=== PATIENT | male | born 1965 | race Caucasian/White ===

== ENCOUNTER → 2019-01-24 16:45 | Outpatient (CLI) | payer OTHER, MEDICAID, SELFPAY ==
--- NOTE | 2019-01-24 16:49 | DI.US.S_ITS ---
PROCEDURE: US PERIPH VENOUS LOW EXTREM BI INDICATIONS: LOCALIZED SWELLING,MASS AND LUMP,LOWER LIMB LEAH TECHNIQUE: Real-time imaging, as well as color and pulse Doppler interrogation, were performed of the deep veins of both legs from the inguinal ligament to the popliteal fossa. COMPARISON: None. FINDINGS: Right: The common femoral, femoral and popliteal veins are normally compressible, and free of intraluminal thrombus. Color and pulse Doppler demonstrate normal phasic intravascular flow. There is normal augmentation response to distal compression maneuver. Left: The common femoral, femoral and popliteal veins are normally compressible, and free of intraluminal thrombus. Color and pulse Doppler demonstrate normal phasic intravascular flow. There is normal augmentation response to distal compression maneuver. Varicose veins can be seen. Superficial thrombosis can be seen within a superficial vein within the right SI. Additional thrombus can be seen within a superficial vein within the left medial calf. This study is limited by body habitus. IMPRESSION: Negative for deep venous thrombosis. Bilateral superficial venous thrombosis is seen, however. Dictated by: Jordan Perez M.D. on 01/24/2019 at 16:58 Approved by: Jordan Perez M.D. on 01/24/2019 at 16:59
== END ==
PROVIDERS: Visit Provider Family Medicine
DX: I82.813 Embolism and thrombosis of superficial veins of lower extremities, bilateral (principal); R22.43 Localized swelling, mass and lump, lower limb, bilateral; M79.89 Other specified soft tissue disorders
CPT/HCPCS: 36415; 80053; 85025; 85379; 85651; 93970

== ENCOUNTER → 2019-01-24 17:25 | Outpatient (CLI) | payer OTHER, MEDICAID, SELFPAY ==
[2019-01-24 18:28] LABS: D Dimer 551 ng/mL (<230)
[2019-01-24 18:31] LABS: Alanine Aminotransferase 20 IU/L (21-72); Albumin 3.9 g/dL (3.5-5.0); Albumin Globulin Ratio 1.2 (1.0-2.8); Alkaline Phosphatase 135 U/L (38-126); Aspartate Aminotransferase 24 IU/L (17-59); BUN Creatinine Ratio 23.8 (6-22); Bilirubin Total 0.6 mg/dL (0.2-1.3); Blood Urea Nitrogen 19 mg/dL (9-20); Calcium 9.1 mg/dL (8.4-10.2); Carbon Dioxide 28 mmol/L (22-32); Chloride 107 mmol/L (98-107); Estimated Glomerular Filt Rate > 60.0 mL/min (>60); Globulin 3.2 g/dL (1.7-4.1); Glucose 86 mg/dL (70-100); HEMOLYSIS < 15 (0-50); Potassium 4.3 mmol/L (3.4-5.1); Sodium 141 mmol/L (137-145); Total Protein 7.1 g/dL (6.3-8.2)
[2019-01-24 18:37] LABS: Add Manual Diff / Slide Review NO; Basophils Absolute Auto 100 /uL (0-100); Basophils Percent Auto 1.1 % (0-2); Eosinophils Absolute Auto 500 /uL (0-450); Hematocrit 43.2 % (41-53); Hemoglobin 14.8 g/dL (13.5-17.5); Lymphocytes Absolute Auto 2300 /uL (1100-4500); Lymphocytes Percent Auto 28.6 % (25-40); Mean Corpuscular HGB Conc 34.3 % (30-36); Mean Corpuscular Hemoglobin 32.4 PG (26-34); Mean Corpuscular Volume 94.5 fL (80-100); Monocytes Absolute Auto 700 /uL (0-900); Monocytes Percent Auto 8.6 % (3-14); Neutrophils Absolute Auto 4500 /uL (1500-7000); Neutrophils Percent Auto 55.7 % (50-75); Platelet Count 209 X10^3/uL (150-400); Red Blood Cell Count 4.57 X10^6/uL (4.5-5.9); Red Cell Distribution Width 12.5 % (11.6-14.8); White Blood Cell Count 8.2 X10^3/uL (4.5-11.0)
[2019-01-24 19:15] LABS: Erythrocyte Sedimentation Rate 12 MM/HR (0-15)
== END ==
PROVIDERS: Visit Provider Family Medicine
DX: M79.89 Other specified soft tissue disorders (principal)
CPT/HCPCS: 36415; 80053; 85025; 85379; 85651

== ENCOUNTER → 2019-03-16 07:38 | Outpatient (CLI) | payer OTHER, MEDICAID, SELFPAY ==
--- NOTE | 2019-03-16 | DI.US.S_ITS ---
PROCEDURE: US [facility] VENOUS LOW EXTREM BI INDICATIONS: RECHECKTHROMBOPHLEBITIS, SUPERFICIAL TECHNIQUE: Real-time imaging, as well as color and pulse Doppler interrogation, were performed of the deep veins of both legs from the inguinal ligament to the popliteal fossa. COMPARISON: [facility], , [facility] VENOUS LOW EXTREM , 01/24/2019, 16:59. FINDINGS: The bilateral common femoral, femoral and popliteal veins are normally compressible, and free of intraluminal thrombus. Color and pulse Doppler demonstrate normal phasic intravascular flow. There is normal augmentation response to distal compression maneuver. Varicose veins are evident bilaterally. There is nonocclusive thrombus evident within the medial aspect of the mid right thigh. This is less prominent on the current study. Nonocclusive thrombus is also present within them made in aspect of the medial left calf which is less prominent on the current study. IMPRESSION: 1. No evidence of deep vein thrombosis of the bilateral lower extremities. 2. Superficial thrombophlebitis involving subcutaneous circumstances within the right thigh and left calf are less prominent and nonocclusive on the current study. Dictated by: Lele Ward M.D. on 03/16/2019 at 9:08 Approved by: Lele Ward M.D. on 03/16/2019 at 9:15
== END ==
PROVIDERS: PCP Student in an Organized Health Care Education/Training Program; Visit Provider Student in an Organized Health Care Education/Training Program
DX: I80.03 Phlebitis and thrombophlebitis of superficial vessels of lower extremities, bilateral (principal)
CPT/HCPCS: 93970

== ENCOUNTER → 2019-05-11 07:53 | Outpatient (CLI) | payer OTHER, MEDICAID, SELFPAY ==
--- NOTE | 2019-05-11 | DI.US.S_ITS ---
PROCEDURE: US PERIP VENOUS LOW EXTREM BI INDICATIONS: SUPERFICIAL THROMBUS BILATERAL TECHNIQUE: Real-time imaging, as well as color and pulse Doppler interrogation, were performed of the deep veins of both legs from the inguinal ligament to the popliteal fossa. COMPARISON: [facility], , [facility] VENOUS LOW EXTREM BI, 03/16/2019, 8:08. FINDINGS: Right: The common femoral, femoral and popliteal veins are normally compressible, and free of intraluminal thrombus. Color and pulse Doppler demonstrate normal phasic intravascular flow. There is normal augmentation response to distal compression maneuver. Superficial thrombophlebitis again visualized within the right lower anterior thigh appearing similar to prior examination. Left: The common femoral, femoral and popliteal veins are normally compressible, and free of intraluminal thrombus. Color and pulse Doppler demonstrate normal phasic intravascular flow. There is normal augmentation response to distal compression maneuver. Superficial thrombophlebitis again visualized within the left medial calf similar to prior examination. IMPRESSION: 1. No deep venous thrombosis identified within either the left or right lower extremities. 2. Bilateral superficial thrombophlebitis similar to prior examination. Dictated by: Jairo Hector [facility] Interpreted: Eusebio La MD on 05/11/2019 at 13:17 Approved by: Eusebio La M.D. on 05/11/2019 at 17:07
== END ==
PROVIDERS: PCP Student in an Organized Health Care Education/Training Program; Visit Provider Student in an Organized Health Care Education/Training Program
DX: I82.813 Embolism and thrombosis of superficial veins of lower extremities, bilateral (principal)
CPT/HCPCS: 85610; 93970

== ENCOUNTER → 2019-08-01 11:38 | Outpatient (CLI) | payer OTHER, MEDICAID, SELFPAY ==
--- NOTE | 2019-08-01 | DI.US.S_ITS ---
PROCEDURE: US PERIP VENOUS LOW EXTREM BI INDICATIONS: RECHECK DVT TECHNIQUE: Real-time imaging, as well as color and pulse Doppler interrogation, were performed of the deep veins of both legs from the inguinal ligament to the popliteal fossa. COMPARISON: [facility], , [facility] VENOUS LOW EXTREM BI, 05/11/2019, 8:34. FINDINGS: Right: The common femoral, femoral and popliteal veins are normally compressible, and free of intraluminal thrombus. Color and pulse Doppler demonstrate normal phasic intravascular flow. There is normal augmentation response to distal compression maneuver. Superficial thrombophlebitis noted noted within the posterior right thigh soft tissues. Left: The common femoral, femoral and popliteal veins are normally compressible, and free of intraluminal thrombus. Color and pulse Doppler demonstrate normal phasic intravascular flow. There is normal augmentation response to distal compression maneuver. Minimal residual thrombus within the greater saphenous vein which is nonocclusive. IMPRESSION: 1. No deep venous thrombosis identified within either the left or right lower extremities. 2. Residual nonocclusive thrombus within the left greater saphenous vein. 3. Superficial thrombophlebitis involving the right posterior thigh. Dictated by: Jairo Hector [facility] Interpreted: Gris Jacques MD on 08/01/2019 at 14:20 Approved by: Gris Jacques MD, PhD on 08/01/2019 at 14:27
== END ==
PROVIDERS: PCP Student in an Organized Health Care Education/Training Program; Referring Provider Student in an Organized Health Care Education/Training Program; Visit Provider Student in an Organized Health Care Education/Training Program
DX: I82.812 Embolism and thrombosis of superficial veins of left lower extremity (principal)
CPT/HCPCS: 93970

== ENCOUNTER → 2019-08-02 13:29 | Outpatient (ROUT) | payer OTHER, MEDICAID, SELFPAY | PROVIDERS: PCP Student in an Organized Health Care Education/Training Program; Visit Provider Student in an Organized Health Care Education/Training Program | DX: I80.00 Phlebitis and thrombophlebitis of superficial vessels of unspecified lower extremity (principal) | CPT/HCPCS: 85610 ==

== ENCOUNTER → 2019-09-12 12:56 | Outpatient (ROUT) | payer OTHER, MEDICAID, SELFPAY ==
[2019-09-12 13:56] LABS: Prothrombin Time 12.1 SECONDS (10.1-12.7)
== END ==
PROVIDERS: PCP Student in an Organized Health Care Education/Training Program; Visit Provider Student in an Organized Health Care Education/Training Program
DX: D68.51 Activated protein C resistance (principal)
CPT/HCPCS: 85610

== ENCOUNTER → 2019-09-23 11:34 | Outpatient (ROUT) | payer OTHER, MEDICAID, SELFPAY ==
[2019-09-23 11:42] LABS: Prothrombin Time 11.5 SECONDS (10.1-12.7)
== END ==
PROVIDERS: PCP Student in an Organized Health Care Education/Training Program; Visit Provider Student in an Organized Health Care Education/Training Program
DX: D68.51 Activated protein C resistance (principal)
CPT/HCPCS: 85610

== ENCOUNTER → 2019-09-26 10:27 | Outpatient (ROUT) | payer OTHER, MEDICAID, SELFPAY ==
[2019-09-26 11:14] LABS: Prothrombin Time 11.8 SECONDS (10.1-12.7)
== END ==
PROVIDERS: PCP Student in an Organized Health Care Education/Training Program; Visit Provider Student in an Organized Health Care Education/Training Program
DX: D68.51 Activated protein C resistance (principal)
CPT/HCPCS: 85610

== ENCOUNTER → 2019-10-03 11:04 | Outpatient (ROUT) | payer OTHER, MEDICAID, SELFPAY | PROVIDERS: PCP Student in an Organized Health Care Education/Training Program; Visit Provider Student in an Organized Health Care Education/Training Program | DX: D68.51 Activated protein C resistance (principal) | CPT/HCPCS: 85610 ==

== ENCOUNTER → 2019-10-10 10:57 | Outpatient (ROUT) | payer OTHER, MEDICAID, SELFPAY ==
[2019-10-10 11:26] LABS: INR 1.2 (0.9-1.3); Prothrombin Time 13.9 SECONDS (10.1-12.7)
== END ==
PROVIDERS: PCP Student in an Organized Health Care Education/Training Program; Visit Provider Student in an Organized Health Care Education/Training Program
DX: D68.51 Activated protein C resistance (principal)
CPT/HCPCS: 85610

== ENCOUNTER 2019-10-10 18:37 | Emergency (ER) | payer OTHER, MEDICAID, SELFPAY ==
[2019-10-10 18:47] VITALS: BP 174/107; PULSE 66; RESP 22; TEMP 36.5; O2SAT 97
--- NOTE | 2019-10-10 19:22 | DI.US.S_ITS ---
PROCEDURE: US PERIP VENOUS LOW EXTREM LT INDICATIONS: PAIN; HX DVT TECHNIQUE: Real-time imaging, as well as color and pulse Doppler interrogation, were performed of the lower extremity deep veins from the inguinal ligament to the popliteal fossa. COMPARISON: [facility], [facility] VENOUS LOW EXTREM BI, 05/11/2019, 8:34. [facility], [facility] VENOUS LOW EXTREM BI, 08/01/2019, 12:36. FINDINGS: The common femoral, femoral and popliteal veins are normally compressible, and free of intraluminal thrombus. Color and pulse Doppler demonstrate normal phasic intraluminal flow. There is normal augmentation response to distal compression maneuver. Superficial thrombophlebitis involving the left medial calf vein. This is seen in the area of pain and grossly unchanged IMPRESSION: No evidence of deep venous thrombosis. Unchanged left calf superficial thrombophlebitis Dictated by: Eusebio La M.D. on 10/10/2019 at 20:34 Approved by: Eusebio La M.D. on 10/10/2019 at 20:35
--- NOTE | 2019-10-10 23:50 | ED_ITS ---
HPI - Extremity Problem General Chief complaint: Extremity Problem,Nontraumatic Stated complaint: Blood clot, pain Time Seen by Provider: 10/10/19 19:22 Source: patient Mode of arrival: Ambulatory Limitations: no limitations History of Present Illness HPI Narrative: 53M former smoker with history of DVT and superficial thrombophlebitis of Left calf (on coumadin) presents with recurrence of pain on left lower leg. He has a known superficial thrombophlebitis in this leg and is currently taking Coumadin and Lovenox. His most recent INR was a bit low at 1.2 and the dose has been altered. He was sent here for evaluation recurrence of pain. He denies any injury nor fever or chills. He denies dizziness, weakness or lightheadedness. He denies any chest pain or shortness of breath. He denies any numbness, tingling. He states he has had multiple occurrences of cellulitis in the past and very certainly states this is not what is causing his pain. He is here because his primary sent him for a repeat ultrasound for clot MD Complaint: extremity pain Onset (ago): day(s) Pain Consistency: constant Location: left Quality: burning and aching Radiation: none Relieving factors: nothing Exacerbating factors: nothing Associated symptoms: denies other symptoms Context: history of DVT Related Data Home Medications Medication Instructions Recorded Confirmed amlodipine [Norvasc] #0 01/28/16 Previous Rx's Medication Instructions Recorded ciprofloxacin HCl [Cipro] 500 mg PO BID #20 tab 01/29/16 Review of Systems Constitutional Constitutional: Denies chills, Denies fatigue, Denies fever(s), Denies frequent falls, Denies lethargy and Denies weakness Eyes Eyes: Denies change in vision, Denies eye discharge, Denies irritation and Denies loss of vision ENT Ears, Nose, Mouth, and Throat: Denies change in voice, Denies dizziness, Denies neck pain, Denies sore throat and Denies throat swelling Cardiovascular Cardiovascular: Denies chest pain, Denies irregular heart rhythm, Denies lightheadedness, Denies palpitations, Denies dyspnea, Denies dyspnea on exertion and Denies orthopnea Respiratory Respiratory: Denies cough, Denies dyspnea, Denies dyspnea on exertion and Denies wheezing Gastrointestinal Gastrointestinal: Denies abdominal pain, Denies change in bowel habits, Denies diarrhea, Denies nausea and Denies vomiting Genitourinary Genitourinary: Denies hematuria, Denies flank pain, Denies urinary incontinence and Denies urinary urgency Musculoskeletal Musculoskeletal: Denies back pain, Denies muscle weakness, Denies neck pain, Denies numbness and Denies tingling Integumentary/Breasts Skin/Breast: Denies pruritus, Reports erythema, Denies rash, Reports skin pain, Reports skin swelling and Denies wounds Neurologic Neurologic: Denies behavioral changes, Denies confusion, Denies dizziness, Denies frequent falls, Denies loss of vision, Denies numbness, Denies tingling and Denies weakness Psychiatric Psychiatric: Denies anxiety, Denies behavioral changes, Denies confusion, Denies depression, Denies homicidal ideation and Denies suicidal ideation Endocrine Endocrine: Denies fatigue, Denies flushing and Denies palpitations Hematologic/Lymphatic Hematologic/Lymphatic: Denies easy bruising Allergic/Immunologic Allergic/Immunologic: Denies urticaria, Denies throat swelling and Denies wheezing Patient History alcohol intake frequency: 0-2 drinks per day Exam Narrative Exam Narrative: GEN: AOx3 and in mild distress EYES: Pupils are equal, round, and reactive to light and accommodation. Extraoccular muscles are intact bilaterally. There is no subconjunctival hemorrhage or exudate. CHEST: Lungs are clear to auscultation bilaterally and free of wheezes, rales, or rhonchi. Heart rate is regular rhythm, there are no murmurs, clicks, rubs, or gallops. There is no chest wall tenderness. ABD: Abdomen is soft and nontender. There is no guarding or rebound. Bowel sounds are normal in all 4 quadrants. There is no mass or organomegaly. EXT: Full painless ROM of all extremities with no loss of sensation or strength. No calf pain or swelling, minimal warmth to a anterior lower left leg SKIN: Warm, pink, and dry. No erythema or rash Initial Vital Signs Initial Vital Signs: Vital Signs Temperature 97.7 F 10/10/19 18:47 Pulse Rate 66 10/10/19 18:47 Respiratory Rate 22 10/10/19 18:47 Blood Pressure 174/107 H 10/10/19 18:47 Pulse Oximetry 97 10/10/19 18:47 Course Orders Ordered: ED Orders 10/10/19 19:22 US periph venous low extrem lt Stat Vital Signs Vital signs: Vital Signs - 8 hr 10/10/19 18:47 Temperature 97.7 F Pulse Rate 66 Respiratory Rate 22 Blood Pressure 174/107 H Pulse Oximetry 97 MDM - Extremity (Nontraumatic) Imaging Data US - DVT: Radiologist's Impression: Sj Tran 53 M [address] [address] Ultrasound Report Signed Patient: Sj Tran GMR#: [id number] : 1965Acct:[id number] Age/Sex: 53 / MDate of Service: 10/10/19 Loc: ED Accession Number: [id number] Procedure: perip venous low extrem lt Ordering Provider: Al Spencer D.O. PROCEDURE: US PERIP VENOUS LOW EXTREM LT INDICATIONS: PAIN; HX DVT TECHNIQUE: Real-time imaging, as well as color and pulse Doppler interrogation, were performed of the lower extremity deep veins from the inguinal ligament to the popliteal fossa. COMPARISON: [facility] VENOUS LOW EXTREM BI, 05/11/2019, 8:34. [facility] PERIP VENOUS LOW EXTREM BI, 08/01/2019, 12:36. FINDINGS: The common femoral, femoral and popliteal veins are normally compressible, and free of intraluminal thrombus. Color and pulse Doppler demonstrate normal phasic intraluminal flow. There is normal augmentation response to distal compression maneuver. Superficial thrombophlebitis involving the left medial calf vein. This is seen in the area of pain and grossly unchanged IMPRESSION: No evidence of deep venous thrombosis. Unchanged left calf superficial thrombophlebitis Dictated by: Eusebio La M.D. on 10/10/2019 at 20:34 Approved by: Eusebio La M.D. 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 We also discussed the possibility of an early cellulitis but patient refused to consider taking antibiotics stating this is not cellulitis he has had it multiple times but if it worsens he states he would surely return. He has been given return precautions and has had questions answered to his apparent satisfaction Discharge Plan Departure Patient Disposition: Home Clinical Impression: Thrombophlebitis Discharge Date/Time: 10/10/19 21:04 Instructions: DI for Superficial Thrombophlebitis Activity Restrictions/Additional Instructions: *You have been diagnosed with [no change in left calf superficial thrombophlebitis] *What to do: * continue to take medications as directed *Follow up with your primary care provider in 2-3 days, call for an appointment. Let them know you were seen in the Emergency Department and that we ask that you be seen in follow up *Return to ER if you should have any new, worsening or concerning symptoms, such as [fever, chills, nausea, vomiting or other bothersome symptoms] Prescriptions: No Action amlodipine [Norvasc] 2.5 mg tablet Qty: 0 RF: 0 ciprofloxacin HCl [Cipro] 500 MG tablet 500 mg PO BID Qty: 20 RF: 0 Referrals: Maranda Alvarenga MD [Primary Care Provider] -
== END 2019-10-10 21:04 | disposition home or self-care (01) ==
PROVIDERS: Emergency Provider Emergency Medicine; PCP Student in an Organized Health Care Education/Training Program
DX: I80.3 Phlebitis and thrombophlebitis of lower extremities, unspecified (principal); Z79.01 Long term (current) use of anticoagulants; D68.51 Activated protein C resistance
CPT/HCPCS: 85610; 93971; 99281; 99283

== ENCOUNTER → 2019-10-17 16:16 | Outpatient (ROUT) | payer OTHER, MEDICAID, SELFPAY ==
[2019-10-17 17:00] LABS: INR 1.4 (0.9-1.3); Prothrombin Time 16.1 SECONDS (10.1-12.7)
== END ==
PROVIDERS: PCP Student in an Organized Health Care Education/Training Program; Visit Provider Student in an Organized Health Care Education/Training Program
DX: D68.51 Activated protein C resistance (principal)
CPT/HCPCS: 85610

== ENCOUNTER → 2019-10-24 12:26 | Outpatient (ROUT) | payer OTHER, MEDICAID, SELFPAY ==
[2019-10-24 12:37] LABS: INR 1.7 (0.9-1.3)
== END ==
PROVIDERS: PCP Student in an Organized Health Care Education/Training Program; Visit Provider Student in an Organized Health Care Education/Training Program
DX: D68.51 Activated protein C resistance (principal)
CPT/HCPCS: 85610

== ENCOUNTER → 2019-10-31 12:21 | Outpatient (ROUT) | payer OTHER, MEDICAID, SELFPAY ==
[2019-10-31 12:57] LABS: INR 2.8 (0.9-1.3); Prothrombin Time 31.8 SECONDS (10.1-12.7)
== END ==
PROVIDERS: PCP Student in an Organized Health Care Education/Training Program; Visit Provider Student in an Organized Health Care Education/Training Program
DX: D68.51 Activated protein C resistance (principal)
CPT/HCPCS: 85610

== ENCOUNTER → 2019-11-07 10:48 | Outpatient (ROUT) | payer OTHER, MEDICAID, SELFPAY ==
[2019-11-07 11:53] LABS: INR 3.4 (0.9-1.3); Prothrombin Time 39.3 SECONDS (10.1-12.7)
== END ==
PROVIDERS: PCP Student in an Organized Health Care Education/Training Program; Visit Provider Student in an Organized Health Care Education/Training Program
DX: D68.51 Activated protein C resistance (principal)
CPT/HCPCS: 85610

== ENCOUNTER → 2019-11-15 12:13 | Outpatient (ROUT) | payer OTHER, MEDICAID, SELFPAY ==
[2019-11-15 12:29] LABS: INR 1.9 (0.9-1.3); Prothrombin Time 22.2 SECONDS (10.1-12.7)
== END ==
PROVIDERS: PCP Student in an Organized Health Care Education/Training Program; Visit Provider Student in an Organized Health Care Education/Training Program
DX: D68.51 Activated protein C resistance (principal)
CPT/HCPCS: 85610

== ENCOUNTER → 2019-11-18 09:44 | Outpatient (ROUT) | payer OTHER, MEDICAID, SELFPAY ==
[2019-11-18 09:51] LABS: INR 2.6 (0.9-1.3); Prothrombin Time 29.7 SECONDS (10.1-12.7)
== END ==
PROVIDERS: PCP Student in an Organized Health Care Education/Training Program; Visit Provider Student in an Organized Health Care Education/Training Program
DX: D68.51 Activated protein C resistance (principal)
CPT/HCPCS: 85610

== ENCOUNTER → 2019-11-22 11:44 | Outpatient (ROUT) | payer OTHER, MEDICAID, SELFPAY ==
[2019-11-22 11:59] LABS: INR 2.9 (0.9-1.3); Prothrombin Time 32.7 SECONDS (10.1-12.7)
== END ==
PROVIDERS: PCP Student in an Organized Health Care Education/Training Program; Visit Provider Student in an Organized Health Care Education/Training Program
DX: D68.51 Activated protein C resistance (principal)
CPT/HCPCS: 85610

== ENCOUNTER → 2019-12-06 12:39 | Outpatient (ROUT) | payer OTHER, MEDICAID, SELFPAY ==
[2019-12-06 13:26] LABS: Prothrombin Time 55.6 SECONDS (10.1-12.7)
[2019-12-06 13:34] LABS: INR 4.9 (0.9-1.3)
== END ==
PROVIDERS: PCP Student in an Organized Health Care Education/Training Program; Visit Provider Student in an Organized Health Care Education/Training Program
DX: D68.51 Activated protein C resistance (principal)
CPT/HCPCS: 85610

== ENCOUNTER → 2019-12-09 10:37 | Outpatient (ROUT) | payer OTHER, MEDICAID, SELFPAY ==
[2019-12-09 10:46] LABS: INR 1.8 (0.9-1.3)
== END ==
PROVIDERS: PCP Student in an Organized Health Care Education/Training Program; Visit Provider Student in an Organized Health Care Education/Training Program
DX: D68.51 Activated protein C resistance (principal)
CPT/HCPCS: 85610

== ENCOUNTER → 2020-01-11 14:56 | Outpatient (ROUT) | payer OTHER, MEDICAID, SELFPAY ==
[2020-01-11 15:03] LABS: Prothrombin Time 34.2 SECONDS (10.1-12.7)
== END ==
PROVIDERS: PCP Student in an Organized Health Care Education/Training Program; Visit Provider Student in an Organized Health Care Education/Training Program
DX: D68.51 Activated protein C resistance (principal)
CPT/HCPCS: 85610

== ENCOUNTER → 2020-02-07 11:12 | Outpatient (ROUT) | payer OTHER, MEDICAID, SELFPAY ==
[2020-02-07 11:29] LABS: INR 2.1 (0.9-1.3); Prothrombin Time 23.8 SECONDS (10.1-12.7)
== END ==
PROVIDERS: PCP Student in an Organized Health Care Education/Training Program; Visit Provider Student in an Organized Health Care Education/Training Program
DX: D68.51 Activated protein C resistance (principal)
CPT/HCPCS: 85610

== ENCOUNTER → 2020-03-01 10:12 | Outpatient (ROUT) | payer OTHER, MEDICAID, SELFPAY ==
[2020-03-01 10:18] LABS: Prothrombin Time 22.5 SECONDS (10.1-12.7)
== END ==
PROVIDERS: PCP Student in an Organized Health Care Education/Training Program; Visit Provider Student in an Organized Health Care Education/Training Program
DX: D68.51 Activated protein C resistance (principal)
CPT/HCPCS: 85610

== ENCOUNTER → 2020-04-03 13:45 | Outpatient (ROUT) | payer OTHER, MEDICAID, SELFPAY ==
[2020-04-03 13:52] LABS: INR 2.5 (0.9-1.3); Prothrombin Time 28.8 SECONDS (10.1-12.7)
== END ==
PROVIDERS: PCP Student in an Organized Health Care Education/Training Program; Visit Provider Student in an Organized Health Care Education/Training Program
DX: D68.51 Activated protein C resistance (principal)
CPT/HCPCS: 85610

== ENCOUNTER 2020-04-09 12:14 | Emergency (ER) | payer OTHER, MEDICAID, SELFPAY ==
[2020-04-09] VITALS (23 sets, daily range): BP systolic 188–249; BP diastolic 88–128; PULSE 43–71; RESP 14–34; TEMP 36.4; O2SAT 84–100; BMI 53.6
--- NOTE | 2020-04-09 13:01 | ED_ITS ---
HPI - General Adult General Chief complaint: Hypertension Stated complaint: blood pressure too high Time Seen by Provider: 04/09/20 12:28 Source: patient Mode of arrival: Ambulatory Limitations: no limitations History of Present Illness HPI narrative: Patient is a 54-year-old male sent over by his primary doctor's o ffice for evaluation of hypertension and bradycardia. Patient went to his primary doctor's office today because he states for the past 7-10 days he has just felt ?disconnected ?in his head. He denies any other associated symptoms. He does have a history of hypertension. Has not taken his lisinopril 3 days ago because he ran out of the medicine. 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 He states that he has never had blood clots in his lungs have only been ?superficial ?in his legs. Has not tried anything for symptoms. He did take his Coumadin this morning. Related Data Home Medications Medication Instructions Recorded Confirmed Tylenol Extra Strength 1,000 mg PO QID PRN 04/09/20 04/09/20 lisinopril 20 mg PO QAM 04/09/20 04/09/20 warfarin 12 mg PO DAILY 04/09/20 04/09/20 warfarin 12 mg PO QAM 04/09/20 04/09/20 Allergies Allergy/AdvReac Type Severity Reaction Status Date / Time No Known Drug Allergies Allergy Verified 04/09/20 12:23 Review of Systems Constitutional Constitutional: Denies daytime sleepiness, Denies difficulty sleeping, Reports fatigue, Denies fever(s), Denies headache(s) and Reports malaise Eyes Eyes: Denies blurry vision and Denies diplopia ENT Ears, Nose, Mouth, and Throat: Denies vertigo, Denies dizziness, Denies headache(s), Denies neck pain and Denies disequilibrium Cardiovascular Cardiovascular: Denies chest pain, Denies syncope, Denies rapid heart rate and Denies dyspnea Respiratory Respiratory: Denies cough and Denies dyspnea Gastrointestinal Gastrointestinal: Denies abdominal pain, Denies change in bowel habits, Denies nausea and Denies vomiting Genitourinary Genitourinary: Denies dysuria Genitourinary: Denies dysuria Musculoskeletal Musculoskeletal: Denies arthralgias, Denies myalgias, Denies neck pain and Denies tingling Integumentary/Breasts Skin/Breast: Denies lesions and Denies rash Neurologic Neurologic: Denies abnormal movements, Denies abnormal speech, Denies confusion, Denies vertigo, Denies dizziness, Denies syncope, Denies headache(s), Denies tingling and Denies disequilibrium Psychiatric Psychiatric: Denies confusion Endocrine Endocrine: Reports fatigue Hematologic/Lymphatic Comments: On warfarin Allergic/Immunologic Allergic/Immunologic: Denies urticaria Patient History Medical History Febrile illness, acute (Inactive) TIA (transient ischemic attack) (Inactive) UTI (urinary tract infection) (Inactive) Social History Smoking Status: Never smoker Smoking Status: Never smoker alcohol intake frequency: 3 or more drinks per day Substance Use Type: marijuana Exam Initial Vital Signs Initial Vital Signs: Vital Signs Temperature 97.5 F L 04/09/20 12:16 Pulse Rate 62 04/09/20 12:16 Respiratory Rate 15 04/09/20 12:16 Blood Pressure 208/128 H 04/09/20 12:16 Pulse Oximetry 100 04/09/20 12:16 Const General: cooperative, comfortable, well developed, well groomed and No acute distress Limitations: mental status not altered HENRI Head: normal to inspection and normocephalic Eyes General: appearance normal, both eyes and all related structures Pupils: PERRL Chest Chest: No crepitus and No tenderness Resp Effort & Inspection: normal respiratory effort Auscultation: clear to auscultation bilaterally Cardio Rate: bradycardic Rhythm: regular rhythm Pulses: radial pulses present GI Inspection: non-distended Palpation: soft and No firm Back/Spine/Pelvis Cervical Spine: No cervical spinal tenderness Skin Lesions: no lesions Rashes: no rashes Neuro General: patient alert, patient awake and patient oriented x3 Cranial Nerves: CN's II-XI intact bilaterally Cognition: normal cognition Speech: speech normal Sensory Exam: no sensory deficits noted Extrem General: normal to inspection and capillary refill normal Psych Appearance: grossly normal and well kempt Scores GCS Isaiah coma scale eye opening: Spontaneous Mason coma scale verbal response: Orientated Mason coma scale motor response: Obey commands Mason coma scale total score: 15 Course Orders Ordered: ED Orders 04/09/20 12:30 EKG-12 Lead Stat 04/09/20 13:00 Complete Blood Count AUTO DIFF Stat Comprehensive Metabolic Panel Stat Lipase Stat Partial Thromboplastin Time Stat Prothrombin Time INR Stat Troponin & CK Cardiac Panel Stat 04/09/20 13:01 CT head/brain wo con Stat 04/09/20 14:09 CT angio head and neck Stat 04/09/20 14:33 COVID19 -ED/INPAT/OR/L&D Stat Nicardipine HCl 25 mg/ Sodium (Chloride) 250 mls @ 50 mls/hr IV TITRATE NUPUR; Protocol Last Titration: 04/09/20 14:43 Dose: 7.5 mg/hr, 75 mls/hr Documented by: Admin: 04/09/20 13:45 Dose: 5 mg/hr, 50 mls/hr Documented by: SYEDA Discontinued Medications Phytonadione 10 mg/ Dextrose 51 mls @ 102 mls/hr IV NOW ONE Stop: 04/09/20 13:40 Last Infusion: 04/09/20 14:53 Dose: 0 mls/hr Documented by: Admin: 04/09/20 14:06 Dose: 102 mls/hr Documented by: GAY Lisinopril (Zestril) 20 mg PO NOW ONE Stop: 04/09/20 13:02 Last Admin: 04/09/20 13:09 Dose: 20 mg Documented by: GAY Vital Signs Vital signs: Vital Signs - 8 hr 04/09/20 12:16 04/09/20 12:31 04/09/20 12:45 Temperature 97.5 F L Pulse Rate 62 43 L 44 L Respiratory Rate 15 21 23 Blood Pressure 208/128 H 214/102 H Pulse Oximetry 100 100 99 04/09/20 12:46 04/09/20 13:00 04/09/20 13:01 Temperature Pulse Rate 43 L 47 L 53 L Respiratory Rate 24 23 34 H Blood Pressure 231/100 H 231/91 H Pulse Oximetry 99 99 99 04/09/20 13:09 04/09/20 13:19 04/09/20 13:21 Temperature Pulse Rate 54 L 44 L Respiratory Rate 20 Blood Pressure 231/91 H 224/97 H Pulse Oximetry 84 L 99 04/09/20 13:30 04/09/20 13:31 04/09/20 13:45 Temperature Pulse Rate 44 L 44 L 45 L Respiratory Rate 18 17 19 Blood Pressure 215/100 H 213/95 H Pulse Oximetry 98 99 99 04/09/20 14:00 04/09/20 14:02 04/09/20 14:15 Temperature Pulse Rate 58 L 60 67 Respiratory Rate 23 20 Blood Pressure 220/111 H Pulse Oximetry 98 99 04/09/20 14:28 04/09/20 14:30 04/09/20 14:42 Temperature Pulse Rate 60 67 60 Respiratory Rate 16 14 20 Blood Pressure 188/88 H 249/115 H 217/106 H Pulse Oximetry 98 98 97 04/09/20 14:45 04/09/20 14:50 04/09/20 14:55 Temperature Pulse Rate 60 68 71 Respiratory Rate 16 34 H 22 Blood Pressure 211/113 H 209/99 H 204/95 H Pulse Oximetry 97 98 96 04/09/20 15:00 04/09/20 15:05 Temperature Pulse Rate 64 63 Respiratory Rate 18 16 Blood Pressure 199/94 H 196/95 H Pulse Oximetry 96 98 Medical Decision Making Lab Data Lab results reviewed: Yes I reviewed the patient's lab results. Result diagrams: 04/09/20 13:00 04/09/20 13:00 Labs: Lab Results 04/09/20 04/09/20 04/09/20 Range/Units 13:00 13:00 13:00 WBC 8.1 (4.5-11.0) X10^3/uL RBC 4.14 L (4.5-5.9) X10^6/uL Hgb 13.9 (13.5-17.5) g/dL Hct 40.4 L (41-53) % MCV 97.5 (80-100) fL MCH 33.7 (26-34) PG MCHC 34.5 (30-36) % RDW 13.2 (11.6-14.8) % Plt Count 193 (150-400) X10^3/uL Neut % (Auto) 65.4 (50-75) % Lymph % (Auto) 22.8 L (25-40) % [place] % (Auto) 8.3 (3-14) % Eos % (Auto) 2.7 (2-4) % Baso % (Auto) 0.8 (0-2) % Neut # (Auto) 5300 (7347-3481) /uL Lymph # (Auto) 1900 (0199-2296) /uL [place] # (Auto) 700 (0-900) /uL Eos # (Auto) 200 (0-450) /uL Baso # (Auto) 100 (0-100) /uL PT 16.8 H D (10.1-12.7) SECONDS INR 1.5 H (0.9-1.3) APTT 32 (26.4-36.2) SECONDS Sodium 140 (137-145) mmol/L Potassium 4.4 (3.4-5.1) mmol/L Chloride 105 (98-107) mmol/L Carbon Dioxide 32 (22-32) mmol/L BUN 18 (9-20) mg/dL Creatinine 0.76 (0.66-1.25) mg/dL Estimated GFR > 60.0 (>60) mL/min BUN/Creatinine Ratio 23.7 H (6-22) Glucose 94 (70-100) mg/dL Calcium 8.9 (8.4-10.2) mg/dL Total Bilirubin 0.7 (0.2-1.3) mg/dL AST 31 (17-59) IU/L ALT 20 (<50) IU/L Alkaline Phosphatase 118 (38-126) U/L Total Creatine Kinase 181 H (55-170) U/L CK-MB (CK-2) 1.70 (<2.37) ng/mL CK-MB (CK-2) Rel Index 0.9 L (1.5-5.0) % Troponin I < 0.012 (0.01-0.034) ng/mL Total Protein 7.4 (6.3-8.2) g/dL Albumin 4.0 (3.5-5.0) g/dL Globulin 3.4 (1.7-4.1) g/dL Albumin/Globulin Ratio 1.2 (1.0-2.8) Lipase 80 (23-300) U/L COVID-19 PCR (Negative) 04/09/20 Range/Units 14:33 WBC (4.5-11.0) X10^3/uL RBC (4.5-5.9) X10^6/uL Hgb (13.5-17.5) g/dL Hct (41-53) % MCV (80-100) fL MCH (26-34) PG MCHC (30-36) % RDW (11.6-14.8) % Plt Count (150-400) X10^3/uL Neut % (Auto) (50-75) % Lymph % (Auto) (25-40) % [place] % (Auto) (3-14) % Eos % (Auto) (2-4) % Baso % (Auto) (0-2) % Neut # (Auto) (1234-3756) /uL Lymph # (Auto) (8835-9056) /uL [place] # (Auto) (0-900) /uL Eos # (Auto) (0-450) /uL Baso # (Auto) (0-100) /uL PT (10.1-12.7) SECONDS INR (0.9-1.3) APTT (26.4-36.2) SECONDS Sodium (137-145) mmol/L Potassium (3.4-5.1) mmol/L Chloride (98-107) mmol/L Carbon Dioxide (22-32) mmol/L BUN (9-20) mg/dL Creatinine (0.66-1.25) mg/dL Estimated GFR (>60) mL/min BUN/Creatinine Ratio (6-22) Glucose (70-100) mg/dL Calcium (8.4-10.2) mg/dL Total Bilirubin (0.2-1.3) mg/dL AST (17-59) IU/L ALT (<50) IU/L Alkaline Phosphatase (38-126) U/L Total Creatine Kinase (55-170) U/L CK-MB (CK-2) (<2.37) ng/mL CK-MB (CK-2) Rel Index (1.5-5.0) % Troponin I (0.01-0.034) ng/mL Total Protein (6.3-8.2) g/dL Albumin (3.5-5.0) g/dL Globulin (1.7-4.1) g/dL Albumin/Globulin Ratio (1.0-2.8) Lipase (23-300) U/L COVID-19 PCR Negative (Negative) Imaging Data CT scan - head: Radiologist's Impression: [address] [address] [address] Scan Report Signed Patient: Sj Tran GMR#: [id number] : 1965Acct:[id number] Age/Sex: 54 / MDate of Service: 04/09/20 Loc: ED Accession Number: [id number] Procedure: CT head/brain wo con Ordering Provider: Brian Zapata D.O. PROCEDURE: CT HEAD/BRAIN WO CON INDICATIONS: On Coumadin, history of benign brain tumor, lightheaded TECHNIQUE: Noncontrast 4.5 mm thick angled axial sections acquired from the foramen magnum to the vertex, with coronal and sagittal reformats. For radiation dose reduction, the following was used: automated exposure control, adjustment of mA and/or kV according to patient size. COMPARISON: None. FINDINGS: Image quality: Excellent. CSF spaces: Basal cisterns are patent. No extra-axial fluid collections. The ventricles are symmetric in size and shape. Brain: There is previous right frontal parietal craniotomy with underlying encephalomalacia in right frontal parietal lobe. Ill-defined area of hyperdensity involving left basal ganglia is seen suggestive of acute hemorrhage in this area. No other area of intracranial bleed.. There is cerebral volume loss for age, with resultant ventricular and sulcal prominence. There are periventricular and deep white matter chronic small vessel ischemic changes. There is intracranial internal carotid artery atherosclerosis. Skull and face: Calvarium and visualized facial bones appear intact, without suspicious lesions. Sinuses: Visualized sinuses and mastoids are clear. IMPRESSION: 1. Finding is suggestive of acute hemorrhage involving left basal ganglia. 2. Prior right frontal parietal craniotomy with underlying encephalomalacia. 3. No midline shift. No other area of intracranial bleed. Findings were reported to Dr. Zapata in the ER at 1:35 p.m. PST 04/09/2020. Dictated by: Shan Schmidt M.D. on 04/09/2020 at 12:32 Approved by: Shan Schmidt M.D. on 04/09/2020 at 12:36 CTA - brain/neck: Radiologist's Impression: [address] [address] [address] Scan Report Signed Patient: Sj Tran GMR#: [id number] : 1965Acct:[id number] Age/Sex: 54 / MDate of Service: 04/09/20 Loc: ED Accession Number: [id number] Procedure: CT angio head and neck Ordering Provider: Brian Zapata D.O. PROCEDURE: CT ANGIO HEAD AND NECK INDICATIONS: head bleed TECHNIQUE: Pre-contrast 4.5 mm thick sections acquired from the foramen magnum to the vertex. After the administration of intravenous contrast, 1 mm thick sections acquired from the aortic arch through the [place] of [place]. Post-contrast 4.5 mm thick sections then re- acquired from the foramen magnum to the vertex. 3-dimensional zqehodh-moktxbsdh-gipgkxmbtq (MIP) and/or volume rendering reformats were acquired of the central intracranial vasculature and neck separately. COMPARISON: [facility], CT, CT HEAD/BRAIN WO CON, 04/09/2020, 13:14. FINDINGS: Image quality: Excellent. BRAIN: CSF spaces: Ventricles are normal in size and shape. Basal cisterns are patent. No extra-axial fluid collections. Brain: No midline shift. No new or increased intracranial bleeds or masses. The small left deep white matter lentiform nucleus hemorrhage identified earlier same day is again noted. This measures only approximately 1.5 cm in maximal dimension, without significant mass effect. Shah-white matter interface appears intact except deep to a craniotomy site on the right in the frontal region where focal encephalomalacia appears present on the right laterally, with earlier preoperative brain MRI or head CT scanning not available for review.. Skull and face: Calvarium and facial bones appear intact, without suspicious lesions. Orbits appear normal. Sinuses: Sinuses and mastoids are clear. HEAD CT ANGIOGRAPHY: Anterior circulation: Intracranial internal carotid arteries are normal in size and flow. The flow within the paired anterior cerebral arteries is normal and symmetric. The flow within the middle cerebral arteries is normal and symmetric. The anterior communicating artery is seen. No aneurysms are seen. Posterior circulation: Visualized portions of the vertebral arteries demonstrate normal caliber, and join to form a normal appearing basilar artery. Flow within the posterior cerebral arteries is normal and symmetric. No aneurysms are seen. NECK CT ANGIOGRAPHY: Carotid system: The great vessels demonstrate a conventional anatomy as they arise from the aortic arch. The origins of the common carotid arteries appear patent. The common carotid arteries demonstrate normal caliber and courses. The bifurcation regions are both widely patent. The internal carotid arteries demonstrate normal calibers and courses. Posterior circulation: The origins of the vertebral arteries both appear widely patent. The more superior extracranial portions of both vertebral arteries also demonstrate normal courses and calibers. They join to form a normal appearing basilar artery. Soft tissues: Visualized neck soft tissues demonstrate no suspicious abnormalities. Bones: No suspicious bony lesions. Visualized cervical spine appears normally aligned. IMPRESSION: Isolated left lentiform nucleus hemorrhage, without mass effect. Statistically this likely represents a manifestation of microvascular atherosclerotic disease or hypertensive bleed. Prior right craniotomy in the frontal region, adjacent brain cortex low-attenua tion as discussed earlier same day on CT scanning of the head. This area measures only approximately 2.2 cm in diameter, and is consistent with encephalomalacia. Brain MRI without and with contrast could more accurately assess this area if clinically indicated. Any quantitative measurements of stenosis were performed using NASCET criteria. Dictated by: Pastor Hart M.D. on 04/09/2020 at 14:46 Approved by: Pastor Hart M.D. on 04/09/2020 at 14:53 ECG Data Attestation: I personally reviewed and interpreted this ECG as follows: Prior ECG tracings: not available for review Interpretation: Sinus bradycardia Ventricular rate of 46 Occasional PVC Normal QRS Normal QTC No ST T wave changes MDM Narrative Medical decision making narrative: Patient arrived hypertensive. He was given his normal dose of lisinopril. He had a normal exam and nonfocal neurologic exam. Head CT was ordered given his vague neuro symptoms. I received a call from Radiology reporting the basal ganglia bleed. Patient was then started on nicardipine with a goal of decreasing the systolic blood pressure less than 160. He was also given vitamin K this was ordered prior to his INR results which did not show him in the therapeutic range with an INR of 1.5. His platelets are unremarkable. Will hold on PCC for now given his INR. Discussed the case with Dr. Frausto with stroke at [facility] who accepts the patient for transfer. Will transfer patient given his diagnoses. Discussed the diagnosis with the patient. He expressed understanding and agreement. Critical Care Time Critical Care Time Critical Care Time: Yes Total Critical Care Time: 35 Attestation: The high probability of a clinically significant, sudden or life threatening deterioration of the neurologic system(s) required my full and direct attention, intervention and personal management. The aggregate critical care time was 35 minutes. This time is in addition to time spent performing reported procedures but includes the following: [X] Data Review and interpretation [X] Patient assessment and monitoring of vital signs [X] Documentation [X] Medication orders and management Discharge Plan Departure Patient Disposition: [facility] Clinical Impression: Intracranial hemorrhage, Hypertension Prescriptions: No Action warfarin 10 mg tablet 12 mg PO DAILY RF: 0 lisinopril 20 mg tablet 20 mg PO QAM RF: 0 warfarin 1 mg tablet 12 mg PO QAM RF: 0 Tylenol Extra Strength 1,000 mg PO QID PRN (Reason: Pain (Scale Score 1-3)) RF: 0 Referrals: Maranda Alvarenga MD [Primary Care Provider] -
[2020-04-09 13:08] LABS: Add Manual Diff / Slide Review NO; Basophils Absolute Auto 100 /uL (0-100); Basophils Percent Auto 0.8 % (0-2); Eosinophils Absolute Auto 200 /uL (0-450); Eosinophils Percent Auto 2.7 % (2-4); Hematocrit 40.4 % (41-53); Hemoglobin 13.9 g/dL (13.5-17.5); Lymphocytes Absolute Auto 1900 /uL (1100-4500); Lymphocytes Percent Auto 22.8 % (25-40); Mean Corpuscular HGB Conc 34.5 % (30-36); Mean Corpuscular Hemoglobin 33.7 PG (26-34); Mean Corpuscular Volume 97.5 fL (80-100); Monocytes Absolute Auto 700 /uL (0-900); Monocytes Percent Auto 8.3 % (3-14); Neutrophils Absolute Auto 5300 /uL (1500-7000); Neutrophils Percent Auto 65.4 % (50-75); Platelet Count 193 X10^3/uL (150-400); Red Blood Cell Count 4.14 X10^6/uL (4.5-5.9); Red Cell Distribution Width 13.2 % (11.6-14.8); White Blood Cell Count 8.1 X10^3/uL (4.5-11.0)
[2020-04-09] MEDS: lisinopriL 20 MG TABLET PO (13:09)
--- NOTE | 2020-04-09 13:10 | PC.NURSE ---
Dr. olmedo aware of heart rate.
[2020-04-09 13:22] LABS: Alanine Aminotransferase 20 IU/L (<50); Albumin Globulin Ratio 1.2 (1.0-2.8); Alkaline Phosphatase 118 U/L (38-126); Aspartate Aminotransferase 31 IU/L (17-59); BUN Creatinine Ratio 23.7 (6-22); Bilirubin Total 0.7 mg/dL (0.2-1.3); Blood Urea Nitrogen 18 mg/dL (9-20); Calcium 8.9 mg/dL (8.4-10.2); Carbon Dioxide 32 mmol/L (22-32); Chloride 105 mmol/L (98-107); Creatine Kinase 181 U/L (55-170); Estimated Glomerular Filt Rate > 60.0 mL/min (>60); Globulin 3.4 g/dL (1.7-4.1); Glucose 94 mg/dL (70-100); HEMOLYSIS < 15 (0-50); Lipase 80 U/L (23-300); Potassium 4.4 mmol/L (3.4-5.1); Sodium 140 mmol/L (137-145); Total Protein 7.4 g/dL (6.3-8.2)
--- NOTE | 2020-04-09 13:22 | PC.NURSE ---
pt states just doesn't feel right
[2020-04-09 13:34] LABS: Troponin I < 0.012 ng/mL (0.01-0.034)
[2020-04-09 13:37] LABS: CKMB % Relative Index 0.9 % (1.5-5.0)
[2020-04-09 13:45] LABS: INR 1.5 (0.9-1.3); Prothrombin Time 16.8 SECONDS (10.1-12.7)
[2020-04-09] MEDS: NICARDIPINE 25 MG in SODIUM CHLORIDE 0.9% 240 ML 50 ML IV (13:45)
[2020-04-09 13:48] LABS: PTT Partial Thromboplastin Tim 32 SECONDS (26.4-36.2)
[2020-04-09] MEDS: PHYTONADIONE (VIT K1) 10 MG in DEXTROSE 5 % IN WATER 50 ML 102 ML IV (14:06)
--- NOTE | 2020-04-09 14:09 | DI.CT.S_ITS ---
PROCEDURE: CT ANGIO HEAD AND NECK INDICATIONS: head bleed TECHNIQUE: Pre-contrast 4.5 mm thick sections acquired from the foramen magnum to the vertex. After the administration of intravenous contrast, 1 mm thick sections acquired from the aortic arch through the [place] of [place]. Post-contrast 4.5 mm thick sections then re-acquired from the foramen magnum to the vertex. 3-dimensional cbbxzhw-fggwfvwku-abzryikwwp (MIP) and/or volume rendering reformats were acquired of the central intracranial vasculature and neck separately. COMPARISON: [facility], CT, CT HEAD/BRAIN WO CON, 04/09/2020, 13:14. FINDINGS: Image quality: Excellent. BRAIN: CSF spaces: Ventricles are normal in size and shape. Basal cisterns are patent. No extra-axial fluid collections. Brain: No midline shift. No new or increased intracranial bleeds or masses. The small left deep white matter lentiform nucleus hemorrhage identified earlier same day is again noted. This measures only approximately 1.5 cm in maximal dimension, without significant mass effect. Shah-white matter interface appears intact except deep to a craniotomy site on the right in the frontal region where focal encephalomalacia appears present on the right laterally, with earlier preoperative brain MRI or head CT scanning not available for review.. Skull and face: Calvarium and facial bones appear intact, without suspicious lesions. Orbits appear normal. Sinuses: Sinuses and mastoids are clear. HEAD CT ANGIOGRAPHY: Anterior circulation: Intracranial internal carotid arteries are normal in size and flow. The flow within the paired anterior cerebral arteries is normal and symmetric. The flow within the middle cerebral arteries is normal and symmetric. The anterior communicating artery is seen. No aneurysms are seen. Posterior circulation: Visualized portions of the vertebral arteries demonstrate normal caliber, and join to form a normal appearing basilar artery. Flow within the posterior cerebral arteries is normal and symmetric. No aneurysms are seen. NECK CT ANGIOGRAPHY: Carotid system: The great vessels demonstrate a conventional anatomy as they arise from the aortic arch. The origins of the common carotid arteries appear patent. The common carotid arteries demonstrate normal caliber and courses. The bifurcation regions are both widely patent. The internal carotid arteries demonstrate normal calibers and courses. Posterior circulation: The origins of the vertebral arteries both appear widely patent. The more superior extracranial portions of both vertebral arteries also demonstrate normal courses and calibers. They join to form a normal appearing basilar artery. Soft tissues: Visualized neck soft tissues demonstrate no suspicious abnormalities. Bones: No suspicious bony lesions. Visualized cervical spine appears normally aligned. IMPRESSION: Isolated left lentiform nucleus hemorrhage, without mass effect. Statistically this likely represents a manifestation of microvascular atherosclerotic disease or hypertensive bleed. Prior right craniotomy in the frontal region, adjacent brain cortex low-attenuation as discussed earlier same day on CT scanning of the head. This area measures only approximately 2.2 cm in diameter, and is consistent with encephalomalacia. Brain MRI without and with contrast could more accurately assess this area if clinically indicated. Any quantitative measurements of stenosis were performed using NASCET criteria. Dictated by: Pastor Hart M.D. on 04/09/2020 at 14:46 Approved by: Pastor Hart M.D. on 04/09/2020 at 14:53
[2020-04-09 15:07] LABS: COVID19 -Nasal RAPID Negative (Negative)
--- NOTE | 2020-04-09 15:45 | PC.NURSE ---
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
--- NOTE | 2020-04-09 16:26 | PC.NURSE ---
Nicardipine gtt discontinued at [address] [facility] Charting. Continued w/ NWA. Pt's car keys given to [employer] per pt request.
== END 2020-04-09 15:48 | disposition short-term general hospital (02) ==
PROVIDERS: Emergency Provider Emergency Medicine; PCP Student in an Organized Health Care Education/Training Program
DX: I62.9 Nontraumatic intracranial hemorrhage, unspecified (principal); I10 Essential (primary) hypertension; R00.1 Bradycardia, unspecified; Z79.01 Long term (current) use of anticoagulants; R53.83 Other fatigue
CPT/HCPCS: 36415; 70450; 70496; 70498; 80053; 82550; 82553; 83690; 84484; 85025; 85610; 85730; 87635; 93005; 93010; 96365; 96366; 96368; 99285; 99291; J3430; Q9967

== ENCOUNTER 2020-04-14 15:33 | Observation (INO) | payer OTHER, MEDICAID, SELFPAY ==
[2020-04-14] VITALS (33 sets, daily range): BP systolic 122–206; BP diastolic 68–108; PULSE 42–60; RESP 6–23; TEMP 36.2–36.6; O2SAT 95–99; BMI 52.9
--- NOTE | 2020-04-14 15:44 | DI.CT.S_ITS ---
PROCEDURE: CT HEAD/BRAIN WO CON INDICATIONS: recent bleed, now htn / similar symptoms. TECHNIQUE: Noncontrast 4.5 mm thick angled axial sections acquired from the foramen magnum to the vertex, with coronal and sagittal reformats. For radiation dose reduction, the following was used: automated exposure control, adjustment of mA and/or kV according to patient size. COMPARISON: [facility], CT, CT ANGIO HEAD AND NECK, 04/09/2020, 14:10. [facility], CT, CT HEAD/BRAIN WO CON, 04/09/2020, 13:14. FINDINGS: Image quality: Excellent. CSF spaces: Basal cisterns are patent. No extra-axial fluid collections. Ventricles are normal in size and shape. Brain: On the prior recent CT study, there was blood seen within the left basal ganglia. This has largely resolved. No new hemorrhage can be seen. Prior right frontal lobe resection change can be seen. No midline shift. Shah-white matter interface is normal. Skull and face: Right frontal craniotomy change can be seen. Calvarium and visualized facial bones are intact, without suspicious lesions. Sinuses: Visualized sinuses and mastoids are clear. IMPRESSION: The previously seen left basal ganglia hemorrhage is largely resolved. No new hemorrhage is seen. Remote right-sided craniotomy change, with prior right frontal lobe resection. Dictated by: Jordan Perez M.D. on 04/14/2020 at 15:04 Approved by: Jordan Perez M.D. on 04/14/2020 at 15:06
--- NOTE | 2020-04-14 15:54 | ED_ITS ---
HPI - General Adult General Chief complaint: Hypertension Stated complaint: wants BP checked Time Seen by Provider: 04/14/20 15:41 Source: patient Mode of arrival: Ambulatory Limitations: no limitations History of Present Illness HPI narrative: Patient is a 54-year-old male with history of hypertension obesity and a recent intracranial hemorrhage. He was seen evaluated here on 04/09/2020 and found to have hypertension intracranial hemorrhage in the He was transferred to [facility]. He says there his blood pressure medications changed the 1st night he took lisinopril 20 mg twice a day and they added amlodipine pain, the 2nd day they did 20 mg of lisinopril and amlodipine and he was discharged home on that. Today he says he overall does not feel well and feels weak. He denies any chest pain or headache no nausea vomiting no weakness numbness or tingling. He says something just is not right. Initially noted to be quite hypertensive but has come down without any intervention. He says he is only taking 20 mg of lisinopril today. He is concerned that his intracranial hemorrhage has returned. Onset (ago): hour(s) Related Data Home Medications Medication Instructions Recorded Confirmed lisinopril 20 mg PO QAM 04/09/20 04/14/20 amlodipine 5 mg PO DAILY 04/14/20 04/14/20 Allergies Allergy/AdvReac Type Severity Reaction Status Date / Time No Known Drug Allergies Allergy Verified 04/09/20 12:23 Review of Systems Review of Systems Narrative: GENERAL: Fatigue Denies chills, malaise, fever, sweats, travel HEENT: Denies sinus pain, ear pain, sore throat, difficulty swallowing, neck pain RESPIRATORY: Denies dyspnea, cough, wheezing, hemoptysis, sputum. CARDIOVASCULAR: Denies chest pain, palpitations, orthopnea, edema GASTROINTESTINAL: Denies nausea, vomiting, abdominal pain, diarrhea, constipation, melena. : Denies dysuria, frequency, incontinence, hematuria, urinary retention, flank pain. MUSCULOSKELETAL: Denies weakness, joint pain, or bony pain SKIN: No rash, no erythema, no pruritus NEUROLOGIC: Denies weakness, dizziness, headache, numbness, change in speech, confusion PSYCHIATRIC: No concerning psychosocial issues. 12 point review of systems is negative except for those stated above and HPI Patient History Medical History Febrile illness, acute (Inactive) TIA (transient ischemic attack) (Inactive) UTI (urinary tract infection) (Inactive) Social History Smoking Status: Never smoker Smoking Status: Never smoker alcohol intake frequency: 3 or more drinks per day Substance Use Type: marijuana Exam Initial Vital Signs Initial Vital Signs: Vital Signs Temperature 97.8 F 04/14/20 15:35 Pulse Rate 50 L 04/14/20 15:35 Respiratory Rate 14 04/14/20 15:35 Blood Pressure 187/82 H 04/14/20 15:35 Pulse Oximetry 97 04/14/20 15:35 GENERAL: Alert well-appearing male obese HEENT: Head atraumatic,EOMI, pupils reactive, face symmetric, moist mucous membranes CARDIOVASCULAR: Regular rate and rhythm without murmurs, rubs or gallops. RESPIRATORY: Breath sounds equal bilaterally, no wheezes rales or rhonchi. ABDOMEN: Soft, nontender. Normoactive bowel sounds all 4 quadrants. No guarding or rebound. EXTREMITIES: Normal range of motion, no clubbing or edema. Neurovascularly intact NEUROLOGICAL: Alert and oriented x4.Normal gait and speech. Cranial nerves II through XII grossly intact. [employer] strength equal bilaterally lower extremity strength was SKIN: Warm, dry, no laceration, no petechiae, no rashes or lesions. Course Orders Ordered: ED Orders 04/14/20 15:44 CT head/brain wo con Stat 04/14/20 16:17 EKG-12 Lead Stat 04/14/20 16:55 Complete Blood Count AUTO DIFF Stat Comprehensive Metabolic Panel Stat Lipase Stat Partial Thromboplastin Time Stat Prothrombin Time INR Stat Troponin & CK Cardiac Panel Stat Sodium Chloride (Normal Saline 0.9%) 1,000 mls @ 1,000 mls/hr IV CONT NUPUR Last Infusion: 04/14/20 18:31 Dose: 0 mls/hr Documented by: Admin: 04/14/20 16:37 Dose: 1,000 mls/hr Documented by: CISCO Discontinued Medications Amlodipine Besylate (Norvasc) 5 mg PO NOW ONE Stop: 04/14/20 16:17 Last Admin: 04/14/20 16:35 Dose: 5 mg Documented by: CISCO Hydralazine HCl (Apresoline) 5 mg IV NOW ONE Stop: 04/14/20 19:28 Last Admin: 04/14/20 19:54 Dose: Not Given Documented by: BRIAN Labetalol HCl (Trandate) 20 mg IV NOW ONE Stop: 04/14/20 18:28 Last Admin: 04/14/20 18:31 Dose: 20 mg Documented by: CISCO Lisinopril (Zestril) 20 mg PO NOW ONE Stop: 04/14/20 16:17 Last Admin: 04/14/20 16:36 Dose: 20 mg Documented by: CISCO Vital Signs Vital signs: Vital Signs - 8 hr 04/14/20 15:35 04/14/20 15:46 04/14/20 16:00 Temperature 97.8 F Pulse Rate 50 L 52 L 56 L Respiratory Rate 14 Blood Pressure 187/82 H 168/76 H Pulse Oximetry 97 99 98 04/14/20 16:25 04/14/20 16:30 04/14/20 16:36 Temperature Pulse Rate 53 L 56 L 54 L Respiratory Rate Blood Pressure 188/81 H 187/86 H Pulse Oximetry 98 98 99 04/14/20 16:46 04/14/20 17:00 04/14/20 17:01 Temperature Pulse Rate 51 L 47 L 46 L Respiratory Rate 22 21 21 Blood Pressure 178/86 H 164/79 H Pulse Oximetry 99 98 98 04/14/20 17:15 04/14/20 17:30 04/14/20 17:31 Temperature Pulse Rate 49 L 48 L 49 L Respiratory Rate 23 19 21 Blood Pressure 173/85 H 189/90 H Pulse Oximetry 98 98 99 04/14/20 17:43 04/14/20 17:46 04/14/20 18:00 Temperature Pulse Rate 45 L 48 L 46 L Respiratory Rate 18 19 22 Blood Pressure 189/90 H 198/87 H 206/97 H Pulse Oximetry 98 99 98 04/14/20 18:09 04/14/20 18:16 04/14/20 18:24 Temperature Pulse Rate 48 L 53 L 55 L Respiratory Rate 21 19 18 Blood Pressure 200/99 H 201/98 H 204/96 H Pulse Oximetry 98 98 98 04/14/20 18:30 04/14/20 18:31 04/14/20 18:46 Temperature Pulse Rate 45 L 57 L 45 L Respiratory Rate 15 23 16 Blood Pressure 193/108 H 183/88 H Pulse Oximetry 98 98 97 04/14/20 19:00 04/14/20 19:01 04/14/20 19:04 Temperature Pulse Rate 45 L 51 L 51 L Respiratory Rate 14 17 Blood Pressure 196/92 H 196/92 H Pulse Oximetry 98 98 04/14/20 19:16 04/14/20 19:30 04/14/20 19:31 Temperature Pulse Rate 48 L 50 L 50 L Respiratory Rate 16 6 L 9 L Blood Pressure 181/82 H 171/89 H Pulse Oximetry 97 97 97 04/14/20 19:46 Temperature Pulse Rate 52 L Respiratory Rate 9 L Blood Pressure 168/95 H Pulse Oximetry 97 Medical Decision Making Lab Data Lab results reviewed: Yes I reviewed the patient's lab results. Result diagrams: 04/14/20 16:55 04/14/20 16:55 Labs: Lab Results 04/14/20 04/14/20 04/14/20 Range/Units 16:55 16:55 16:55 WBC 7.9 (4.5-11.0) X10^3/uL RBC 4.14 L (4.5-5.9) X10^6/uL Hgb 13.7 (13.5-17.5) g/dL Hct 40.3 L (41-53) % MCV 97.3 (80-100) fL MCH 33.0 (26-34) PG MCHC 33.9 (30-36) % RDW 13.0 (11.6-14.8) % Plt Count 195 (150-400) X10^3/uL Neut % (Auto) 64.9 (50-75) % Lymph % (Auto) 22.1 L (25-40) % [place] % (Auto) 9.2 (3-14) % Eos % (Auto) 2.9 (2-4) % Baso % (Auto) 0.9 (0-2) % Neut # (Auto) 5100 (6558-5976) /uL Lymph # (Auto) 1700 (5918-2092) /uL [place] # (Auto) 700 (0-900) /uL Eos # (Auto) 200 (0-450) /uL Baso # (Auto) 100 (0-100) /uL PT 12.1 (10.1-12.7) SECONDS INR 1.0 (0.9-1.3) APTT 30 D (26.4-36.2) SECONDS Sodium 138 (137-145) mmol/L Potassium 4.8 (3.4-5.1) mmol/L Chloride 104 (98-107) mmol/L Carbon Dioxide 32 (22-32) mmol/L BUN 22 H (9-20) mg/dL Creatinine 1.14 (0.66-1.25) mg/dL Estimated GFR > 60.0 (>60) mL/min BUN/Creatinine Ratio 19.3 (6-22) Glucose 94 (70-100) mg/dL Calcium 8.7 (8.4-10.2) mg/dL Total Bilirubin 0.6 (0.2-1.3) mg/dL AST 29 (17-59) IU/L ALT 19 (<50) IU/L Alkaline Phosphatase 109 (38-126) U/L Total Creatine Kinase (55-170) U/L CK-MB (CK-2) (<2.37) ng/mL CK-MB (CK-2) Rel Index (1.5-5.0) % Troponin I (0.01-0.034) ng/mL Total Protein 6.9 (6.3-8.2) g/dL Albumin 3.7 (3.5-5.0) g/dL Globulin 3.2 (1.7-4.1) g/dL Albumin/Globulin Ratio 1.2 (1.0-2.8) Lipase 80 (23-300) U/L 10/24/20 Range/Units 16:55 WBC (4.5-11.0) X10^3/uL RBC (4.5-5.9) X10^6/uL Hgb (13.5-17.5) g/dL Hct (41-53) % MCV (80-100) fL MCH (26-34) PG MCHC (30-36) % RDW (11.6-14.8) % Plt Count (150-400) X10^3/uL Neut % (Auto) (50-75) % Lymph % (Auto) (25-40) % [place] % (Auto) (3-14) % Eos % (Auto) (2-4) % Baso % (Auto) (0-2) % Neut # (Auto) (5240-5163) /uL Lymph # (Auto) (1313-5598) /uL [place] # (Auto) (0-900) /uL Eos # (Auto) (0-450) /uL Baso # (Auto) (0-100) /uL PT (10.1-12.7) SECONDS INR (0.9-1.3) APTT (26.4-36.2) SECONDS Sodium (137-145) mmol/L Potassium (3.4-5.1) mmol/L Chloride (98-107) mmol/L Carbon Dioxide (22-32) mmol/L BUN (9-20) mg/dL Creatinine (0.66-1.25) mg/dL Estimated GFR (>60) mL/min BUN/Creatinine Ratio (6-22) Glucose (70-100) mg/dL Calcium (8.4-10.2) mg/dL Total Bilirubin (0.2-1.3) mg/dL AST (17-59) IU/L ALT (<50) IU/L Alkaline Phosphatase (38-126) U/L Total Creatine Kinase 113 (55-170) U/L CK-MB (CK-2) 1.22 (<2.37) ng/mL CK-MB (CK-2) Rel Index 1.1 L (1.5-5.0) % Troponin I < 0.012 (0.01-0.034) ng/mL Total Protein (6.3-8.2) g/dL Albumin (3.5-5.0) g/dL Globulin (1.7-4.1) g/dL Albumin/Globulin Ratio (1.0-2.8) Lipase (23-300) U/L Imaging Data CT scan - head: Radiologist's Impression: PROCEDURE: CT HEAD/BRAIN WO CON INDICATIONS: recent bleed, now htn / similar symptoms. TECHNIQUE: Noncontrast 4.5 mm thick angled axial sections acquired from the foramen magnum to the vertex, with coronal and sagittal reformats. For radiation dose reduction, the following was used: automated exposure control, adjustment of mA and/or kV according to patient size. COMPARISON: [facility], CT, CT ANGIO HEAD AND NECK, 04/09/2020, 14:10. [facility], CT, CT HEAD/BRAIN WO CON, 04/09/2020, 13:14. FINDINGS: Image quality: Excellent. CSF spaces: Basal cisterns are patent. No extra-axial fluid collections. Vent ricles are normal in size and shape. Brain: On the prior recent CT study, there was blood seen within the left basal ganglia. This has largely resolved. No new hemorrhage can be seen. Prior right frontal lobe resection change can be seen. No midline shift. Shah-white matter interface is normal. Skull and face: Right frontal craniotomy change can be seen. Calvarium and visualized facial bones are intact, without suspicious lesions. Sinuses: Visualized sinuses and mastoids are clear. IMPRESSION: The previously seen left basal ganglia hemorrhage is largely resolved. No new hemorrhage is seen. Remote right-sided craniotomy change, with prior right frontal lobe resection. Dictated by: Jordan Perez M.D. on 04/14/2020 at 15:04 ECG Data Attestation: I personally reviewed and interpreted this ECG as follows: Prior ECG tracings: available for review Interpretation: Normal sinus rhythm rate 51 p.r. interval 194 QRS 106 QTC 390 MDM Narrative Medical decision making narrative: Patient blood pressure is actually increasing despite giving him an extra dose of lisinopril today and his amlodipine which he did not take. He overall does not feel well he has a systolic persistently in the 190s. With his most recent intracranial hemorrhage I think it is reasonable to keep him in observation and get his blood pressure under control. No other sign of end-organ damage at this time. Dr. Frias updated patient's symptoms test results and agrees with observation Discharge Plan Departure Patient Disposition: Admitted as Observation Clinical Impression: Hypertensive urgency Referrals: Maranda Alvarenga MD [Primary Care Provider] - Admit Date/Time: 04/14/20 19:50 Admit Provider: Bi Frias
[2020-04-14] MEDS: AMLODIPINE 5 MG TABLET PO (16:35)
[2020-04-14] MEDS: lisinopriL 20 MG TABLET PO (16:36)
[2020-04-14] MEDS: SODIUM CHLORIDE 0.9% 1,000 ML 1000 ML IV (16:37)
[2020-04-14 17:06] LABS: Add Manual Diff / Slide Review NO; Basophils Absolute Auto 100 /uL (0-100); Basophils Percent Auto 0.9 % (0-2); Eosinophils Absolute Auto 200 /uL (0-450); Eosinophils Percent Auto 2.9 % (2-4); Hematocrit 40.3 % (41-53); Hemoglobin 13.7 g/dL (13.5-17.5); Lymphocytes Absolute Auto 1700 /uL (1100-4500); Lymphocytes Percent Auto 22.1 % (25-40); Mean Corpuscular HGB Conc 33.9 % (30-36); Mean Corpuscular Volume 97.3 fL (80-100); Monocytes Absolute Auto 700 /uL (0-900); Monocytes Percent Auto 9.2 % (3-14); Neutrophils Absolute Auto 5100 /uL (1500-7000); Neutrophils Percent Auto 64.9 % (50-75); Platelet Count 195 X10^3/uL (150-400); Red Blood Cell Count 4.14 X10^6/uL (4.5-5.9); White Blood Cell Count 7.9 X10^3/uL (4.5-11.0)
[2020-04-14 17:17] LABS: Alanine Aminotransferase 19 IU/L (<50); Albumin 3.7 g/dL (3.5-5.0); Albumin Globulin Ratio 1.2 (1.0-2.8); Alkaline Phosphatase 109 U/L (38-126); Aspartate Aminotransferase 29 IU/L (17-59); BUN Creatinine Ratio 19.3 (6-22); Bilirubin Total 0.6 mg/dL (0.2-1.3); Blood Urea Nitrogen 22 mg/dL (9-20); Calcium 8.7 mg/dL (8.4-10.2); Carbon Dioxide 32 mmol/L (22-32); Chloride 104 mmol/L (98-107); Creatine Kinase 113 U/L (55-170); Estimated Glomerular Filt Rate > 60.0 mL/min (>60); Globulin 3.2 g/dL (1.7-4.1); Glucose 94 mg/dL (70-100); HEMOLYSIS < 15 (0-50); Lipase 80 U/L (23-300); Potassium 4.8 mmol/L (3.4-5.1); Prothrombin Time 12.1 SECONDS (10.1-12.7); Sodium 138 mmol/L (137-145); Total Protein 6.9 g/dL (6.3-8.2)
[2020-04-14 17:19] LABS: PTT Partial Thromboplastin Tim 30 SECONDS (26.4-36.2)
[2020-04-14 17:28] LABS: Troponin I < 0.012 ng/mL (0.01-0.034)
[2020-04-14 17:33] LABS: CKMB % Relative Index 1.1 % (1.5-5.0); Creatine Kinase MB 1.22 ng/mL (<2.37)
[2020-04-14] MEDS: LABETALOL 20 MG/4 ML SYRINGE IV (18:31)
--- NOTE | 2020-04-14 18:53 | PC.NURSE ---
Dr. Bates aware of BP 200's. labetolol given.
[2020-04-14 20:32] LABS: COVID19 -Nasal RAPID Negative (Negative)
--- NOTE | 2020-04-14 21:02 | DI.ECHO.S_ITS ---
[place] [facility]---------+ [facility] +---------+ : : [address] : : : : [id number] : : : : Phone: [phone] Echocardiogram Report + + :Name: ROLANDA ROBLES Study Date: 04/15/2020 Height: 70 in : :[facility] Weight: 369 lb : : Gender: Male BSA: 2.7 m2 : :: 1965 Age: 54 yrs BP: 116/50 mmHg: :Reason For Study: HYPERTENSION : :Ordering Physician: : :HOSPITALISTHERB Performed By: Magali Jordan : :Referring: BRIEN LUCIO : + + Interpretation Summary The left ventricle is normal in size. The ejection fraction is estimated to be 55-60%. The right ventricle is mildly dilated. The right ventricular systolic function is normal. No significant valvular pathology seen. The ascending aorta is moderately enlarged. 4.7 cm in diameter. The IVC is of normal diameter and collapses greater than 50% with a sniff. This suggests a low right atrial pressure of 3 mm Hg. Procedure: A two-dimensional transthoracic echocardiogram with color flow and Doppler was performed. The study quality was technically adequate. There is no prior echocardiogram noted for this patient. The heart rate ranged between 44-67 bpm during the study. The patient was in normal sinus rhythm during the exam. The patient had frequent PACs during the exam. Left Ventricle: The left ventricle is normal in size. There is mild concentric left ventricular hypertrophy. A false chord is noted (normal variant). The ejection fraction is estimated to be 55-60%. There are no focal wall motion abnormalities. MV E/A: 1.1 Med Peak E' Slava: 7.3 cm/sec E/E' med: 11. Right Ventricle: The right ventricle is mildly dilated. The right ventricular systolic function is normal. Atria: The left atrium is moderately dilated. The right atrium is mildly dilated. There is no Doppler evidence for an interatrial shunt. Mitral Valve: There is mild mitral annular calcification. There is trace mitral regurgitation. Aortic Valve: The aortic valve is trileaflet. The aortic valve opens well. There is no aortic valve stenosis. No aortic regurgitation is present. Tricuspid Valve: The tricuspid valve is not well visualized, but is grossly normal. Pulmonary artery pressures cannot be estimated because of the lack of a measurable TR jet velocity but the IVC suggests a CVP of around 3 mmHg. There is trace tricuspid regurgitation. Pulmonic Valve: The pulmonic valve is not well visualized. There is no pulmonic valvular regurgitation. Great Vessels: The aortic root is normal size. The ascending aorta is moderately enlarged. The IVC is of normal diameter and collapses greater than 50% with a sniff. This suggests a low right atrial pressure of 3 mm Hg. Pericardium/ Pleura There is no pericardial effusion. There is no pleural effusion. MMode/2D Measurements & Calculations LVIDd: 5.6 cm LVOT diam: 2.7 cm LVIDs: 3.9 cm Ao root diam: 3.9 cm FS: 30.4 % asc Aorta Diam: 4.7 cm EPSS: 0.78 cm IVSd: 1.3 cm LVPWd: 1.3 cm LV higuera. diameter/BSA (cm/m^2): 2.1 LV sys. diameter/BSA (cm/m^2): 1.4 LA A2 area: 33.4 cm2 RA long axis: 6.1 cm LA A4 area: 28.9 cm2 RA area: 27.2 cm2 LA length (vol): 6.4 cm RA vol: 102.5 ml LA vol: 126.8 ml RA : 37.9 ml/m2 LA vol index: 46.8 ml/m2 IVC diam: 2.0 cm RVD1 (basal): 4.5 cm TAPSE: 3.1 cm Doppler Measurements & Calculations Ao V2 max: 152.8 cm/sec LVOT Max Slava: 90.2 cm/sec Ao V2 mean: 95.6 cm/sec LV V1 max P.3 mmHg Ao max P.3 mmHg LV V1 VTI: 22.1 cm Ao mean P.3 mmHg ADI(I,D): 3.6 cm2 Ao V2 VTI: 34.9 cm ADI(V,D): 3.3 cm2 sev ratio: 0.63 ADI indexed to BSA (cm^2/m^2): 1.3 MV E max slava: 82.2 cm/sec PA V2 max: 72.0 cm/sec MV A max slava: 77.2 cm/sec PA V2 mean: 41.1 cm/sec MV E/A: 1.1 PA mean P.86 mmHg Med Peak E' Slava: 7.3 cm/sec PA pr(Accel): 29.3 mmHg E/E' med: 11.2 Lat Peak E' Slava: 6.8 cm/sec E/E' lat: 12.0 E/e' average: 11.6 MV dec time: 0.27 sec [facility] 124.9 ml Reading Physician:01:28 PM
--- NOTE | 2020-04-14 21:09 | PM.HP.1 ---
History of Present Illness History of Present Illness Date Patient Seen: 04/14/20 Time Patient Seen: 21:09 Date of Onset of Symptoms: 04/14/20 Chief complaint: wants BP checked Narrative: Hypertensive urgency Patient admitted to the ER for same. Patient presented to the emergency room this afternoon complaining feeling poorly a just feeling unusual unsteady apparently had blood pressure checked at home and is found to have systolics 180 190 and he came to the emergency room. Patient presented to his doctor Dr. Alvarenga in her office on Thursday this past week found to be bradycardic sent to [facility] ER. Found to be bradycardic and hypertensive. Had headache also. Was found to have a small subarachnoid bleed and was transferred to [facility]. He stated [facility] Thursday was discharged on Thursday. Headache essentially gone. Treatment [facility] was lisinopril 20 mg twice a day and amlodipine 5 mg daily details are otherwise sketchy. He was discharged on Thursday but apparently was only discharged on lisinopril 20 once a day and amlodipine 5 mg once a day. Came into the ER today worried the had another subarachnoid bleed. Has history of hypertension that is apparently longstanding. 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 So done heart review and apparently was successful. He also has a history of factor 5 Leiden deficiency. Had been on warfarin for same. He has recurrent superficial phlebitis. Apparently never had DVT nor pulmonary embolism. His warfarin was discontinued on Thursday due to the subarachnoid bleed. At the time the brain surgery apparently a PICC line was placed and he developed atrial fibrillation the PICC line with withdrawn slightly atrial fibrillation went away and has been gone ever since impression apparently was that the PICC line was contributing to the atrial fibrillation. Patient has no history of diabetes no heart attack no stroke no kidney disease He does have sleep apnea and uses CPAP machine every night. Patient History Medical History Febrile illness, acute (Inactive) TIA (transient ischemic attack) (Inactive) UTI (urinary tract infection) (Inactive) Family & Social History Social History: household members children Prior Living Arrangements Apartment/Condo Safety & Behavioral: Feels Safe in Current Yes Environment Been Physically Hurt or No Threatened By a Person Suicidal Ideation Description None Suicide Plan Description No Plan Tobacco & Substance use: Smoking Status Never smoker alcohol intake current alcohol intake frequency 3 or more drinks per day Substance Use Type marijuana Meds Home Medications and Allergies Home Medications Medication Instructions Recorded Confirmed Type lisinopril 20 mg PO QAM 04/09/20 04/14/20 History amlodipine 5 mg PO DAILY 04/14/20 04/14/20 History Allergies Allergy/AdvReac Type Severity Reaction Status Date / Time No Known Drug Allergies Allergy Verified 04/09/20 12:23 Review of Systems Review of Systems ROS: Yes All systems reviewed with the patient and are negative except as otherwise documented Exam Vital Signs (past 8 hours): - 04/14/20 15:35 04/14/20 15:46 04/14/20 16:00 Temperature 97.8 F Pulse Rate 50 L 52 L 56 L Respiratory Rate 14 Blood Pressure 187/82 H 168/76 H Pulse Oximetry 97 99 98 04/14/20 16:25 04/14/20 16:30 04/14/20 16:36 Temperature Pulse Rate 53 L 56 L 54 L Respiratory Rate Blood Pressure 188/81 H 187/86 H Pulse Oximetry 98 98 99 04/14/20 16:46 04/14/20 17:00 04/14/20 17:01 Temperature Pulse Rate 51 L 47 L 46 L Respiratory Rate 22 21 21 Blood Pressure 178/86 H 164/79 H Pulse Oximetry 99 98 98 04/14/20 17:15 04/14/20 17:30 04/14/20 17:31 Temperature Pulse Rate 49 L 48 L 49 L Respiratory Rate 23 19 21 Blood Pressure 173/85 H 189/90 H Pulse Oximetry 98 98 99 04/14/20 17:43 04/14/20 17:46 04/14/20 18:00 Temperature Pulse Rate 45 L 48 L 46 L Respiratory Rate 18 19 22 Blood Pressure 189/90 H 198/87 H 206/97 H Pulse Oximetry 98 99 98 04/14/20 18:09 04/14/20 18:16 04/14/20 18:24 Temperature Pulse Rate 48 L 53 L 55 L Respiratory Rate 21 19 18 Blood Pressure 200/99 H 201/98 H 204/96 H Pulse Oximetry 98 98 98 04/14/20 18:30 04/14/20 18:31 04/14/20 18:46 Temperature Pulse Rate 45 L 57 L 45 L Respiratory Rate 15 23 16 Blood Pressure 193/108 H 183/88 H Pulse Oximetry 98 98 97 04/14/20 19:00 04/14/20 19:01 04/14/20 19:04 Temperature Pulse Rate 45 L 51 L 51 L Respiratory Rate 14 17 Blood Pressure 196/92 H 196/92 H Pulse Oximetry 98 98 04/14/20 19:16 04/14/20 19:30 04/14/20 19:31 Temperature Pulse Rate 48 L 50 L 50 L Respiratory Rate 16 6 L 9 L Blood Pressure 181/82 H 171/89 H Pulse Oximetry 97 97 97 04/14/20 19:46 04/14/20 20:24 Temperature 97.8 F Pulse Rate 52 L 54 L Respiratory Rate 9 L 20 Blood Pressure 168/95 H 139/68 Pulse Oximetry 97 98 Oxygen Delivery Method Room Air Narrative Exam Narrative: Patient examined hospital bed resting quietly appears orders distress. He is obviously obese male. Has nontender. Eyes EOMs intact. DENA a. Lungs are entirely clear. Cardiac exam regular rhythm no murmur gallop. Does have distant heart sounds. Carotids 2+ no bruits per Abdomen is grossly obese no masses no tenderness. Genitorectal exam Calves so the a fairly thick legs that is scattered excoriations with trace edema around his ankles. Neurologic good Neurologic exam cranial nerves 2-12 intact strength Moses of lower extremities normal Objective Labs Result Diagrams: 04/14/20 16:55 04/14/20 16:55 Labs: Laboratory Results - last 24 hr 04/14/20 04/14/20 04/14/20 16:55 16:55 16:55 WBC 7.9 RBC 4.14 L Hgb 13.7 Hct 40.3 L MCV 97.3 MCH 33.0 MCHC 33.9 RDW 13.0 Plt Count 195 Neut % (Auto) 64.9 Lymph % (Auto) 22.1 L [place] % (Auto) 9.2 Eos % (Auto) 2.9 Baso % (Auto) 0.9 Neut # (Auto) 5100 Lymph # (Auto) 1700 [place] # (Auto) 700 Eos # (Auto) 200 Baso # (Auto) 100 PT 12.1 INR 1.0 APTT 30 D Sodium 138 Potassium 4.8 Chloride 104 Carbon Dioxide 32 BUN 22 H Creatinine 1.14 Estimated GFR > 60.0 BUN/Creatinine Ratio 19.3 Glucose 94 Calcium 8.7 Total Bilirubin 0.6 AST 29 ALT 19 Alkaline Phosphatase 109 Total Creatine Kinase CK-MB (CK-2) CK-MB (CK-2) Rel Index Troponin I Total Protein 6.9 Albumin 3.7 Globulin 3.2 Albumin/Globulin Ratio 1.2 Lipase 80 COVID-19 PCR 04/14/20 04/14/20 16:55 19:55 WBC RBC Hgb Hct MCV MCH MCHC RDW Plt Count Neut % (Auto) Lymph % (Auto) [place] % (Auto) Eos % (Auto) Baso % (Auto) Neut # (Auto) Lymph # (Auto) [place] # (Auto) Eos # (Auto) Baso # (Auto) PT INR APTT Sodium Potassium Chloride Carbon Dioxide BUN Creatinine Estimated GFR BUN/Creatinine Ratio Glucose Calcium Total Bilirubin AST ALT Alkaline Phosphatase Total Creatine Kinase 113 CK-MB (CK-2) 1.22 CK-MB (CK-2) Rel Index 1.1 L Troponin I < 0.012 Total Protein Albumin Globulin Albumin/Globulin Ratio Lipase COVID-19 PCR Negative Labs reviewed as above to prone level of the normal is noted. Head CT is reviewed Assessment & Plan Assessment & Plan narrative: 1. Hypertension initially was obviously markedly elevated. Patient was given 1 dose of IV labetalol as well as his maintenance meds see evening and his blood pressure returned to normal value. Bradycardia limits his the use of labetalol and we will switch to I wrote draw listing if as needed as needed. 2. His neurologic exam is normal. 3. History of subarachnoid bleed with resolving as per CT. 4. History of sleep apnea with CPAP 5. History of factor 5 Leiden deficiency off his warfarin for now perhaps reinstitute at a later date. 6. Echocardiogram to be ordered tomorrow. Clinic patient will stay overnight and perhaps till Thursday monitoring blood pressure and getting his blood pressure under better control. Will resume his the medications that he was given [facility] which will be lisinopril 20 mg twice a day and amlodipine [address] Alvarenga to assume care on Thursday Quality VTE Deep Vein Thrombosis/Pulmonary Embolism Present on Admission: No
--- NOTE | 2020-04-14 22:00 | PC.NURSE ---
Oriented patient to the room. pt has TANVIR and RT will set him up with cpap.
[2020-04-15] VITALS (10 sets, daily range): BP systolic 116–156; BP diastolic 50–77; PULSE 41–54; RESP 15–20; TEMP 36.3–36.4; O2SAT 97–100
[2020-04-15 05:17] LABS: BUN Creatinine Ratio 23.9 (6-22); Blood Urea Nitrogen 17 mg/dL (9-20); Calcium 8.5 mg/dL (8.4-10.2); Carbon Dioxide 30 mmol/L (22-32); Chloride 104 mmol/L (98-107); Estimated Glomerular Filt Rate > 60.0 mL/min (>60); Glucose 96 mg/dL (70-100); HEMOLYSIS < 15 (0-50); Potassium 4.2 mmol/L (3.4-5.1); Sodium 138 mmol/L (137-145)
[2020-04-15] MEDS: AMLODIPINE 5 MG TABLET PO (09:11)
[2020-04-15] MEDS: lisinopriL 20 MG TABLET PO (09:11)
--- NOTE | 2020-04-15 10:25 | PC.NURSE ---
Addendum entered by Juan Lim R.N. 04/15/20 13:42: DR. LUCIO CALLED AND READ OFF ECHO RESULT PER DR. LUCIO'S REQUEST EARLIER THIS AM. DR. LUCIO APPRECIATIVE OF CALL, NO FURTHER RECOMMENDATIONS AT THIS TIME. Addendum entered by Juan Lim R.N. 04/15/20 12:01: PATIENT AMBULATORY W/ SUPERVISOR PLASMA ESCORT TO VEHICLE. Addendum entered by Juan Lim R.N. 04/15/20 11:52: DR. LUCIO IN TO SEE PATIENT, MAY DC PATIENT HOME PRIOR TO ECHO RESULTS. PATIENT HAS F/U APPT W/ DR MAS ALREADY SCHEDULED FOR . PATIENT CONFIRMS UNDERSTANDING TO INCREASE HIS LISINOPRIL TO BID. IV DC'D INTACT, PATIENT AWAITING HIS RIDE HOME TO ARRIVE. Original Note: PATIENT DENIES PAIN, DENIES WHEELER. ASYMPTOMATIC BRADYCARDIA. HTN IMPROVED. AMBULATED IN RING W/ PHYSICAL THERAPY, PARKING OFFICER IN WITH PATIENT AT THIS TIME.
--- NOTE | 2020-04-15 10:31 | PT.IIE ---
Medical History (Last Reviewed 04/14/20 @ 21:13 by Bi Frias MD) Febrile illness, acute (Inactive) TIA (transient ischemic attack) (Inactive) UTI (urinary tract infection) (Inactive) Physical Therapy Inpatient Evaluation/Re-Eval M1 PT/OT-IP Prior Functional Status Start: 04/15/20 08:28 Freq: NEEDED Status: Active Protocol: Document 04/15/20 10:04 AW (Rec: 04/15/20 10:31 AW [id number]) Medical Review Prior Functional Status Medical History Reviewed Yes Communication WNL. Pt is an effective verbal communicator. Mobility and Gait Pt is independent without AD. He is walking and moving all day on the job. He independently manages stairs several times per day. He operates a [employer]. Activities of Daily Living and IADL's Pt is independent with all I/ ADL's. 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 Social History Household Members children Living Arrangements Apartment/Condo Number of Floors (Floors) Two Floors Number of Stairs To Enter/Railing? Pt lives with his 26 yo son who helps him out with the [employer] at [facility]. They live in the building. Bedrooms and a half bath are on the upper level - up 15 steps with wide B rails. Kitchen and full bath are downstairs. Home Environment Standard Height Toilet,Walk in Shower Employment Status Self-Employed Additional Social History Comment Pt has an adjustable bed but does not typically use the controls. M2 PT-IP Current Condition Start: 04/15/20 08:28 Freq: NEEDED Status: Active Protocol: Document 04/15/20 10:04 AW (Rec: 04/15/20 10:31 AW [id number]) Physical Therapy Current Condition Current Condition Evaluation Date 04/15/20 Treatment Diagnosis HTN; intracranial hemorrhage; difficulty in walking Onset Date 04/09/20 M3 PT-IP Subjective Start: 04/15/20 08:28 Freq: NEEDED Status: Active Protocol: Document 04/15/20 10:04 AW (Rec: 04/15/20 10:31 AW [id number]) Subjective Physical Therapy Visit Type Type Initial Evaluation Visit Start Time 09:27 Visit Stop Time 09:41 Total Visit Minutes 14 Notes Pt was seen at ED on with hypertensive emergency and intracranial hemorrhage. He was transferred to [facility] where his BP medications were adjusted prior to discharge three days later. Pt returned to ED due to not feeling right. Physical Therapy Visit Comments Patient Comments I feel better today. Patient Goals Pt hopes to return to work [employer] Therapy Pain Assessment Pain When Pain Assessed During Mobility Pain Present Pain Present Denied Pain M4 PT-IP Mobility and Gait Start: 04/15/20 08:28 Freq: NEEDED Status: Active Protocol: Document 04/15/20 10:04 AW (Rec: 04/15/20 10:31 AW [id number]) PT-Bed Mobility Assessment Supine to Sit Supine to Sit Independent Scooting Scooting to Edge of Bed Independent PT-Transfer Assessment Sit to and From Stand Sit to and from Stand Independent Equipment Transfer Assistive Device Gait Belt Orthotic/Prosthetic Devices or Brace: No Transfers Transfer Destination Chair Transfer Technique pt ambulated IND Transfer Ability Level of Assist Independent Comments Mobility Comments BP at rest was 151/74 HR 58. Pt completed bed mobility and sit to stand IND. He stood from the bed in lowest position and donned his face mask for ambulation in the halls. He ambulated 240 feet without AD without any apparent LOB. On return to the room, pt transferred himself to the bedside chair IND. BP after activity was 158/80 HR 52. Pt was left with call light and all needs within reach. Gait Assessment Gait Gait Assistance Required: Independent Distance (Feet) 240 Assistive Devices Assistive Device Gait Belt Gait Deviations General Gait Pattern Antalgic,Decreased Stride Length,Decreased Feet Clearance,Lateral Trunk Lean, Step-to Gait,Wide Based Gait Factors Limiting Gait Function Factors Limiting Gait Function Decreased Strength,Pain Comments Gait Comments Pt reported left thigh pain interfering with gait pattern today. Gait was notable for wide LUIZ and decreased stance time LLE. Overall, pt was independent without LOB. He was able to independently reach the floor in standing to adjust his own socks. Stair Climbing Assessment Evaluation Level of Assist On Stairs Standby Assistance Devices Stair Climbing Assistive Devices Left Railing Technique/Endurance Stair Climbing Direction Ascend and Descend Stair Climbing Technique Step Over Step Number of Steps Climbed 3 Query Text: Stair Climbing Set # Repetitions (reps) 4 Comments Stair Climbing Comments Pt completed stairs with unilateral railing as he would at home. PT-Balance Assessment Sitting Balance and Reactions Static Sitting Balance Ability Good Dynamic Sitting Balance Ability Good Standing Balance and Reactions Static Standing Balance Ability Good Dynamic Standing Balance Ability Good Device Used none Comments Other Balance Tests/Deviations/Treatment Pt able to reach down in : stance in order to adjust his own socks without need for assist. M5 PT-IP Objective Assessments Start: 04/15/20 08:28 Freq: NEEDED Status: Active Protocol: Document 04/15/20 10:04 AW (Rec: 04/15/20 10:31 AW [id number]) Orientation Orientation/Cognition Level of Alertness Alert Orientation Name,Day of Week,Place, Situation Language Function Ability No Deficits Noted Safety Awareness Understands Safety Issues Memory Description No Deficits Noted Gross Range of Motion Upper Extremity ROM Assessment Within Functional Limits Lower Extremity ROM Assessment Within Functional Limits Strength Upper Extremity Strength Assessment Within Functional Limits Lower Extremity Strength Hip 4/5 Knee 4+/5 Ankle 4+/5 Coordination Assessment Gross Coordination Gross Coordination WNL Assessment Finger to Nose Test Normal Performance Sensation Assessment Sensation Gross Sensation WNL Muscle Tone Muscle Tone WNL Yes M6 PT-IP Treatment Start: 04/15/20 08:28 Freq: NEEDED Status: Active Protocol: Document 04/15/20 10:04 AW (Rec: 04/15/20 10:31 AW [id number]) Physical Therapy Treatment Education Education Provided Precautions,Safety Other Treatments Other Treatment Performed Provided education on importance of using compression garments to assist with venous return. M7 PT-IP Assessment and Plan Start: 04/15/20 08:28 Freq: NEEDED Status: Active Protocol: Document 04/15/20 10:04 AW (Rec: 04/15/20 10:31 AW [id number]) PT Summary Assessment and Plan Summary Assessment Summary Eleuterio is a 54 yo man seen for PT evaluation with admitting diagnosis of hypertensive emergency. He is independent in all regards at baseline and manages a local [employer] with assist from his son and one other employee. On evaluation, pt required SBA for stairs but completed all other mobilities independently . BP was stable before and after activity but HR remains <60 bpm throughout. Pt is safe for discharge to home with assist once medically cleared. PT advised pt to comply with recommendations for compression garments worn on bilateral lower extremities. Frequency of Treatment Frequency Of Treatment Discharge Recommendations To Nursing Amount of Assist Needed Independent Discharge Recommendations PT Discharge Recommendations Home with Assistance Transportation Needs at Discharge Private Vehicle
--- NOTE | 2020-04-15 14:28 | CM.DANOTE ---
Patient is a 54 year old male who was admitted on 04/14/20 for BP issues. Pt has [facility] and [facility] for insurance and his PCP is Dr. Maranda Alvarenga. EMR was reviewed. Per MD, pt admitted for observation for hx of bradycardia and hypertension and Echo scheduled for today. Per MD, pt's labs returned normal and is stable for d/c home today with outpt follow up with PCP. 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 Pt is typically independent with ADL's at baseline and drives and denies any hx of HH or SNF. Pt uses CPAP at home at baseline. Pt confirms that he recently was transferred to [facility] from Thu-Thu due to his bradycardia and hypertensive symptoms. Pt was then discharged home but with wrong medication likely. Pt also with a hx of benign brain tumor 3 years ago. Pt is hopeful for home to his two dogs via his friend who can transport today if medically stable. Pt does not anticipate any needs and has scheduled outpt f/u appointment with PCP on Thursday in two days 04-17-20. Plan: Patient to d/c home via friend POV today and no SW needs at this time. 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 No Advance Directives on File No History Provided By Patient,Medical Record Has Patient been admitted in last 30 No days? Prior Living Arrangements Apartment/Condo Household Members children Type of transporation used prior to Drives own vehicle admit Comment Lives with young adult son and drives at baseline Independent with ADL's Yes Is patient alert and oriented? Yes Caregiver for Another No Comment Home with outpt PCP follow up Barriers to Discharge No Discharge Plan Home Transportation Arrangement Friend to provide transport home today Referrals Initiated None needed Whiteboard Updated in Patient Room with Yes name and ext. # of Power Cutting Machine Operator Review Status In Process Please Provide Date Initial DC 04/15/20 Assessment Was Performed Next Review Type Continued Stay Review
== END 2020-04-15 12:00 | disposition home or self-care (01) ==
LOC: ED 19:28 → AC 19:50
PROVIDERS: Admitting Provider Family Medicine; Emergency Provider Emergency Medicine; PCP Student in an Organized Health Care Education/Training Program; Referring Provider Emergency Medicine; Visit Provider Student in an Organized Health Care Education/Training Program
DX: I16.0 Hypertensive urgency (principal); D68.51 Activated protein C resistance; G47.33 Obstructive sleep apnea (adult) (pediatric); R00.1 Bradycardia, unspecified; E66.9 Obesity, unspecified; Z68.43 Body mass index [BMI] 50.0-59.9, adult
CPT/HCPCS: 36415; 70450; 80048; 80053; 82550; 82553; 83690; 84484; 85025; 85610; 85730; 87635; 93005; 93010; 93306; 94660; 94760; 96361; 96374; 97161; 99217; 99219; 99285; G0378

== ENCOUNTER → 2020-04-30 10:59 | Oncology outpatient (ONC) | payer OTHER, MEDICAID, SELFPAY ==
[2020-04-14 19:53] VITALS: BMI 52.9
--- NOTE | 2020-04-30 12:15 | P.CONONC_ITS ---
History of Present Illness - Data of Consult Patient: new to practice Consult date: 04/30/20 Requesting Physician: Maranda Alvarenga MD Primary Care Provider: Maranda Alvarenag MD - Consult Narrative Reason for consult: Bilateral lower extremity thrombophlebitis Narrative: Sj Tran is a 54 year old male. He reports that about in 2017, he underwent brain surgery at [facility]. In 07/2019, he was found to have bilateral leg superficial vein thrombosis with tenderness. He was started on coumadin. Testing showed Factor V leiden mutation [id number] heterozygote. Of note, multiple leg venous US showed no DVT, but superficial thrombophlebitis. In 03/2020, he presented to ED and was transferred to [facility] due to findings of left basal ganglia hemmorrhage. He was on coumadin at the time for factor V leiden and venous thromboembolism. Due to brain hemmorrhage, coumadin was discontinued. He admitted to have leg varicosis vein, and they are tender. At present, he denies headache. He feels a little light-headed when bending over CC: Felipe Sánchez MD Home Medications and Allergies Home Medications Medication Instructions Recorded Confirmed Type amlodipine 5 mg PO DAILY #100 tab 04/15/20 04/30/20 Rx lisinopril 20 mg PO BID #100 tab 04/15/20 04/30/20 Rx hydrochlorothiazide 25 mg PO DAILY 04/30/20 04/30/20 History Allergies Allergy/AdvReac Type Severity Reaction Status Date / Time No Known Drug Allergies Allergy Verified 04/09/20 12:23 Medical History - Medical, Surgical, Family History Medical History: Medical History (Last Reviewed 04/14/20 @ 21:13 by Bi Frias MD) Febrile illness, acute TIA (transient ischemic attack) UTI (urinary tract infection) Surgical History: Surgical History (Last Updated 04/30/20 @ 12:31 by Felipe Sánchez MD) Bariatric surgery status History of craniotomy Family History: Family History (Last Updated 04/30/20 @ 12:31 by Felipe Sánchez MD) Mother Pulmonary embolism - Social History Smoking Status: Never smoker Substance Use Type: marijuana Alcohol Intake: former (quitted recently) Review of Systems All systems PM: reviewed and no additional remarkable complaints except as stated Exam Vital signs: 04/30/20 12:36 Last Vital Signs Pulse 59 L 04/30/20 12:18 Resp 16 04/30/20 12:18 BP 131/84 04/30/20 12:18 Pulse Ox 96 04/30/20 12:18 - Constitutional positive no acute distress, positive morbidly obese, positive cooperative - Routine HEENT Exam Head: Present: normocephalic, atraumatic Eye: Present: EOMI, PERRL, normal accommodation. Absent: conjunctival icterus ENT: Present: mucous membranes moist - Routine Neck Exam Present: supple. Absent: lymphadenopathy, thyromegaly - Routine Chest/Breast/Axilla Exam Axillae: Absent: lymphadenopathy - Routine Respiratory Exam Present: Clear to auscultation bilaterally, decreased breath sounds - Routine Cardiovascular Exam Present: RRR, S1, S2. Absent: murmur, gallop, rubs - Routine Abdominal Exam Present: soft. Absent: tenderness - Routine Extremities Exam Comments: Both lower extremities are wrapped of in compression socks. No tenderness on palpation. - Routine Neurological Exam Present: alert, oriented X3, CN II-XII intact. Absent: sensory deficit, motor deficit - Routine Psychiatric Exam Present: normal affect Results - Labs Reviewed. Assessment and Plan (1) Thrombophlebitis of superficial veins of both lower extremities I explained to the patient that he has a superficial vein thrombophlebitis which probably related to his prolonged history of varicosis vein. Repeated ultrasound study since January 2019 has not shown evidence of lower extremity deep venous thrombosis. Patient has a factor 5 Leiden heterozygosity status. Patient has received treatment with Coumadin which had to be stopped because of intracranial bleeding. I talked with the patient that I think the risk of continued anticoagulation with Coumadin or other anticoagulants outweighs the potential risks especially the intracranial bleeding risk given the lack of solid evidence of deep venous thrombosis. For superficial vein thrombosis of the lower extremities, I would recommend raising the leg as well as starting taking aspirin 81 mg once a day. I talked with him that if he develops symptoms for example calf pain or chest pain, he needs to be evaluated for possible deep venous thrombosis. If it is confirmed, I would recommend using DOACs for anticoagulation for example Xarelto or Eliquis. DOACs are known to have less of a risk for intracranial bleeding compared to Coumadin. I will see the patient on an as needed basis. Patient voiced understanding. (2) Factor V Leiden carrier See above.
[2020-04-30 12:18] VITALS: BP 131/84; PULSE 59; RESP 16; O2SAT 96
== END ==
LOC: ONC 11:00
PROVIDERS: PCP Student in an Organized Health Care Education/Training Program; Referring Provider Student in an Organized Health Care Education/Training Program; Visit Provider Internal Medicine Hematology & Oncology
DX: I80.03 Phlebitis and thrombophlebitis of superficial vessels of lower extremities, bilateral (principal); Z14.8 Genetic carrier of other disease; Z98.84 Bariatric surgery status
CPT/HCPCS: 99204; 99214

== ENCOUNTER 2020-07-24 10:22 | Emergency (ER) | payer OTHER, MEDICAID, SELFPAY ==
[2020-04-14 19:53] VITALS: BMI 52.9
[2020-07-24 10:36] VITALS: BP 148/72; PULSE 54; RESP 20; TEMP 36.7; O2SAT 99
[2020-07-24 10:39] VITALS: BP 148/73; PULSE 55; RESP 18; TEMP 36.7; O2SAT 98; BMI 54.5
--- NOTE | 2020-07-24 10:42 | DI.RAD.S_ITS ---
PROCEDURE: XR TOE RT MIN 2V INDICATIONS: toe swelling TECHNIQUE: 3 views of the right great toe(s) acquired. COMPARISON: None. FINDINGS: Bones: There is mild to moderate hallux valgus. Osteoarthritic changes are noted in 1st MTP joint and 1st interphalangeal joint as well as articulation between 1st metacarpal head and sesamoids. No acute fracture or dislocation. No gross bony erosive changes. No suspicious bony lesions. Soft tissues: No suspicious soft tissue densities. Soft tissue swelling and edema along medial and dorsal aspect of right great toe is seen. IMPRESSION: Soft tissue swelling adjacent to medial and dorsal aspect of right great toe with [id number] hallux valgus. No acute fracture or dislocation. Right great toe osteoarthritis as above. No bony erosive changes. Dictated by: Shan Schmidt M.D. on 07/24/2020 at 10:07 Approved by: Shan Schmidt M.D. on 07/24/2020 at 10:15
--- NOTE | 2020-07-24 11:02 | ED_ITS ---
HPI - Extremity Injury (Lower) <CHARLY Salcido - Last Filed: 07/24/20 13:52> General Chief Complaint: Extremity Injury, Lower Stated Complaint: right foot big toe injury x2 days Time Seen by Provider: 07/24/20 10:40 Source: patient Mode of arrival: Ambulatory Limitations: no limitations History of Present Illness HPI Narrative: The patient is a 54-year-old male nonsmoker with history of hypertension who presents with a chief complaint of an injury to his right great toe for 2 days. He states that 2 days ago he kicked an anchor at a boat by accident while barefoot. He has been using mabg-jhb-dqjideu medications. He is concerned about a fracture. Denies any previous injuries to that area. Has not applied ice. States that his pain is getting worse as he ambulates on it. Related Data Home Medications Medication Instructions Recorded Confirmed hydrochlorothiazide 25 mg PO DAILY 04/30/20 04/30/20 Previous Rx's Medication Instructions Recorded amlodipine 5 mg PO DAILY #100 tab 04/15/20 lisinopril 20 mg PO BID #100 tab 04/15/20 Allergies Allergy/AdvReac Type Severity Reaction Status Date / Time No Known Drug Allergies Allergy Verified 07/24/20 10:41 Review of Systems <CHARLY Salcido - Last Filed: 07/24/20 13:52> Review of Systems Narrative: GENERAL: Denies chills, fatigue, malaise, fever, sweats. HEENT: Denies sinus pain, ear pain, sore throat, difficulty swallowing, dizziness. RESPIRATORY: Denies dyspnea, cough, wheezing, hemoptysis, sputum. CARDIOVASCULAR: Denies chest pain, palpitations, orthopnea, edema, GASTROINTESTINAL: Denies nausea, vomiting, abdominal pain, diarrhea, constipation, melena. : Denies dysuria, frequency, incontinence, hematuria, urinary retention. MUSCULOSKELETAL: See HPI SKIN: Denies rash, skin lesions, or other NEUROLOGIC: Denies weakness, headache, numbness, change in speech, confusion, seizures, incoordination. PSYCHIATRIC: No concerning psychosocial issues. 12 point review of systems is negative except for those stated above Patient History <CHARLY Salcido - Last Filed: 07/24/20 13:52> Medical History Febrile illness, acute TIA (transient ischemic attack) UTI (urinary tract infection) Surgical History Bariatric surgery status History of craniotomy Family History Mother Pulmonary embolism Social History household members: children Smoking Status: Never smoker alcohol intake: former (quitted recently) substance use type: marijuana Smoking Status: Never smoker alcohol intake frequency: 3 or more drinks per day Substance Use Type: marijuana Exam <CHARLY Salcido - Last Filed: 07/24/20 13:52> Narrative Exam Narrative: GENERAL: This is a well-nourished, well-developed patient, they on stretcher in no acute distress HEAD: Atraumatic. Normocephalic. No temporal or scalp tenderness. EYES: Pupils equal round and reactive. Extraocular motions intact. No scleral icterus. No injection or drainage. ENT: Nose without bleeding, purulent drainage or septal hematoma. Wearing a mask. Airway patent. NECK: Trachea midline. No JVD or lymphadenopathy. Supple, nontender, no meningeal signs. CARDIOVASCULAR: Regular rate and rhythm RESPIRATORY: No cough. No increased respiratory effort. No accessory muscle use. EXTREMITIES: Right great toe pain to palpation. Able to slightly flex and extend toe against resistance. Slight ecchymosis noted at base of right 1st toe. No damage to nail noted. BACK: Nontender without deformity or crepitance. No flank tenderness. NEURO: AOx3. SKIN: See extremity exam Initial Vital Signs Initial Vital Signs: Vital Signs Temperature 98.1 F 07/24/20 10:36 Pulse Rate 54 L 07/24/20 10:36 Respiratory Rate 20 07/24/20 10:36 Blood Pressure 148/72 H 07/24/20 10:36 Pulse Oximetry 99 07/24/20 10:36 <Brian Zapata DO - Last Filed: 07/24/20 16:26> Initial Vital Signs Initial Vital Signs: Vital Signs Temperature 98.1 F 07/24/20 10:36 Pulse Rate 54 L 07/24/20 10:36 Respiratory Rate 20 07/24/20 10:36 Blood Pressure 148/72 H 07/24/20 10:36 Pulse Oximetry 99 07/24/20 10:36 Scores <CHARLY Salcido - Last Filed: 07/24/20 13:52> GCS [place] coma scale eye opening: Spontaneous [place] coma scale verbal response: Orientated [place] coma scale motor response: Obey commands [place] coma scale total score: 15 Course <CHARLY Salcido - Last Filed: 07/24/20 13:52> Orders Ordered: ED Orders 07/24/20 10:42 XR toe RT min 2V Stat Vital Signs Vital signs: Vital Signs - 8 hr 07/24/20 10:36 07/24/20 10:39 07/24/20 12:05 Temperature 98.1 F 98.0 F Pulse Rate 54 L 55 L 52 L Respiratory Rate 20 18 16 Blood Pressure 148/72 H 148/73 H 140/71 Pulse Oximetry 99 98 99 <Brian Zapata DO - Last Filed: 07/24/20 16:26> Orders Ordered: ED Orders 07/24/20 10:42 XR toe RT min 2V Stat Vital Signs Vital signs: Vital Signs - 8 hr 07/24/20 10:36 07/24/20 10:39 07/24/20 12:05 Temperature 98.1 F 98.0 F Pulse Rate 54 L 55 L 52 L Respiratory Rate 20 18 16 Blood Pressure 148/72 H 148/73 H 140/71 Pulse Oximetry 99 98 99 MDM - Extremity Injury (Lower) <CHARLY Salcido - Last Filed: 07/24/20 13:52> Imaging Data Extremity x-ray #1: Radiologist's Impression: [address] [place] [address] [id number] ReportSigned Patient: Sj Tran GMR#: [id number]: [id number]:[id number]/Sex: 54 / MDate of Service: 07/24/20Loc: EDAccession Number: [id number] Procedure: XR toe RT min 2V Ordering Provider: Gabrielle Rendon PROCEDURE: XR TOE RT MIN 2V INDICATIONS: toe swelling TECHNIQUE: 3 views of the right great toe(s) acquired. COMPARISON: None. FINDINGS: Bones: There is mild to moderate hallux valgus. Osteoarthritic changes are noted in 1st MTP joint and 1st interphalangeal joint as well as articulation between 1st metacarpal head and sesamoids. No acute fracture or dislocation. No gross bony erosive changes. No suspicious bony lesions. Soft tissues: No suspicious soft tissue densities. Soft tissue swelling and edema along medial and dorsal aspect of right great toe is seen. IMPRESSION: Soft tissue swelling adjacent to medial and dorsal aspect of right great toe with bazz-nm-yqpzkhli hallux valgus. No acute fracture or dislocation. Right great toe osteoarthritis as above. No bony erosive changes. Dictated by: Shan Schmidt M.D. on 07/24/2020 at 10:07 Approved by: Shan Schmidt M.D. on 07/24/2020 at 10:15 MDM Narrative Medical decision making narrative: The patient is a 54-year-old male who presents with a chief complaint of right great toe pain after kicking an anchor while barefoot 2 days ago. X-ray has no acute findings. The patient is neurovascularly intact. Encouraged rest ice compression elevation and wlav-wfa-arvawch pain medications as needed and able. The patient declined further pain medications in the ER, declined walking shoe, states that he does not need a work note. Discussed coming back to the ER for acute concerns. Patient has no questions or concerns upon discharge and states understanding of return precautions as well as follow-up care. Discharge Plan Departure Patient Disposition: Home Clinical Impression: Great toe pain Qualifiers: Laterality: right Qualified Code(s): M79.674 - Pain in right toe(s) Instructions: How To Perform RICE (Rest, Ice, Compress, Elevate), DI for Toe Sprain Activity Restrictions/Additional Instructions: As I discussed, your x-ray shows no acute fracture. This does not rule out a soft tissue injury such as a ligament or tendon injury. It is important that you follow up with primary care provider, especially if worsening or no improvement. There can be fractures that did not show up on initial x-ray. As discussed, please use rest ice compression elevation as well as yekj-xeo-iltfamo pain medications as needed and able. Please come back to emergency department for any acute concerns. Prescriptions: No Action lisinopril 20 mg tablet 20 mg PO BID Qty: 100 RF: 0 amlodipine 5 mg tablet 5 mg PO DAILY Qty: 100 RF: 0 hydrochlorothiazide 25 mg Tablet 25 mg PO DAILY RF: 0 Referrals: Maranda Alvarenga MD [Primary Care Provider] - <Brian Zapata, - Last Filed: 07/24/20 16:26> Cosign ED Attending Cosignature Attestation: Dr Zapata Co-Sign Statement: I was available for consultation during this patient's emergency department visit. This chart is signed by myself for administrative purposes only. I did not have direct contact with this patient during this visit. They were seen independently by the APC.
[2020-07-24 12:05] VITALS: BP 140/71; PULSE 52; RESP 16; O2SAT 99
== END 2020-07-24 12:15 | disposition home or self-care (01) ==
PROVIDERS: Emergency Provider Nurse Practitioner Family; PCP Student in an Organized Health Care Education/Training Program
DX: M79.674 Pain in right toe(s) (principal); W22.8XXA Striking against or struck by other objects, initial encounter; Z86.73 Personal history of transient ischemic attack (TIA), and cerebral infarction without residual deficits
CPT/HCPCS: 73660; 99281; 99283

== ENCOUNTER 2021-05-14 16:33 | Emergency (ER) | payer OTHER, MEDICAID, SELFPAY ==
[2020-04-14 19:53] VITALS: BMI 52.9
[2021-05-14] VITALS (19 sets, daily range): BP systolic 147–198; BP diastolic 70–107; PULSE 48–64; RESP 15–27; TEMP 36.6; O2SAT 92–100; BMI 50.9
--- NOTE | 2021-05-14 20:16 | DI.RAD.S_ITS ---
PROCEDURE: XR CHEST 1V INDICATIONS: hypertension TECHNIQUE: One view of the chest was acquired. COMPARISON: [facility], , CHEST 1 VIEW, 01/28/2016, 23:44. FINDINGS: Surgical changes and devices: None. Lungs and pleura: Lungs are clear. No pleural effusions or pneumothorax. Mediastinum: Mediastinal contours appear normal. Heart size is enlarged. Bones and chest wall: No suspicious bony lesions. Overlying soft tissues appear unremarkable. IMPRESSION: No acute pulmonary process. Dictated by: Dai Carrero M.D. on 05/14/2021 at 21:36 Approved by: Dai Carrero M.D. on 05/14/2021 at 21:36
[2021-05-14] MEDS: lisinopriL 20 MG TABLET PO (21:02)
[2021-05-14 21:12] LABS: Add Manual Diff / Slide Review NO; Basophils Absolute Auto 0 /uL (0-100); Basophils Percent Auto 0.5 % (0-2); Eosinophils Absolute Auto 200 /uL (0-450); Eosinophils Percent Auto 2.7 % (2-4); Hematocrit 42.6 % (41-53); Hemoglobin 14.7 g/dL (13.5-17.5); Lymphocytes Absolute Auto 2200 /uL (1100-4500); Lymphocytes Percent Auto 28.8 % (25-40); Mean Corpuscular HGB Conc 34.6 % (30-36); Mean Corpuscular Hemoglobin 31.3 PG (26-34); Mean Corpuscular Volume 90.3 fL (80-100); Monocytes Absolute Auto 600 /uL (0-900); Monocytes Percent Auto 7.4 % (3-14); Neutrophils Absolute Auto 4700 /uL (1500-7000); Neutrophils Percent Auto 60.6 % (50-75); Platelet Count 234 X10^3/uL (150-400); Red Blood Cell Count 4.71 X10^6/uL (4.5-5.9); White Blood Cell Count 7.7 X10^3/uL (4.5-11.0)
[2021-05-14 21:16] LABS: COVID19 -Nasal RAPID Negative (Negative)
[2021-05-14 21:19] LABS: Alanine Aminotransferase 42 IU/L (<50); Alkaline Phosphatase 128 U/L (38-126); Aspartate Aminotransferase 36 IU/L (17-59); BUN Creatinine Ratio 24.4 (6-22); Bilirubin Total 0.5 mg/dL (0.2-1.3); Blood Urea Nitrogen 22 mg/dL (9-20); Carbon Dioxide 33 mmol/L (22-32); Chloride 100 mmol/L (98-107); Creatine Kinase 67 U/L (55-170); Estimated Glomerular Filt Rate > 60.0 mL/min (>60); Globulin 3.9 g/dL (1.7-4.1); Glucose 101 mg/dL (70-100); HEMOLYSIS < 15 (0-50); Lipase 101 U/L (23-300); Potassium 4.2 mmol/L (3.4-5.1); Sodium 139 mmol/L (137-145); Total Protein 7.9 g/dL (6.3-8.2)
[2021-05-14 21:30] LABS: Troponin I 0.016 ng/mL (0.01-0.034)
--- NOTE | 2021-05-14 21:59 | ED_ITS ---
HPI - General Adult <Kristin Bates DO - Last Filed: 05/15/21 19:04> General Chief complaint: Hypertension Stated complaint: HIGH BLOOD PRESSURE Time Seen by Provider: 05/14/21 21:57 Source: patient Mode of arrival: Ambulatory History of Present Illness HPI narrative: Patient is a 55-year-old male who has history of factor 5 Leiden, difficult to control hypertension, brain tumor in history of intracranial hemorrhage presenting today with elevated blood pressure. He says he has been out of his medication for not taking blood pressure medication for a few days because was quarantine in his friend's house who had COVID. He tested negative on home test today day. This is his 2nd infection with COVID. His COVID symptoms are better. He denies any chest pain shortness of breath, or other symptoms. He felt like his blood pressure is riding his he had pressure in the back of his neck. He previously was seen in the emergency department for elevated blood pressure and found to have intracranial hemorrhage. He said he did have symptoms at that time. He denies any headache nausea vomiting chest pain s hortness of breath fever or other symptoms. He denies any numbness tingling weakness or other neurologic deficits. Related Data Home Medications Medication Instructions Recorded Confirmed hydrochlorothiazide 25 mg tablet 25 mg PO DAILY 04/30/20 05/14/21 Previous Rx's Medication Instructions Recorded lisinopril 20 mg tablet 20 mg PO BID #100 tab 04/15/20 amlodipine 5 mg tablet 5 mg PO DAILY #100 tab 08/17/20 diltiazem HCl 120 mg 120 mg PO QAM #30 cap 05/15/21 capsule,extended release 24 hr Allergies Allergy/AdvReac Type Severity Reaction Status Date / Time No Known Drug Allergies Allergy Verified 05/14/21 16:56 Review of Systems <Kristin Bates DO - Last Filed: 05/15/21 19:04> Review of Systems Narrative: GENERAL: Denies chills, fatigue, malaise, fever, sweats, travel HEENT: Denies sinus pain, ear pain, sore throat, difficulty swallowing, neck pain RESPIRATORY: Denies dyspnea, cough, wheezing, hemoptysis, sputum. CARDIOVASCULAR: Denies chest pain, palpitations, orthopnea, edema GASTROINTESTINAL: Denies nausea, vomiting, abdominal pain, diarrhea, constipation, melena. : Denies dysuria, frequency, incontinence, hematuria, urinary retention, flank pain. MUSCULOSKELETAL: Denies weakness, joint pain, or bony pain SKIN: No rash, no erythema, no pruritus NEUROLOGIC: Denies weakness, dizziness, headache, numbness, change in speech, confusion PSYCHIATRIC: No concerning psychosocial issues. 12 point review of systems is negative except for those stated above and HPI Patient History <Kristin Bates DO - Last Filed: 05/15/21 19:04> Medical History Febrile illness, acute TIA (transient ischemic attack) UTI (urinary tract infection) Surgical History Bariatric surgery status History of craniotomy Family History Mother Pulmonary embolism Social History household members: children Smoking Status: Never smoker alcohol intake: former (quitted recently) substance use type: marijuana Smoking Status: Never smoker alcohol intake frequency: a few times a week Substance Use Type: marijuana Exam <Kristin Bates DO - Last Filed: 05/15/21 19:04> Initial Vital Signs Initial Vital Signs: Vital Signs Temperature 98 F 05/14/21 16:51 Pulse Rate 50 L 05/14/21 16:51 Respiratory Rate 17 05/14/21 16:51 Blood Pressure 192/105 H 05/14/21 16:51 Pulse Oximetry 99 05/14/21 16:51 GENERAL: Alert well-appearing 55-year-old maleand in no acute distress. HEENT: Head atraumatic,EOMI, pupils reactive, face symmetric, [moist] mucous membranes no meningeal signs CARDIOVASCULAR: Regular rate and rhythm without murmurs, rubs or gallops. RESPIRATORY: Breath sounds equal bilaterally, no wheezes rales or rhonchi. ABDOMEN: Soft, nontender. Normoactive bowel sounds all 4 quadrants. No guardin g or rebound. : No CVA tenderness EXTREMITIES: Normal range of motion, no clubbing or edema. Neurovascularly intact. Toll Operator strength equal bilaterally lower extremity strength equal NEUROLOGICAL: Alert and oriented x4.Normal gait and speech. SKIN: Warm, dry, no laceration, no petechiae, no rashes or lesions. <Brian Zapata DO - Last Filed: 05/15/21 18:13> Initial Vital Signs Initial Vital Signs: Vital Signs Temperature 98 F 05/14/21 16:51 Pulse Rate 50 L 05/14/21 16:51 Respiratory Rate 17 05/14/21 16:51 Blood Pressure 192/105 H 05/14/21 16:51 Pulse Oximetry 99 05/14/21 16:51 <Brian Zapata DO - Last Filed: 05/15/21 18:13> Cardioversion Consent Signed: Yes Indication: Atrial fibrillation Stability: Stable Number of attempts (shocks): 1 Joules used: 120 Cardiac rhythm post-cardioversion: Sinus rhythm Procedural Sedation Consent signed: Yes Time out performed: Yes Indication: cardioversion Presedation Evaluation: See HPI ASA Class: III Mallampati Airway Classification: Class II Preparation: color television console monitor applied, pulse oximeter, capnometry used, supplemental O2 applied, suction/airway equipment at bedside and IV secured Fentanyl: IV Fentanyl dose (mcg): 25 IV Propofol dose (mg): 100 Scores <Kristin Bates DO - Last Filed: 05/15/21 19:04> NIH Stroke Scale Level of Conciousness: Alert, keenly responsive Ask month/age: Answers both questions correctly. Open/close eyes, close hand: Performs both tasks correctly Best gaze horizontal: Normal Visual gaines: No visual loss Facial palsy: Normal symetrical movement Left arm drift: No drift for full 10 sec Right arm drift: No drift for full 10 sec Left leg drift: No drift for full 5 sec Right leg drift: No drift for full 5 sec Limb ataxia: Absent Sensory on face/arms/legs: Normal, no sensory loss Best language: No aphasia, normal Dysarthria: Normal Extinction or inattention: No abnormality Total NIH Stroke scale score: 0 <Brian Zapata DO - Last Filed: 05/15/21 18:13> NIH Stroke Scale Total NIH Stroke scale score: 0 Course <Kristin Bates DO - Last Filed: 05/15/21 19:04> Orders Ordered: ED Orders 05/15/21 14:18 EKG-12 Lead Stat RT Consult Eval and Treat Now 05/15/21 15:02 EKG-12 Lead Stat Discontinued Medications Amiodarone HCl (Amiodarone 150 Mg/3 Ml Vial) 150 mg IV NOW ONE Stop: 05/15/21 13:34 Last Admin: 05/15/21 13:51 Dose: Not Given Documented by: SYEDA Amlodipine Besylate (Amlodipine 5 Mg Tablet) 5 mg PO NOW ONE Stop: 05/15/21 03:55 Last Admin: 05/15/21 04:08 Dose: 5 mg Documented by: ARIS Fentanyl (Fentanyl 100 Mcg/2 Ml Inj) 25 mcg IV NOW ONE Stop: 05/15/21 14:18 Last Admin: 05/15/21 14:50 Dose: 25 mcg Documented by: SYEDA Hydrochlorothiazide (Hydrochlorothiazide 25 Mg Tablet) 25 mg PO NOW ONE Stop: 05/15/21 03:55 Last Admin: 05/15/21 04:08 Dose: 25 mg Documented by: ARIS Nicardipine HCl 25 mg/ Sodium (Chloride) 250 mls @ 50 mls/hr IV TITRATE NUPUR; Protocol Last Titration: 05/15/21 12:07 Dose: 4.5 mg/hr, 45 mls/hr Documented by: Titration: 05/15/21 11:23 Dose: 4.5 mg/hr, 45 mls/hr Documented by: Titration: 05/15/21 07:01 Dose: 4.5 mg/hr, 45 mls/hr Documented by: Admin: 05/15/21 05:30 Dose: 5 mg/hr, 50 mls/hr Documented by: ARIS Nicardipine HCl 25 mg/ Sodium (Chloride) 250 mls @ 50 mls/hr IV TITRATE NUPUR; Protocol Last Titration: 05/15/21 15:59 Dose: 0 mg/hr, 0 mls/hr Documented by: Titration: 05/15/21 14:05 Dose: 0 mg/hr, 0 mls/hr Documented by: Titration: 05/15/21 13:45 Dose: 5 mg/hr, 50 mls/hr Documented by: Titration: 05/15/21 13:28 Dose: 0 mg/hr, 0 mls/hr Documented by: Admin: 05/15/21 12:11 Dose: 5 mg/hr, 50 mls/hr Documented by: SYEDA Amiodarone HCl/Dextrose (Nexterone) 150 mg in 100 mls @ 600 mls/hr IV NOW ONE; Protocol Stop: 05/15/21 13:48 Last Infusion: 05/15/21 14:05 Dose: 0 mls/hr Documented by: Admin: 05/15/21 13:51 Dose: 600 mls/hr Documented by: SYEDA Sodium Chloride (Normal Saline 0.9%) 1,000 mls @ 75 mls/hr IV BOLUS ONE Stop: 05/16/21 03:04 Last Infusion: 05/15/21 15:59 Dose: 0 mls/hr Documented by: Admin: 05/15/21 13:50 Dose: 75 mls/hr Documented by: SYEDA Labetalol HCl (Labetalol 20 Mg/4 Ml Syringe) 10 mg IV NOW ONE Stop: 05/14/21 22:18 Last Admin: 05/14/21 22:56 Dose: 5 mg Documented by: KENTON Labetalol HCl (Labetalol 20 Mg/4 Ml Syringe) 10 mg IV NOW ONE Stop: 05/15/21 01:26 Last Admin: 05/15/21 01:52 Dose: 10 mg Documented by: ARIS Lisinopril (Lisinopril 20 Mg Tablet) 20 mg PO NOW ONE Stop: 05/14/21 20:54 Last Admin: 05/14/21 21:02 Dose: 20 mg Documented by: MAYA Lisinopril (Lisinopril 20 Mg Tablet) 20 mg PO NOW ONE Stop: 05/15/21 07:29 Last Admin: 05/15/21 07:48 Dose: 20 mg Documented by: GAY Propofol (Propofol 200 Mg/20 Ml Vial) 160 mg 1 mg/kg (160 mg) IV NOW ONE Stop: 05/15/21 14:18 Last Admin: 05/15/21 15:00 Dose: 100 mg Documented by: SYEDA Vital Signs Vital signs: Vital Signs - 8 hr 05/15/21 11:13 05/15/21 11:17 05/15/21 11:30 Pulse Rate 67 61 124 H Respiratory Rate 16 Blood Pressure 142/103 H Pulse Oximetry 89 L 97 96 05/15/21 11:31 05/15/21 12:00 05/15/21 12:01 Pulse Rate 123 H 124 H 126 H Respiratory Rate 16 28 H 33 H Blood Pressure 114/72 168/98 H Pulse Oximetry 96 96 96 05/15/21 12:30 05/15/21 12:31 05/15/21 13:00 Pulse Rate 121 H 124 H 128 H Respiratory Rate 20 22 26 H Blood Pressure 155/78 H Pulse Oximetry 96 97 05/15/21 13:01 05/15/21 13:33 05/15/21 13:45 Pulse Rate 118 H 122 H 111 H Respiratory Rate 20 1 L Blood Pressure 131/85 Pulse Oximetry 98 05/15/21 13:55 05/15/21 14:00 05/15/21 14:03 Pulse Rate 109 H 107 H 98 H Respiratory Rate 21 24 15 Blood Pressure 100/57 L 127/71 Pulse Oximetry 05/15/21 14:06 05/15/21 14:07 05/15/21 14:15 Pulse Rate 100 H 105 H 106 H Respiratory Rate 16 17 23 Blood Pressure 100/60 112/58 L 116/67 Pulse Oximetry 05/15/21 14:33 05/15/21 14:35 05/15/21 14:40 Pulse Rate 115 H 106 H 116 H Respiratory Rate 16 18 30 H Blood Pressure 104/70 Pulse Oximetry 93 96 97 05/15/21 14:45 05/15/21 14:48 05/15/21 14:50 Pulse Rate 118 H 113 H 115 H Respiratory Rate 18 21 18 Blood Pressure 94/65 127/93 H Pulse Oximetry 97 95 97 05/15/21 14:51 05/15/21 14:55 05/15/21 15:00 Pulse Rate 106 H 56 L 59 L Respiratory Rate 18 17 17 Blood Pressure 127/69 126/61 109/62 Pulse Oximetry 98 98 94 05/15/21 15:05 05/15/21 15:10 05/15/21 15:15 Pulse Rate 59 L 59 L 57 L Respiratory Rate 16 19 14 Blood Pressure 102/55 L 105/58 L 108/57 L Pulse Oximetry 96 97 96 05/15/21 15:20 05/15/21 15:25 05/15/21 15:30 Pulse Rate 56 L 55 L 59 L Respiratory Rate 13 13 17 Blood Pressure 106/55 L 114/64 114/63 Pulse Oximetry 96 96 96 05/15/21 15:35 05/15/21 15:40 05/15/21 15:45 Pulse Rate 61 62 62 Respiratory Rate 19 20 18 Blood Pressure 119/63 115/67 118/68 Pulse Oximetry 96 96 99 05/15/21 15:50 Pulse Rate 58 L Respiratory Rate 17 Blood Pressure 113/66 Pulse Oximetry 97 <Brian Zapata, DO - Last Filed: 05/15/21 18:13> Orders Ordered: ED Orders 05/15/21 14:18 EKG-12 Lead Stat RT Consult Eval and Treat Now 05/15/21 15:02 EKG-12 Lead Stat Discontinued Medications Amiodarone HCl (Amiodarone 150 Mg/3 Ml Vial) 150 mg IV NOW ONE Stop: 05/15/21 13:34 Last Admin: 05/15/21 13:51 Dose: Not Given Documented by: SYEDA Amlodipine Besylate (Amlodipine 5 Mg Tablet) 5 mg PO NOW ONE Stop: 05/15/21 03:55 Last Admin: 05/15/21 04:08 Dose: 5 mg Documented by: ARIS Fentanyl (Fentanyl 100 Mcg/2 Ml Inj) 25 mcg IV NOW ONE Stop: 05/15/21 14:18 Last Admin: 05/15/21 14:50 Dose: 25 mcg Documented by: SYEDA Hydrochlorothiazide (Hydrochlorothiazide 25 Mg Tablet) 25 mg PO NOW ONE Stop: 05/15/21 03:55 Last Admin: 05/15/21 04:08 Dose: 25 mg Documented by: ARIS Nicardipine HCl 25 mg/ Sodium (Chloride) 250 mls @ 50 mls/hr IV TITRATE NUPUR; Protocol Last Titration: 05/15/21 12:07 Dose: 4.5 mg/hr, 45 mls/hr Documented by: Titration: 05/15/21 11:23 Dose: 4.5 mg/hr, 45 mls/hr Documented by: Titration: 05/15/21 07:01 Dose: 4.5 mg/hr, 45 mls/hr Documented by: Admin: 05/15/21 05:30 Dose: 5 mg/hr, 50 mls/hr Documented by: ARIS Nicardipine HCl 25 mg/ Sodium (Chloride) 250 mls @ 50 mls/hr IV TITRATE NUPUR; Protocol Last Titration: 05/15/21 15:59 Dose: 0 mg/hr, 0 mls/hr Documented by: Titration: 05/15/21 14:05 Dose: 0 mg/hr, 0 mls/hr Documented by: Titration: 05/15/21 13:45 Dose: 5 mg/hr, 50 mls/hr Documented by: Titration: 05/15/21 13:28 Dose: 0 mg/hr, 0 mls/hr Documented by: Admin: 05/15/21 12:11 Dose: 5 mg/hr, 50 mls/hr Documented by: SYEDA Amiodarone HCl/Dextrose (Nexterone) 150 mg in 100 mls @ 600 mls/hr IV NOW ONE; Protocol Stop: 05/15/21 13:48 Last Infusion: 05/15/21 14:05 Dose: 0 mls/hr Documented by: Admin: 05/15/21 13:51 Dose: 600 mls/hr Documented by: SYEDA Sodium Chloride (Normal Saline 0.9%) 1,000 mls @ 75 mls/hr IV BOLUS ONE Stop: 05/16/21 03:04 Last Infusion: 05/15/21 15:59 Dose: 0 mls/hr Documented by: Admin: 05/15/21 13:50 Dose: 75 mls/hr Documented by: SYEDA Labetalol HCl (Labetalol 20 Mg/4 Ml Syringe) 10 mg IV NOW ONE Stop: 05/14/21 22:18 Last Admin: 05/14/21 22:56 Dose: 5 mg Documented by: KENTON Labetalol HCl (Labetalol 20 Mg/4 Ml Syringe) 10 mg IV NOW ONE Stop: 05/15/21 01:26 Last Admin: 05/15/21 01:52 Dose: 10 mg Documented by: ARIS Lisinopril (Lisinopril 20 Mg Tablet) 20 mg PO NOW ONE Stop: 05/14/21 20:54 Last Admin: 05/14/21 21:02 Dose: 20 mg Documented by: MAYA Lisinopril (Lisinopril 20 Mg Tablet) 20 mg PO NOW ONE Stop: 05/15/21 07:29 Last Admin: 05/15/21 07:48 Dose: 20 mg Documented by: GAY Propofol (Propofol 200 Mg/20 Ml Vial) 160 mg 1 mg/kg (160 mg) IV NOW ONE Stop: 05/15/21 14:18 Last Admin: 05/15/21 15:00 Dose: 100 mg Documented by: SYEDA Vital Signs Vital signs: Vital Signs - 8 hr 05/15/21 11:13 05/15/21 11:17 05/15/21 11:30 Pulse Rate 67 61 124 H Respiratory Rate 16 Blood Pressure 142/103 H Pulse Oximetry 89 L 97 96 05/15/21 11:31 05/15/21 12:00 05/15/21 12:01 Pulse Rate 123 H 124 H 126 H Respiratory Rate 16 28 H 33 H Blood Pressure 114/72 168/98 H Pulse Oximetry 96 96 96 05/15/21 12:30 05/15/21 12:31 05/15/21 13:00 Pulse Rate 121 H 124 H 128 H Respiratory Rate 20 22 26 H Blood Pressure 155/78 H Pulse Oximetry 96 97 05/15/21 13:01 05/15/21 13:33 05/15/21 13:45 Pulse Rate 118 H 122 H 111 H Respiratory Rate 20 1 L Blood Pressure 131/85 Pulse Oximetry 98 05/15/21 13:55 05/15/21 14:00 05/15/21 14:03 Pulse Rate 109 H 107 H 98 H Respiratory Rate 21 24 15 Blood Pressure 100/57 L 127/71 Pulse Oximetry 05/15/21 14:06 05/15/21 14:07 05/15/21 14:15 Pulse Rate 100 H 105 H 106 H Respiratory Rate 16 17 23 Blood Pressure 100/60 112/58 L 116/67 Pulse Oximetry 05/15/21 14:33 05/15/21 14:35 05/15/21 14:40 Pulse Rate 115 H 106 H 116 H Respiratory Rate 16 18 30 H Blood Pressure 104/70 Pulse Oximetry 93 96 97 05/15/21 14:45 05/15/21 14:48 05/15/21 14:50 Pulse Rate 118 H 113 H 115 H Respiratory Rate 18 21 18 Blood Pressure 94/65 127/93 H Pulse Oximetry 97 95 97 05/15/21 14:51 05/15/21 14:55 05/15/21 15:00 Pulse Rate 106 H 56 L 59 L Respiratory Rate 18 17 17 Blood Pressure 127/69 126/61 109/62 Pulse Oximetry 98 98 94 05/15/21 15:05 05/15/21 15:10 05/15/21 15:15 Pulse Rate 59 L 59 L 57 L Respiratory Rate 16 19 14 Blood Pressure 102/55 L 105/58 L 108/57 L Pulse Oximetry 96 97 96 05/15/21 15:20 05/15/21 15:25 05/15/21 15:30 Pulse Rate 56 L 55 L 59 L Respiratory Rate 13 13 17 Blood Pressure 106/55 L 114/64 114/63 Pulse Oximetry 96 96 96 05/15/21 15:35 05/15/21 15:40 05/15/21 15:45 Pulse Rate 61 62 62 Respiratory Rate 19 20 18 Blood Pressure 119/63 115/67 118/68 Pulse Oximetry 96 96 99 05/15/21 15:50 Pulse Rate 58 L Respiratory Rate 17 Blood Pressure 113/66 Pulse Oximetry 97 Medical Decision Making <Kristin Bates, DO - Last Filed: 05/15/21 19:04> Lab Data Result diagrams: 05/14/21 20:30 05/14/21 20:30 Labs: Lab Results 05/14/21 05/14/21 05/14/21 Range/Units 20:30 20:30 20:35 WBC 7.7 (4.5-11.0) X10^3/uL RBC 4.71 (4.5-5.9) X10^6/uL Hgb 14.7 (13.5-17.5) g/dL Hct 42.6 (41-53) % MCV 90.3 (80-100) fL MCH 31.3 (26-34) PG MCHC 34.6 (30-36) % RDW 13.0 (11.6-14.8) % Plt Count 234 (150-400) X10^3/uL Neut % (Auto) 60.6 (50-75) % Lymph % (Auto) 28.8 (25-40) % [place] % (Auto) 7.4 (3-14) % Eos % (Auto) 2.7 (2-4) % Baso % (Auto) 0.5 (0-2) % Neut # (Auto) 4700 (5696-8098) /uL Lymph # (Auto) 2200 (7216-2716) /uL [place] # (Auto) 600 (0-900) /uL Eos # (Auto) 200 (0-450) /uL Baso # (Auto) 0 (0-100) /uL PT (10.1-12.7) SECONDS INR (0.9-1.3) APTT (26.4-36.2) SECONDS Sodium 139 (137-145) mmol/L Potassium 4.2 (3.4-5.1) mmol/L Chloride 100 (98-107) mmol/L Carbon Dioxide 33 H (22-32) mmol/L BUN 22 H (9-20) mg/dL Creatinine 0.90 (0.66-1.25) mg/dL Estimated GFR > 60.0 (>60) mL/min BUN/Creatinine Ratio 24.4 H (6-22) Glucose 101 H (70-100) mg/dL Calcium 9.0 (8.4-10.2) mg/dL Total Bilirubin 0.5 (0.2-1.3) mg/dL AST 36 (17-59) IU/L ALT 42 (<50) IU/L Alkaline Phosphatase 128 H (38-126) U/L Total Creatine Kinase 67 (55-170) U/L CK-MB (CK-2) TNP CK-MB (CK-2) Rel Index TNP Troponin I 0.016 (0.01-0.034) ng/mL Total Protein 7.9 (6.3-8.2) g/dL Albumin 4.0 (3.5-5.0) g/dL Globulin 3.9 (1.7-4.1) g/dL Albumin/Globulin Ratio 1.0 (1.0-2.8) Lipase 101 (23-300) U/L SARS-CoV-2 (PCR) Negative (Negative) 05/14/21 05/15/21 Range/Units 22:29 00:20 WBC (4.5-11.0) X10^3/uL RBC (4.5-5.9) X10^6/uL Hgb (13.5-17.5) g/dL Hct (41-53) % MCV (80-100) fL MCH (26-34) PG MCHC (30-36) % RDW (11.6-14.8) % Plt Count (150-400) X10^3/uL Neut % (Auto) (50-75) % Lymph % (Auto) (25-40) % [place] % (Auto) (3-14) % Eos % (Auto) (2-4) % Baso % (Auto) (0-2) % Neut # (Auto) (8314-0243) /uL Lymph # (Auto) (3005-7373) /uL [place] # (Auto) (0-900) /uL Eos # (Auto) (0-450) /uL Baso # (Auto) (0-100) /uL PT 12.0 (10.1-12.7) SECONDS INR 1.1 (0.9-1.3) APTT 31 (26.4-36.2) SECONDS Sodium (137-145) mmol/L Potassium (3.4-5.1) mmol/L Chloride (98-107) mmol/L Carbon Dioxide (22-32) mmol/L BUN (9-20) mg/dL Creatinine (0.66-1.25) mg/dL Estimated GFR (>60) mL/min BUN/Creatinine Ratio (6-22) Glucose (70-100) mg/dL Calcium (8.4-10.2) mg/dL Total Bilirubin (0.2-1.3) mg/dL AST (17-59) IU/L ALT (<50) IU/L Alkaline Phosphatase (38-126) U/L Total Creatine Kinase (55-170) U/L CK-MB (CK-2) CK-MB (CK-2) Rel Index Troponin I 0.018 (0.01-0.034) ng/mL Total Protein (6.3-8.2) g/dL Albumin (3.5-5.0) g/dL Globulin (1.7-4.1) g/dL Albumin/Globulin Ratio (1.0-2.8) Lipase (23-300) U/L SARS-CoV-2 (PCR) (Negative) Imaging Data CT scan - head: Radiologist's Impression: PROCEDURE:? CT HEAD/BRAIN WO CON ? INDICATIONS:? prior bleed, Hypertension ? TECHNIQUE:? Noncontrast 4.5 mm thick angled axial sections acquired from the foramen magnum to the vertex, with coronal and sagittal reformats.? For radiation dose reduction, the following was used:? automated exposure control, adjustment of mA and/or kV according to patient size.? ? COMPARISON:? [facility], CT, CT HEAD/BRAIN WO CON, 04/14/2020, 15:44.? [facility], CT, CT HEAD/BRAIN WO CON, 04/09/2020, 13:14. ? FINDINGS:? Image quality:? Excellent.? ? CSF spaces:? Basal cisterns are patent.? No extra-axial fluid collections.? The ventricles are symmetric in size and shape.? ? Brain:? There is a tiny focus of hyperdensity within the left basal ganglia.? This likely represents a small intracranial hemorrhage as the most recent study was dated over a year ago.? Stable encephalomalacia of the right frontal lobe as well as post resection changes in the region.? No evidence for mass or mass effect.? There is cerebral volume loss for age, with resultant ventricular and sulcal prominence.? There are periventricular and deep white matter chronic small vessel ischemic changes.? There is intracranial internal carotid artery atherosclerosis.? ? Skull and face:? Stable changes of remote right frontal craniotomy.? Calvarium and visualized facial bones appear intact, without suspicious lesions.? ? Sinuses:? Small amount of fluid in the left maxillary sinus. Remainder of the paranasal sinuses appear clear. Mastoid air cells are well-aerated. ? ? IMPRESSION:? ? 1. Small 5 mm focus of acute hemorrhage involving the left basal ganglia.? No evidence for adjacent mass effect or edema.? No midline shift of structures. ? 2. Stable postsurgical changes/encephalomalacia of the right frontal lobe with overlying craniotomy changes. ? 3. Minimal left maxillary sinus disease.? ? Findings were discussed with Dr. Bates at 2333 hrs. ? ? Dictated by: David Mann M.D. on 05/14/2021 at 23:26 ? ? ECG Data Interpretation: EKG 1. Sinus a red male rate 62 IL interval 198 QRS [address] changes similar to prior EKG 2. Atrial fibrillation rate 105 new onset AFib MDM Narrative Medical decision making narrative: The patient overall here for hypertension. He has no focal deficits he just feels some mild pressure in his neck. Head CT does show that he has a small left basal ganglia intracranial hemorrhage measuring 5 mm. This is actually in the exact same spot as he had it about 1 year ago. Since then he has had and normal head CT. He is not on any anticoagulation medication. He is ambulatory to the restroom numerous times but blood pressure has come down. He has received a couple of doses of IV labetalol and some home medications. While on the monitor it does show AFib, he states he previously had 1 episode of AFib however he thought it was secondary to a PICC line when he had his brain tumor removed. He said he has not had any recurrent episodes since then in till now. He denies any chest pain or palpitations. He is completely asymptomatic. 01:20 Dr. Lindsey, neurosurgery at [facility] has reviewed head CT and updated on patient's symptoms test results. At this time he does not believe that patient needs to be transferred is a very small hemorrhage. However he strongly recommend that patient have his blood pressure controlled for 12-24 hours and have a repeat head CT, then he may be discharged. He is aware of the small hospital emergency department that we have however due to significant bed shortage throughout the critical access hospital this seems like the best option. [id number] stroke doctor [facility] has been updated on patient's atrial fibrillation. At this time she says he cannot be cardioverted secondary to acute hemorrhage. She has recommends rate control continuation of blood pressure control and repeat head CT. She recommends outpatient follow-up Patient's heart rate varies quite significantly he has severe sleep apnea likely secondary to morbid obesity heart rate varies from 18-120. Hesitant to give him any further rate control medication. Blood pressure was well controlled however started rising again. He is given home dose of his home medications and started on nicardipine. He remains completely asymptomatic Repeat head CT in the morning shows resolution of small intracranial hemorrhage. 0715 Dr. Alvarenga, PCP updated patient's symptoms test results recent recommendations. At this time she of agrees with further imaging of different modality and discussing again with stroke and possible Cardiology about recommendations and anticoagulation. MRI is ordered. Patient signed out to Dr. Zapata for further workup <Brian Zapata, - Last Filed: 05/15/21 18:13> Lab Data Labs: Lab Results 05/14/21 05/14/21 05/14/21 Range/Units 20:30 20:30 20:35 WBC 7.7 (4.5-11.0) X10^3/uL RBC 4.71 (4.5-5.9) X10^6/uL Hgb 14.7 (13.5-17.5) g/dL Hct 42.6 (41-53) % MCV 90.3 (80-100) fL MCH 31.3 (26-34) PG MCHC 34.6 (30-36) % RDW 13.0 (11.6-14.8) % Plt Count 234 (150-400) X10^3/uL Neut % (Auto) 60.6 (50-75) % Lymph % (Auto) 28.8 (25-40) % [place] % (Auto) 7.4 (3-14) % Eos % (Auto) 2.7 (2-4) % Baso % (Auto) 0.5 (0-2) % Neut # (Auto) 4700 (3725-4400) /uL Lymph # (Auto) 2200 (5844-9069) /uL [place] # (Auto) 600 (0-900) /uL Eos # (Auto) 200 (0-450) /uL Baso # (Auto) 0 (0-100) /uL PT (10.1-12.7) SECONDS INR (0.9-1.3) APTT (26.4-36.2) SECONDS Sodium 139 (137-145) mmol/L Potassium 4.2 (3.4-5.1) mmol/L Chloride 100 (98-107) mmol/L Carbon Dioxide 33 H (22-32) mmol/L BUN 22 H (9-20) mg/dL Creatinine 0.90 (0.66-1.25) mg/dL Estimated GFR > 60.0 (>60) mL/min BUN/Creatinine Ratio 24.4 H (6-22) Glucose 101 H (70-100) mg/dL Calcium 9.0 (8.4-10.2) mg/dL Total Bilirubin 0.5 (0.2-1.3) mg/dL AST 36 (17-59) IU/L ALT 42 (<50) IU/L Alkaline Phosphatase 128 H (38-126) U/L Total Creatine Kinase 67 (55-170) U/L CK-MB (CK-2) TNP CK-MB (CK-2) Rel Index TNP Troponin I 0.016 (0.01-0.034) ng/mL Total Protein 7.9 (6.3-8.2) g/dL Albumin 4.0 (3.5-5.0) g/dL Globulin 3.9 (1.7-4.1) g/dL Albumin/Globulin Ratio 1.0 (1.0-2.8) Lipase 101 (23-300) U/L SARS-CoV-2 (PCR) Negative (Negative) 05/14/21 05/15/21 Range/Units 22:29 00:20 WBC (4.5-11.0) X10^3/uL RBC (4.5-5.9) X10^6/uL Hgb (13.5-17.5) g/dL Hct (41-53) % MCV (80-100) fL MCH (26-34) PG MCHC (30-36) % RDW (11.6-14.8) % Plt Count (150-400) X10^3/uL Neut % (Auto) (50-75) % Lymph % (Auto) (25-40) % [place] % (Auto) (3-14) % Eos % (Auto) (2-4) % Baso % (Auto) (0-2) % Neut # (Auto) (3347-9984) /uL Lymph # (Auto) (6763-4356) /uL [place] # (Auto) (0-900) /uL Eos # (Auto) (0-450) /uL Baso # (Auto) (0-100) /uL PT 12.0 (10.1-12.7) SECONDS INR 1.1 (0.9-1.3) APTT 31 (26.4-36.2) SECONDS Sodium (137-145) mmol/L Potassium (3.4-5.1) mmol/L Chloride (98-107) mmol/L Carbon Dioxide (22-32) mmol/L BUN (9-20) mg/dL Creatinine (0.66-1.25) mg/dL Estimated GFR (>60) mL/min BUN/Creatinine Ratio (6-22) Glucose (70-100) mg/dL Calcium (8.4-10.2) mg/dL Total Bilirubin (0.2-1.3) mg/dL AST (17-59) IU/L ALT (<50) IU/L Alkaline Phosphatase (38-126) U/L Total Creatine Kinase (55-170) U/L CK-MB (CK-2) CK-MB (CK-2) Rel Index Troponin I 0.018 (0.01-0.034) ng/mL Total Protein (6.3-8.2) g/dL Albumin (3.5-5.0) g/dL Globulin (1.7-4.1) g/dL Albumin/Globulin Ratio (1.0-2.8) Lipase (23-300) U/L SARS-CoV-2 (PCR) (Negative) Imaging Data MR angio: Radiologist's Impression: [address] [address] Magnetic Resonance Report Signed Patient: Sj Tran MR#: [id number] : 1965 Acct:[id number] Age/Sex: 55 / M Date of Service: 05/15/21 Loc: ED Accession Number: [id number] ?? Procedure: MR angio head wo con Ordering Provider: Brian Zapata D.O. PROCEDURE:? MR ANGIO HEAD WO CON ? INDICATIONS:? STROKE ? TECHNIQUE:? Noncontrast axial 3-D [id number] MR angiogram, with 3-dimensional maximum intensity projection (MIP) reformats of the internal carotid arteries and posterior circulation then performed.? ? COMPARISON:? [facility], , MR HEAD/BRAIN WO CON, 05/15/2021, 10:39. ? FINDINGS:? Image quality:? Excellent.? ? Anterior circulation:? Intracranial internal carotid arteries demonstrate normal size and intraluminal flow signal.? The flow within the paired anterior cerebral arteries is normal and symmetric.? The flow within the middle cerebral arteries is normal and symmetric.? There is probably in plane saturation artifact effecting both M2 segments.The anterior communicating artery is seen.? No stenoses, occlusions, or aneurysms.? ? Posterior circulation:? Visualized portions of the vertebral arteries dem onstrate normal caliber, and join to form a normal appearing basilar artery.? The flow within the posterior cerebral arteries is normal and symmetric.? No stenoses, occlusions, or aneurysms.? ? IMPRESSION:? No focal intracranial stenosis or occlusion ? Dictated by: Eusebio La M.D. on 05/15/2021 at 11:38 ? ? Approved by: Eusebio La M.D. on 05/15/2021 at 11:43?? Brain MRI: Radiologist's Impression: [address] [address] Magnetic Resonance Report Addendum Patient: Sj Tran MR#: [id number] : 1965 Acct:[id number] Age/Sex: 55 / M Date of Service: 05/15/21 Loc: ED Accession Number: [id number] ?? Procedure: MR head/brain wo con Ordering Provider: Kristin Bates D.O. ADDENDUMThis report includes an Addendum and supersedes previous reports for this exam. ? ? ? PROCEDURE:? MR HEAD/BRAIN WO CON ? INDICATIONS:? ? bleed/stroke ? TECHNIQUE:? Non-contrast axial T1 spin echo, axial T2 fast spin echo, sagittal and axial FLAIR, coronal T2 fast spin echo, axial gradient echo, .? The patient terminated the exam prematurely, and diffusion-weighted pulse sequences were not obtained ? COMPARISON:? None. ? FINDINGS:? Image quality:? Excellent.? ? CSF spaces:? Ventricles appear symmetric in size and shape.? Basal cisterns are patent.? No extra-axial fluid collections.? ? Brain:? No intracranial bleeds or mass effects.? Right frontal lobe signal changes and volume loss suggestive of post operative encephalomalacia ? ?There is cerebral volume loss for age.? There are periventricular and deep white matter chronic small vessel ischemic changes.? Brainstem appears normal.? ? ? Normal intravascular flow voids are present.? ? Skull and face:? Postsurgical changes related to right frontal craniotomy. ? Sinuses:? Sinuses and mastoids are clear.? ? IMPRESSION:? Postsurgical changes related to right frontal craniotomy with u nderlying gliosis left encephalomalacia.? Suboptimal evaluation as the patient terminated the exam prematurely, before diffusion-weighted pulse sequences had been obtained.? Therefore cannot exclude acute ischemia.? Consider limited scanning with diffusion- weighted pulse sequences and ADC map only , when and if feasible. ? Dictated by: Eusebio La M.D. on 05/15/2021 at 11:32 ? ? Approved by: Eusebio La M.D. on 05/15/2021 at 11:37 ? ? ? ADDENDUM: ? Diffusion-weighted imaging and ADC map were performed.? There is no evidence of acute ischemia. ? ? ? Dictated by: Eusebio La M.D. on 05/15/2021 at 14:08 ? ? Approved by: Eusebio La M.D. on 05/15/2021 at 14:09 ? Addendum Dictated By: Eusebio La MD Addendum Signed By: Addendum Cosigned By: DD/ TD/TT: 05/15/21 PROCEDURE:? MR HEAD/BRAIN WO CON ? INDICATIONS:? ? bleed/stroke ? TECHNIQUE:? Non-contrast axial T1 spin echo, axial T2 fast spin echo, sagittal and axial FLAIR, coronal T2 fast spin echo, axial gradient echo, .? The patient terminated the exam prematurely, and diffusion-weighted pulse sequences were not obtained ? COMPARISON:? None. ? FINDINGS:? Image quality:? Excellent.? ? CSF spaces:? Ventricles appear symmetric in size and shape.? Basal cisterns are patent.? No extra-axial fluid collections.? ? Brain:? No intracranial bleeds or mass effects.? Right frontal lobe signal changes and volume loss suggestive of post operative encephalomalacia ? ?There is cerebral volume loss for age.? There are periventricular and deep white matter chronic small vessel ischemic changes.? Brainstem appears normal.? ? ? Normal intravascular flow voids are present.? ? Skull and face:? Postsurgical changes related to right frontal craniotomy. ? Sinuses:? Sinuses and mastoids are clear.? ? IMPRESSION:? Postsurgical changes related to right frontal craniotomy with underlying gliosis left encephalomalacia.? Suboptimal evaluation as the patient terminated the exam prematurely, before diffusion-weighted pulse sequences had been obtained.? Therefore cannot exclude acute ischemia.? Consider limited scanning with diffusion- weighted pulse sequences and ADC map only , when and if feasible. ? Dictated by: Eusebio La M.D. on 05/15/2021 at 11:32 ? ? Approved by: Eusebio La M.D. on 05/15/2021 at 11:37?? ECG Data Interpretation: EKG 1. Sinus a red male rate 62 IL interval 198 QRS [address] changes similar to prior EKG 2. Atrial fibrillation rate 105 new onset AFib Post cardioversion EKG Sinus bradycardia Ventricular rate of 59 Normal axis Normal QRS Normal QTC No ST T wave changes MDM Narrative Medical decision making narrative: The patient overall here for hypertension. He has no focal deficits he just feels some mild pressure in his neck. Head CT does show that he has a small left basal ganglia intracranial hemorrhage measuring 5 mm. This is actually in the exact same spot as he had it about 1 year ago. Since then he has had and normal head CT. He is not on any anticoagulation medication. He is ambulatory to the restroom numerous times but blood pressure has come down. He has received a couple of doses of IV labetalol and some home medications. While on the monitor it does show AFib, he states he previously had 1 episode of AFib however he thought it was secondary to a PICC line when he had his brain tumor removed. He said he has not had any recurrent episodes since then in till now. He denies any chest pain or palpitations. He is completely asymptomatic. 01:20 Dr. Lindsey, neurosurgery at [facility] has reviewed head CT and updated on patient's symptoms test results. At this time he does not believe that patient needs to be transferred is a very small hemorrhage. However he strongly recommend that patient have his blood pressure controlled for 12-24 hours and have a repeat head CT, then he may be discharged. He is aware of the small hospital emergency department that we have however due to significant bed shortage throughout the critical access hospital this seems like the best option. 0345am stroke doctor [facility] has been updated on patient's atrial fibrillation. At this time she says he cannot be cardioverted secondary to acute hemorrhage. She has recommends rate control continuation of blood pressure control and repeat head CT. She recommends outpatient follow-up Patient's heart rate varies quite significantly he has severe sleep apnea likely secondary to morbid obesity heart rate varies from 18-120. Hesitant to give him any further rate control medication. Blood pressure was well controlled however started rising again. He is given home dose of his home medications and started on nicardipine. He remains completely asymptomatic Repeat head CT in the morning shows resolution of small intracranial hemorrhage. 5515 Dr. Alvarenga, PCP updated patient's symptoms test results recent recommendations. At this time she of agrees with further imaging of different modality and discussing again with stroke and possible Cardiology about recommendations and anticoagulation. MRI is ordered. Patient signed out to Dr. Zapata for further workup Dr Zapata: Received turned over. Reviewed patient's history and physical. Performed my own physical exam. Patient still continues to be in atrial fibrillation however the rate initially was 80-120. His blood pressure continu ed to improve on the nicardipine drip. MRI was obtained. Patient able to complete the MRI except for the DWI images secondary to some claustrophobia issues. Patient was brought back to the room. Initial MRI shows no signs of an acute intracranial hemorrhage. Patient was then sent back and was able to obtain the DWI images and again showed no signs of stroke. Patient continues to be in AFib. Unfortunately we were unable to definitively state that he did not have a head bleed earlier today so patient cannot be placed on anticoagulation. Being in atrial fibrillation and also being factor 5 Leiden he is at an increased risk of developing a clot which then could lead to a ischemic stroke. There is also risk of performing the cardioversion and causing clot because of the procedure. I had a discussion with him regarding this. I did discuss the case with Dr. Garzon with [facility]. He stated that the risk for cardioversion is much less than keeping the patient in atrial fibrillation. Patient was loaded with amiodarone. He was sedated and cardioverted as described above. This was successful. We were able to wean him off the nicardipine drip. He recovered. Per cardiology recommendation we will change him from amlodipine to diltiazem. Patient was instructed this. Patient will be discharged home. He was given return precautions and follow-up instr [facility]. He expressed understanding and agreement. Discharge Plan Departure Patient Disposition: Home Clinical Impression: Atrial fibrillation with RVR, Hypertension, Hemorrhage, intracerebral Activity Restrictions/Additional Instructions: It is important that you take all of your blood pressure medications. After the contact your primary doctor for a follow-up. It is also important that you may contact and follow up with a pay station attendant. This can be done through your primary doctor. We do need to make some changes to your blood pressure medications. You need to continue to take your hydrochlorothiazide/HCTZ 25 mg by mouth on a daily basis. Continue your lisinop ril 20 mg by mouth 2 times a day. We are going to have you stop your amlodipine. We are going to add a medicine called diltiazem. This medicine is 120 mg and should be taken 1 time a day. Return to the emergency department for any new or worsening symptoms Prescriptions: New diltiazem HCl 120 mg capsule,extended release 24hr 120 mg PO QAM Qty: 30 2RF No Action amlodipine 5 mg tablet 5 mg PO DAILY Qty: 100 0RF lisinopril 20 mg tablet 20 mg PO BID Qty: 100 0RF hydrochlorothiazide 25 mg Tablet 25 mg PO DAILY 0RF Referrals: Maranda Alvarenga MD [Primary Care Provider] -
--- NOTE | 2021-05-14 22:14 | DI.CT.S_ITS ---
PROCEDURE: CT HEAD/BRAIN WO CON INDICATIONS: prior bleed, Hypertension TECHNIQUE: Noncontrast 4.5 mm thick angled axial sections acquired from the foramen magnum to the vertex, with coronal and sagittal reformats. For radiation dose reduction, the following was used: automated exposure control, adjustment of mA and/or kV according to patient size. COMPARISON: [facility], CT, CT HEAD/BRAIN WO CON, 04/14/2020, 15:44. [facility], CT, CT HEAD/BRAIN WO CON, 04/09/2020, 13:14. FINDINGS: Image quality: Excellent. CSF spaces: Basal cisterns are patent. No extra-axial fluid collections. The ventricles are symmetric in size and shape. Brain: There is a tiny focus of hyperdensity within the left basal ganglia. This likely represents a small intracranial hemorrhage as the most recent study was dated over a year ago. Stable encephalomalacia of the right frontal lobe as well as post resection changes in the region. No evidence for mass or mass effect. There is cerebral volume loss for age, with resultant ventricular and sulcal prominence. There are periventricular and deep white matter chronic small vessel ischemic changes. There is intracranial internal carotid artery atherosclerosis. Skull and face: Stable changes of remote right frontal craniotomy. Calvarium and visualized facial bones appear intact, without suspicious lesions. Sinuses: Small amount of fluid in the left maxillary sinus. Remainder of the paranasal sinuses appear clear. Mastoid air cells are well-aerated. IMPRESSION: 1. Small 5 mm focus of acute hemorrhage involving the left basal ganglia. No evidence for adjacent mass effect or edema. No midline shift of structures. 2. Stable postsurgical changes/encephalomalacia of the right frontal lobe with overlying craniotomy changes. 3. Minimal left maxillary sinus disease. Findings were discussed with Dr. Bates at 2333 hrs. Dictated by: David Mann M.D. on 05/14/2021 at 23:26 Approved by: David Mann M.D. on 05/14/2021 at 23:35
[2021-05-14] MEDS: LABETALOL 20 MG/4 ML SYRINGE 10 MG IV (22:56)
[2021-05-14 22:57] LABS: Troponin I 0.018 ng/mL (0.01-0.034)
[2021-05-15] VITALS (77 sets, daily range): BP systolic 94–212; BP diastolic 55–132; PULSE 49–128; RESP 1–33; O2SAT 89–99
--- NOTE | 2021-05-15 | DI.MRI.S_ITS ---
PROCEDURE: MR ANGIO HEAD WO CON INDICATIONS: STROKE TECHNIQUE: Noncontrast axial 3-D anzl-is-srhqil MR angiogram, with 3-dimensional maximum intensity projection (MIP) reformats of the internal carotid arteries and posterior circulation then performed. COMPARISON: [facility], , MR HEAD/BRAIN WO CON, 05/15/2021, 10:39. FINDINGS: Image quality: Excellent. Anterior circulation: Intracranial internal carotid arteries demonstrate normal size and intraluminal flow signal. The flow within the paired anterior cerebral arteries is normal and symmetric. The flow within the middle cerebral arteries is normal and symmetric. There is probably in plane saturation artifact effecting both M2 segments.The anterior communicating artery is seen. No stenoses, occlusions, or aneurysms. Posterior circulation: Visualized portions of the vertebral arteries demonstrate normal caliber, and join to form a normal appearing basilar artery. The flow within the posterior cerebral arteries is normal and symmetric. No stenoses, occlusions, or aneurysms. IMPRESSION: No focal intracranial stenosis or occlusion Dictated by: Eusebio aL M.D. on 05/15/2021 at 11:38 Approved by: Eusebio La M.D. on 05/15/2021 at 11:43
[2021-05-15 00:34] LABS: INR 1.1 (0.9-1.3)
[2021-05-15 00:37] LABS: PTT Partial Thromboplastin Tim 31 SECONDS (26.4-36.2)
[2021-05-15] MEDS: LABETALOL 20 MG/4 ML SYRINGE 10 MG IV (01:52)
--- NOTE | 2021-05-15 02:28 | DI.CT.S_ITS ---
PROCEDURE: CT HEAD/BRAIN WO CON INDICATIONS: Hemorrhage, follow up TECHNIQUE: Noncontrast 4.5 mm thick angled axial sections acquired from the foramen magnum to the vertex, with coronal and sagittal reformats. For radiation dose reduction, the following was used: automated exposure control, adjustment of mA and/or kV according to patient size. COMPARISON: [facility], CT, CT HEAD/BRAIN WO CON, 05/14/2021, 23:10. FINDINGS: Image quality: Excellent. CSF spaces: Basal cisterns are patent. No extra-axial fluid collections. The ventricles are grossly stable. Brain: Unchanged presumed postsurgical encephalomalacia and gliosis involving the right frontal lobe with stable appearance. There is less conspicuous appearance of the previously seen left basal ganglia hyperdensity since the prior study. No new intracranial bleeds or masses. There is cerebral volume loss for age, with resultant ventricular and sulcal prominence. There are periventricular and deep white matter chronic small vessel ischemic changes. There is intracranial internal carotid artery atherosclerosis. Skull and face: Calvarium and visualized facial bones appear intact, without suspicious lesions. Sinuses: Visualized sinuses and mastoids are clear. IMPRESSION: Small left basal ganglia hyperdensity slightly less conspicuous compared to the prior study, potentially representing evolving hemorrhage. No new acute bleed identified. Findings concordant with the preliminary study interpretation provided at the time of the exam. Dictated by: Eusebio La M.D. on 05/15/2021 at 8:09 Approved by: Eusebio La M.D. on 05/15/2021 at 8:12
[2021-05-15] MEDS: hydroCHLOROthiazide 25 MG TABLET PO (04:08)
[2021-05-15] MEDS: AMLODIPINE 5 MG TABLET PO (04:08)
[2021-05-15] MEDS: NICARDIPINE 25 MG in SODIUM CHLORIDE 0.9% 240 ML 50 ML IV ×2 (05:30→12:11)
--- NOTE | 2021-05-15 07:24 | DI.MRI.S_ITS ---
PROCEDURE: MR HEAD/BRAIN WO CON INDICATIONS: ? bleed/stroke TECHNIQUE: Non-contrast axial T1 spin echo, axial T2 fast spin echo, sagittal and axial FLAIR, coronal T2 fast spin echo, axial gradient echo, . The patient terminated the exam prematurely, and diffusion-weighted pulse sequences were not obtained COMPARISON: None. FINDINGS: Image quality: Excellent. CSF spaces: Ventricles appear symmetric in size and shape. Basal cisterns are patent. No extra-axial fluid collections. Brain: No intracranial bleeds or mass effects. Right frontal lobe signal changes and volume loss suggestive of post operative encephalomalacia There is cerebral volume loss for age. There are periventricular and deep white matter chronic small vessel ischemic changes. Brainstem appears normal. Normal intravascular flow voids are present. Skull and face: Postsurgical changes related to right frontal craniotomy. Sinuses: Sinuses and mastoids are clear. IMPRESSION: Postsurgical changes related to right frontal craniotomy with underlying gliosis left encephalomalacia. Suboptimal evaluation as the patient terminated the exam prematurely, before diffusion-weighted pulse sequences had been obtained. Therefore cannot exclude acute ischemia. Consider limited scanning with diffusion-weighted pulse sequences and ADC map only , when and if feasible. Dictated by: Eusebio La M.D. on 05/15/2021 at 11:32 Approved by: Eusebio La M.D. on 05/15/2021 at 11:37
[2021-05-15] MEDS: lisinopriL 20 MG TABLET PO (07:48)
[2021-05-15] MEDS: SODIUM CHLORIDE 0.9% 1,000 ML 75 ML IV (13:50)
[2021-05-15] MEDS: AMIODARONE 150 MG/100 ML PIGGYBACK 600 MG IV (13:51)
[2021-05-15] MEDS: fentaNYL 100 MCG/2 ML INJ 25 MCG IV (14:50)
[2021-05-15] MEDS: propofoL 200 MG/20 ML VIAL 160 MG IV (15:00)
== END 2021-05-15 16:19 | disposition home or self-care (01) ==
PROVIDERS: Emergency Medicine; Emergency Provider Emergency Medicine; PCP Student in an Organized Health Care Education/Training Program
DX: I62.9 Nontraumatic intracranial hemorrhage, unspecified (principal); I48.91 Unspecified atrial fibrillation; I10 Essential (primary) hypertension; D68.51 Activated protein C resistance; Z20.822 Contact with and (suspected) exposure to COVID-19; Z91.14 Patient's other noncompliance with medication regimen
CPT/HCPCS: 36415; 70450; 70544; 70551; 71045; 80053; 82550; 83690; 84484; 85025; 85610; 85730; 87635; 92960; 93005; 96365; 96367; 96375; 96376; 99285; C9803; J0282; J2704; J3010

== ENCOUNTER 2021-06-13 11:52 | Emergency (ER) | payer OTHER, MEDICAID, SELFPAY ==
[2020-04-14 19:53] VITALS: BMI 52.9
[2021-06-13] VITALS (9 sets, daily range): BP systolic 115–148; BP diastolic 61–85; PULSE 46–67; RESP 13–26; TEMP 36.6; O2SAT 94–100; BMI 51.6
--- NOTE | 2021-06-13 12:09 | DI.RAD.S_ITS ---
PROCEDURE: XR CHEST 1V INDICATIONS: Syncope, dizziness TECHNIQUE: One view of the chest was acquired. COMPARISON: [facility], CR, XR CHEST 1V, 05/14/2021, 20:17. FINDINGS: Surgical changes and devices: None. Lungs and pleura: Lungs are clear. No pleural effusions or pneumothorax. Mediastinum: Mediastinal contours appear normal. Heart size is normal. Bones and chest wall: No suspicious bony lesions. Overlying soft tissues appear unremarkable. IMPRESSION: Stable radiographic evaluation of the chest without acute cardiopulmonary abnormalities or focal airspace disease. Dictated by: David Mann M.D. on 06/13/2021 at 12:58 Approved by: David Mann M.D. on 06/13/2021 at 12:58
[2021-06-13 12:22] LABS: Add Manual Diff / Slide Review NO; Basophils Absolute Auto 100 /uL (0-100); Eosinophils Absolute Auto 200 /uL (0-450); Eosinophils Percent Auto 3.1 % (2-4); Hematocrit 40.2 % (41-53); Hemoglobin 14.1 g/dL (13.5-17.5); Lymphocytes Absolute Auto 1900 /uL (1100-4500); Lymphocytes Percent Auto 26.9 % (25-40); Mean Corpuscular HGB Conc 35.1 % (30-36); Mean Corpuscular Hemoglobin 31.5 PG (26-34); Mean Corpuscular Volume 89.6 fL (80-100); Monocytes Absolute Auto 500 /uL (0-900); Monocytes Percent Auto 7.3 % (3-14); Neutrophils Absolute Auto 4300 /uL (1500-7000); Neutrophils Percent Auto 61.7 % (50-75); Platelet Count 202 X10^3/uL (150-400); Red Blood Cell Count 4.49 X10^6/uL (4.5-5.9); Red Cell Distribution Width 12.8 % (11.6-14.8)
[2021-06-13 12:34] LABS: Alanine Aminotransferase 17 IU/L (<50); Albumin 3.9 g/dL (3.5-5.0); Albumin Globulin Ratio 1.3 (1.0-2.8); Alkaline Phosphatase 154 U/L (38-126); Aspartate Aminotransferase 24 IU/L (17-59); BUN Creatinine Ratio 26.2 (6-22); Bilirubin Total 0.3 mg/dL (0.2-1.3); Blood Urea Nitrogen 37 mg/dL (9-20); Calcium 8.7 mg/dL (8.4-10.2); Carbon Dioxide 28 mmol/L (22-32); Chloride 106 mmol/L (98-107); Creatine Kinase 159 U/L (55-170); Estimated Glomerular Filt Rate 51.8 mL/min (>60); Globulin 3.1 g/dL (1.7-4.1); Glucose 142 mg/dL (70-100); HEMOLYSIS 16 (0-50); Lipase 182 U/L (23-300); Potassium 3.6 mmol/L (3.4-5.1); Sodium 138 mmol/L (137-145)
[2021-06-13 12:45] LABS: Troponin I 0.018 ng/mL (0.01-0.034)
[2021-06-13 12:47] LABS: Prothrombin Time 11.7 SECONDS (10.1-12.7)
[2021-06-13 12:49] LABS: CKMB % Relative Index 1.4 % (1.5-5.0); Creatine Kinase MB 2.25 ng/mL (<2.37)
--- NOTE | 2021-06-13 12:53 | ED_ITS ---
HPI - Syncope <Jalen Xie PA-C - Last Filed: 06/13/21 19:25> General Chief Complaint: Syncope Stated Complaint: Fainted 2 nights ago, still dizzy Time Seen by Provider: 06/13/21 12:03 Source: patient Mode of arrival: Ambulatory Limitations: no limitations History of Present Illness HPI narrative: Patient is a 55-year-old male with a history of atrial fibrillation and intercerebral hemorrhage presenting to the emergency department for an evaluation of a syncopal episode and associated dizziness. Patient states that approximately 2 nights ago he experienced a syncopal episode [place] He states that he was standing prior to the syncopal episode, noting that he did not feel dizzy, lightheaded, were experience headache prior to the syncopal episode. Patient explains that since that episode he has experienced increased pressure sensation in the back of his neck, intermittent episodes of dizziness, and ?feeling foggy?. Additionally, patient states that he has also experienced slight shortness of breath when he stands up. Patient notes that he takes 2 doses of lisinopril daily along with hydrochlorothiazide for his blood pressure, and he explains that he is no longer taking his amlodipine. Patient was seen in the emergency department on 05/14/2021 for an episode of hypertension and was diagnosed with atrial fibrillation with RVR and an intracerebral hemorrhage. Patient was started on diltiazem following that visit to the emergency department. He states that he has been consistently taking his blood pressure medication since then, noting that his blood pressure has seemed much lower than it usually is. Patient states that his blood pressure typically is in the 160s systolic. Patient denies chest pain, cough, nausea, vomiting, diarrhea, abdominal pain, dysuria, hematuria, numbness and tingling in the extremities, slurred speech, or any other concerning symptoms. No other concerns were voiced at this time. Related Data Home Medications Medication Instructions Recorded Confirmed hydrochlorothiazide 25 mg tablet 25 mg PO DAILY 04/30/20 05/14/21 Previous Rx's Medication Instructions Recorded lisinopril 20 mg tablet 20 mg PO BID #100 tab 04/15/20 amlodipine 5 mg tablet 5 mg PO DAILY #100 tab 08/17/20 diltiazem HCl 120 mg 120 mg PO QAM #30 cap 05/15/21 capsule,extended release 24 hr Allergies Allergy/AdvReac Type Severity Reaction Status Date / Time No Known Drug Allergies Allergy Verified 05/14/21 16:56 Review of Systems <Jalen Xie PA-C - Last Filed: 06/13/21 19:25> Constitutional Constitutional: Denies chills, Denies fatigue, Denies fever(s), Denies frequent falls, Denies headache(s), Denies lethargy and Denies weakness Eyes Eyes: Denies loss of vision ENT Ears, Nose, Mouth, and Throat: Reports dizziness, Denies headache(s) and Reports neck pain (Increased pressure in the neck) Cardiovascular Cardiovascular: Denies chest pain, Reports syncope, Denies irregular heart rhythm, Denies lightheadedness, Denies palpitations, Reports dyspnea, Reports dyspnea on exertion and Denies orthopnea Respiratory Respiratory: Denies cough, Reports dyspnea, Reports dyspnea on exertion and Denies wheezing Gastrointestinal Gastrointestinal: Denies abdominal pain, Denies change in bowel habits, Denies diarrhea, Denies nausea and Denies vomiting Genitourinary Genitourinary: Denies hematuria, Denies flank pain, Denies urinary incontinence and Denies urinary urgency Musculoskeletal Musculoskeletal: Denies back pain, Denies muscle weakness, Reports neck pain (Increased pressure in the neck), Denies numbness and Denies tingling Integumentary/Breasts Skin/Breast: Denies pruritus, Denies erythema, Denies rash and Denies wounds Neurologic Neurologic: Denies behavioral changes, Denies confusion, Reports dizziness, Reports syncope, Denies frequent falls, Denies headache(s), Denies loss of vision, Denies numbness, Denies tingling, Denies weakness and Reports other (Lightheaded) Psychiatric Psychiatric: Denies behavioral changes and Denies confusion Endocrine Endocrine: Denies fatigue and Denies palpitations Allergic/Immunologic Allergic/Immunologic: Denies wheezing Patient History <Jalen Xie PA-C - Last Filed: 06/13/21 19:25> Medical History Febrile illness, acute TIA (transient ischemic attack) UTI (urinary tract infection) Surgical History Bariatric surgery status History of craniotomy Family History Mother Pulmonary embolism Social History household members: children Smoking Status: Never smoker alcohol intake: former (quitted recently) substance use type: marijuana Smoking Status: Never smoker alcohol intake frequency: a few times a week Substance Use Type: former substance user and marijuana Exam <Jalen Xie PA-C - Last Filed: 06/13/21 19:25> Narrative Exam Narrative: GENERAL: 55 year old patient appears stated age. Well-developed patient, in mild distress. Large body habitus. HEAD: Atraumatic. Normocephalic. EYES: Pupils equal round and reactive. Extraocular motions intact. No scleral icterus. No injection or drainage. ENT: Nose without bleeding, purulent drainage. Throat without erythema, tonsillar hypertrophy or exudate. Airway patent. NECK: Trachea midline. Non tender CARDIOVASCULAR: Regular rate and rhythm without murmurs, gallops, or rubs. RESPIRATORY: Clear to auscultation. Breath sounds equal bilaterally. No wheezes, rales, or rhonchi. GASTROINTESTINAL: Abdomen soft, non-tender, nondistended. EXTREMITIES: No edema or joint tenderness. BACK: Nontender without deformity or crepitance. No flank tenderness. NEURO: AOx3. SKIN: No rash or erythema of visible areas Initial Vital Signs Initial Vital Signs: Vital Signs Temperature 97.9 F 06/13/21 12:08 Pulse Rate 63 06/13/21 12:08 Respiratory Rate 20 06/13/21 12:08 Blood Pressure 115/61 06/13/21 12:08 Pulse Oximetry 96 06/13/21 12:08 <Al Spencer DO - Last Filed: 06/15/21 07:29> Initial Vital Signs Initial Vital Signs: Vital Signs Temperature 97.9 F 06/13/21 12:08 Pulse Rate 63 06/13/21 12:08 Respiratory Rate 20 06/13/21 12:08 Blood Pressure 115/61 06/13/21 12:08 Pulse Oximetry 96 06/13/21 12:08 Course <Jalen Xie PA-C - Last Filed: 06/13/21 19:25> Course Course Narrative: CBC, CMP, lipase, troponin, PT/INR, PTT, chest x-ray, EKG, CT of the head without contrast ordered. Orders Ordered: Discontinued Medications Lorazepam (Lorazepam 2 Mg/Ml Inj) 1 mg IV NOW ONE Stop: 06/13/21 15:01 Last Admin: 06/13/21 14:39 Dose: 1 mg Documented by: ATAYLOR Consultations Consultation #1: Consult with Dr. Hurt ([facility]). Recommended ordering an MRI of the head for further evaluation. Time: 13:45 Consultation #2: Consult with ([facility]). Following a negative MRI result he feels that is appropriate to discharge the patient and have him follow-up in office on Thursday. Time: 16:24 Vital Signs Vital signs: Vital Signs - 8 hr 06/13/21 12:08 06/13/21 13:40 06/13/21 14:00 Temperature 97.9 F Pulse Rate 63 57 L 56 L Respiratory Rate 20 18 18 Blood Pressure 115/61 148/73 H 119/63 Pulse Oximetry 96 97 98 06/13/21 14:45 06/13/21 15:46 06/13/21 15:58 Temperature Pulse Rate 61 66 67 Respiratory Rate 16 20 13 Blood Pressure 132/69 141/85 H Pulse Oximetry 96 95 94 06/13/21 16:00 06/13/21 16:30 06/13/21 16:47 Temperature Pulse Rate 46 L 65 64 Respiratory Rate 13 26 H 18 Blood Pressure 133/75 Pulse Oximetry 100 100 100 <Al Spencer, - Last Filed: 06/15/21 07:29> Orders Ordered: Discontinued Medications Lorazepam (Lorazepam 2 Mg/Ml Inj) 1 mg IV NOW ONE Stop: 06/13/21 15:01 Last Admin: 06/13/21 14:39 Dose: 1 mg Documented by: ATAYLOR Vital Signs Vital signs: Vital Signs - 8 hr 06/13/21 12:08 06/13/21 13:40 06/13/21 14:00 Temperature 97.9 F Pulse Rate 63 57 L 56 L Respiratory Rate 20 18 18 Blood Pressure 115/61 148/73 H 119/63 Pulse Oximetry 96 97 98 06/13/21 14:45 06/13/21 15:46 06/13/21 15:58 Temperature Pulse Rate 61 66 67 Respiratory Rate 16 20 13 Blood Pressure 132/69 141/85 H Pulse Oximetry 96 95 94 12/23/21 16:00 06/13/21 16:30 06/13/21 16:47 Temperature Pulse Rate 46 L 65 64 Respiratory Rate 13 26 H 18 Blood Pressure 133/75 Pulse Oximetry 100 100 100 MDM - Syncope <Jalen Xie PA-C - Last Filed: 06/13/21 19:25> Lab Data Result diagrams: 06/13/21 12:12 06/13/21 12:12 Labs: Lab Results 06/13/21 06/13/21 06/13/21 Range/Units 12:12 12:12 12:12 WBC 7.0 (4.5-11.0) X10^3/uL RBC 4.49 L (4.5-5.9) X10^6/uL Hgb 14.1 (13.5-17.5) g/dL Hct 40.2 L (41-53) % MCV 89.6 (80-100) fL MCH 31.5 (26-34) PG MCHC 35.1 (30-36) % RDW 12.8 (11.6-14.8) % Plt Count 202 (150-400) X10^3/uL Neut % (Auto) 61.7 (50-75) % Lymph % (Auto) 26.9 (25-40) % [place] % (Auto) 7.3 (3-14) % Eos % (Auto) 3.1 (2-4) % Baso % (Auto) 1.0 (0-2) % Neut # (Auto) 4300 (7051-0795) /uL Lymph # (Auto) 1900 (3268-4585) /uL [place] # (Auto) 500 (0-900) /uL Eos # (Auto) 200 (0-450) /uL Baso # (Auto) 100 (0-100) /uL PT (10.1-12.7) SECONDS INR (0.9-1.3) APTT 31 (26.4-36.2) SECONDS Sodium 138 (137-145) mmol/L Potassium 3.6 (3.4-5.1) mmol/L Chloride 106 (98-107) mmol/L Carbon Dioxide 28 (22-32) mmol/L BUN 37 H (9-20) mg/dL Creatinine 1.41 H (0.66-1.25) mg/dL Estimated GFR 51.8 L (>60) mL/min BUN/Creatinine Ratio 26.2 H (6-22) Glucose 142 H (70-100) mg/dL Calcium 8.7 (8.4-10.2) mg/dL Total Bilirubin 0.3 (0.2-1.3) mg/dL AST 24 (17-59) IU/L ALT 17 (<50) IU/L Alkaline Phosphatase 154 H (38-126) U/L Total Creatine Kinase 159 (55-170) U/L CK-MB (CK-2) 2.25 (<2.37) ng/mL CK-MB (CK-2) Rel Index 1.4 L (1.5-5.0) % Troponin I 0.018 (0.01-0.034) ng/mL Total Protein 7.0 (6.3-8.2) g/dL Albumin 3.9 (3.5-5.0) g/dL Globulin 3.1 (1.7-4.1) g/dL Albumin/Globulin Ratio 1.3 (1.0-2.8) Lipase 182 (23-300) U/L SARS-CoV-2 (PCR) (Negative) 06/13/21 06/13/21 Range/Units 12:12 14:18 WBC (4.5-11.0) X10^3/uL RBC (4.5-5.9) X10^6/uL Hgb (13.5-17.5) g/dL Hct (41-53) % MCV (80-100) fL MCH (26-34) PG MCHC (30-36) % RDW (11.6-14.8) % Plt Count (150-400) X10^3/uL Neut % (Auto) (50-75) % Lymph % (Auto) (25-40) % [place] % (Auto) (3-14) % Eos % (Auto) (2-4) % Baso % (Auto) (0-2) % Neut # (Auto) (1245-4639) /uL Lymph # (Auto) (0397-4179) /uL [place] # (Auto) (0-900) /uL Eos # (Auto) (0-450) /uL Baso # (Auto) (0-100) /uL PT 11.7 (10.1-12.7) SECONDS INR 1.0 (0.9-1.3) APTT (26.4-36.2) SECONDS Sodium (137-145) mmol/L Potassium (3.4-5.1) mmol/L Chloride (98-107) mmol/L Carbon Dioxide (22-32) mmol/L BUN (9-20) mg/dL Creatinine (0.66-1.25) mg/dL Estimated GFR (>60) mL/min BUN/Creatinine Ratio (6-22) Glucose (70-100) mg/dL Calcium (8.4-10.2) mg/dL Total Bilirubin (0.2-1.3) mg/dL AST (17-59) IU/L ALT (<50) IU/L Alkaline Phosphatase (38-126) U/L Total Creatine Kinase (55-170) U/L CK-MB (CK-2) (<2.37) ng/mL CK-MB (CK-2) Rel Index (1.5-5.0) % Troponin I (0.01-0.034) ng/mL Total Protein (6.3-8.2) g/dL Albumin (3.5-5.0) g/dL Globulin (1.7-4.1) g/dL Albumin/Globulin Ratio (1.0-2.8) Lipase (23-300) U/L SARS-CoV-2 (PCR) Negative (Negative) Imaging Data CT scan - head: Radiologist's Impression: PROCEDURE:? CT HEAD/BRAIN WO CON ? INDICATIONS:? Syncope ? TECHNIQUE:? Noncontrast 4.5 mm thick angled axial sections acquired from the foramen magnum to the vertex, with coronal and sagittal reformats.? For radiation dose reduction, the following was used:? automated exposure control, adjustment of mA and/or kV according to patient size.? ? COMPARISON:? [facility], CT, CT HEAD/BRAIN WO CON, 05/14/2021, 23:10.? [facility], CT, CT HEAD/BRAIN WO CON, 05/15/2021, 5:38. ? FINDINGS:? Image quality:? Excellent.? ? CSF spaces:? Basal cisterns are patent.? No extra-axial fluid collections.? The ventricles are symmetric in size and shape.? ? Brain:? No intracranial bleeds or masses.? Previously noted focal hyperdensity involving left basal ganglia is no longer seen likely represent resolved hemorrhage.? Mild encephalomalacia and gliosis in right frontal lobe is again seen unchanged from prior study.? There is cerebral volume loss for age, with resultant ventricular and sulcal prominence.? There are periventricular and deep white matter chronic small vessel ischemic changes.? There is intracranial internal carotid artery atherosclerosis.? ? Skull and face:? Prior right frontal parietal craniotomy is again seen.? No ac [place] calvarial abnormality.? No gross acute facial bone abnormality. ? Sinuses:? Visualized sinuses and mastoids are clear.? ? IMPRESSION:? 1. No CT evidence of acute intracranial pathology seen on current study.? Interval resolution of previously noted focal hemorrhage in left basal ganglia. 2. Stable postsurgical changes from prior right frontal parietal craniotomy with encephalomalacia and gliosis involving underlying right frontal lobe. ? ? Dictated by: Shan Schmidt M.D. on 06/13/2021 at 13:05 ? ? Approved by: Shan Schmidt M.D. on 06/13/2021 at 13:08 ? MRI - head: Radiologist's Impression: PROCEDURE:? MR HEAD/BRAIN WO CON ? INDICATIONS:? Syncope, previous intracerebral hemorrhage ? TECHNIQUE:? Non-contrast axial T1 spin echo, axial T2 fast spin echo, sagittal and axial FLAIR, coronal T2 fast spin echo, axial gradient echo, axial diffusion and ADC through the brain.? ? COMPARISON:? [facility], CT, CT HEAD/BRAIN WO CON, 06/13/2021, 13:05. ? FINDINGS:? Image quality:? Excellent.? ? CSF spaces:? Ventricles appear symmetric in size and shape.? Basal cisterns are patent.? No extra-axial fluid collections.? ? Brain:? Diffuse global cerebral volume loss with chronic microvascular ischemic changes are similar to prior study.? Encephalomalacia and gliosis in the right frontal lobe is unchanged from prior studies.? No evidence of acute intracranial hemorrhage.? No findings of mass effect or midline shift.? No restricted diffusion to indicate recent ischemia.? Senescent mineralization in the bilateral basal ganglia produces susceptibility artifact. ?No unexpected intracranial susceptibility otherwise. ? Skull and face:? Calvarial bone marrow is normal in signal.? Orbits are normal.? ? Sinuses:? Sinuses and mastoids are clear.? ? IMPRESSION:? ? No acute intracranial finding.? ? Global cerebral loss and chronic microvascular ischemic changes, both advanced for age but similar to the prior study. ? Right frontal lobe encephalomalacia and gliosis as seen on prior studies. ? ? Dictated by: Tanner Storm M.D. on 06/13/2021 at 15:54 ? ? Approved by: Tanner Storm M.D. on 06/13/2021 at 15:55 ? MDM Narrative Medical decision making narrative: To consider intracranial hemorrhage versus atrial fibrillation. Overall physical examination and imaging in the emergency department today are reassuring. Discussed with patient results of imaging today and at this time he feels comfortable being discharged home. Advised the patient to follow-up with primary care on Thursday for further evaluation. Patient agrees to plan. Strict return precautions were discussed with the patient prior to discharge. <Al Spencer, DO - Last Filed: 06/15/21 07:29> Lab Data Labs: Lab Results 06/13/21 06/13/21 06/13/21 Range/Units 12:12 12:12 12:12 WBC 7.0 (4.5-11.0) X10^3/uL RBC 4.49 L (4.5-5.9) X10^6/uL Hgb 14.1 (13.5-17.5) g/dL Hct 40.2 L (41-53) % MCV 89.6 (80-100) fL MCH 31.5 (26-34) PG MCHC 35.1 (30-36) % RDW 12.8 (11.6-14.8) % Plt Count 202 (150-400) X10^3/uL Neut % (Auto) 61.7 (50-75) % Lymph % (Auto) 26.9 (25-40) % [place] % (Auto) 7.3 (3-14) % Eos % (Auto) 3.1 (2-4) % Baso % (Auto) 1.0 (0-2) % Neut # (Auto) 4300 (6461-3331) /uL Lymph # (Auto) 1900 (8817-7980) /uL [place] # (Auto) 500 (0-900) /uL Eos # (Auto) 200 (0-450) /uL Baso # (Auto) 100 (0-100) /uL PT (10.1-12.7) SECONDS INR (0.9-1.3) APTT 31 (26.4-36.2) SECONDS Sodium 138 (137-145) mmol/L Potassium 3.6 (3.4-5.1) mmol/L Chloride 106 (98-107) mmol/L Carbon Dioxide 28 (22-32) mmol/L BUN 37 H (9-20) mg/dL Creatinine 1.41 H (0.66-1.25) mg/dL Estimated GFR 51.8 L (>60) mL/min BUN/Creatinine Ratio 26.2 H (6-22) Glucose 142 H (70-100) mg/dL Calcium 8.7 (8.4-10.2) mg/dL Total Bilirubin 0.3 (0.2-1.3) mg/dL AST 24 (17-59) IU/L ALT 17 (<50) IU/L Alkaline Phosphatase 154 H (38-126) U/L Total Creatine Kinase 159 (55-170) U/L CK-MB (CK-2) 2.25 (<2.37) ng/mL CK-MB (CK-2) Rel Index 1.4 L (1.5-5.0) % Troponin I 0.018 (0.01-0.034) ng/mL Total Protein 7.0 (6.3-8.2) g/dL Albumin 3.9 (3.5-5.0) g/dL Globulin 3.1 (1.7-4.1) g/dL Albumin/Globulin Ratio 1.3 (1.0-2.8) Lipase 182 (23-300) U/L SARS-CoV-2 (PCR) (Negative) 06/13/21 06/13/21 Range/Units 12:12 14:18 WBC (4.5-11.0) X10^3/uL RBC (4.5-5.9) X10^6/uL Hgb (13.5-17.5) g/dL Hct (41-53) % MCV (80-100) fL MCH (26-34) PG MCHC (30-36) % RDW (11.6-14.8) % Plt Count (150-400) X10^3/uL Neut % (Auto) (50-75) % Lymph % (Auto) (25-40) % [place] % (Auto) (3-14) % Eos % (Auto) (2-4) % Baso % (Auto) (0-2) % Neut # (Auto) (8774-8303) /uL Lymph # (Auto) (3630-7006) /uL [place] # (Auto) (0-900) /uL Eos # (Auto) (0-450) /uL Baso # (Auto) (0-100) /uL PT 11.7 (10.1-12.7) SECONDS INR 1.0 (0.9-1.3) APTT (26.4-36.2) SECONDS Sodium (137-145) mmol/L Potassium (3.4-5.1) mmol/L Chloride (98-107) mmol/L Carbon Dioxide (22-32) mmol/L BUN (9-20) mg/dL Creatinine (0.66-1.25) mg/dL Estimated GFR (>60) mL/min BUN/Creatinine Ratio (6-22) Glucose (70-100) mg/dL Calcium (8.4-10.2) mg/dL Total Bilirubin (0.2-1.3) mg/dL AST (17-59) IU/L ALT (<50) IU/L Alkaline Phosphatase (38-126) U/L Total Creatine Kinase (55-170) U/L CK-MB (CK-2) (<2.37) ng/mL CK-MB (CK-2) Rel Index (1.5-5.0) % Troponin I (0.01-0.034) ng/mL Total Protein (6.3-8.2) g/dL Albumin (3.5-5.0) g/dL Globulin (1.7-4.1) g/dL Albumin/Globulin Ratio (1.0-2.8) Lipase (23-300) U/L SARS-CoV-2 (PCR) Negative (Negative) Discharge Plan Departure Patient Disposition: Home Clinical Impression: Syncope Instructions: DI for Syncope in Adults (Fainting) Activity Restrictions/Additional Instructions: *You have been diagnosed with syncope *What to do: *Please continue to take your regular medications as directed. [ ] New medication prescriptions sent to your pharmacy: [ ] [ ] New medication written as a paper prescription [X] No new medications given *Please follow up with your primary care provider in 2-3 days, call for an appointment. Let them know you were seen in the Emergency Department and that we ask that you be seen in follow up. We will electronically transmit a record of today's note if your PCP is in our system. *Please follow-up with your primary care provider on Thursday for further evaluation. *If you do not have a primary care provider please contact the [facility] Resource line at [phone]. They will ask some questions about your medical history and help get you set up with a doctor in the community. *Return to Emergency Department if you should have any new, worsening or liyah rning symptoms, such as fever greater than 101 F, shaking chills, worsening pain, persistent vomiting or other bothersome symptoms. Prescriptions: No Action amlodipine 5 mg tablet 5 mg PO DAILY Qty: 100 0RF lisinopril 20 mg tablet 20 mg PO BID Qty: 100 0RF hydrochlorothiazide 25 mg Tablet 25 mg PO DAILY 0RF diltiazem HCl 120 mg capsule,extended release 24hr 120 mg PO QAM Qty: 30 2RF Referrals: Maranda Alvarenga MD [Primary Care Provider] - <Al Spencer DO - Last Filed: 06/15/21 07:29> [id number] Att[facility]: I was immediately available in the department for consultation. This documentation has been reviewed and I agree with assessment and plan. Supervised by Al Spencer DO
[2021-06-13 12:55] LABS: PTT Partial Thromboplastin Tim 31 SECONDS (26.4-36.2)
--- NOTE | 2021-06-13 12:57 | DI.CT.S_ITS ---
PROCEDURE: CT HEAD/BRAIN WO CON INDICATIONS: Syncope TECHNIQUE: Noncontrast 4.5 mm thick angled axial sections acquired from the foramen magnum to the vertex, with coronal and sagittal reformats. For radiation dose reduction, the following was used: automated exposure control, adjustment of mA and/or kV according to patient size. COMPARISON: [facility], CT, CT HEAD/BRAIN WO CON, 05/14/2021, 23:10. [facility], CT, CT HEAD/BRAIN WO CON, 05/15/2021, 5:38. FINDINGS: Image quality: Excellent. CSF spaces: Basal cisterns are patent. No extra-axial fluid collections. The ventricles are symmetric in size and shape. Brain: No intracranial bleeds or masses. Previously noted focal hyperdensity involving left basal ganglia is no longer seen likely represent resolved hemorrhage. Mild encephalomalacia and gliosis in right frontal lobe is again seen unchanged from prior study. There is cerebral volume loss for age, with resultant ventricular and sulcal prominence. There are periventricular and deep white matter chronic small vessel ischemic changes. There is intracranial internal carotid artery atherosclerosis. Skull and face: Prior right frontal parietal craniotomy is again seen. No acute calvarial abnormality. No gross acute facial bone abnormality. Sinuses: Visualized sinuses and mastoids are clear. IMPRESSION: 1. No CT evidence of acute intracranial pathology seen on current study. Interval resolution of previously noted focal hemorrhage in left basal ganglia. 2. Stable postsurgical changes from prior right frontal parietal craniotomy with encephalomalacia and gliosis involving underlying right frontal lobe. Dictated by: Shan Schmidt M.D. on 06/13/2021 at 13:05 Approved by: Shan Schmidt M.D. on 06/13/2021 at 13:08
--- NOTE | 2021-06-13 13:57 | DI.MRI.S_ITS ---
PROCEDURE: MR HEAD/BRAIN WO CON INDICATIONS: Syncope, previous intracerebral hemorrhage TECHNIQUE: Non-contrast axial T1 spin echo, axial T2 fast spin echo, sagittal and axial FLAIR, coronal T2 fast spin echo, axial gradient echo, axial diffusion and ADC through the brain. COMPARISON: [facility], CT, CT HEAD/BRAIN WO CON, 06/13/2021, 13:05. FINDINGS: Image quality: Excellent. CSF spaces: Ventricles appear symmetric in size and shape. Basal cisterns are patent. No extra-axial fluid collections. Brain: Diffuse global cerebral volume loss with chronic microvascular ischemic changes are similar to prior study. Encephalomalacia and gliosis in the right frontal lobe is unchanged from prior studies. No evidence of acute intracranial hemorrhage. No findings of mass effect or midline shift. No restricted diffusion to indicate recent ischemia. Senescent mineralization in the bilateral basal ganglia produces susceptibility artifact. No unexpected intracranial susceptibility otherwise. Skull and face: Calvarial bone marrow is normal in signal. Orbits are normal. Sinuses: Sinuses and mastoids are clear. IMPRESSION: No acute intracranial finding. Global cerebral loss and chronic microvascular ischemic changes, both advanced for age but similar to the prior study. Right frontal lobe encephalomalacia and gliosis as seen on prior studies. Dictated by: Tanner Storm M.D. on 06/13/2021 at 15:54 Approved by: Tanner Storm M.D. on 06/13/2021 at 15:55
[2021-06-13] MEDS: LORazepam 2 MG/ML INJ 1 MG IV (14:39)
[2021-06-13 15:09] LABS: COVID19 - ADMIT (NP swab/PCR) Negative (Negative)
--- NOTE | 2021-06-13 15:55 | PC.NURSE ---
Pt falling asleep and sp02 noted at 86%, awoke pt and he states he uses cpap at night, instructed pt to take deep breaths and 2L NC applied.
== END 2021-06-13 16:53 | disposition home or self-care (01) ==
PROVIDERS: Emergency Provider Physician Assistant; PCP Student in an Organized Health Care Education/Training Program
DX: R55 Syncope and collapse (principal); R42 Dizziness and giddiness; I10 Essential (primary) hypertension; Z86.73 Personal history of transient ischemic attack (TIA), and cerebral infarction without residual deficits; Z20.822 Contact with and (suspected) exposure to COVID-19
CPT/HCPCS: 36415; 70450; 70551; 71045; 80053; 82550; 82553; 83690; 84484; 85025; 85610; 85730; 87635; 93005; 96374; 99284; 99285; C9803; J2060

== ENCOUNTER 2023-07-17 01:12 | Emergency (ER) | payer OTHER, MEDICAID, SELFPAY ==
[2020-04-14 19:53] VITALS: BMI 52.9
[2023-07-17] VITALS (11 sets, daily range): BP systolic 203–248; BP diastolic 102–123; PULSE 56–102; RESP 18–28; TEMP 37.5; O2SAT 92–97; BMI 57.4
--- NOTE | 2023-07-17 01:36 | DI.RAD.S_ITS ---
PROCEDURE: XR FOOT RT MIN 3V INDICATIONS: FOOT PAIN X2 DAYS, LALY GREAT TOE TECHNIQUE: 3 views of the foot were acquired. COMPARISON: [facility], CR, XR ANKLE LT MIN 3V, 07/17/2023, 1:55. FINDINGS: Bones: No fractures or dislocations. Lucency at the 1st metatarsal head. Hallux valgus deformity. No suspicious bony lesions. Calcaneal spur. Soft tissues: No tibiotalar joint effusion. Achilles tendon appears normal. IMPRESSION: Lucency at the 1st metatarsal head concerning for osseous erosion. This could be due to gout. Osteomyelitis could have a similar appearance. Prominent calcaneal spur. No significant discrepancy with the overnight preliminary interpretation. Dictated by: Dagoberto Sullivan M.D. on 07/17/2023 at 8:02 Approved by: Dagoberto Sullivan M.D. on 07/17/2023 at 8:04
--- NOTE | 2023-07-17 01:36 | DI.RAD.S_ITS ---
PROCEDURE: XR ANKLE LT MIN 3V INDICATIONS: ATRAUMATIC ANKLE PAIN TECHNIQUE: 3 views of the ankle were acquired. COMPARISON: [facility], CR, XR FOOT RT MIN 3V, 07/17/2023, 1:55. FINDINGS: Bones: No fractures or dislocations. Ankle mortise is normally aligned. No suspicious bony lesions. Plantar calcaneal spur. Mild to moderate degenerative changes in the midfoot and tibiotalar joint. Large os trigonum. Soft tissues: Suspect soft tissue edema. No tibiotalar joint effusion. Achilles tendon appears normal. IMPRESSION: Suspect soft tissue edema. No fracture. Mild to moderate degenerative changes. Large os trigone. 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 This report is concordant with the overnight preliminary interpretation. Dictated by: Dagoberto Sullivan M.D. on 07/17/2023 at 7:55 Approved by: Dagoberto Sullivan M.D. on 07/17/2023 at 7:57
--- NOTE | 2023-07-17 01:38 | ED_ITS ---
HPI - Extremity Problem General Chief complaint: Extremity Problem,Nontraumatic Stated complaint: Difficulty walking Time Seen by Provider: 07/17/23 01:21 Source: patient and EMS Mode of arrival: EMS History of Present Illness HPI Narrative: 57yoM with PMH HTN, amphetamine use presents by EMS from home for bilateral lower extremity pain. Patient states that yesterday his right great toe began to hurt, and today his left ankle began to hurt, and he was unable to walk due to the pain so we called 911. Patient states that he previously was out of insurance and stopped taking all of his chronic medications. Denies trauma to either extremity. In triage note patient reports healing wound on R calf, however when asked about the woudn patient states that he feels he is healing well and does not want this area evaluated. Related Data Home Medications Medication Instructions Recorded Confirmed hydrochlorothiazide 25 mg tablet 25 mg PO DAILY 04/30/20 05/14/21 Previous Rx's Medication Instructions Recorded lisinopril 20 mg tablet 20 mg PO BID #100 tabs 04/15/20 amlodipine 5 mg tablet 5 mg PO DAILY #100 tabs 08/17/20 diltiazem HCl 120 mg 120 mg PO QAM #30 caps 05/15/21 capsule,extended release 24 hr allopurinol 200 mg tablet 200 mg PO BID #60 tabs 07/17/23 amlodipine 5 mg tablet 5 mg PO DAILY #30 tabs 07/17/23 lisinopril 40 mg tablet 40 mg PO DAILY #30 tabs 07/17/23 Allergies Allergy/AdvReac Type Severity Reaction Status Date / Time No Known Drug Allergies Allergy Verified 05/14/21 16:56 Review of Systems Review of Systems Narrative: Negative except as noted above Patient History Medical History Febrile illness, acute TIA (transient ischemic attack) UTI (urinary tract infection) Surgical History Bariatric surgery status History of craniotomy Family History Mother Pulmonary embolism Social History household members: children Smoking Status: Never smoker alcohol intake: former (quitted recently) substance use type: marijuana Smoking Status: Never smoker alcohol intake frequency: a few times a week Substance Use Type: former substance user, marijuana and methamphetamine Exam Initial Vital Signs Initial Vital Signs: Vital Signs Pulse Rate 102 H 07/17/23 01:15 Pulse Oximetry 92 07/17/23 01:15 Oxygen Delivery Method Room Air 07/17/23 01:15 Const: Awake, alert, no acute distress, obese, appears chronically unwell, older than stated age, hygiene poor Cardiac: regular rate, regular rhythm RESP: unlabored, clear bilaterally, no wheezing GI: Atraumatic, soft, nontender, nondistended, no rebound, no guarding MSK: Atraumatic, no wounds, no deformity Skin: Warm, Dry, intact, no rashes, venous stasis changes BLE Neuro: AO x3, CN II-XII grossly intact, moves all extremities Psych: affect normal, mood normal, not suicidal, not homicidal Course Orders Ordered: Discontinued Medications Allopurinol (Allopurinol 100 Mg Tablet) 100 mg PO NOW ONE Stop: 07/17/23 03:00 Last Admin: 07/17/23 03:11 Dose: 100 mg Documented By: GRACIELA Amlodipine Besylate (Amlodipine 5 Mg Tablet) 10 mg PO NOW ONE Stop: 07/17/23 03:06 Last Admin: 07/17/23 03:12 Dose: 10 mg Documented By: GRACIELA Vital Signs Vital signs: Vital Signs - 8 hr 07/17/23 01:15 07/17/23 01:16 07/17/23 01:16 Temperature Pulse Rate 102 H 102 H Pulse Rate [Bilateral Dorsalis Pedis] Respiratory Rate Blood Pressure 248/116 H Pulse Oximetry 92 95 Oxygen Delivery Method Room Air Room Air 07/17/23 01:21 07/17/23 01:30 07/17/23 01:31 Temperature 99.5 F Pulse Rate 65 61 Pulse Rate [Bilateral Dorsalis Pedis] Respiratory Rate 28 H Blood Pressure 248/116 H 203/123 H Pulse Oximetry 93 93 Oxygen Delivery Method Room Air Room Air 07/17/23 01:31 07/17/23 01:47 07/17/23 02:00 Temperature Pulse Rate 60 80 Pulse Rate [Bilateral Dorsalis Pedis] 80 Respiratory Rate Blood Pressure Pulse Oximetry 96 97 Oxygen Delivery Method 07/17/23 02:01 07/17/23 02:01 07/17/23 02:30 Temperature Pulse Rate 77 87 Pulse Rate [Bilateral Dorsalis Pedis] Respiratory Rate 18 22 Blood Pressure 223/102 H Pulse Oximetry 92 95 Oxygen Delivery Method Room Air MDM - Extremity (Nontraumatic) Differential Diagnosis Differential diagnosis: Likely gout, cellulitis and superficial thrombophlebitis Lab Data 07/17/23 02:14 07/17/23 02:14 Labs: Lab Results 07/17/23 Range/Units 02:14 WBC 11.7 H (4.5-11.0) X10^3/uL RBC 4.55 (4.5-5.9) X10^6/uL Hgb 13.7 (13.5-17.5) g/dL Hct 41.2 (41-53) % MCV 90.5 (80-100) fL MCH 30.2 (26-34) PG MCHC 33.3 (30-36) % RDW 13.7 (11.6-14.8) % Plt Count 237 (150-400) X10^3/uL Neut % (Auto) 78.6 H (50-75) % Lymph % (Auto) 9.3 L (25-40) % [place] % (Auto) 11.0 (3-14) % Eos % (Auto) 0.6 L (2-4) % Baso % (Auto) 0.5 (0-2) % Neut # (Auto) 9200 H (9417-5255) /uL Lymph # (Auto) 1100 (2983-7608) /uL [place] # (Auto) 1300 H (0-900) /uL Eos # (Auto) 100 (0-450) /uL Baso # (Auto) 100 (0-100) /uL Sodium 134 L (137-145) mmol/L Potassium 4.2 (3.4-5.1) mmol/L Chloride 100 (98-107) mmol/L Carbon Dioxide 26 (22-32) mmol/L BUN 20 (9-20) mg/dL Creatinine 0.81 (0.66-1.25) mg/dL Estimated GFR > 60 (>60) mL/min BUN/Creatinine Ratio 24.7 H (6-22) Glucose 106 H (70-100) mg/dL Calcium 8.5 (8.4-10.2) mg/dL Total Bilirubin 1.0 (0.2-1.3) mg/dL AST 26 (17-59) IU/L ALT 19 (<50) IU/L Alkaline Phosphatase 127 H (38-126) U/L Total Protein 7.6 (6.3-8.2) g/dL Albumin 3.7 (3.5-5.0) g/dL Globulin 3.9 (1.7-4.1) g/dL Albumin/Globulin Ratio 0.9 L (1.0-2.8) MDM Narrative Medical decision making narrative: Bilateral lower extremity pain. No obvious deformity, no trauma. Noted to be profoundly hypertensive, however patient has history of hypertension, states he has been off of his medications for quite some time due to insurance issues, and has history of intermittent amphetamine use. Laboratory work is reviewed, unremarkable. X-rays are concerning for sequela of gout. Patient's renal function and electrolytes normal, we will discharge with allopurinol. Patient counseled to follow a low purine diet. We will restart patient on blood pressure medications. Patient counseled on the importance of following up with primary care physician and cessation of amphetamines to improve his blood pressure. Discharge Plan Departure Patient Disposition: Home Clinical Impression: Hypertension, Joint pain Instructions: Low-Purine Diet, DI for Gout Activity Restrictions/Additional Instructions: Your X rays indicate that you may have gout. Decrease your alcohol, red meat, and overly sugary foods. Take blood pressure medications and follow up with a primary care doctor Prescriptions: New amlodipine 5 mg tablet 5 mg PO DAILY Qty: 30 0RF lisinopril 40 mg tablet 40 mg PO DAILY Qty: 30 0RF allopurinol 200 mg tablet 200 mg PO BID Qty: 60 0RF No Action amlodipine 5 mg tablet 5 mg PO DAILY Qty: 100 0RF lisinopril 20 mg tablet 20 mg PO BID Qty: 100 0RF hydrochlorothiazide 25 mg Tablet 25 mg PO DAILY diltiazem HCl 120 mg capsule,extended release 24hr 120 mg PO QAM Qty: 30 2RF Referrals: Maranda Alvarenga MD [Primary Care Provider] - Stand Alone Forms: Patient Portal/API
[2023-07-17 02:21] LABS: Add Manual Diff / Slide Review NO; Basophils Absolute Auto 100 /uL (0-100); Basophils Percent Auto 0.5 % (0-2); Eosinophils Absolute Auto 100 /uL (0-450); Eosinophils Percent Auto 0.6 % (2-4); Hematocrit 41.2 % (41-53); Hemoglobin 13.7 g/dL (13.5-17.5); Lymphocytes Absolute Auto 1100 /uL (1100-4500); Lymphocytes Percent Auto 9.3 % (25-40); Mean Corpuscular HGB Conc 33.3 % (30-36); Mean Corpuscular Hemoglobin 30.2 PG (26-34); Mean Corpuscular Volume 90.5 fL (80-100); Monocytes Absolute Auto 1300 /uL (0-900); Neutrophils Absolute Auto 9200 /uL (1500-7000); Neutrophils Percent Auto 78.6 % (50-75); Platelet Count 237 X10^3/uL (150-400); Red Blood Cell Count 4.55 X10^6/uL (4.5-5.9); Red Cell Distribution Width 13.7 % (11.6-14.8); White Blood Cell Count 11.7 X10^3/uL (4.5-11.0)
[2023-07-17 02:35] LABS: Alanine Aminotransferase 19 IU/L (<50); Albumin 3.7 g/dL (3.5-5.0); Albumin Globulin Ratio 0.9 (1.0-2.8); Alkaline Phosphatase 127 U/L (38-126); Aspartate Aminotransferase 26 IU/L (17-59); BUN Creatinine Ratio 24.7 (6-22); Blood Urea Nitrogen 20 mg/dL (9-20); Calcium 8.5 mg/dL (8.4-10.2); Carbon Dioxide 26 mmol/L (22-32); Chloride 100 mmol/L (98-107); Estimated Glomerular Filt Rate > 60 mL/min (>60); Globulin 3.9 g/dL (1.7-4.1); Glucose 106 mg/dL (70-100); HEMOLYSIS < 15 (0-50); Potassium 4.2 mmol/L (3.4-5.1); Sodium 134 mmol/L (137-145); Total Protein 7.6 g/dL (6.3-8.2)
[2023-07-17] MEDS: allopurinoL 100 MG TABLET PO (03:11)
[2023-07-17] MEDS: AMLODIPINE 5 MG TABLET 10 MG PO (03:12)
== END 2023-07-17 03:49 | disposition home or self-care (01) ==
PROVIDERS: Emergency Provider Emergency Medicine; PCP Student in an Organized Health Care Education/Training Program
DX: M25.572 Pain in left ankle and joints of left foot (principal); I10 Essential (primary) hypertension
CPT/HCPCS: 36415; 73610; 73630; 80053; 85025; 99284

== ENCOUNTER → 2023-12-17 15:52 | Outpatient (CLI) | payer OTHER, MEDICAID, SELFPAY ==
[2020-04-14 19:53] VITALS: BMI 52.9
[2023-12-17 17:36] LABS: Add Manual Diff / Slide Review NO; Basophils Absolute Auto 0 /uL (0-100); Basophils Percent Auto 0.5 % (0-2); Eosinophils Absolute Auto 200 /uL (0-450); Eosinophils Percent Auto 1.7 % (2-4); Hematocrit 39.8 % (41-53); Hemoglobin 13.4 g/dL (13.5-17.5); Lymphocytes Absolute Auto 1500 /uL (1100-4500); Lymphocytes Percent Auto 16.4 % (25-40); Mean Corpuscular HGB Conc 33.6 % (30-36); Mean Corpuscular Hemoglobin 31.3 PG (26-34); Mean Corpuscular Volume 93.1 fL (80-100); Monocytes Absolute Auto 1100 /uL (0-900); Monocytes Percent Auto 11.6 % (3-14); Neutrophils Absolute Auto 6500 /uL (1500-7000); Neutrophils Percent Auto 69.8 % (50-75); Platelet Count 225 X10^3/uL (150-400); Red Blood Cell Count 4.28 X10^6/uL (4.5-5.9); Red Cell Distribution Width 15.4 % (11.6-14.8); White Blood Cell Count 9.3 X10^3/uL (4.5-11.0)
[2023-12-17 17:54] LABS: Hemoglobin A1C% w Est Avg Glu 5.8 % (4.0-6.0)
[2023-12-17 17:55] LABS: Alanine Aminotransferase 21 IU/L (<50); Albumin 3.6 g/dL (3.5-5.0); Alkaline Phosphatase 118 U/L (38-126); Aspartate Aminotransferase 38 IU/L (17-59); Bilirubin Total 1.1 mg/dL (0.2-1.3); Blood Urea Nitrogen 18 mg/dL (9-20); Calcium 8.4 mg/dL (8.4-10.2); Carbon Dioxide 29 mmol/L (22-32); Chloride 105 mmol/L (98-107); Cholesterol 132 mg/dL (140-199); Estimated Glomerular Filt Rate > 60 mL/min (>60); Globulin 3.6 g/dL (1.7-4.1); Glucose 94 mg/dL (80-110); HDL Cholesterol 33 mg/dL (40-60); HEMOLYSIS < 15 (0-50); LDL Cholesterol Calculated 83 mg/dL (<100); Magnesium 2.3 mg/dL (1.6-2.3); Phosphorous 3.2 mg/dL (2.3-3.7); Potassium 4.3 mmol/L (3.4-5.1); Sodium 139 mmol/L (137-145); Total Protein 7.2 g/dL (6.3-8.2); Triglycerides 80 mg/dL (35-150); Uric Acid 7.2 mg/dL (3.5-8.5)
[2023-12-17 18:12] LABS: Vitamin D 25 Hydroxy (D3) 26.3 ng/mL (30.0-100.0)
[2023-12-17 18:14] LABS: Free T4, Direct Thyroxine 1.14 ng/dL (0.78-2.19)
[2023-12-17 18:26] LABS: Prostate Specific Antigen 0.917 ng/mL (0.10-4.00)
[2023-12-17 18:28] LABS: Thyroid Stimulating Hormone 1.94 uIU/mL (0.47-4.68)
[2023-12-17 18:46] LABS: Vitamin B12 369 pg/mL (239-931)
== END ==
PROVIDERS: PCP Student in an Organized Health Care Education/Training Program; Referring Provider Family Medicine; Visit Provider Family Medicine
DX: E66.01 Morbid (severe) obesity due to excess calories (principal); D68.51 Activated protein C resistance; K90.9 Intestinal malabsorption, unspecified; M10.072 Idiopathic gout, left ankle and foot; I10 Essential (primary) hypertension
CPT/HCPCS: 36415; 80053; 80061; 82306; 82607; 83036; 83735; 84100; 84153; 84439; 84443; 84550; 85025

== ENCOUNTER → 2024-01-08 15:16 | Outpatient (CLI) | payer OTHER, MEDICAID, SELFPAY ==
[2020-04-14 19:53] VITALS: BMI 52.9
--- NOTE | 2024-01-08 15:18 | DI.RAD.S_ITS ---
PROCEDURE: XR WRIST RT MIN 3V INDICATIONS: R WRIST PAIN TECHNIQUE: 4 views of the wrist were acquired. COMPARISON: None. FINDINGS: Bones: No fractures or dislocations. No suspicious bony lesions. Extensive bony erosive change consistent with an inflammatory or infectious arthritis. There are Bill in is a of the distal ulna and lunate and scaphoid and 1st metacarpal. Also present is degenerative arthritis at the base of the thumb. Soft tissues: No suspicious soft tissue calcifications. IMPRESSION: Findings are consistent with extensive changes of an erosive or inflammatory arthritis. Rheumatoid arthritis is likely. By imaging, cannot differentiate between rheumatoid arthritis and infectious arthritis. Dictated by: Александр Kahn M.D. on 01/08/2024 at 17:38 Approved by: Александр Kahn M.D. on 01/08/2024 at 17:41
== END ==
PROVIDERS: PCP Student in an Organized Health Care Education/Training Program; Referring Provider Family Medicine; Visit Provider Family Medicine
DX: M85.831 Other specified disorders of bone density and structure, right forearm (principal); M25.531 Pain in right wrist
CPT/HCPCS: 73110

== ENCOUNTER 2024-08-09 18:58 | Inpatient (IN) | payer OTHER, SELFPAY ==
[2020-04-14 19:53] VITALS: BMI 52.9
[2024-08-09 19:13] VITALS: BP 143/95; PULSE 67; RESP 26; TEMP 36.9; O2SAT 96; BMI 60.2
--- NOTE | 2024-08-09 19:18 | DI.RAD.S_ITS ---
PROCEDURE: XR CHEST 1V INDICATIONS: Shortness of breath TECHNIQUE: One view of the chest was acquired. COMPARISON: [facility], , XR CHEST 1V, 06/13/2021, 12:25. [facility], CR, XR CHEST 1V, 05/14/2021, 20:17. [facility], , CHEST 1 VIEW, 01/28/2016, 23:44. [facility], , CHEST 1 VIEW, 04/19/2015, 16:17. FINDINGS: Surgical changes and devices: None. Lungs and pleura: Mild central perihilar opacification extending to the medial lung bases. No pleural effusions or pneumothorax. Mediastinum: Mediastinal contours appear normal. Cardiomegaly. Bones and chest wall: No suspicious bony lesions. Overlying soft tissues appear unremarkable. IMPRESSION: Cardiomegaly and mild pulmonary edema, which can be seen with a congestive heart failure exacerbation. Dictated by: Yusuf Regan M.D. on 08/09/2024 at 20:05 Approved by: Yusuf Regan M.D. on 08/09/2024 at 20:07
[2024-08-09 23:01] VITALS: BP 147/107; PULSE 50; RESP 18; O2SAT 99
[2024-08-09 23:26] VITALS: PULSE 129; RESP 20; O2SAT 92
[2024-08-09 23:27] VITALS: BP 171/120; PULSE 132; RESP 22; O2SAT 98
[2024-08-09 23:30] VITALS: BP 169/134; PULSE 121; RESP 22; O2SAT 95
--- NOTE | 2024-08-09 23:33 | EKG_ITS ---
[place] [id number] [place] [id number] Test Date: 2024-08-09 Pat Name: Sj Tran II Department: [facility] Room: Gender: Male Lion Hunter: : 1965 Requested By: Order Number: [id number] Reading MD: Dilshad Rivas MD Measurements Intervals Mobile Rate: 102 P: IL: QRS: -35 QRSD: 118 T: 79 QT: 372 QTc: 484 Interpretive Statements Atrial fibrillation with rapid ventricular response with premature ventricular or aberrantly conducted complexes Left axis deviation Cannot rule out Anterior infarct , age undetermined Electronically Signed On 08-10-2024 7:30:38 PST by Dilshad Rivas MD
[2024-08-09 23:50] LABS: Add Manual Diff / Slide Review NO; Basophils Absolute Auto 100 /uL (0-100); Basophils Percent Auto 1.2 % (0-2); Eosinophils Absolute Auto 300 /uL (0-450); Eosinophils Percent Auto 3.8 % (2-4); Hematocrit 42.5 % (41-53); Lymphocytes Absolute Auto 1400 /uL (1100-4500); Lymphocytes Percent Auto 18.7 % (25-40); Mean Corpuscular Hemoglobin 30.1 PG (26-34); Mean Corpuscular Volume 91.3 fL (80-100); Monocytes Absolute Auto 700 /uL (0-900); Monocytes Percent Auto 9.6 % (3-14); Neutrophils Absolute Auto 5000 /uL (1500-7000); Neutrophils Percent Auto 66.7 % (50-75); Platelet Count 196 X10^3/uL (150-400); Red Blood Cell Count 4.65 X10^6/uL (4.5-5.9); Red Cell Distribution Width 15.4 % (11.6-14.8); White Blood Cell Count 7.5 X10^3/uL (4.5-11.0)
[2024-08-09 23:52] LABS: INR 1.2 (0.9-1.3); Prothrombin Time 14.1 SECONDS (9.4-12.5)
[2024-08-09 23:55] LABS: Lactate (Lactic Acid) 1.2 mmol/L (0.7-2.1)
[2024-08-09 23:56] LABS: Alanine Aminotransferase 21 IU/L (<50); Albumin 4.2 g/dL (3.5-5.0); Albumin Globulin Ratio 1.1 (1.0-2.8); Alkaline Phosphatase 135 U/L (38-126); Aspartate Aminotransferase 34 IU/L (17-59); BUN Creatinine Ratio 23.1 (6-22); Bilirubin Total 0.8 mg/dL (0.2-1.3); Blood Urea Nitrogen 25 mg/dL (9-20); Calcium 9.2 mg/dL (8.4-10.2); Carbon Dioxide 29 mmol/L (22-32); Chloride 104 mmol/L (98-107); Estimated Glomerular Filt Rate > 60 mL/min (>60); Globulin 3.9 g/dL (1.7-4.1); Glucose 95 mg/dL (80-110); HEMOLYSIS < 15 (0-50); Potassium 4.4 mmol/L (3.4-5.1); Sodium 140 mmol/L (137-145); Total Protein 8.1 g/dL (6.3-8.2)
[2024-08-10] VITALS (64 sets, daily range): BP systolic 118–201; BP diastolic 63–162; PULSE 52–133; RESP 14–37; TEMP 36.6; O2SAT 90–98; BMI 60.2
[2024-08-10 00:08] LABS: NT-proBNP (BNP-Adult 18+) 5090 pg/mL (<125); Troponin I 0.031 ng/mL (0.01-0.034)
[2024-08-10] MEDS: METOPROLOL TARTRATE 5 MG/5 ML INJ IV (02:50)
--- NOTE | 2024-08-10 03:42 | ED.SOB ---
HPI - SOB/Dyspnea <Bernadro Gonzales MD - Last Filed: 08/10/24 15:29> General Chief Complaint: Shortness of Breath/Dyspnea Stated Complaint: bloating, short of breath Time Seen by Provider: 08/10/24 00:44 Source: patient Mode of arrival: Wheelchair Limitations: no limitations History of Present Illness HPI Narrative: 58-year-old male with history of chronic bilateral lower extremity edema, seems unsure if he has congestive heart failure, takes hydrochlorothiazide water pill ?as needed? but not regularly, history of hypertension, history of factor 5 Leiden carrier, prior brain hemorrhage, not on chronic anticoagulation, reports history of atrial fibrillation x2 short episodes in the past. Complains of swelling to both legs, also some shortness of breath, denies fevers or chills, denies cough. Related Data Home Medications Medication Instructions Recorded Confirmed hydrochlorothiazide 25 mg tablet 25 mg PO DAILY 04/30/20 08/10/24 aspirin 325 mg tablet 325 mg PO QAM 08/10/24 08/10/24 terazosin 1 mg capsule 1 mg PO QAM 08/10/24 08/10/24 Previous Rx's Medication Instructions Recorded amlodipine 5 mg tablet 5 mg PO DAILY #30 tabs 07/17/23 lisinopril 40 mg tablet 40 mg PO DAILY #30 tabs 07/17/23 Allergies Allergy/AdvReac Type Severity Reaction Status Date / Time No Known Drug Allergies Allergy Verified 05/14/21 16:56 Review of Systems <Cipriano Montaño MD - Last Filed: 08/12/24 12:34> Review of Systems Narrative: GENERAL: Negative chills, fatigue, malaise, fever, sweats. HEENT: Negative sinus pain, ear pain, sore throat RESPIRATORY: Positive dyspnea, negative cough CARDIOVASCULAR: Negative chest pain, palpitations positive peripheral edema GASTROINTESTINAL: Negative nausea, vomiting, abdominal pain : Negative dysuria, frequency, hematuria MUSCULOSKELETAL: Negative muscle or bony pain SKIN: Negative rash, skin lesions NEUROLOGIC: Negative weakness, numbness ROS Unobtainable: All systems reviewed & are unremarkable except as noted in HPI and below Patient History <Bernardo Gonzales MD - Last Filed: 08/10/24 15:29> Medical History Febrile illness, acute TIA (transient ischemic attack) UTI (urinary tract infection) Surgical History Bariatric surgery status History of craniotomy Family History Mother Pulmonary embolism Social History household members: children Smoking Status: Current some day smoker alcohol intake: current substance use type: marijuana Smoking Status: Never smoker alcohol intake frequency: a few times a week Exam <Bernardo Gonzales MD - Last Filed: 08/10/24 15:29> Narrative Exam Narrative: GENERAL: Well-developed patient, in mild distress. HEAD: Atraumatic. Normocephalic. EYES: Pupils equal round and reactive. Extraocular motions intact. No scleral icterus. No injection or drainage. ENT: Nose without bleeding, purulent drainage. Throat without erythema, tonsillar hypertrophy or exudate. Airway patent. NECK: Trachea midline. Non tender CARDIOVASCULAR: Irregularly irregular rhythm, mildly increased heart rate, without obvious murmurs, gallops, or rubs. RESPIRATORY: Clear to auscultation. Breath sounds equal bilaterally. No wheezes, rales, or rhonchi. GASTROINTESTINAL: Abdomen soft, non-tender, nondistended. Pannus lower edema and diffuse scrotal edema consistent with his congestive heart failure state. EXTREMITIES: Edema bilateral lower extremities, some erythema, consistent with venous stasis more so than suspected cellulitis. Edema extends up the thighs to the pannus in scrotum. BACK: Nontender without deformity or crepitance. No flank tenderness. NEURO: AOx3. Motor functions grossly nonfocal SKIN: No rash or erythema of visible areas Initial Vital Signs Initial Vital Signs: Vital Signs Temperature 98.4 F 08/09/24 19:13 Pulse Rate 67 08/09/24 19:13 Respiratory Rate 26 H 08/09/24 19:13 Blood Pressure 143/95 H 08/09/24 19:13 Pulse Oximetry 96 08/09/24 19:13 Oxygen Delivery Method Room Air 08/09/24 19:13 <Cipriano Montaño MD - Last Filed: 08/12/24 12:34> Initial Vital Signs Initial Vital Signs: Vital Signs Temperature 98.4 F 08/09/24 19:13 Pulse Rate 67 08/09/24 19:13 Respiratory Rate 26 H 08/09/24 19:13 Blood Pressure 143/95 H 08/09/24 19:13 Pulse Oximetry 96 08/09/24 19:13 Oxygen Delivery Method Room Air 08/09/24 19:13 Course <Bernardo Gonzales MD - Last Filed: 08/10/24 15:29> Orders Ordered: ED Orders 08/12/24 06:14 CBC Auto Diff [Complete Blood Count AUTO DIFF] DAILY CMP [Comprehensive Metabolic Panel] DAILY NT-proBNP (BNP-Adult 18+) DAILY 08/13/24 06:00 CBC Auto Diff [Complete Blood Count AUTO DIFF] DAILY CMP [Comprehensive Metabolic Panel] DAILY 08/13/24 07:00 NT-proBNP (BNP-Adult 18+) DAILY Acetaminophen (Acetaminophen 325 Mg Tablet) 650 mg PO Q6H PRN PRN Reason: Fever/Mild Pain (1-3) Hydrocodone Bitart/Acetaminophen (Hydrocodone/Acet 10/325 Tablet) 1 tab PO Q6HR PRN PRN Reason: Pain, Moderate (4-6) Last Admin: 08/11/24 20:38 Dose: 1 tab Documented By: Admin: 08/11/24 13:40 Dose: 1 tab Documented By: Admin: 08/10/24 18:18 Dose: 1 tab Documented By: SHARON Amiodarone HCl (Amiodarone 200 Mg Tablet) 200 mg PO DAILY [facility] Last Admin: 08/12/24 08:34 Dose: Not Given Documented By: Admin: 08/12/24 08:23 Dose: 200 mg Documented By: ALLISON Apixaban (Apixaban 5 Mg Tablet) 5 mg PO BID [facility] Last Admin: 08/12/24 08:25 Dose: 5 mg Documented By: Admin: 08/11/24 20:38 Dose: 5 mg Documented By: Admin: 08/11/24 09:37 Dose: 5 mg Documented By: LAYO Bumetanide (Bumetanide 1 Mg/4 Ml Vial) 2 mg IV Q12H [facility] Last Admin: 08/12/24 06:03 Dose: 2 mg Documented By: Admin: 08/11/24 20:37 Dose: 2 mg Documented By: Admin: 08/11/24 06:35 Dose: 2 mg Documented By: WB Cephalexin HCl (Cephalexin 250 Mg Capsule) 500 mg PO QID [facility] Last Admin: 08/12/24 08:25 Dose: 500 mg Documented By: Admin: 08/11/24 20:39 Dose: 500 mg Documented By: Admin: 08/11/24 17:14 Dose: 500 mg Documented By: Admin: 08/11/24 13:40 Dose: 500 mg Documented By: Admin: 08/11/24 08:25 Dose: 500 mg Documented By: Admin: 08/10/24 20:03 Dose: 500 mg Documented By: WB Docusate Sodium (Docusate 100 Mg Capsule) 100 mg PO BID [facility] Last Admin: 08/12/24 08:25 Dose: 100 mg Documented By: Admin: 08/11/24 21:26 Dose: Not Given Documented By: Admin: 08/11/24 08:24 Dose: 100 mg Documented By: Admin: 08/10/24 20:03 Dose: 100 mg Documented By: OLGA Hydrochlorothiazide (Hydrochlorothiazide 25 Mg Tablet) 25 mg PO DAILY [facility] Last Admin: 08/12/24 08:25 Dose: 25 mg Documented By: Admin: 08/11/24 08:22 Dose: 25 mg Documented By: Admin: 08/10/24 13:17 Dose: 25 mg Documented By: MS Metoprolol Tartrate (Metoprolol Ir 25 Mg Tablet) 75 mg PO BID [facility] Last Admin: 08/12/24 08:25 Dose: 75 mg Documented By: Admin: 08/11/24 20:38 Dose: 75 mg Documented By: Admin: 08/11/24 08:23 Dose: 75 mg Documented By: Admin: 08/11/24 06:22 Dose: Not Given Documented By: WB Naloxone HCl (Naloxone 0.4 Mg/Ml Vial) 0.2 mg IV Q2MIN PRN PRN Reason: Opiate Reversal Nystatin (Nystatin Powder 15gm) 1 applic TOP TID PRN PRN Reason: Rash Last Admin: 08/11/24 18:02 Dose: 1 applic Documented By: MT Sodium Chloride (Sodium Chloride 0.9% Flush) 10 ml IV PRN PRN PRN Reason: Flush Sodium Chloride (Sodium Chloride 0.9% Flush) 10 ml IV BID [facility] Last Admin: 08/12/24 09:48 Dose: 10 ml Documented By: Admin: 08/11/24 20:39 Dose: 10 ml Documented By: Admin: 08/11/24 08:43 Dose: Not Given Documented By: Admin: 08/10/24 20:03 Dose: 10 ml Documented By: OLGA Discontinued Medications Hydrocodone Bitart/Acetaminophen (Hydrocodone/Acet 5/325 Tablet) 1 tab PO Q4H PRN PRN Reason: Pain, Moderate (4-6) Last Admin: 08/10/24 13:17 Dose: 1 tab Documented By: Bumetanide (Bumetanide 1 Mg/4 Ml Vial) 2 mg IV NOW ONE Stop: 08/10/24 15:16 Last Admin: 08/10/24 15:17 Dose: 2 mg Documented By: Diltiazem HCl (Diltiazem Cd 120 Mg Cap) 120 mg PO DAILY [facility] Enoxaparin Sodium (Enoxaparin 40 Mg/0.4 Ml Syringe) 40 mg SUBCUT DAILY [facility] Last Admin: 08/10/24 11:00 Dose: 40 mg Documented By: CARL Enoxaparin Sodium (Enoxaparin 40 Mg/0.4 Ml Syringe) 40 mg SUBCUT BID [facility] Last Admin: 08/11/24 20:39 Dose: 40 mg Documented By: Admin: 08/11/24 08:25 Dose: 40 mg Documented By: Admin: 08/10/24 20:03 Dose: 40 mg Documented By: OLGA Furosemide (Furosemide 40 Mg/4 Ml Vial) 40 mg IV NOW ONE Stop: 08/10/24 03:44 Last Admin: 08/10/24 04:00 Dose: 40 mg Documented By: WERNER Furosemide (Furosemide 40 Mg/4 Ml Vial) 40 mg IV NOW ONE Stop: 08/10/24 07:03 Last Admin: 08/10/24 07:45 Dose: 40 mg Documented By: CARL Diltiazem HCl 125 mg/ Sodium (Chloride) 125 mls @ 5 mls/hr IV TITRATE NUPUR; Protocol Last Titration: 08/10/24 23:56 Dose: 0 mg/hr, 0 mls/hr Documented By: Admin: 08/10/24 19:54 Dose: 5 mg/hr, 5 mls/hr Documented By: OLGA Amiodarone HCl/Dextrose (Nexterone) 150 mg in 100 mls @ 600 mls/hr IV NOW ONE; Protocol Stop: 08/11/24 09:38 Last Infusion: 08/11/24 15:36 Dose: Infused Documented By: Admin: 08/11/24 09:39 Dose: 600 mls/hr Documented By: MT Amiodarone HCl/Dextrose (Nexterone) 360 mg in 200 mls @ 33.333 mls/hr IV NOW ONE; Protocol Stop: 08/11/24 15:29 Last Admin: 08/11/24 10:15 Dose: 33.333 mls/hr, 33.33 mls/hr Documented By: MT Amiodarone HCl/Dextrose (Nexterone) 360 mg in 200 mls @ 16.7 mls/hr IV CONT NUPUR; Protocol Stop: 08/12/24 03:29 Last Admin: 08/11/24 15:35 Dose: 16.7 mls/hr, 16.7 mls/hr Documented By: MT Amiodarone HCl/Dextrose (Nexterone) 180 mg in 100 mls @ 16.7 mls/hr IV CONT NUPUR; Protocol Stop: 08/12/24 09:30 Last Infusion: 08/12/24 09:00 Dose: Infused Documented By: Admin: 08/12/24 03:00 Dose: 16.7 mls/hr Documented By: WB Metoprolol Tartrate (Metoprolol Tartrate 5 Mg/5 Ml Inj) 5 mg IV NOW ONE Stop: 08/10/24 02:47 Last Admin: 08/10/24 02:50 Dose: 5 mg Documented By: MR Metoprolol Tartrate (Metoprolol Ir 50 Mg Tablet) 50 mg PO NOW ONE Stop: 08/10/24 12:54 Last Admin: 08/10/24 13:17 Dose: 50 mg Documented By: MS Vital Signs Vital signs: Vital Signs - 8 hr 08/10/24 07:30 08/10/24 07:30 08/10/24 08:00 Pulse Rate 113 H 133 H Respiratory Rate 19 22 Blood Pressure 184/116 H Pulse Oximetry 93 08/10/24 08:30 08/10/24 09:00 08/10/24 09:01 Pulse Rate 109 H 104 H Respiratory Rate 24 18 Blood Pressure 179/150 H Pulse Oximetry 92 95 08/10/24 09:01 08/10/24 09:03 08/10/24 09:03 Pulse Rate 108 H 106 H Respiratory Rate 18 19 Blood Pressure 163/115 H Pulse Oximetry 94 95 08/10/24 09:15 08/10/24 09:15 Pulse Rate 110 H Respiratory Rate 23 Blood Pressure 160/123 H Pulse Oximetry 96 <Cipriano Montaño MD - Last Filed: 08/12/24 12:34> Orders Ordered: ED Orders 08/12/24 06:14 CBC Auto Diff [Complete Blood Count AUTO DIFF] DAILY CMP [Comprehensive Metabolic Panel] DAILY NT-proBNP (BNP-Adult 18+) DAILY 08/13/24 06:00 CBC Auto Diff [Complete Blood Count AUTO DIFF] DAILY CMP [Comprehensive Metabolic Panel] DAILY 08/13/24 07:00 NT-proBNP (BNP-Adult 18+) DAILY Acetaminophen (Acetaminophen 325 Mg Tablet) 650 mg PO Q6H PRN PRN Reason: Fever/Mild Pain (1-3) Hydrocodone Bitart/Acetaminophen (Hydrocodone/Acet 10/325 Tablet) 1 tab PO Q6HR PRN PRN Reason: Pain, Moderate (4-6) Last Admin: 08/11/24 20:38 Dose: 1 tab Documented By: Admin: 08/11/24 13:40 Dose: 1 tab Documented By: Admin: 08/10/24 18:18 Dose: 1 tab Documented By: SHARON Amiodarone HCl (Amiodarone 200 Mg Tablet) 200 mg PO DAILY [facility] Last Admin: 08/12/24 08:34 Dose: Not Given Documented By: Admin: 08/12/24 08:23 Dose: 200 mg Documented By: ALLISON Apixaban (Apixaban 5 Mg Tablet) 5 mg PO BID [facility] Last Admin: 08/12/24 08:25 Dose: 5 mg Documented By: Admin: 08/11/24 20:38 Dose: 5 mg Documented By: Admin: 08/11/24 09:37 Dose: 5 mg Documented By: LAYO Bumetanide (Bumetanide 1 Mg/4 Ml Vial) 2 mg IV Q12H [facility] Last Admin: 08/12/24 06:03 Dose: 2 mg Documented By: Admin: 08/11/24 20:37 Dose: 2 mg Documented By: Admin: 08/11/24 06:35 Dose: 2 mg Documented By: WB Cephalexin HCl (Cephalexin 250 Mg Capsule) 500 mg PO QID [facility] Last Admin: 08/12/24 08:25 Dose: 500 mg Documented By: Admin: 08/11/24 20:39 Dose: 500 mg Documented By: Admin: 08/11/24 17:14 Dose: 500 mg Documented By: Admin: 08/11/24 13:40 Dose: 500 mg Documented By: Admin: 08/11/24 08:25 Dose: 500 mg Documented By: Admin: 08/10/24 20:03 Dose: 500 mg Documented By: WB Docusate Sodium (Docusate 100 Mg Capsule) 100 mg PO BID [facility] Last Admin: 08/12/24 08:25 Dose: 100 mg Documented By: Admin: 08/11/24 21:26 Dose: Not Given Documented By: Admin: 08/11/24 08:24 Dose: 100 mg Documented By: Admin: 08/10/24 20:03 Dose: 100 mg Documented By: OLGA Hydrochlorothiazide (Hydrochlorothiazide 25 Mg Tablet) 25 mg PO DAILY [facility] Last Admin: 08/12/24 08:25 Dose: 25 mg Documented By: Admin: 08/11/24 08:22 Dose: 25 mg Documented By: Admin: 08/10/24 13:17 Dose: 25 mg Documented By: Metoprolol Tartrate (Metoprolol Ir 25 Mg Tablet) 75 mg PO BID [facility] Last Admin: 08/12/24 08:25 Dose: 75 mg Documented By: Admin: 08/11/24 20:38 Dose: 75 mg Documented By: Admin: 08/11/24 08:23 Dose: 75 mg Documented By: Admin: 08/11/24 06:22 Dose: Not Given Documented By: WB Naloxone HCl (Naloxone 0.4 Mg/Ml Vial) 0.2 mg IV Q2MIN PRN PRN Reason: Opiate Reversal Nystatin (Nystatin Powder 15gm) 1 applic TOP TID PRN PRN Reason: Rash Last Admin: 08/11/24 18:02 Dose: 1 applic Documented By: MT Sodium Chloride (Sodium Chloride 0.9% Flush) 10 ml IV PRN PRN PRN Reason: Flush Sodium Chloride (Sodium Chloride 0.9% Flush) 10 ml IV BID [facility] Last Admin: 08/12/24 09:48 Dose: 10 ml Documented By: Admin: 08/11/24 20:39 Dose: 10 ml Documented By: Admin: 08/11/24 08:43 Dose: Not Given Documented By: Admin: 08/10/24 20:03 Dose: 10 ml Documented By: OLGA Discontinued Medications Hydrocodone Bitart/Acetaminophen (Hydrocodone/Acet 5/325 Tablet) 1 tab PO Q4H PRN PRN Reason: Pain, Moderate (4-6) Last Admin: 08/10/24 13:17 Dose: 1 tab Documented By: Bumetanide (Bumetanide 1 Mg/4 Ml Vial) 2 mg IV NOW ONE Stop: 08/10/24 15:16 Last Admin: 08/10/24 15:17 Dose: 2 mg Documented By: Diltiazem HCl (Diltiazem Cd 120 Mg Cap) 120 mg PO DAILY [facility] Enoxaparin Sodium (Enoxaparin 40 Mg/0.4 Ml Syringe) 40 mg SUBCUT DAILY [facility] Last Admin: 08/10/24 11:00 Dose: 40 mg Documented By: CARL Enoxaparin Sodium (Enoxaparin 40 Mg/0.4 Ml Syringe) 40 mg SUBCUT BID [facility] Last Admin: 08/11/24 20:39 Dose: 40 mg Documented By: Admin: 08/11/24 08:25 Dose: 40 mg Documented By: Admin: 08/10/24 20:03 Dose: 40 mg Documented By: OLGA Furosemide (Furosemide 40 Mg/4 Ml Vial) 40 mg IV NOW ONE Stop: 08/10/24 03:44 Last Admin: 08/10/24 04:00 Dose: 40 mg Documented By: WERNER Furosemide (Furosemide 40 Mg/4 Ml Vial) 40 mg IV NOW ONE Stop: 08/10/24 07:03 Last Admin: 08/10/24 07:45 Dose: 40 mg Documented By: CARL Diltiazem HCl 125 mg/ Sodium (Chloride) 125 mls @ 5 mls/hr IV TITRATE NUPUR; Protocol Last Titration: 08/10/24 23:56 Dose: 0 mg/hr, 0 mls/hr Documented By: Admin: 08/10/24 19:54 Dose: 5 mg/hr, 5 mls/hr Documented By: OLGA Amiodarone HCl/Dextrose (Nexterone) 150 mg in 100 mls @ 600 mls/hr IV NOW ONE; Protocol Stop: 08/11/24 09:38 Last Infusion: 08/11/24 15:36 Dose: Infused Documented By: Admin: 08/11/24 09:39 Dose: 600 mls/hr Documented By: MT Amiodarone HCl/Dextrose (Nexterone) 360 mg in 200 mls @ 33.333 mls/hr IV NOW ONE; Protocol Stop: 08/11/24 15:29 Last Admin: 08/11/24 10:15 Dose: 33.333 mls/hr, 33.33 mls/hr Documented By: MT Amiodarone HCl/Dextrose (Nexterone) 360 mg in 200 mls @ 16.7 mls/hr IV CONT NUPUR; Protocol Stop: 08/12/24 03:29 Last Admin: 08/11/24 15:35 Dose: 16.7 mls/hr, 16.7 mls/hr Documented By: MT Amiodarone HCl/Dextrose (Nexterone) 180 mg in 100 mls @ 16.7 mls/hr IV CONT NUPUR; Protocol Stop: 08/12/24 09:30 Last Infusion: 08/12/24 09:00 Dose: Infused Documented By: Admin: 08/12/24 03:00 Dose: 16.7 mls/hr Documented By: WB Metoprolol Tartrate (Metoprolol Tartrate 5 Mg/5 Ml Inj) 5 mg IV NOW ONE Stop: 08/10/24 02:47 Last Admin: 08/10/24 02:50 Dose: 5 mg Documented By: MR Metoprolol Tartrate (Metoprolol Ir 50 Mg Tablet) 50 mg PO NOW ONE Stop: 08/10/24 12:54 Last Admin: 08/10/24 13:17 Dose: 50 mg Documented By: MS Vital Signs Vital signs: Vital Signs - 8 hr 08/10/24 07:30 08/10/24 07:30 08/10/24 08:00 Pulse Rate 113 H 133 H Respiratory Rate 19 22 Blood Pressure 184/116 H Pulse Oximetry 93 08/10/24 08:30 08/10/24 09:00 08/10/24 09:01 Pulse Rate 109 H 104 H Respiratory Rate 24 18 Blood Pressure 179/150 H Pulse Oximetry 92 95 08/10/24 09:01 08/10/24 09:03 08/10/24 09:03 Pulse Rate 108 H 106 H Respiratory Rate 18 19 Blood Pressure 163/115 H Pulse Oximetry 94 95 08/10/24 09:15 08/10/24 09:15 Pulse Rate 110 H Respiratory Rate 23 Blood Pressure 160/123 H Pulse Oximetry 96 MDM - SOB/Dyspnea <Bernardo Gonzales MD - Last Filed: 08/10/24 15:29> Lab Data Attestation: I reviewed the patient's lab results. Lab results narrative: White blood cell count 7500, hemoglobin 14, platelets adequate. Basic metabolic panel remarkable for elevated BUN 25 with normal creatinine, otherwise unremarkable. Alkaline phosphatase 135 slight elevation, other LFTs normal. BNP 5000 elevated. Troponin negative. Lactate 1.2 normal. 08/12/24 06:14 08/12/24 06:14 Labs: Lab Results 08/09/24 08/10/24 08/10/24 Range/Units 23:30 03:55 11:42 WBC 7.5 (4.5-11.0) X10^3/uL RBC 4.65 (4.5-5.9) X10^6/uL Hgb 14.0 (13.5-17.5) g/dL Hct 42.5 (41-53) % MCV 91.3 (80-100) fL MCH 30.1 (26-34) PG MCHC 33.0 (30-36) % RDW 15.4 H (11.6-14.8) % Plt Count 196 (150-400) X10^3/uL Neut % (Auto) 66.7 (50-75) % Lymph % (Auto) 18.7 L (25-40) % Island % (Auto) 9.6 (3-14) % Eos % (Auto) 3.8 (2-4) % Baso % (Auto) 1.2 (0-2) % Neut # (Auto) 5000 (8965-5436) /uL Lymph # (Auto) 1400 (3589-6326) /uL Island # (Auto) 700 (0-900) /uL Eos # (Auto) 300 (0-450) /uL Baso # (Auto) 100 (0-100) /uL PT 14.1 H (9.4-12.5) SECONDS INR 1.2 (0.9-1.3) Sodium 140 (137-145) mmol/L Potassium 4.4 (3.4-5.1) mmol/L Chloride 104 (98-107) mmol/L Carbon Dioxide 29 (22-32) mmol/L BUN 25 H (9-20) mg/dL Creatinine 1.08 (0.66-1.25) mg/dL Estimated GFR > 60 (>60) mL/min BUN/Creatinine Ratio 23.1 H (6-22) Glucose 95 (80-110) mg/dL Lactate 1.2 (0.7-2.1) mmol/L Calcium 9.2 (8.4-10.2) mg/dL Total Bilirubin 0.8 (0.2-1.3) mg/dL AST 34 (17-59) IU/L ALT 21 (<50) IU/L Alkaline Phosphatase 135 H (38-126) U/L Troponin I 0.031 0.026 (0.01-0.034) ng/mL NT-Pro-B Natriuret Pep 5090 H (<125) pg/mL Total Protein 8.1 (6.3-8.2) g/dL Albumin 4.2 (3.5-5.0) g/dL Globulin 3.9 (1.7-4.1) g/dL Albumin/Globulin Ratio 1.1 (1.0-2.8) Nasal Screen MRSA (PCR) Not detected (Not Detect) Imaging Data Chest x-ray: Radiologist's Impression: [address] [address] XRay Report Signed Patient: Sj Tran II MR#: [id number] : 1965 Acct:[id number] Age/Sex: 58 / M Date of Service: 08/09/24 Loc: ED Accession Number: [id number] Procedure: XR chest 1V Ordering Provider: Bernardo Gonzales MD PROCEDURE: XR CHEST 1V INDICATIONS: Shortness of breath TECHNIQUE: One view of the chest was acquired. COMPARISON: [facility], CR, XR CHEST 1V, 06/13/2021, 12:25. [facility], , XR CHEST 1V, 05/14/2021, 20:17. [facility], , CHEST 1 VIEW, 01/28/2016, 23:44. [facility], CHEST 1 VIEW, 04/19/2015, 16:17. FINDINGS: Surgical changes and devices: None. Lungs and pleura: Mild central perihilar opacification extending to the medial lung bases. No pleural effusions or pneumothorax. Mediastinum: Mediastinal contours appear normal. Cardiomegaly. Bones and chest wall: No suspicious bony lesions. Overlying soft tissues appear unremarkable. IMPRESSION: Cardiomegaly and mild pulmonary edema, which can be seen with a congestive heart failure exacerbation. Dictated by: Yusuf Regan M.D. on 08/09/2024 at 20:05 Approved by: Yusuf Regan M.D. on 08/09/2024 at 20:07 ECG Data Attestation: I personally reviewed and interpreted this ECG as follows: Interpretation: Atrial fibrillation with ventricular response rate 102, no obvious ST segment elevation or depression changes. QRS 118, QTC 484. MDM Narrative Medical decision making narrative: 58-year-old male with history of prior episode atrial fibrillation, prior brain hemorrhage, factor 5 Leiden, not on anticoagulation, has shortness of breath last couple of days, increasing lower extremity chronic edema, has edema to the lower abdomen and scrotum as well. Denies chest pain, fevers chills. Lungs clear without crackles, no respiratory distress, normal room-air saturation 94%, speaking in full sentences. Has lower extremity edema with some erythema predominantly up to knees, some component also up to thighs and scrotum and lower abdominal pannus wall. Takes hydrochlorothiazide ?as needed? but not on regular scheduled. Does not take Lasix or Aldactone. Records review, latest [facility] located was on 04/15/2020. Interpretation summary: Left ventricle normal in size, ejection fraction estimated 55-60%, right ventricle mildly dilated, right ventricular systolic function normal, no valvular pathology seen.. Interpretation by warehouse freight handler Dr. Vicente Lab summary results tonight: White blood cell count 7500, hemoglobin 14, platelets adequate. Basic metabolic panel remarkable for elevated BUN 25 with normal creatinine, otherwise unremarkable. Alkaline phosphatase 135 slight elevation, other LFTs normal. BNP 5000 elevated. Troponin negative. Lactate 1.2 normal. IV Lasix 40 mg, assess response to diuresis, encouraged to continue his hydrochlorothiazide on a regular schedule and not just as needed. No inpatient beds available here, does not seem severe enough for transfer at this time, patient does not want to be transferred at this time, further diuresis in the emergency department for now, and hopefully further oral diuresis more effectively at home if he takes his regular medications. EKG atrial fibrillation rate 102 0700, we will give repeat IV Lasix dose, he is having some diuresis, no hypoxia, beds full, trial further IV diuresis here in the emergency department. Signed out to [facility] ED shift physician Dr. Montaño August 10, 2024 at 7:[address] Montaño: Sign out from Dr. Gonzales, patient here for lower extremity swelling. He has not on any Lasix at home. No definitive diagnosis of CHF in the past. Has received Lasix 40 mg. In no respiratory distress. 7:[address] Montaño: Spoke with patient. He has been short of breath when he stands up and walks. However not requiring supplemental oxygen at this time. States he has never been diagnosed with CHF in the past. Denies any chest pain. Exam, patient does have extensive lower extremity edema. There is swelling to the feet and toes as well. 9:26 a.m.. Spoke with patient's primary care provider, dr grimaldo, who will see patient here for admission. <Cipriano Montaño MD - Last Filed: 08/12/24 12:34> Lab Data Labs: Lab Results 08/09/24 08/10/24 08/10/24 Range/Units 23:30 03:55 11:42 WBC 7.5 (4.5-11.0) X10^3/uL RBC 4.65 (4.5-5.9) X10^6/uL Hgb 14.0 (13.5-17.5) g/dL Hct 42.5 (41-53) % MCV 91.3 (80-100) fL MCH 30.1 (26-34) PG MCHC 33.0 (30-36) % RDW 15.4 H (11.6-14.8) % Plt Count 196 (150-400) X10^3/uL Neut % (Auto) 66.7 (50-75) % Lymph % (Auto) 18.7 L (25-40) % Island % (Auto) 9.6 (3-14) % Eos % (Auto) 3.8 (2-4) % Baso % (Auto) 1.2 (0-2) % Neut # (Auto) 5000 (8017-9573) /uL Lymph # (Auto) 1400 (5406-5618) /uL Island # (Auto) 700 (0-900) /uL Eos # (Auto) 300 (0-450) /uL Baso # (Auto) 100 (0-100) /uL PT 14.1 H (9.4-12.5) SECONDS INR 1.2 (0.9-1.3) Sodium 140 (137-145) mmol/L Potassium 4.4 (3.4-5.1) mmol/L Chloride 104 (98-107) mmol/L Carbon Dioxide 29 (22-32) mmol/L BUN 25 H (9-20) mg/dL Creatinine 1.08 (0.66-1.25) mg/dL Estimated GFR > 60 (>60) mL/min BUN/Creatinine Ratio 23.1 H (6-22) Glucose 95 (80-110) mg/dL Lactate 1.2 (0.7-2.1) mmol/L Calcium 9.2 (8.4-10.2) mg/dL Total Bilirubin 0.8 (0.2-1.3) mg/dL AST 34 (17-59) IU/L ALT 21 (<50) IU/L Alkaline Phosphatase 135 H (38-126) U/L Troponin I 0.031 0.026 (0.01-0.034) ng/mL NT-Pro-B Natriuret Pep 5090 H (<125) pg/mL Total Protein 8.1 (6.3-8.2) g/dL Albumin 4.2 (3.5-5.0) g/dL Globulin 3.9 (1.7-4.1) g/dL Albumin/Globulin Ratio 1.1 (1.0-2.8) Nasal Screen MRSA (PCR) Not detected (Not Detect) Imaging Data US - DVT: Radiologist's Impression: [address] [address] Ultrasound Report Signed Patient: Sj Tran II MR#: [id number] : 1965 Acct:[id number] Age/Sex: 58 / M Date of Service: 08/10/24 Loc: ED Accession Number: [id number] Procedure: perip venous low extrem bi Ordering Provider: Cipriano Montaño MD PROCEDURE: PERIP VENOUS LOW EXTREM BI INDICATIONS: leg swelling TECHNIQUE: Real-time imaging, as well as color and pulse Doppler interrogation, were performed of the deep veins of both legs from the inguinal ligament to the popliteal fossa, with documentation of the visualized calf veins. COMPARISON: [facility], PERIP VENOUS LOW EXTREM BI, 08/01/2019, 12:36. FINDINGS: Right: The common femoral, femoral, popliteal, and the visualized calf veins are normally compressible, and free of intraluminal thrombus. Color and pulse Doppler demonstrate normal phasic intravascular flow. There is normal augmentation response to distal compression maneuver. Left: The common femoral, femoral, popliteal, and the visualized calf veins are normally compressible, and free of intraluminal thrombus. Color and pulse Doppler demonstrate normal phasic intravascular flow. There is normal augmentation response to distal compression maneuver. IMPRESSION: Negative bilateral lower extremity duplex venous ultrasound for DVT. Dictated by: Александр Kahn M.D. on 08/10/2024 at 8:54 Approved by: Александр Kahn M.D. on 08/10/2024 at 8:54 MDM Narrative Medical decision making narrative: 58-year-old male with history of prior episode atrial fibrillation, prior brain hemorrhage, factor 5 Leiden, not on anticoagulation, has shortness of breath last couple of days, increasing lower extremity chronic edema, has edema to the lower abdomen and scrotum as well. Denies chest pain, fevers chills. Lungs clear without crackles, no respiratory distress, normal room-air saturation 94%, speaking in full sentences. Has lower extremity edema with some erythema predominantly up to knees, some component also up to thighs and scrotum and lower abdominal pannus wall. Takes hydrochlorothiazide ?as needed? but not on regular scheduled. Records review, latest echocardiogram [facility] system 04/15/2020. Interpretation summary: Left ventricle normal in size, ejection fraction estimated 55-60%, right ventricle mildly dilated, right ventricular systolic function normal, no valvular pathology seen.. Interpretation by warehouse freight handler Dr. Vicente Lab summary results tonight: White blood cell count 7500, hemoglobin 14, platelets adequate. Basic metabolic panel remarkable for elevated BUN 25 with normal creatinine, otherwise unremarkable. Alkaline phosphatase 135 slight elevation, other LFTs normal. BNP 5000 elevated. Troponin negative. Lactate 1.2 normal. IV Lasix 40 mg, assess response to diuresis, encouraged to continue his hydrochlorothiazide on a regular schedule and not just as needed. No inpatient beds available here, does not seem severe enough for transfer at this time, patient does not want to be transferred at this time, further diuresis in the emergency department for now, and hopefully further oral diuresis more effectively at home if he takes his regular medications. EKG atrial fibrillation rate 102 0700, we will give repeat IV Lasix dose, he is having some diuresis, no hypoxia, beds full, trial further IV diuresis here in the emergency department. Signed out to [facility] ED shift physician Dr. Montaño August 10, 2024 at 7:[address] Montaño: Sign out from Dr. Gonzales, patient here for lower extremity swelling. He has not on any Lasix at home. No definitive diagnosis of CHF in the past. Has received Lasix 40 mg. In no respiratory distress. 7:[address] Montaño: Spoke with patient. He has been short of breath when he stands up and walks. However not requiring supplemental oxygen at this time. States he has never been diagnosed with CHF in the past. Denies any chest pain. Exam, patient does have extensive lower extremity edema. There is swelling to the feet and toes as well. 9:26 a.m.. Spoke with patient's primary care provider, dr grimaldo, who will see patient here for admission. Discharge Plan Departure Patient Disposition: Admitted as Observation Clinical Impression: Congestive heart failure Qualifiers: Heart failure type: unspecified Heart failure chronicity: unspecified Qualified Code(s): I50.9 - Heart failure, unspecified Admit Date/Time: 08/10/24 19:05 Admit Provider: Dereck Grimaldo
[2024-08-10] MEDS: FUROSEMIDE 40 MG/4 ML VIAL IV ×2 (04:00→07:45)
[2024-08-10 04:32] LABS: Troponin I 0.026 ng/mL (0.01-0.034)
--- NOTE | 2024-08-10 07:54 | DI.US.S_ITS ---
PROCEDURE: [facility] VENOUS LOW EXTREM BI INDICATIONS: leg swelling TECHNIQUE: Real-time imaging, as well as color and pulse Doppler interrogation, were performed of the deep veins of both legs from the inguinal ligament to the popliteal fossa, with documentation of the visualized calf veins. COMPARISON: [facility], , [facility] VENOUS LOW EXTREM BI, 08/01/2019, 12:36. FINDINGS: Right: The common femoral, femoral, popliteal, and the visualized calf veins are normally compressible, and free of intraluminal thrombus. Color and pulse Doppler demonstrate normal phasic intravascular flow. There is normal augmentation response to distal compression maneuver. Left: The common femoral, femoral, popliteal, and the visualized calf veins are normally compressible, and free of intraluminal thrombus. Color and pulse Doppler demonstrate normal phasic intravascular flow. There is normal augmentation response to distal compression maneuver. IMPRESSION: Negative bilateral lower extremity duplex venous ultrasound for DVT. Dictated by: Александр Kahn M.D. on 08/10/2024 at 8:54 Approved by: Александр Kahn M.D. on 08/10/2024 at 8:54
--- NOTE | 2024-08-10 08:27 | PC.NURSE ---
Full bed bath and change of linens/gown. Pt soiled himself with urine/feces. Barrier cream applied. Pt cannot reach his groin area or his back side. Housekeeping brought a Hill-Rom bed for pt comfort.
--- NOTE | 2024-08-10 09:50 | P.HP_ITS ---
History of Present Illness History of Present Illness Date Patient Seen: 08/10/24 Time Patient Seen: 09:50 Chief complaint: bloating, short of breath Narrative: cc: SOB - CHF exacerbation Pt reports insidious onset of shortness of breath and lower extemity swelling came in when his scrotum became uncomfortable and he was unable to walk much distance without becoming short of breath has been taking oral lasix to not much avail feels ok no pain at rest not needing o2 at rest [facility] Medical History Febrile illness, acute TIA (transient ischemic attack) UTI (urinary tract infection) Surgical History Bariatric surgery status History of craniotomy Family History Mother Pulmonary embolism Social History household members: children Smoking Status: Current some day smoker alcohol intake: current substance use type: marijuana Meds Home Medications and Allergies Home Medications Medication Instructions Recorded Confirmed Type hydrochlorothiazide 25 mg tablet 25 mg PO DAILY 04/30/20 08/10/24 History amlodipine 5 mg tablet 5 mg PO DAILY #30 tabs 07/17/23 08/10/24 Rx lisinopril 40 mg tablet 40 mg PO DAILY #30 tabs 07/17/23 08/10/24 Rx aspirin 325 mg tablet 325 mg PO QAM 08/10/24 08/10/24 History terazosin 1 mg capsule 1 mg PO M 08/10/24 08/10/24 History Allergies Allergy/AdvReac Type Severity Reaction Status Date / Time No Known Drug Allergies Allergy Verified 05/14/21 16:56 Review of Systems Review of Systems Narrative: all systems reviewed and negative except as otherwise documented in HPI Exam Vital Signs (past 8 hours): - 08/10/24 02:00 08/10/24 02:00 08/10/24 02:30 Pulse Rate 116 H Respiratory Rate 18 Blood Pressure 201/134 H 190/162 H Pulse Oximetry 94 Oxygen Delivery Method 08/10/24 02:30 08/10/24 02:48 08/10/24 02:48 Pulse Rate 112 H 115 H Respiratory Rate 16 18 Blood Pressure 130/104 H Pulse Oximetry 94 94 Oxygen Delivery Method 08/10/24 03:00 08/10/24 03:01 08/10/24 03:04 Pulse Rate 96 H 52 L Respiratory Rate 16 20 Blood Pressure 121/90 121/90 Pulse Oximetry 93 93 Oxygen Delivery Method Room Air 08/10/24 03:04 08/10/24 03:30 08/10/24 03:30 Pulse Rate 93 H 88 Respiratory Rate 18 18 Blood Pressure 133/89 Pulse Oximetry 92 92 Oxygen Delivery Method 08/10/24 04:00 08/10/24 04:00 08/10/24 04:30 Pulse Rate 97 H Respiratory Rate 32 H Blood Pressure 146/99 H 157/109 H Pulse Oximetry 92 Oxygen Delivery Method 08/10/24 04:30 08/10/24 05:01 08/10/24 05:01 Pulse Rate 107 H 109 H Respiratory Rate 28 H 19 Blood Pressure 118/84 Pulse Oximetry 93 93 Oxygen Delivery Method 08/10/24 05:30 08/10/24 05:30 08/10/24 06:00 Pulse Rate 102 H 105 H Respiratory Rate 18 20 Blood Pressure 134/81 Pulse Oximetry 94 95 Oxygen Delivery Method 08/10/24 06:00 08/10/24 06:30 08/10/24 06:30 Pulse Rate 105 H Respiratory Rate 20 Blood Pressure 132/92 H 139/93 H Pulse Oximetry 92 Oxygen Delivery Method 08/10/24 07:00 08/10/24 07:00 08/10/24 07:30 Pulse Rate 119 H Respiratory Rate 22 Blood Pressure 154/94 H 184/116 H Pulse Oximetry 92 Oxygen Delivery Method 08/10/24 07:30 08/10/24 08:00 08/10/24 08:30 Pulse Rate 113 H 133 H 109 H Respiratory Rate 19 22 24 Blood Pressure Pulse Oximetry 93 92 Oxygen Delivery Method 08/10/24 09:00 08/10/24 09:01 08/10/24 09:01 Pulse Rate 104 H 108 H Respiratory Rate 18 18 Blood Pressure 179/150 H Pulse Oximetry 95 94 Oxygen Delivery Method 08/10/24 09:03 08/10/24 09:03 08/10/24 09:15 Pulse Rate 106 H 110 H Respiratory Rate 19 23 Blood Pressure 163/115 H Pulse Oximetry 95 96 Oxygen Delivery Method 08/10/24 09:15 08/10/24 09:30 08/10/24 09:30 Pulse Rate 113 H Respiratory Rate 22 Blood Pressure 160/123 H 151/109 H Pulse Oximetry 95 Oxygen Delivery Method Oxygen Delivery Method Room Air Narrative Exam Narrative: looks tired resting on ED gurney Const Other: obese well developed Resp Other: bibasilar crackles, moving air ok on room air Cardio Other: elevated rate s1/s2 marked edema up both legs GI Other: soft nontender active bowel sounds Other: draining darker yellow urine via dejesus Neuro Other: alert awake oriented x3 moving all limbs Objective Labs 08/09/24 23:30 08/09/24 23:30 Labs: Laboratory Results - last 24 hr 08/09/24 08/10/24 23:30 03:55 WBC 7.5 RBC 4.65 Hgb 14.0 Hct 42.5 MCV 91.3 MCH 30.1 MCHC 33.0 RDW 15.4 H Plt Count 196 Neut % (Auto) 66.7 Lymph % (Auto) 18.7 L [place] % (Auto) 9.6 Eos % (Auto) 3.8 Baso % (Auto) 1.2 Neut # (Auto) 5000 Lymph # (Auto) 1400 [place] # (Auto) 700 Eos # (Auto) 300 Baso # (Auto) 100 PT 14.1 H INR 1.2 Sodium 140 Potassium 4.4 Chloride 104 Carbon Dioxide 29 BUN 25 H Creatinine 1.08 Estimated GFR > 60 BUN/Creatinine Ratio 23.1 H Glucose 95 Lactate 1.2 Calcium 9.2 Total Bilirubin 0.8 AST 34 ALT 21 Alkaline Phosphatase 135 H Troponin I 0.031 0.026 NT-Pro-B Natriuret Pep 5090 H Total Protein 8.1 Albumin 4.2 Globulin 3.9 Albumin/Globulin Ratio 1.1 Assessment & Plan Assessment & Plan narrative: #CHF exacerbation #acute respiratory failure elevated BNP - SOB on any exertion - will diurese with loop diuretics and provide o2 as needed will get echo, PT/OT consult youth nutritional monitor #essential hypertension stable continue home thalidone Dispo: Admit obs MDM: Son PCP: Blu Code: Full DVT: SCDs and lovenox Diet: Heart healthy Time-Based Coding :: [TOTAL MINUTES] spent with patient and on the chart (including review of chart, obtaining history, exam, reviewing outside data, placing orders, documenting exam and treatment plan, and counseling patient) on [DATE].
[2024-08-10] MEDS: ENOXAPARIN 40 MG/0.4 ML SYRINGE SUBCUT ×2 (11:00→20:03)
--- NOTE | 2024-08-10 12:31 | DI.ECHO.S_ITS ---
[place] [facility]+ [facility] : : [address] : : [place] : : [id number] : : Phone: [phone] Echocardiogram Report + + :Name: ROLANDA ROBLES Study Date: 08/10/2024 Height: 70 in : :[facility] ReadingLocation: Weight: 420 lb : : Gender: Male BSA: 2.9 m2 : :: 1965 Age: 58 yrs BP: 128/78 mmHg: :Reason For Study: CHF EXACERBATION : :Ordering Physician: MARIVEL, : :MYKE Phipps Performed By: Magali Jordan : :Referring: MYKE ORTA : + + Interpretation Summary The patient was in atrial fibrillation with heart rates between 87-108 bpm during the exam. The study quality was technically difficult. The ejection fraction is estimated to be 15-20%. Grade II diastolic dysfunction. Right ventricular systolic function is moderately reduced. The right ventricular systolic pressure is estimated to be at least 40 mmHg based on an estimated right atrial pressure of 15 mm Hg. There is severe biatrial enlargement. There is mild mitral regurgitation. There is mild aortic regurgitation. There is mild tricuspid regurgitation. There is mild pulmonic regurgitation. There is a trivial pericardial effusion noted. Procedure: A two-dimensional transthoracic echocardiogram with color flow and Doppler was performed. The study quality was technically difficult. Comparison is made with the echocardiogram of 04/15/2020. The patient was in atrial fibrillation with heart rates between 87-108 bpm during the exam. Left Ventricle: The left ventricle is mildly dilated. The estimated left ventricular end diastolic volume is 163 ml. There is mild concentric left ventricular hypertrophy. The ejection fraction is estimated to be 15-20%. Grade II diastolic dysfunction. Right Ventricle: The right ventricle is mildly dilated. Right ventricular systolic function is moderately reduced. Atria: The left atrium is severely dilated. There is severe biatrial enlargement. There is no Doppler evidence for an interatrial shunt. Mitral Valve: The mitral valve leaflets appear mildly thickened, but open well. There is mild mitral regurgitation. Aortic Valve: The aortic valve is trileaflet. There is no aortic valve stenosis. There is mild aortic regurgitation. Tricuspid Valve: The tricuspid valve is not well visualized, but is grossly normal. There is mild tricuspid regurgitation. The right ventricular systolic pressure is estimated to be at least 40 mmHg based on an estimated right atrial pressure of 15 mm Hg. Pulmonic Valve: The pulmonic valve is not well seen, but is grossly normal. There is mild pulmonic regurgitation. Great Vessels: The aortic root is mildly dilated. The ascending aorta is moderately enlarged. The IVC is dilated (diameter is greater than 2.1 cm) and it collapses less than 50% with a sniff. This suggests a high right atrial pressure of 15 mm Hg. Pericardium/ Pleura There is a trivial pericardial effusion noted. There is no pleural effusion. MMode/2D Measurements & Calculations LVIDd: 6.4 cm LVOT diam: 2.5 cm LVIDs: 5.2 cm Ao root diam: 4.3 cm FS: 18.9 % asc Aorta Diam: 4.6 cm EPSS: 1.7 cm IVSd: 1.3 cm LVPWd: 1.2 cm LV higuera. diameter/BSA (cm/m^2): 2.2 LV sys. diameter/BSA (cm/m^2): 1.8 LA A2 area: 33.9 cm2 RA long axis: 6.8 cm LA A4 area: 33.0 cm2 RA area: 31.9 cm2 LA length (vol): 7.1 cm RA vol: 127.9 ml LA vol: 133.6 ml RA : 44.7 ml/m2 LA vol index: 46.7 ml/m2 IVC diam: 3.1 cm RVD1 (basal): 4.4 cm TAPSE: 1.2 cm Doppler Measurements & Calculations Ao V2 max: 148.5 cm/sec LVOT Max Slava: 94.6 cm/sec Ao V2 mean: 110.5 cm/sec LV V1 max P.6 mmHg Ao max P.8 mmHg LV V1 VTI: 12.3 cm Ao mean P.3 mmHg ADI(I,D): 2.9 cm2 Ao V2 VTI: 21.6 cm ADI(V,D): 3.2 cm2 sev ratio: 0.57 ADI indexed to BSA (cm^2/m^2): 1.0 MV E max slava: 98.5 cm/sec TR max slava: 250.3 cm/sec MV A max slava: 0.72 cm/sec TR max P.1 mmHg MV E/A: 136.8 PA V2 max: 109.4 cm/sec Med Peak E' Slava: 3.6 cm/sec PA V2 mean: 76.0 cm/sec E/E' med: 27.7 PA mean P.7 mmHg Lat Peak E' Slava: 7.4 cm/sec PA pr(Accel): 36.6 mmHg E/E' lat: 13.3 E/e' average: 20.5 MV dec time: 0.17 sec SVLVOT): 62.5 ml Reading Physician:04:56 PM
[2024-08-10] MEDS: HYDROCODONE/ACET 5/325 TABLET 1 TAB PO (13:17)
[2024-08-10] MEDS: hydroCHLOROthiazide 25 MG TABLET PO (13:17)
[2024-08-10] MEDS: METOPROLOL IR 50 MG TABLET PO (13:17)
--- NOTE | 2024-08-10 13:49 | OT.IPNOTE ---
Pt's HR in the 130's , per nursing best to hold therapy eval for today.
--- NOTE | 2024-08-10 13:52 | PT-IP ANOTE ---
Physical Therapy evaluation on hold per nursing due to rapid heart rate. Will recheck at a later time.
[2024-08-10 14:19] LABS: MRSA (Nasal) PCR NOT DETECTED (Not Detect)
[2024-08-10] MEDS: BUMETANIDE 1 MG/4 ML VIAL 2 MG IV (15:17)
[2024-08-10] MEDS: HYDROCODONE/ACET 10/325 TABLET 1 TAB PO (18:18)
[2024-08-10] MEDS: dilTIAZem 125 MG in SODIUM CHLORIDE 0.9% 100 ML IV (19:54)
[2024-08-10] MEDS: DOCUSATE 100 MG CAPSULE PO (20:03)
[2024-08-10] MEDS: cephALEXin 250 MG CAPSULE 500 MG PO (20:03)
[2024-08-10] MEDS: SODIUM CHLORIDE 0.9% FLUSH 10 ML IV (20:03)
--- NOTE | 2024-08-10 23:57 | PC.NURSE ---
Stopped dilt gtt at this time d/t intermittent episodes of pauses and HR dipping into the 40s while asleep despite HR generally being in the 90s to 100s.
[2024-08-11] VITALS (63 sets, daily range): BP systolic 95–175; BP diastolic 52–103; PULSE 67–138; RESP 12–35; TEMP 36.4–37.1; O2SAT 90–97
[2024-08-11 04:32] LABS: Add Manual Diff / Slide Review NO; Basophils Absolute Auto 100 /uL (0-100); Basophils Percent Auto 1.1 % (0-2); Eosinophils Absolute Auto 300 /uL (0-450); Eosinophils Percent Auto 4.3 % (2-4); Hematocrit 40.3 % (41-53); Hemoglobin 13.3 g/dL (13.5-17.5); Lymphocytes Absolute Auto 1200 /uL (1100-4500); Lymphocytes Percent Auto 18.5 % (25-40); Mean Corpuscular HGB Conc 33.1 % (30-36); Mean Corpuscular Volume 90.6 fL (80-100); Monocytes Absolute Auto 900 /uL (0-900); Monocytes Percent Auto 13.7 % (3-14); Neutrophils Absolute Auto 4200 /uL (1500-7000); Neutrophils Percent Auto 62.4 % (50-75); Platelet Count 196 X10^3/uL (150-400); Red Blood Cell Count 4.45 X10^6/uL (4.5-5.9); Red Cell Distribution Width 15.5 % (11.6-14.8); White Blood Cell Count 6.7 X10^3/uL (4.5-11.0)
[2024-08-11 04:36] LABS: Alanine Aminotransferase 19 IU/L (<50); Albumin 3.6 g/dL (3.5-5.0); Albumin Globulin Ratio 1.1 (1.0-2.8); Alkaline Phosphatase 107 U/L (38-126); Aspartate Aminotransferase 29 IU/L (17-59); BUN Creatinine Ratio 23.5 (6-22); Bilirubin Total 1.1 mg/dL (0.2-1.3); Blood Urea Nitrogen 28 mg/dL (9-20); Calcium 8.8 mg/dL (8.4-10.2); Carbon Dioxide 33 mmol/L (22-32); Chloride 100 mmol/L (98-107); Estimated Glomerular Filt Rate > 60 mL/min (>60); Globulin 3.4 g/dL (1.7-4.1); Glucose 89 mg/dL (80-110); HEMOLYSIS < 15 (0-50); Potassium 3.9 mmol/L (3.4-5.1); Sodium 139 mmol/L (137-145)
[2024-08-11 04:44] LABS: NT-proBNP (BNP-Adult 18+) 4730 pg/mL (<125)
[2024-08-11] MEDS: BUMETANIDE 1 MG/4 ML VIAL 2 MG IV ×2 (06:35→20:37)
--- NOTE | 2024-08-11 07:32 | PC.WOUNDPHOT ---
Late entry photos: 08/10/24
[2024-08-11] MEDS: hydroCHLOROthiazide 25 MG TABLET PO (08:22)
[2024-08-11] MEDS: METOPROLOL IR 25 MG TABLET 75 MG PO ×2 (08:23→20:38)
[2024-08-11] MEDS: DOCUSATE 100 MG CAPSULE PO (08:24)
[2024-08-11] MEDS: cephALEXin 250 MG CAPSULE 500 MG PO ×4 (08:25→20:39)
[2024-08-11] MEDS: ENOXAPARIN 40 MG/0.4 ML SYRINGE SUBCUT ×2 (08:25→20:39)
[2024-08-11] MEDS: APIXABAN 5 MG TABLET PO ×2 (09:37→20:38)
[2024-08-11] MEDS: AMIODARONE 150 MG/100 ML PIGGYBACK 600 MG IV (09:39)
[2024-08-11] MEDS: AMIODARONE 360 MG/200 ML PIGGYBACK 33.33 MG IV (10:15)
--- NOTE | 2024-08-11 10:24 | PT-IP ANOTE ---
Pt checks on pt again after rounds this a.m. Pt getting ready to be hooked up to Amiodarone drip and nsg recommends hold PT today. Con't efforts next date.
--- NOTE | 2024-08-11 10:29 | OT.IPNOTE ---
Hold OT eval due to medical needs, to check on pt tomorrow.
[2024-08-11 12:46] LABS: Hemoglobin A1C% w Est Avg Glu 5.7 % (4.0-6.0)
[2024-08-11] MEDS: HYDROCODONE/ACET 10/325 TABLET 1 TAB PO ×2 (13:40→20:38)
[2024-08-11] MEDS: AMIODARONE 360 MG/200 ML PIGGYBACK 16.7 MG IV (15:35)
[2024-08-11] MEDS: NYSTATIN POWDER 15GM 1 APPLIC TOP (18:02)
--- NOTE | 2024-08-11 18:52 | P.PN_ITS ---
Subjective Subjective Date Patient Seen: 08/11/24 Time Patient Seen: 09:10 Interval history: CC: short of breath on exertion diuresis continues he is feeling better by far than he has been in some time. Started eliquis metoprolol and amio drip for recurrent afib with tachycardia May be in shape for some PT/OT tomorrow Leg wounds are not worsening continuing antibiotics Exam Vital Signs (past 8 hours): - 08/11/24 11:00 08/11/24 11:00 08/11/24 11:00 Temperature Pulse Rate 77 Respiratory Rate 24 Blood Pressure 122/71 Pulse Oximetry 96 Oxygen Delivery Method Room Air 08/11/24 11:37 08/11/24 11:37 08/11/24 11:38 Temperature Pulse Rate 79 90 Respiratory Rate 25 H 21 Blood Pressure 127/85 127/85 Pulse Oximetry 95 95 Oxygen Delivery Method 08/11/24 12:00 08/11/24 12:00 08/11/24 12:22 Temperature Pulse Rate 75 Respiratory Rate 21 Blood Pressure 123/77 122/64 Pulse Oximetry 95 Oxygen Delivery Method 08/11/24 12:22 08/11/24 12:25 08/11/24 12:30 Temperature 98.8 F Pulse Rate 86 72 81 Respiratory Rate 30 H 22 20 Blood Pressure 122/64 Pulse Oximetry 94 94 94 Oxygen Delivery Method 08/11/24 12:30 08/11/24 13:00 08/11/24 13:00 Temperature Pulse Rate 80 Respiratory Rate 22 Blood Pressure 129/73 123/79 Pulse Oximetry 95 Oxygen Delivery Method 08/11/24 13:42 08/11/24 13:42 08/11/24 14:00 Temperature Pulse Rate 85 88 Respiratory Rate 24 24 Blood Pressure 142/73 H Pulse Oximetry 93 95 Oxygen Delivery Method 08/11/24 14:01 08/11/24 14:01 08/11/24 14:31 Temperature Pulse Rate 82 Respiratory Rate 27 H Blood Pressure 112/66 123/74 Pulse Oximetry 94 Oxygen Delivery Method 08/11/24 14:31 08/11/24 15:00 08/11/24 15:00 Temperature Pulse Rate 122 H 89 Respiratory Rate 31 H 32 H Blood Pressure 102/66 Pulse Oximetry 95 93 Oxygen Delivery Method 08/11/24 15:00 08/11/24 15:30 08/11/24 15:30 Temperature Pulse Rate 85 Respiratory Rate 23 Blood Pressure 114/78 Pulse Oximetry 95 Oxygen Delivery Method Room Air 08/11/24 15:51 08/11/24 16:00 08/11/24 16:00 Temperature Pulse Rate 97 H 83 Respiratory Rate 20 23 Blood Pressure 139/59 L 128/80 Pulse Oximetry 94 92 Oxygen Delivery Method 08/11/24 16:30 08/11/24 16:30 08/11/24 17:00 Temperature 98.1 F Pulse Rate 82 Respiratory Rate 24 Blood Pressure 149/81 H Pulse Oximetry 94 Oxygen Delivery Method 08/11/24 17:00 08/11/24 17:00 08/11/24 17:30 Temperature Pulse Rate 85 Respiratory Rate 24 Blood Pressure 150/73 H 123/94 H Pulse Oximetry 91 Oxygen Delivery Method 08/11/24 17:30 08/11/24 18:00 08/11/24 18:01 Temperature Pulse Rate 97 H 102 H Respiratory Rate 27 H 26 H Blood Pressure 129/55 L Pulse Oximetry 94 91 Oxygen Delivery Method 08/11/24 18:01 Temperature Pulse Rate 95 H Respiratory Rate 24 Blood Pressure Pulse Oximetry 91 Oxygen Delivery Method Oxygen Delivery Method Room Air Oxygen Flow Rate 0 Narrative Exam Narrative: obese alert laying in bed Resp Other: clear to auscultation bilaterally Cardio Other: irregularly irregular rhythm, elevated rate rises with any activity GI Other: soft nontender active bowel sounds Neuro Other: alert awake oriented Extrem Other: L posterior calf with two wounds previously noted some eschar - no surrounding erythema they look better than yesterday bilateral pitting edema 2+ to knees bilaterally - much improved - I can perceive his ankles now Objective Labs 08/11/24 03:30 08/11/24 03:30 Labs: Laboratory Results - last 24 hr 08/11/24 03:30 WBC 6.7 RBC 4.45 L Hgb 13.3 L Hct 40.3 L MCV 90.6 MCH 30.0 MCHC 33.1 RDW 15.5 H Plt Count 196 Neut % (Auto) 62.4 Lymph % (Auto) 18.5 L [place] % (Auto) 13.7 Eos % (Auto) 4.3 H Baso % (Auto) 1.1 Neut # (Auto) 4200 Lymph # (Auto) 1200 [place] # (Auto) 900 Eos # (Auto) 300 Baso # (Auto) 100 Sodium 139 Potassium 3.9 Chloride 100 Carbon Dioxide 33 H BUN 28 H Creatinine 1.19 Estimated GFR > 60 BUN/Creatinine Ratio 23.5 H Glucose 89 Hemoglobin A1c 5.7 Calcium 8.8 Total Bilirubin 1.1 AST 29 ALT 19 Alkaline Phosphatase 107 NT-Pro-B Natriuret Pep 4730 H Total Protein 7.0 Albumin 3.6 Globulin 3.4 Albumin/Globulin Ratio 1.1 PFSH Medical History Febrile illness, acute TIA (transient ischemic attack) UTI (urinary tract infection) Surgical History Bariatric surgery status History of craniotomy Family History Mother Pulmonary embolism Social History household members: children Smoking Status: Current some day smoker alcohol intake: current substance use type: marijuana Assessment & Plan Assessment & Plan narrative: #Short of breath on exertion elevated BNP persists - SOB on any exertion - he is diuresing well with bumex 2mg bid and oleg, PT/OT consult, cardiac nurse practitioner #recurrent Atrial fibrillation eliquis BB and amiodarone drip - will convert to oral tomorrow - he has had this 2x before and verted out of this - will need outpt f/up #acute on chronic systolic and diastolic heart failure EF dropped to 15-20%, BNP elevated around 5K with massive edema continuing to diurese for now #essential hypertension stable continue home thalidone and now metoprolol - good control today #LLE cellulitis/wounds wound care consulted, continue keflex Dispo: severe situation with multiple issues being managed simultaneously - anticipate another day or two MDM: Son PCP: Blu Code: Full DVT: SCDs and eliquis Diet: Heart healthy Time-Based Coding :: [TOTAL MINUTES] spent with patient and on the chart (including review of chart, obtaining history, exam, reviewing outside data, placing orders, documenting exam and treatment plan, and counseling patient) on [DATE].
[2024-08-11] MEDS: SODIUM CHLORIDE 0.9% FLUSH 10 ML IV (20:39)
[2024-08-12] VITALS (51 sets, daily range): BP systolic 113–176; BP diastolic 64–114; PULSE 73–109; RESP 13–52; TEMP 36.1–36.2; O2SAT 88–97
[2024-08-12] MEDS: AMIODARONE 180 MG/100 ML PIGGYBACK 16.7 MG IV (03:00)
[2024-08-12] MEDS: BUMETANIDE 1 MG/4 ML VIAL 2 MG IV ×2 (06:03→18:21)
[2024-08-12 06:39] LABS: Add Manual Diff / Slide Review NO; Basophils Absolute Auto 100 /uL (0-100); Basophils Percent Auto 1.1 % (0-2); Eosinophils Absolute Auto 300 /uL (0-450); Eosinophils Percent Auto 3.7 % (2-4); Hematocrit 41.7 % (41-53); Hemoglobin 13.9 g/dL (13.5-17.5); Lymphocytes Absolute Auto 1300 /uL (1100-4500); Lymphocytes Percent Auto 15.4 % (25-40); Mean Corpuscular HGB Conc 33.3 % (30-36); Mean Corpuscular Hemoglobin 30.1 PG (26-34); Mean Corpuscular Volume 90.5 fL (80-100); Monocytes Absolute Auto 900 /uL (0-900); Neutrophils Absolute Auto 5700 /uL (1500-7000); Neutrophils Percent Auto 68.8 % (50-75); Platelet Count 209 X10^3/uL (150-400); Red Blood Cell Count 4.61 X10^6/uL (4.5-5.9); Red Cell Distribution Width 15.4 % (11.6-14.8); White Blood Cell Count 8.3 X10^3/uL (4.5-11.0)
[2024-08-12 06:53] LABS: Alanine Aminotransferase 19 IU/L (<50); Albumin 3.6 g/dL (3.5-5.0); Albumin Globulin Ratio 1.1 (1.0-2.8); Alkaline Phosphatase 122 U/L (38-126); Aspartate Aminotransferase 27 IU/L (17-59); BUN Creatinine Ratio 27.6 (6-22); Blood Urea Nitrogen 35 mg/dL (9-20); Calcium 8.9 mg/dL (8.4-10.2); Carbon Dioxide 33 mmol/L (22-32); Chloride 97 mmol/L (98-107); Estimated Glomerular Filt Rate > 60 mL/min (>60); Globulin 3.2 g/dL (1.7-4.1); Glucose 97 mg/dL (80-110); HEMOLYSIS < 15 (0-50); Sodium 137 mmol/L (137-145); Total Protein 6.8 g/dL (6.3-8.2)
[2024-08-12 07:02] LABS: NT-proBNP (BNP-Adult 18+) 2080 pg/mL (<125)
[2024-08-12] MEDS: AMIODARONE 200 MG TABLET PO (08:23)
[2024-08-12] MEDS: DOCUSATE 100 MG CAPSULE PO (08:25)
[2024-08-12] MEDS: hydroCHLOROthiazide 25 MG TABLET PO (08:25)
[2024-08-12] MEDS: APIXABAN 5 MG TABLET PO ×2 (08:25→20:27)
[2024-08-12] MEDS: METOPROLOL IR 25 MG TABLET 75 MG PO ×2 (08:25→20:27)
[2024-08-12] MEDS: cephALEXin 250 MG CAPSULE 500 MG PO ×4 (08:25→20:27)
--- NOTE | 2024-08-12 09:45 | PT.IIE ---
Current Diagnoses Heart failure, unspecified (08/10/24) Venous insufficiency (chronic) (peripheral) (08/10/24) Non-pressure chronic ulcer of right calf with fat layer exposed (08/10/24) Non-pressure chronic ulcer of left calf with fat layer exposed (08/10/24) Surgical History (Last Reviewed 08/12/24 @ 12:59 by Joel Bloom MD) Bariatric surgery status History of craniotomy Medical History (Last Reviewed 08/12/24 @ 12:59 by Joel Bloom MD) Febrile illness, acute TIA (transient ischemic attack) UTI (urinary tract infection) Physical Therapy Inpatient Evaluation/Re-Eval M1 PT/OT-IP Prior Functional Status Start: 08/11/24 07:57 Freq: NEEDED Status: Active Protocol: Document 08/12/24 09:45 AB (Rec: 08/12/24 13:22 AB [id number]) Medical Review Prior Functional Status Medical History Reviewed Yes Communication able to make needs known Mobility and Gait pt stated that he was independent with all mobilities and ambulation without AD Social History Household Members children Living Arrangements RV Number of Floors (Floors) One Floor Number of Stairs To Enter/Railing? 3 steps L rail ascending to enter Home Environment Standard Height Toilet,Tub/ Shower Home Equipment Hand Held Shower Additional Social History Comment pt has an adjustable bed M2 PT-IP Current Condition Start: 08/11/24 07:57 Freq: NEEDED Status: Active Protocol: Document 08/12/24 09:45 AB (Rec: 08/12/24 13:22 AB [id number]) Physical Therapy Current Condition Current Condition Evaluation Date 08/12/24 Treatment Diagnosis CHF; difficulty in walking Onset Date 08/10/24 M3 PT-IP Subjective Start: 08/11/24 07:57 Freq: NEEDED Status: Active Protocol: Document 08/12/24 09:45 AB (Rec: 08/12/24 13:22 AB [id number]) Subjective Physical Therapy Visit Type Type Initial Evaluation Visit Start Time 09:45 Visit Stop Time 10:10 Number of ASSOCIATE MANAGER AFFILIATE MARKETING Visits 0 Physical Therapy Visit Comments Patient Comments agreeable to do PT M4 PT-IP Mobility and Gait Start: 08/11/24 07:57 Freq: NEEDED Status: Active Protocol: Document 08/12/24 09:45 AB (Rec: 08/12/24 13:22 AB [id number]) PT-Bed Mobility Assessment Supine to Sit Supine to Sit Minimal Assistance,Head of Bed Elevated,Bedrails PT-Transfer Assessment Sit to and From Stand Sit to and from Stand Minimal Assistance,1 Person Assistance,Use of Upper Extremities Equipment Transfer Assistive Device Gait Belt,Front Wheeled Walker Orthotic/Prosthetic Devices or Brace: No Transfers Transfer Destination Toilet Transfer Technique ambulated Transfer Ability Level of Assist Minimal Assistance,1 Person Assistance,Use of Upper Extremities Comments Mobility Comments pt in bed and agreeable to do PT. O2 sat at RA: 94%, BP: 121/75. obtained PLOB and home setup. pt completed bed mobility supine to sit with HOB elevated and pt used bed rail min A. able to sit on EOB SBA . pt requested to use the toilet. completed sit to stand min A and ambulated to the toilet using FWW min A and cues ~ 10 ft. pt needing to use the toilet for a few mnutes. call light next to pt . Left pt with nurse. Gait Assessment Gait Gait Assistance Required: Minimum Assistance Distance (Feet) 10 Able to Maintain Weight Bearing Status Yes During Gait Assistive Devices Assistive Device Gait Belt,Front Wheeled Walker Orthotic/Prosthetic Devices or Brace: No Gait Deviations General Gait Pattern Antalgic,Decreased Stride Length,Decreased Feet Clearance Factors Limiting Gait Function Factors Limiting Gait Function Decreased Activity Tolerance, Decreased Strength,Poor Balance,Poor Safety Awareness PT-Balance Assessment Sitting Balance and Reactions Static Sitting Balance Ability Good Dynamic Sitting Balance Ability Good Standing Balance and Reactions Static Standing Balance Ability Fair Dynamic Standing Balance Ability Fair Device Used FWW M5 PT-IP Objective Assessments Start: 08/11/24 07:57 Freq: NEEDED Status: Active Protocol: Document 08/12/24 09:45 AB (Rec: 08/12/24 13:22 AB [id number]) Orientation Orientation/Cognition Level of Alertness Alert Orientation Name,Place,Situation Language Function Ability No Deficits Noted Safety Awareness Decreased Safety Awareness Memory Description No Deficits Noted Gross Range of Motion Lower Extremity ROM Assessment Within Functional Limits Strength Lower Extremity Strength Assessment Within Functional Limits Muscle Tone Muscle Tone WNL Yes M6 PT-IP Treatment Start: 08/11/24 07:57 Freq: NEEDED Status: Active Protocol: Document 08/12/24 09:45 AB (Rec: 08/12/24 13:22 AB [id number]) Physical Therapy Treatment Education Education Provided Safety M7 PT-IP Assessment and Plan Start: 08/11/24 07:57 Freq: NEEDED Status: Active Protocol: Document 08/12/24 09:45 AB (Rec: 08/12/24 13:22 [id number]) PT Summary Assessment and Plan Potential Rehabilitation Potential Fair Status of Condition at Evaluation Evolving Summary Impairments Pain,ROM,Strength,Balance, Coordination,Sensation,Tone, Cognition,Bed Mobility, Transfers,Gait,Activity Tolerance Assessment Summary pt is a 58 y/o M who is admitted for CHF. pt requiring min A with mobility using FWW and presents with decrease activity tolerance and overall weakness. d/c plan depending on progress. will continue to assess. Goals Bed Mobility Goal Independent Transfer Goal Independent,Front Wheeled Walker Gait Goal Independent,Front Wheel Walker Gait Distance 200 Other Goals improve transfers, ambulation without AD ~ 300 ft mod I up/down 3 steps L rail ascending SBA Days to Meet Goals 10 Frequency of Treatment Frequency Of Treatment Once a Day Treatment Plan Physical Therapy Treatment Plan Bed Mobility Training,Transfer Training,Gait Training, Therapeutic Exercise,Balance Retraining,Post Op Education, Discharge Planning,Hot or Cold Pack,Neuromuscular Re-ed, Coordination Retraining,Manual Therapy Recommendations To Nursing Amount of Assist Needed 1 Person Assist Discharge Recommendations PT Discharge Recommendations Home with 12/01 Assist Available,Home Health,SNF Rehab,Home vs SNF Equipment Needed for Home Before FWW Discharge Transportation Needs at Discharge Private Vehicle,Wheelchair/ Cabulance
[2024-08-12] MEDS: SODIUM CHLORIDE 0.9% FLUSH 10 ML IV ×2 (09:48→20:28)
--- NOTE | 2024-08-12 11:45 | OT.IP.EVAL ---
Current Diagnoses Heart failure, unspecified (08/10/24) Venous insufficiency (chronic) (peripheral) (08/10/24) Non-pressure chronic ulcer of right calf with fat layer exposed (08/10/24) Non-pressure chronic ulcer of left calf with fat layer exposed (08/10/24) Past Medical History (Last Reviewed 08/12/24 @ 12:59 by Joel Bloom MD) Febrile illness, acute TIA (transient ischemic attack) UTI (urinary tract infection) Surgical History (Last Reviewed 08/12/24 @ 12:59 by Joel Bloom MD) Bariatric surgery status History of craniotomy Occupational Therapy Inpatient Evaluation/Re-Eval M1 PT/OT-IP Prior Functional Status Start: 08/11/24 07:57 Freq: NEEDED Status: Active Protocol: Document 08/12/24 13:12 [facility] (Rec: 08/12/24 13:23 [facility] [id number]) Medical Review Prior Functional Status Communication I Mobility and Gait Per pt uses a SPC at times. Activities of Daily Living and IADL's Independent with all needs and has LB dressing equipment if needed. Prior Functional Level (Other details) RV on son's property. Social History Household Members children Living Arrangements RV Number of Floors (Floors) One Floor Number of Stairs To Enter/Railing? Ramp and then 3 steps with left rail and table on the side to assist to get into the RV. Home Environment Standard Height Toilet,Tub/ Shower,Ramp Home Equipment Straight Cane,Hand Held Shower ,Long Handled Sponge,Long Handled Shoe Horn,Field Account Director,Sock Aid Additional Social History Comment Pt uses sink to assist to get up from the toilet or to help step into the shower. M2 OT-IP Current Condition Start: 08/12/24 13:12 Freq: Status: Active Protocol: Document 08/12/24 13:12 [facility] (Rec: 08/12/24 13:23 [facility] [id number]) Occupational Therapy Current Condition Current Condition Evaluation Date 08/12/24 Treatment Diagnosis A-fib, CHF execerbation. Diagnosis Onset Date 08/10/24 M3 OT- IP Subjective and Pain Start: 08/12/24 13:12 Freq: Status: Active Protocol: Document 08/12/24 13:12 [facility] (Rec: 08/12/24 13:23 [facility] [id number]) OT- Subjective Occupational Therapy Visit Type Type Initial Evaluation Visit Start Time 11:24 Visit Stop Time 11:45 Occupational Therapy Visit Comments Patient Comments Pt agreed to get up for OT eval. Patient/Caregiver Goals TO go home. OT Pain Assessment Pain When Pain Assessed During Mobility Pain Present Pain Present Pain Reported Location Left Leg Pain Behaviors Facial Grimacing M4 OT- IP ADL's Start: 08/12/24 13:12 Freq: Status: Active Protocol: Document 08/12/24 13:12 [facility] (Rec: 08/12/24 13:23 [facility] [id number]) OT GFO-Ytct-Ylueacq General Evaluation Self-Feeding Ability Independent OT ADL-Grooming General Evaluation Grooming Ability Independent OT ADL-Oral Care General Eval Oral Care Ability Independent OT ADL-Dressing General Eval Lower Body Dressing Ability Independent Comments OT Dressing Comments Pt able to akash/doff his slippers. OT ADL-Bathing Comments OT Bathing Comments Pt states able to shower on his own after set-up M5 OT- IP IADL's Start: 08/12/24 13:12 Freq: Status: Active Protocol: Document 08/12/24 13:12 [facility] (Rec: 08/12/24 13:23 [facility] [id number]) OT-Instrumental Activities of Daily Living Home Safety Awareness Awareness of Need for Assistance at Home Good Awareness Ability to Problem Solve Emergency Able to Problem Solve Situations Medication Management Medication Management No Deficits Identified Money Management Money Management No Deficits Identified Meal Preparation Meal Preparation Comments Pt may benefit from assist. M6 OT- IP Functional Cognition Start: 08/12/24 13:12 Freq: Status: Active Protocol: Document 08/12/24 13:12 [facility] (Rec: 08/12/24 13:23 [facility] [id number]) Cognitive Factors Limiting Selfcare Function Cognitive Ability Level of Alertness Alert Patient Orientation Name,Age,Birthday,Month,Date, Year,Day of Week,Place, Situation Attention Span Ability Capable of Focused Attention, Capable of Sustained Attention Cognitive Comments Cognitive Assessment Comments Pt appears at baseline for cognitive needs. OT- Vision and Hearing OT- Hearing Assessment OT- Hearing Assessment WFL OT- Vision Assessment Visual Acuity WFL Vision Assessment Comments Pt does not wear his prescription glasses. Pt able to read the clock accurately. M7 OT- IP Mobility and Balance Start: 08/12/24 13:12 Freq: Status: Active Protocol: Document 08/12/24 13:12 [facility] (Rec: 08/12/24 13:23 [facility] [id number]) OT-Transfer Assessment Sit to and From Stand Sit to and from Stand Independent,Standby Assistance Transfers Transfer Ability Independent Technique Transfer Destination Chair Devices Transfer Assistive Devices Gait Belt,Front Wheeled Walker Comments Mobility Comments SBA to stand from the recliner . SBA with FWW. OT- Balance Assessment Sitting Balance and Reactions Static Sitting Balance Ability Normal Dynamic Sitting Balance Ability Good Standing Balance and Reactions Static Standing Balance Ability Good Dynamic Standing Balance Ability Good M8 OT- IP Objective Assessments Start: 08/12/24 13:12 Freq: Status: Active Protocol: Document 08/12/24 13:12 [facility] (Rec: 08/12/24 13:23 [facility] [id number]) OT Gross Range of Motion Upper Extremity Range of Motion Assessment Within Functional Limits OT Strength Upper Extremity Strength Assessment Within Functional Limits M9 OT- IP Assessment and Plan Start: 08/12/24 13:12 Freq: Status: Active Protocol: Document 08/12/24 13:12 [facility] (Rec: 08/12/24 13:23 [facility] [id number]) OT Summary Assessment and Plan Potential Rehabilitation Potential Good Analytic Complexity at Evaluation Low Summary Progress Towards Goals Safe For Discharge Assessment Summary Pt low complexity and main barriers is decreased dynamica balance and states to use his FWW or SPC for now. Pt to go home when medically stable and have assist. Able to go over and give pt energy conservation information. Discharge pt from OT services. Frequency of Treatment Frequency Of Treatment Discharge Discharge Recommendations OT Discharge Recommendations Home with Assistance Home Equipment Needs shower chair? Transportation Needs at Discharge Private Vehicle
--- NOTE | 2024-08-12 12:56 | PM.CN ---
History of Present Illness Consult details Date Patient Seen: 08/12/24 Time Patient Seen: 12:20 Chief complaint: bloating, short of breath Narrative: The patient is a 58-year-old male with a history of CHF, atrial fibrillation, and factor 5 Leiden deficiency who was admitted to the hospital with exacerbation of CHF. The the patient has recently had increased swelling of his lower extremities. He has a history of nonhealing ulcers on both lower extremities that have been present for about 6 months. The ulcers are painful and keep him from sleeping well. He has had some slight drainage and redness on the left side but he has not had any fever or chills. The patient has been treating the ulcers with antibiotic ointment. He does occasionally use compression stockings at home. He has no prior history of DVT and has never been evaluated at the wound center in the past. Since admission he has undergone diuresis and his lower extremity swelling has significantly improved. He reports a good appetite and denies having any other recent changes in his overall health. The patient is not on chronic anticoagulation. Meds Home Medications and Allergies Home Medications Medication Instructions Recorded Confirmed Type hydrochlorothiazide 25 mg tablet 25 mg PO DAILY 04/30/20 08/10/24 History amlodipine 5 mg tablet 5 mg PO DAILY #30 tabs 07/17/23 08/10/24 Rx lisinopril 40 mg tablet 40 mg PO DAILY #30 tabs 07/17/23 08/10/24 Rx aspirin 325 mg tablet 325 mg PO QAM 08/10/24 08/10/24 History terazosin 1 mg capsule 1 mg PO QAM 08/10/24 08/10/24 History Allergies Allergy/AdvReac Type Severity Reaction Status Date / Time No Known Drug Allergies Allergy Verified 05/14/21 16:56 Review of Systems Respiratory Comments: Shortness of breath Musculoskeletal Comments: Lower extremity swelling Exam Vital Signs (past 8 hours): - 08/12/24 05:00 08/12/24 05:01 08/12/24 05:01 Temperature Pulse Rate 78 76 Respiratory Rate 22 19 Blood Pressure 149/78 H Pulse Oximetry 96 95 Oxygen Delivery Method 08/12/24 05:31 08/12/24 05:31 08/12/24 06:00 Temperature Pulse Rate 79 Respiratory Rate 16 Blood Pressure 137/64 176/110 H Pulse Oximetry 95 Oxygen Delivery Method 08/12/24 06:00 08/12/24 06:31 08/12/24 06:31 Temperature Pulse Rate 78 75 Respiratory Rate 15 18 Blood Pressure 129/68 Pulse Oximetry 88 L 93 Oxygen Delivery Method 08/12/24 07:00 08/12/24 07:00 08/12/24 07:01 Temperature Pulse Rate 76 Respiratory Rate 14 Blood Pressure 135/68 Pulse Oximetry 95 Oxygen Delivery Method Room Air 08/12/24 07:01 08/12/24 07:31 08/12/24 07:31 Temperature Pulse Rate 80 79 Respiratory Rate 15 14 Blood Pressure 128/69 Pulse Oximetry 97 92 Oxygen Delivery Method 08/12/24 07:44 08/12/24 07:44 08/12/24 08:00 Temperature Pulse Rate 99 H 84 Respiratory Rate 31 H 24 Blood Pressure 158/85 H Pulse Oximetry 90 L 94 Oxygen Delivery Method 08/12/24 08:01 08/12/24 08:01 08/12/24 08:30 Temperature Pulse Rate 92 H 90 Respiratory Rate 31 H 17 Blood Pressure 162/101 H Pulse Oximetry 93 96 Oxygen Delivery Method 08/12/24 08:31 08/12/24 08:31 08/12/24 09:00 Temperature Pulse Rate 99 H 76 Respiratory Rate 28 H 23 Blood Pressure 170/114 H Pulse Oximetry 95 94 Oxygen Delivery Method 08/12/24 09:55 08/12/24 09:55 08/12/24 10:00 Temperature Pulse Rate 79 79 Respiratory Rate 22 24 Blood Pressure 121/76 121/76 Pulse Oximetry 92 93 Oxygen Delivery Method 08/12/24 10:49 08/12/24 11:00 08/12/24 11:00 Temperature Pulse Rate 94 H 83 Respiratory Rate 29 H 20 Blood Pressure 129/86 Pulse Oximetry 97 Oxygen Delivery Method Room Air 08/12/24 11:00 08/12/24 11:18 08/12/24 11:18 Temperature Pulse Rate 79 89 Respiratory Rate 23 27 H Blood Pressure 129/86 Pulse Oximetry 91 Oxygen Delivery Method 08/12/24 11:49 08/12/24 11:59 08/12/24 12:00 Temperature 97.0 F L Pulse Rate 93 H 82 Respiratory Rate 18 23 Blood Pressure 129/86 Pulse Oximetry 97 Oxygen Delivery Method Oxygen Delivery Method Room Air Oxygen Flow Rate 0 Narrative Exam Narrative: Obese male, alert and oriented, no apparent distress Resp Other: Unlabored Skin Other: Bilateral varicose veins, hemosiderin, ulcers posterior aspect of both lower extremities, mild erythema around ulcers on the left Extrem Other: Bilateral lower extremity swelling Objective Labs 08/12/24 06:14 08/12/24 06:14 Labs: Laboratory Results - last 24 hr 08/12/24 06:14 WBC 8.3 RBC 4.61 Hgb 13.9 Hct 41.7 MCV 90.5 MCH 30.1 MCHC 33.3 RDW 15.4 H Plt Count 209 Neut % (Auto) 68.8 Lymph % (Auto) 15.4 L [place] % (Auto) 11.0 Eos % (Auto) 3.7 Baso % (Auto) 1.1 Neut # (Auto) 5700 Lymph # (Auto) 1300 [place] # (Auto) 900 Eos # (Auto) 300 Baso # (Auto) 100 Sodium 137 Potassium 4.0 Chloride 97 L Carbon Dioxide 33 H BUN 35 H Creatinine 1.27 H Estimated GFR > 60 BUN/Creatinine Ratio 27.6 H Glucose 97 Calcium 8.9 Total Bilirubin 1.0 AST 27 ALT 19 Alkaline Phosphatase 122 NT-Pro-B Natriuret Pep 2080 H Total Protein 6.8 Albumin 3.6 Globulin 3.2 Albumin/Globulin Ratio 1.1 PFSH Medical History Febrile illness, acute UTI (urinary tract infection) TIA (transient ischemic attack) Surgical History History of craniotomy Bariatric surgery status Family History Mother Pulmonary embolism Social History household members: children Tobacco & Substance Use Smoking Status: Current some day smoker alcohol intake: current substance use type: marijuana Assessment & Plan Assessment and plan (1) Venous insufficiency (chronic) (peripheral): Status: Acute (2) Non-pressure chronic ulcer of right calf with fat layer exposed: Status: Acute (3) Non-pressure chronic ulcer of left calf with fat layer exposed: Status: Acute Assessment & Plan narrative: Venous ulcers both lower extremities. Plan for dressing changes with Iodoflex with Tubigrip for compression, keep legs elevated, start protein supplementation, follow up at wound center after discharge for further evaluation and treatment. Order arterial Doppler to assess arterial circulation and to see if he is a candidate for compression wraps. Time-Based Coding :: [45 MINUTES] spent with patient and on the chart (including review of chart, obtaining history, exam, reviewing outside data, placing orders, documenting exam and treatment plan, and counseling patient) on [08/12/24].
--- NOTE | 2024-08-12 13:05 | DI.US.S_ITS ---
PROCEDURE: US ARTERIAL DUPLEX LE BI INDICATIONS: Leg ulcers TECHNIQUE: Color and pulse Doppler interrogation was performed of both lower extremity arterial systems, with image documentation. COMPARISON: None. FINDINGS: Right lower extremity: Common femoral artery: 101.8 cm/sec, with triphasic flow. Proximal superficial femoral artery: 101.8 cm/sec, with triphasic flow. Mid superficial femoral artery: 100 cm/sec, with triphasic flow. Distal superficial femoral artery: 80.5 cm/sec, with triphasic flow. Popliteal artery: 65.9 cm/sec, with triphasic flow. Posterior tibial artery: 123.9 cm/sec, with triphasic flow. Anterior tibial artery/dorsalis pedis: 105.8 cm/sec, with triphasic flow. Shah-scale imaging description: Moderate soft tissue edema. Left lower extremity: Common femoral artery: 118.5 cm/sec, with triphasic flow. Proximal superficial femoral artery: 99 cm/sec, with triphasic flow. Mid superficial femoral artery: 105.5 cm/sec, with triphasic flow. Distal superficial femoral artery: 76.8 cm/sec, with triphasic flow. Popliteal artery: 102.7 cm/sec, with triphasic flow. Posterior tibial artery: 133.3 cm/sec, with triphasic flow. Anterior tibial artery/dorsalis pedis: 31.8 cm/sec, with biphasic flow. Shah-scale imaging description: A Subramanian's cyst is seen measuring up to 4.6 cm. Varicose veins in the left lower leg. IMPRESSION: Right * 20-49% stenosis of the right posterior tibial artery and dorsalis pedis artery. * 1-19% stenosis of the right common femoral, proximal and mid superficial femoral arteries. Left * 50-99% stenosis of the left posterior tibial artery. * 1-19% stenosis of the left common femoral artery, mid superficial femoral artery and popliteal artery. * Left popliteal fossa 4.6 cm Subramanian's cyst. Dictated by: Yasri Boyle M.D. on 08/12/2024 at 17:54 Approved by: Yasir Boyle M.D. on 08/12/2024 at 18:02
[2024-08-12] MEDS: HYDROCODONE/ACET 10/325 TABLET 1 TAB PO (13:27)
--- NOTE | 2024-08-12 15:46 | CM.DANOTE ---
Initial DCP Assessment Note Pt is a 58 yo male, resident of [place], lives in an RV parked on his son's property, arrives with SOB, CHF exacerbation. Wound consult completed at bedside, Dr Bloom recommending outpatient follow up in the wound care clinic- [facility] (?) PCP: Dr Hurt Payer: Rony NOBLES Reviewed chart, RADHA 08/13. Met w/patient who reports he lives independently in his RV, drives and often is out and about helping friends and family manage their properties. Patient reports his son and friends as supportive and able to assist him as needed. Discussed services; patient politely declines at this time. Plan: Patient plans to return home with son and supportive friends, son to transport. Patient denies needs from this SW team. CM team will plan to follow clinical course closely in case any DC needs or concerns arise. DOUG [place] Discharge Planning/Care Management CM Discharge Assessment Start: 08/11/24 15:41 Freq: Status: Active Protocol: Document 08/12/24 15:45 [facility] (Rec: 08/12/24 15:46 [email or web address] [id number]) Discharge Planning Assessment Assigned Switch Engineer DOUG Zhou DPOA/Assigned Designee Name shay Kirby Contact Information [phone] Advance Directives? No Advance Directives on File No History Provided By Patient,Medical Record Prior Living Arrangements RV Comment Large Trailer RV is parked on son's property Household Members children Type of transporation used prior to Drives own vehicle admit Independent with ADL's Yes Is patient alert and oriented? Yes Barriers to Discharge No Discharge Plan Home Transportation Arrangement Friend to provide transport home Referrals Initiated None needed
--- NOTE | 2024-08-12 16:41 | PC.NURSE ---
Iodoflex dressing with compression stockinette placed to wounds on both extremities - Pt instructed to change every 4 days. Care of the stockinette also explained.
--- NOTE | 2024-08-12 19:49 | PM.PN.1 ---
Subjective Subjective Date Patient Seen: 08/12/24 Time Patient Seen: 09:20 Interval history: CC: CHF/afib Feeling even better today he is getting great sleep and diuresis is improving breathing and he is thinking clearer. Continuing to diurese today, mobilizing as tolerated try to bathe sit in chair etc. appetite ok pain controlled. Exam Vital Signs (past 8 hours): - 08/12/24 11:59 08/12/24 12:00 08/12/24 13:00 Temperature Pulse Rate 93 H 82 87 Respiratory Rate 18 23 23 Blood Pressure 129/86 Pulse Oximetry 97 08/12/24 14:00 08/12/24 14:21 08/12/24 14:21 Temperature Pulse Rate 90 80 Respiratory Rate 37 H 32 H Blood Pressure 120/77 Pulse Oximetry 95 08/12/24 15:00 08/12/24 15:59 08/12/24 16:00 Temperature 97.2 F L Pulse Rate 79 99 H Respiratory Rate 21 24 Blood Pressure Pulse Oximetry Oxygen Delivery Method Room Air Oxygen Flow Rate 0 Narrative Exam Narrative: obese elder laying in bed Resp Other: grossly clear to auscultation bilaterally Cardio Other: regular rate irregular rhythm s1/s2 pedal edema pitting 2+ to knees GI Other: soft nontender active bowel sounds Other: draining straw urine via dejesus Neuro Other: alert awake oriented moving all limbs Extrem Other: Two open wounds thumbprint-sized to posterior calf lower extremity no worsening erythema Objective Labs 08/13/24 04:06 08/13/24 04:06 Labs: Laboratory Results - last 24 hr 08/12/24 06:14 WBC 8.3 RBC 4.61 Hgb 13.9 Hct 41.7 MCV 90.5 MCH 30.1 MCHC 33.3 RDW 15.4 H Plt Count 209 Neut % (Auto) 68.8 Lymph % (Auto) 15.4 L [place] % (Auto) 11.0 Eos % (Auto) 3.7 Baso % (Auto) 1.1 Neut # (Auto) 5700 Lymph # (Auto) 1300 [place] # (Auto) 900 Eos # (Auto) 300 Baso # (Auto) 100 Sodium 137 Potassium 4.0 Chloride 97 L Carbon Dioxide 33 H BUN 35 H Creatinine 1.27 H Estimated GFR > 60 BUN/Creatinine Ratio 27.6 H Glucose 97 Calcium 8.9 Total Bilirubin 1.0 AST 27 ALT 19 Alkaline Phosphatase 122 NT-Pro-B Natriuret Pep 2080 H Total Protein 6.8 Albumin 3.6 Globulin 3.2 Albumin/Globulin Ratio 1.1 PFSH Medical History Febrile illness, acute UTI (urinary tract infection) TIA (transient ischemic attack) Surgical History History of craniotomy Bariatric surgery status Family History Mother Pulmonary embolism Social History household members: children Smoking Status: Current some day smoker alcohol intake: current substance use type: marijuana Assessment & Plan Assessment & Plan narrative: #Short of breath on exertion elevated BNP persists - SOB on any exertion - he is diuresing well with bumex 2mg bid and dejesus, PT/OT consult, electronic device monitor #recurrent Atrial fibrillation on eliquis 5 bid, BB and amiodarone now PO - rate is much better but not sinus - he has had this 2x before and verted out of this - will need outpt f/up #acute on chronic systolic and diastolic heart failure EF dropped to 15-20%, BNP elevated around 5K with massive edema now improved to 2.5k today continuing to diurese for now #essential hypertension stable continue home thalidone and now metoprolol with amio - good control today #LLE cellulitis/wounds wound care consulted, continue keflex Dispo: severe situation with multiple issues being managed simultaneously - see what PT/OT say for dc plan MDM: Son PCP: Blu Code: Full DVT: SCDs and eliquis Diet: Heart healthy Time-Based Coding :: [TOTAL MINUTES] spent with patient and on the chart (including review of chart, obtaining history, exam, reviewing outside data, placing orders, documenting exam and treatment plan, and counseling patient) on [DATE].
[2024-08-13] VITALS (28 sets, daily range): BP systolic 119–189; BP diastolic 66–98; PULSE 58–106; RESP 15–49; TEMP 36.4–37.1; O2SAT 88–96
[2024-08-13 05:00] LABS: Add Manual Diff / Slide Review NO; Basophils Absolute Auto 100 /uL (0-100); Basophils Percent Auto 0.9 % (0-2); Eosinophils Absolute Auto 300 /uL (0-450); Eosinophils Percent Auto 3.5 % (2-4); Hematocrit 42.7 % (41-53); Hemoglobin 14.3 g/dL (13.5-17.5); Lymphocytes Absolute Auto 1600 /uL (1100-4500); Lymphocytes Percent Auto 16.9 % (25-40); Mean Corpuscular HGB Conc 33.6 % (30-36); Mean Corpuscular Hemoglobin 30.2 PG (26-34); Mean Corpuscular Volume 90.1 fL (80-100); Monocytes Absolute Auto 1200 /uL (0-900); Monocytes Percent Auto 12.9 % (3-14); Neutrophils Absolute Auto 6300 /uL (1500-7000); Neutrophils Percent Auto 65.8 % (50-75); Platelet Count 233 X10^3/uL (150-400); Red Blood Cell Count 4.74 X10^6/uL (4.5-5.9); Red Cell Distribution Width 15.2 % (11.6-14.8); White Blood Cell Count 9.6 X10^3/uL (4.5-11.0)
[2024-08-13 05:17] LABS: Alanine Aminotransferase 19 IU/L (<50); Albumin 3.8 g/dL (3.5-5.0); Albumin Globulin Ratio 1.1 (1.0-2.8); Alkaline Phosphatase 119 U/L (38-126); Aspartate Aminotransferase 30 IU/L (17-59); BUN Creatinine Ratio 26.6 (6-22); Bilirubin Total 1.2 mg/dL (0.2-1.3); Blood Urea Nitrogen 33 mg/dL (9-20); Calcium 8.7 mg/dL (8.4-10.2); Carbon Dioxide 34 mmol/L (22-32); Chloride 94 mmol/L (98-107); Estimated Glomerular Filt Rate > 60 mL/min (>60); Globulin 3.6 g/dL (1.7-4.1); Glucose 93 mg/dL (80-110); HEMOLYSIS < 15 (0-50); Potassium 3.8 mmol/L (3.4-5.1); Sodium 135 mmol/L (137-145); Total Protein 7.4 g/dL (6.3-8.2)
[2024-08-13 06:28] LABS: NT-proBNP (BNP-Adult 18+) 1990 pg/mL (<125)
[2024-08-13] MEDS: BUMETANIDE 1 MG/4 ML VIAL 2 MG IV ×2 (06:52→18:32)
[2024-08-13] MEDS: METOPROLOL IR 25 MG TABLET 75 MG PO ×2 (08:28→20:06)
[2024-08-13] MEDS: cephALEXin 250 MG CAPSULE 500 MG PO ×4 (08:28→20:06)
[2024-08-13] MEDS: hydroCHLOROthiazide 25 MG TABLET PO (08:29)
[2024-08-13] MEDS: APIXABAN 5 MG TABLET PO ×2 (08:29→20:06)
[2024-08-13] MEDS: AMIODARONE 200 MG TABLET PO (08:29)
[2024-08-13] MEDS: SODIUM CHLORIDE 0.9% FLUSH 10 ML IV ×2 (08:57→20:06)
--- NOTE | 2024-08-13 11:12 | PM.PN.1 ---
Subjective Subjective Date Patient Seen: 08/13/24 Time Patient Seen: 10:00 Interval history: Chief complaint CHF exacerbation edema Patient continues to have excellent output on diuresis with up to 4 L for every dose of Bumex approaching 25 L total output this visit. He is feeling much better appreciates his ability to ambulate. Blood pressures continue to look great we will continue this regimen on discharge. BNP numbers continue to trend down but are still quite elevated. He feels he is ready to go tomorrow I agree. Exam Vital Signs (past 8 hours): - 08/13/24 04:00 08/13/24 04:22 08/13/24 04:22 Pulse Rate 87 80 Respiratory Rate 20 31 H Blood Pressure 119/81 Pulse Oximetry 88 L Oxygen Delivery Method 08/13/24 04:26 08/13/24 05:00 08/13/24 06:00 Pulse Rate 87 81 83 Respiratory Rate 22 18 27 H Blood Pressure 119/81 Pulse Oximetry 92 Oxygen Delivery Method 08/13/24 07:00 08/13/24 07:00 08/13/24 08:00 Pulse Rate 88 89 Respiratory Rate 23 21 Blood Pressure Pulse Oximetry Oxygen Delivery Method Room Air 08/13/24 08:22 08/13/24 08:22 08/13/24 08:23 Pulse Rate 98 H Respiratory Rate 33 H Blood Pressure 189/91 H 138/82 Pulse Oximetry 92 Oxygen Delivery Method Oxygen Delivery Method Room Air Oxygen Flow Rate 0 Narrative Exam Narrative: Alert resting in hospital bed Const Other: Well-developed obese Resp Other: Moving air well grossly clear to auscultation bilaterally on room air Cardio Other: Regular rate irregularly irregular rhythm pedal edema 2+ to mid calves markedly improved GI Other: Soft nontender nondistended active bowel sounds Other: Draining copious straw-colored urine via Cm Neuro Other: Alert awake oriented x3 moving all limbs equally Extrem Other: Wounds on posterior left calf dressed by Wound Care Objective Labs 08/13/24 04:06 08/13/24 04:06 Labs: Laboratory Results - last 24 hr 08/13/24 04:06 WBC 9.6 RBC 4.74 Hgb 14.3 Hct 42.7 MCV 90.1 MCH 30.2 MCHC 33.6 RDW 15.2 H Plt Count 233 Neut % (Auto) 65.8 Lymph % (Auto) 16.9 L Wilson % (Auto) 12.9 Eos % (Auto) 3.5 Baso % (Auto) 0.9 Neut # (Auto) 6300 Lymph # (Auto) 1600 [place] # (Auto) 1200 H Eos # (Auto) 300 Baso # (Auto) 100 Sodium 135 L Potassium 3.8 Chloride 94 L Carbon Dioxide 34 H BUN 33 H Creatinine 1.24 Estimated GFR > 60 BUN/Creatinine Ratio 26.6 H Glucose 93 Calcium 8.7 Total Bilirubin 1.2 AST 30 ALT 19 Alkaline Phosphatase 119 NT-Pro-B Natriuret Pep 1990 H Total Protein 7.4 Albumin 3.8 Globulin 3.6 Albumin/Globulin Ratio 1.1 PFSH Medical History Febrile illness, acute UTI (urinary tract infection) TIA (transient ischemic attack) Surgical History History of craniotomy Bariatric surgery status Family History Mother Pulmonary embolism Social History household members: children Smoking Status: Current some day smoker alcohol intake: current substance use type: marijuana Assessment & Plan Assessment & Plan narrative: #Short of breath on exertion #acute on chronic systolic and diastolic heart failure EF dropped to 15-20%, BNP elevated around 5K on presentation now around 1999 and improving. We will need Cardiology follow-up as well as oral Lasix plan. #recurrent Atrial fibrillation on eliquis 5 bid, BB and amiodarone drip \ now PO - rate is much better but not sinus - he has had this 2x before and verted out of this - will need outpt f/up. #essential hypertension stable continue home thalidone and now metoprolol with amio - good control today he wants to continue this regimen on discharge #LLE cellulitis/wounds wound care consulted, continue keflex appreciate input from Dr. Cristina he will follow-up with him as an outpatient Dispo: severe situation with multiple issues being managed simultaneously -likely home with home health tomorrow MDM: Son PCP: Blu Code: Full DVT: SCDs and eliquis Diet: Heart healthy Time-Based Coding :: [TOTAL MINUTES] spent with patient and on the chart (including review of chart, obtaining history, exam, reviewing outside data, placing orders, documenting exam and treatment plan, and counseling patient) on [DATE].
--- NOTE | 2024-08-13 11:25 | PT.IPTN ---
Current Diagnoses Heart failure, unspecified (08/10/24) Venous insufficiency (chronic) (peripheral) (08/10/24) Non-pressure chronic ulcer of right calf with fat layer exposed (08/10/24) Non-pressure chronic ulcer of left calf with fat layer exposed (08/10/24) Physical Therapy Treatment Note M2 PT-IP Current Condition Start: 08/11/24 07:57 Freq: NEEDED Status: Active Protocol: Document 08/12/24 09:45 AB (Rec: 08/12/24 13:22 AB [id number]) Physical Therapy Current Condition Current Condition Evaluation Date 08/12/24 Treatment Diagnosis CHF; difficulty in walking Onset Date 08/10/24 M3 PT-IP Subjective Start: 08/11/24 07:57 Freq: NEEDED Status: Active Protocol: Document 08/13/24 11:25 AB (Rec: 08/13/24 13:34 AB [id number]) Subjective Physical Therapy Visit Type Type Treatment Note Visit Start Time 11:25 Visit Stop Time 11:45 Number of SENIOR RESEARCH SCIENTIST Visits 0 Physical Therapy Visit Comments Patient Comments agreeable to do PT M4 PT-IP Mobility and Gait Start: 08/11/24 07:57 Freq: NEEDED Status: Active Protocol: Document 08/13/24 11:25 AB (Rec: 08/13/24 13:34 AB [id number]) PT-Bed Mobility Assessment Supine to Sit Supine to Sit Standby Assistance,Head of Bed Elevated,Bedrails PT-Transfer Assessment Sit to and From Stand Sit to and from Stand Standby Assistance,1 Person Assistance,Use of Upper Extremities Equipment Transfer Assistive Device Gait Belt,Front Wheeled Walker Orthotic/Prosthetic Devices or Brace: No Transfers Transfer Destination Chair Transfer Technique ambulated Transfer Ability Level of Assist Standby Assistance,1 Person Assistance,Use of Upper Extremities Comments Mobility Comments pt in bed and agreeable to do PT. supine to sit SBA with HOB elevated and pt used bed rail . sit to stand sBA and ambulated in room using FWW SBA ~ 20 ft. pt needing frequent standing rest breaks in between walking with c/o ankle pain. pt stated that he has been in bed for 4 day and not moving much that his ankles are sore. pt sat on the chair and rested. agreed to do steps. pt stated that he has L rail and edge of the door and talke on R to hold on to at home for the stairs. pt completed up/down foot stool B rails (foot rail and side of FWW as rails) CGA. completed x 2. pt ambulated back to chair. positioned pt on the chair. call light and table placed within reach. pt stated that his son might have a FWW in storage and will call his son. Gait Assessment Gait Gait Assistance Required: Standby Assistance Distance (Feet) 20 Able to Maintain Weight Bearing Status Yes During Gait Assistive Devices Assistive Device Gait Belt,Front Wheeled Walker Orthotic/Prosthetic Devices or Brace: No Gait Deviations General Gait Pattern Antalgic,Decreased Stride Length,Decreased Feet Clearance,Step-to Gait Factors Limiting Gait Function Factors Limiting Gait Function Decreased Activity Tolerance, Decreased Strength,Difficulty Following Directions,Limited Range of Motion,Pain,Poor Balance,Poor Safety Awareness M5 PT-IP Objective Assessments Start: 08/11/24 07:57 Freq: NEEDED Status: Active Protocol: Document 08/12/24 09:45 AB (Rec: 08/12/24 13:22 AB [id number]) Orientation Orientation/Cognition Level of Alertness Alert Orientation Name,Place,Situation Language Function Ability No Deficits Noted Safety Awareness Decreased Safety Awareness Memory Description No Deficits Noted Gross Range of Motion Lower Extremity ROM Assessment Within Functional Limits Strength Lower Extremity Strength Assessment Within Functional Limits Muscle Tone Muscle Tone WNL Yes M6 PT-IP Treatment Start: 08/11/24 07:57 Freq: NEEDED Status: Active Protocol: Document 08/13/24 11:25 AB (Rec: 08/13/24 13:34 AB [id number]) Physical Therapy Treatment Education Education Provided Safety M7 PT-IP Assessment and Plan Start: 08/11/24 07:57 Freq: NEEDED Status: Active Protocol: Document 08/13/24 11:25 AB (Rec: 08/13/24 13:34 AB [id number]) PT Summary Assessment and Plan Potential Rehabilitation Potential Fair Summary Impairments Pain,ROM,Strength,Balance, Coordination,Sensation,Tone, Cognition,Bed Mobility, Transfers,Gait,Activity Tolerance Progress Towards Goals Slow Progress due to Activity Tolerance Assessment Summary pt requiring SBA with mobility using FWW and CGA for stair climbing. pt lives in the same property as his son and may assist if needed. pt will need a FWW at this time for ambulation and stated that he will call his son and may have one in storage. Goals Bed Mobility Goal Independent Transfer Goal Independent,Front Wheeled Walker Gait Goal Independent,Front Wheel Walker Gait Distance 200 Other Goals improve transfers, ambulation without AD ~ 300 ft mod I up/down 3 steps L rail ascending SBA Days to Meet Goals 10 Frequency of Treatment Frequency Of Treatment Once a Day Treatment Plan Physical Therapy Treatment Plan Bed Mobility Training,Transfer Training,Gait Training, Therapeutic Exercise,Balance Retraining,Post Op Education, Discharge Planning,Hot or Cold Pack,Neuromuscular Re-ed, Coordination Retraining,Manual Therapy Recommendations To Nursing Amount of Assist Needed 1 Person Assist Discharge Recommendations PT Discharge Recommendations Home with Assistance,Home Health Equipment Needed for Home Before FWW Discharge Transportation Needs at Discharge Private Vehicle,Wheelchair/ Cabulance
[2024-08-13] MEDS: HYDROCODONE/ACET 10/325 TABLET 1 TAB PO (13:08)
--- NOTE | 2024-08-13 18:46 | PC.NURSE ---
shift note: Dressing change ordered as daily with iodoflex bandage and tubigrip for compression, however limited supply of iodoflex available - wound clinic RN stated that dressing good for 4 days. Pt scheduled for discharge tomorrow and instructed to check with the wound clinic after discharge. Dressing applied 08/12 is dry and intact.
[2024-08-14] MEDS: HYDROCODONE/ACET 10/325 TABLET 1 TAB PO (03:12)
[2024-08-14 03:14] VITALS: BP 142/69; PULSE 91; RESP 17; TEMP 36.8; O2SAT 93
[2024-08-14] MEDS: BUMETANIDE 1 MG/4 ML VIAL 2 MG IV (06:38)
[2024-08-14] MEDS: APIXABAN 5 MG TABLET PO (08:12)
[2024-08-14] MEDS: cephALEXin 250 MG CAPSULE 500 MG PO (08:13)
[2024-08-14] MEDS: METOPROLOL IR 25 MG TABLET 75 MG PO (08:13)
[2024-08-14] MEDS: hydroCHLOROthiazide 25 MG TABLET PO (08:13)
[2024-08-14] MEDS: AMIODARONE 200 MG TABLET PO (08:13)
[2024-08-14] MEDS: SODIUM CHLORIDE 0.9% FLUSH 10 ML IV (08:14)
--- NOTE | 2024-08-14 09:04 | P.DS_ITS ---
History of Present Illness History of Present Illness Date Patient Seen: 08/14/24 Time Patient Seen: 09:04 Chief complaint: bloating, short of breath Narrative: cc: SOB - CHF exacerbation Feeling good today says he feels like himself again we discussed importance of keeping a daily weight log maintaining stable weight he is eager to get up and move around we will be following up with my office Cardiology and Wound Care. Appetite good no new complaints. Discharge prescription sent to [facility]. Discharge Providers Provider Date of admission: 08/10/24 19:05 Discharge Date: 08/14/24 Primary care physician: Dereck Hurt MD Consults: 08/10/24 09:50 Consult to Occupational Therapy Evaluate & Treat Comment: Physician Instructions: Evaluate and treat Consult to Physical Therapy Evaluate & Treat Comment: Physician Instructions: Evaluate and Treat 08/10/24 12:31 Consult to Occupational Therapy Evaluate & Treat Comment: Physician Instructions: Evaluate and treat Consult to Physical Therapy Evaluate & Treat Comment: Physician Instructions: Evaluate and Treat 08/10/24 17:20 Consult to Wound Care Routine Comment: Consulting Provider: [facility] Discharge provider: Dereck Hurt MD Summary Hospital Course Discharge Diagnosis: #Short of breath on exertion #acute on chronic systolic and diastolic heart failure #recurrent new atrial fibrillation #essential hypertension #LLE and RLE cellulitis/wounds Hospital Course: Pt reports insidious onset of shortness of breath and lower extremity swelling - came in when his scrotum became uncomfortable and he was unable to walk much distance without becoming short of breath - had been taking oral lasix to not much avail. He was diuresed aggressively with IV loop diuretics with almost 70 lb of water weight lost he is feeling much better more clear-headed or able to ambulate recognizes this was a significant impairment. He is now rate controlled AFib this is his 3rd time being in AFib is converted twice out of it we will follow up with Cardiology we did provide 1 day of amiodarone drip because of his fast rate initially this did come down he did not convert he has been stable with heart rate 70-90 at rest he is anticoagulated on Eliquis we will continue on oral amiodarone and metoprolol and follow-up with his outpatient bioinformatics scientist. He will track weight daily with vitals and bring to appointments. In part due to his edematous lower extremities he had developed open wounds on his left and right distal extremities shins which were seen by Dr. Ramires wound care appreciate his input he will follow up with as outpatient. His blood pressure has been stable his Cm will be removed prior to discharge. Status at Discharge Cognitive/behavioral status at discharge: at baseline, oriented Functional status at discharge: uses cane/walker Overall status at discharge: patient is progressing back to baseline Exam Vital Signs (past 8 hours): - 08/14/24 03:14 08/14/24 07:00 Temperature 98.3 F Pulse Rate 91 H Respiratory Rate 17 Blood Pressure 142/69 H Pulse Oximetry 93 Oxygen Delivery Method Room Air Oxygen Flow Rate 0 Oxygen Delivery Method Room Air Oxygen Flow Rate 0 Narrative Exam Narrative: Alert lying in hospital bed Resp Other: Grossly clear to auscultation bilaterally Cardio Other: Regular rate irregularly irregular rhythm S1-S2 minimal pedal edema bilaterally GI Other: Soft nontender nondistended active bowel sounds Other: Draining darker urine from Cm Neuro Other: Alert awake oriented x3 moving all limbs equally Extrem Other: Ulcerated wounds on posterior left calf and anterior right alberts under dressings from Wound Care minimal surrounding erythema Objective Labs 08/13/24 04:06 08/13/24 04:06 [facility] Medical History Febrile illness, acute UTI (urinary tract infection) TIA (transient ischemic attack) Surgical History History of craniotomy Bariatric surgery status Family History Mother Pulmonary embolism Social History household members: children Smoking Status: Current some day smoker alcohol intake: current substance use type: marijuana Discharge Assessment & Plan Assessment and Plan Assessment: #Short of breath on exertion #acute on chronic systolic and diastolic heart failure EF dropped to 15-20%, BNP elevated around 5K on presentation now improving. We will need Cardiology follow-up as well as oral Lasix plan. track weights daily and manage with lasix oral and fluid restriction. #recurrent new atrial fibrillation on eliquis 5 bid, BB and amiodarone drip / now PO rate is much better but not sinus - he has had this 2x before and verted out of this - will need outpt f/up he is already a patient with cardiology will f/up with them. #essential hypertension stable continue home thalidone and now metoprolol with amio - stop lisinopril and amlodipine good control today he wants to continue this regimen on discharge #LLE and RLE cellulitis/wounds wound care consulted, continue keflex appreciate input from Dr. Cristina he will follow-up with him as an outpatient Dispo:home today to f/up with PCP cardiology and wound care MDM: Son PCP: Blu Code: Full DVT: SCDs and eliquis Diet: Heart healthy Discharge Plan Discharge Plan Patient Disposition: Home Discharge orders & Medications Prescriptions: New Eliquis 5 mg Tablet 5 mg PO BID Qty: 60 0RF furosemide 40 mg Tablet 40 mg PO DAILY Qty: 30 0RF amiodarone 200 mg Tablet 200 mg PO DAILY Qty: 30 0RF cephalexin 250 mg Capsule 500 mg PO QID Qty: 12 0RF metoprolol tartrate 25 mg Tablet 75 mg PO BID Qty: 180 0RF Continued hydrochlorothiazide 25 mg Tablet 25 mg PO DAILY terazosin 1 mg Capsule 1 mg PO QAM Discontinued amlodipine 5 mg tablet 5 mg PO DAILY Qty: 30 0RF lisinopril 40 mg tablet 40 mg PO DAILY Qty: 30 0RF aspirin 325 mg Tablet 325 mg PO QAM Follow up/Referrals: Maranda Alvarenga MD [Primary Care Provider] - Visit Report/Discharge Packet Stand Alone Forms: Patient Portal/API, Stroke Signs & Symptoms Discharge Data Primary Care Provider: Maranda Alvarenga
[2024-08-14] MEDS: FUROSEMIDE 40 MG TABLET PO (09:20)
--- NOTE | 2024-08-14 09:55 | PC.NURSE ---
Detailed discharge instructions given including precautions while taking blood thinner, monitoring heart rate and blood pressure frequently, monitoring daily wt. Stroke symptoms discussed. Instructions for wound care using iodoflex and tubigrip given, supplies provided.
--- NOTE | 2024-08-14 15:33 | CM.DPC ---
DCP Discharge Home Per MD, pt made progress and now medically stable to d/c home today and pt confirms he declines HH at this time. Pt to f/u outpt with Cardiology and Wound Clinic. SW faxed new referral to [facility] to review and determine if they can accept pt's [employer] insurance and if they can they will call pt and get him on their schedule. DOUG Hull
== END 2024-08-14 11:10 | disposition home or self-care (01) | DRG 194 ==
LOC: ED 08-10 08:28 → AC 08-10 09:28 → ICU 08-10 10:46
PROVIDERS: Emergency Medicine; Admitting Provider Family Medicine; Emergency Provider Emergency Medicine; PCP Student in an Organized Health Care Education/Training Program; Referring Provider Emergency Medicine; Visit Provider Family Medicine
DX: I11.0 Hypertensive heart disease with heart failure (principal); J96.01 Acute respiratory failure with hypoxia; I50.43 Acute on chronic combined systolic (congestive) and diastolic (congestive) heart failure; F17.200 Nicotine dependence, unspecified, uncomplicated; I48.91 Unspecified atrial fibrillation; R00.0 Tachycardia, unspecified; L03.116 Cellulitis of left lower limb; D68.51 Activated protein C resistance; I87.2 Venous insufficiency (chronic) (peripheral); L97.222 Non-pressure chronic ulcer of left calf with fat layer exposed; L97.212 Non-pressure chronic ulcer of right calf with fat layer exposed; L03.115 Cellulitis of right lower limb; Z86.73 Personal history of transient ischemic attack (TIA), and cerebral infarction without residual deficits
CPT/HCPCS: 36415; 71045; 80053; 83036; 83605; 83880; 84484; 85025; 85610; 87797; 93005; 93010; 93306; 93925; 93970; 96372; 96374; 96375; 96376; 97116; 97162; 97165; 97530; 99284; 99285; G0378; J0282; J1650; J1940

== ENCOUNTER → 2024-08-18 08:25 | Outpatient (CLI) | payer OTHER, SELFPAY ==
[2024-08-10 11:56] VITALS: BMI 60.2
== END ==
LOC: WC 08:31
PROVIDERS: PCP Student in an Organized Health Care Education/Training Program; Referring Provider Surgery; Visit Provider Surgery
DX: I87.2 Venous insufficiency (chronic) (peripheral) (principal); L97.822 Non-pressure chronic ulcer of other part of left lower leg with fat layer exposed; L97.812 Non-pressure chronic ulcer of other part of right lower leg with fat layer exposed; L98.8 Other specified disorders of the skin and subcutaneous tissue; R60.0 Localized edema
CPT/HCPCS: 11042; 99203; 99213

== ENCOUNTER → 2024-08-22 13:21 | Outpatient (CLI) | payer OTHER, SELFPAY ==
[2024-08-10 11:56] VITALS: BMI 60.2
== END ==
PROVIDERS: PCP Student in an Organized Health Care Education/Training Program; Referring Provider Surgery; Visit Provider Surgery
DX: I87.2 Venous insufficiency (chronic) (peripheral) (principal); L97.822 Non-pressure chronic ulcer of other part of left lower leg with fat layer exposed; L97.812 Non-pressure chronic ulcer of other part of right lower leg with fat layer exposed
CPT/HCPCS: 29581; 99212

== ENCOUNTER → 2024-08-25 10:53 | Outpatient (CLI) | payer OTHER, SELFPAY ==
[2024-08-10 11:56] VITALS: BMI 60.2
--- NOTE | 2024-08-25 | OV.WND_ITS ---
PROGRESS NOTE DETAILS PATIENT NAME: ROLANDA ROBLES PATIENT NUMBER: [id number] CLINICIAN: JUSTIN HARRIS R.N. PATIENT DATE OF : 1965 PHYSICIAN / COIN DEALER: HASMUKH WILSON PATIENT SUBJECTIVE CHIEF COMPLAINT THIS INFORMATION WAS OBTAINED FROM THE PATIENT. THEY HAVE BEEN FEELING PRETTY GOOD, NOT EVEN HURTING ME THE PAST COUPLE DAYS. GENERAL NOTES VENOUS ULCERS OF BILATERAL LOWER LEGS. ALLERGIES NO KNOWN DRUG ALLERGIES HPI THIS INFORMATION WAS OBTAINED FROM THE PATIENT. THE FOLLOWING HPI ELEMENTS WERE DOCUMENTED FOR THE PATIENT'S WOUND: LOCATION: BLE DURATION: R 07/23/23, L 01/21/24 CONTEXT: VENOUS THE PATIENT IS A 58 YEAR OLD MALE WITH CHF, ATRIAL FIBRILLATION, AND FACTOR 5 DEFICIENCY WHO RETURNS TODAY FOR FOLLOW UP OF VENOUS ULCERS ON BOTH LOWER EXTREMITIES. THE PATIENT WAS SEEN AT THE WOUND CENTER FOR THE 1ST TIME LAST WEEK AND STARTED ON DRESSING CHANGES WITH HYDROFERA BLUE WITH TWO-LAYER LIGHT COMPRESSION. HE REPORTS THAT THE PAIN IS MUCH IMPROVED AND HE HAS HAD VERY LITTLE DRAINAGE. HE HAS NOT NOTED ANY REDNESS NOR HAS HE HAD ANY FEVER OR CHILLS. THE PATIENT REPORTS A GOOD APPETITE AND DENIES EVER HAVING HAD ANY SIMILAR PROBLEMS IN THE PAST. HE HAS NO PRIOR HISTORY OF DVT OR VEIN DISORDERS. THE PATIENT IS NOT ON CHRONIC ANTICOAGULATION. NO CULTURES WERE DONE DURING RECENT HOSPITALIZATION. THE PATIENT DOES NOT SMOKE CIGARETTES. ON EXAM TODAY THE ULCERS ARE MUCH IMPROVED, NO SIGN OF INFECTION. LABS: 08/13/24: WBC 9.6, HEMOGLOBIN 14.3, HCT 42.7, SODIUM 135, CHLORIDE 94, CARBON OXIDE 34, BUN 33, CREATININE 1.24, GFR GREATER THAN 60, LFTS NORMAL 08/12/24: ARTERIAL DOPPLER: RIGHT * 20-49% STENOSIS OF THE RIGHT POSTERIOR TIBIAL ARTERY AND DORSALIS PEDIS ARTERY. * 1-19% STENOSIS OF THE RIGHT COMMON FEMORAL, PROXIMAL AND MID SUPERFICIAL FEMORAL ARTERIES. LEFT * 50-99% STENOSIS OF THE LEFT POSTERIOR TIBIAL ARTERY. * 1-19% STENOSIS OF THE LEFT COMMON FEMORAL ARTERY, MID SUPERFICIAL FEMORAL ARTERY AND POPLITEAL ARTERY. * LEFT POPLITEAL FOSSA 4.6 CM BILLINGS'S CYST ROLANDA ROBLES [id number] 1965 MEDICAL HISTORY THIS INFORMATION WAS OBTAINED FROM THE CHART, PATIENT. PATIENT HAS A MEDICAL HISTORY OF: FEBRILE ILLNESS, ACUTE UTI TIA SURGICAL HISTORY THIS INFORMATION WAS OBTAINED FROM THE CHART, PATIENT. PATIENT HAS A SURGICAL HISTORY OF: HISTORY OF CRANIOTOMY- BARIATRIC SURGERY STATUS- OBJECTIVE VITALS HEIGHT/LENGTH: 70 IN (177.8 CM), WEIGHT: 417.6 LBS (189.82 KGS), BMI: 59.9, TEMPERATURE: 97.5 ?F (36.39 ?C), PULSE: 83 BPM, RESPIRATORY RATE: 18 BREATHS/MIN, BLOOD PRESSURE: 153/83 MMHG, PULSE OXIMETRY: 98 %. PHYSICAL EXAM CONSTITUTIONAL: VITAL SIGNS REVIEWED AND NOTED. WELL DEVELOPED, WELL NOURISHED, AND IN NO ACUTE DISTRESS. ALERT AND ORIENTED X3. RESPIRATORY: EVEN RESPIRATIONS WITHOUT USE OF ACCESSORY MUSCLES. NO INTERCOASTAL RETRACTIONS NOTED. EVEN AND NON LABORED RESPIRATION. INTEGUMENTARY (HAIR, SKIN): HEMOSIDERIN, VARICOSE VEINS. LOWER EXTREMITY SWELLING IMPROVED. SEE WOUND ASSESSMENT. SKIN WARM AND DRY. NO RASHES. NEUROLOGICAL: SENSATION: SYMMETRIC FUNCTION BY INFORMAL OBSERVATION. PSYCHIATRIC: ORIENTATION TO TIME, PLACE AND PERSON: NORMAL AFFECT WITH NORMAL THOUGHT PATTERN. ADDITIONAL INFORMATION THE PATIENT'S POTENTIAL TO HEAL IS: GOOD. WOUND ASSESSMENT(S) WOUND #1 LEFT, PROXIMAL, LATERAL LEG IS A CHRONIC FULL THICKNESS VENOUS ULCER ACQUIRED ON 01/21/2024 AND HAS RECEIVED A STATUS OF NOT HEALED. INITIAL WOUND ENCOUNTER MEASUREMENTS ARE 1.2CM LENGTH X 0.7CM WIDTH X 0.2 CM DEPTH, WITH AN AREA OF 0.84 SQ CM AND A VOLUME OF 0.168 CUBIC CM.INITIAL WOUND ENCOUNTER PREVIOUS MEASUREMENTS FROM 08/22/2024 ARE 0.8CM LENGTH X 1.4CM WIDTH X 0.2CM DEPTH, WITH AN AREA OF 1.12 SQ CM AND A VOLUME OF 0.224 CUBIC CM. ADIPOSE IS EXPOSED. NO TUNNELING HAS BEEN NOTED. NO SINUS TRACT HAS BEEN NOTED. NO UNDERMINING HAS BEEN NOTED. THERE IS A SCANT AMOUNT OF SEROSANGUINEOUS DRAINAGE NOTED WHICH HAS NO ODOR. THE PATIENT REPORTS A WOUND PAIN OF LEVEL 0/10. THE WOUND MARGIN IS ATTACHED WOUND BED HAS YES, PINK, FIRM, GRANULATION, YES SLOUGH, NO ESCHAR, NO EPITHELIALIZATION. THE PERIWOUND SKIN EXHIBITED EDEMA AND HEMOSIDEROSIS. THE PERIWOUND SKIN DID NOT EXHIBIT MACERATION. THE PERIWOUND SKIN WAS DRY/SCALY. THE PERIWOUND SKIN WAS NOT MOIST. THE TEMPERATURE OF THE PERIWOUND SKIN IS WNL. PERIWOUND SKIN DOES NOT EXHIBIT SIGNS OR SYMPTOMS OF INFECTION. LOCAL PULSE IS PALPABLE. ROLANDA ROBLES [id number] 1965 ADDITIONAL INFORMATION OTHER DEVITALIZED TISSUE PRESENT: BIOFILM WOUND #2 LEFT, DISTAL, LATERAL LEG IS A CHRONIC FULL THICKNESS VENOUS ULCER ACQUIRED ON 01/21/2024 AND HAS RECEIVED A STATUS OF NOT HEALED. INITIAL WOUND ENCOUNTER MEASUREMENTS ARE 0.4CM LENGTH X 0.4CM WIDTH X 0.2 CM DEPTH, WITH AN AREA OF 0.16 SQ CM AND A VOLUME OF 0.032 CUBIC CM.INITIAL WOUND ENCOUNTER PREVIOUS MEASUREMENTS FROM 08/22/2024 ARE 0.7CM LENGTH X 0.9CM WIDTH X 0.2CM DEPTH, WITH AN AREA OF 0.63 SQ CM AND A VOLUME OF 0.126 CUBIC CM. ADIPOSE IS EXPOSED. NO TUNNELING HAS BEEN NOTED. NO SINUS TRACT HAS BEEN NOTED. NO UNDERMINING HAS BEEN NOTED. THERE IS A SCANT AMOUNT OF SEROSANGUINEOUS DRAINAGE NOTED WHICH HAS NO ODOR. THE PATIENT REPORTS A WOUND PAIN OF LEVEL 0/10. THE WOUND MARGIN IS ATTACHED WOUND BED HAS YES, BRIGHT RED, PINK, FIRM, GRANULATION, YES SLOUGH, NO ESCHAR, NO EPITHELIALIZATION. THE PERIWOUND SKIN EXHIBITED EDEMA AND HEMOSIDEROSIS. THE PERIWOUND SKIN DID NOT EXHIBIT MACERATION. THE PERIWOUND SKIN WAS DRY/SCALY. THE PERIWOUND SKIN WAS NOT MOIST. THE TEMPERATURE OF THE PERIWOUND SKIN IS WNL. PERIWOUND SKIN DOES NOT EXHIBIT SIGNS OR SYMPTOMS OF INFECTION. LOCAL PULSE IS PALPABLE. ADDITIONAL INFORMATION OTHER DEVITALIZED TISSUE PRESENT: BIOFILM WOUND #3 RIGHT LEG IS A CHRONIC FULL THICKNESS VENOUS ULCER ACQUIRED ON 07/23/2023 AND HAS RECEIVED A STATUS OF NOT HEALED. INITIAL WOUND ENCOUNTER MEASUREMENTS ARE 0.1CM LENGTH X 0.1CM WIDTH X 0.1 CM DEPTH, WITH AN AREA OF 0.01 SQ CM AND A VOLUME OF 0.001 CUBIC CM.INITIAL WOUND ENCOUNTER PREVIOUS MEASUREMENTS FROM 08/22/2024 ARE 0.4CM LENGTH X 0.4CM WIDTH X 0.1CM DEPTH, WITH AN AREA OF 0.16 SQ CM AND A VOLUME OF 0.016 CUBIC CM. ADIPOSE IS EXPOSED. NO TUNNELING HAS BEEN NOTED. NO SINUS TRACT HAS BEEN NOTED. NO UNDERMINING HAS BEEN NOTED. THERE WAS NO DRAINAGE NOTED. THE PATIENT REPORTS A WOUND PAIN OF LEVEL 0/10. THE WOUND MARGIN IS ATTACHED WOUND BED HAS NO, GRANULATION, YES SLOUGH, NO ESCHAR, NO EPITHELIALIZATION. THE PERIWOUND SKIN EXHIBITED EDEMA AND HEMOSIDEROSIS. THE PERIWOUND SKIN DID NOT EXHIBIT MACERATION. THE PERIWOUND SKIN WAS DRY/SCALY. THE PERIWOUND SKIN WAS NOT MOIST. THE TEMPERATURE OF THE PERIWOUND SKIN IS WNL. PERIWOUND SKIN DOES NOT EXHIBIT SIGNS OR SYMPTOMS OF INFECTION. LOCAL PULSE IS PALPABLE. GENERAL NOTES COVERED IN DRIED DRAINAGE. 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 LOWER EXTREMITY (ENCOUNTER DIAGNOSIS) L97.212 - NON-PRESSURE CHRONIC ULCER OF RIGHT CALF WITH FAT LAYER EXPOSED (ENCOUNTER DIAGNOSIS) L97.222 - NON-PRESSURE CHRONIC ULCER OF LEFT CALF WITH FAT LAYER EXPOSED GENERAL NOTES VENOUS ULCERS BOTH LOWER EXTREMITIES, IMPROVED THE FOLLOWING FACTORS HAVE BEEN IDENTIFIED THAT MAY AFFECT WOUND HEALING: DEVITALIZED TISSUE BIOFILM VENOUS INSUFFICIENCY SWELLING ROLANDA ROBLES [id number] 1965 GOALS: REMOVE DEVITALIZED TISSUE REMOVE AND PREVENT BIOFILM REDUCE SWELLING PREVENT INFECTION WOUND CLOSURE PREVENT RECURRENCE PLAN: DEBRIDEMENT, CONTINUE DRESSING CHANGES WITH HYDROFERA BLUE WITH TWO-LAYER LIGHT COMPRESSION. CONTINUE PROTEIN SUPPLEMENTATION, VITAMIN-C, AND ZINC. FOLLOW UP IN 1 WEEK FOR A RECHECK. ORDER VEIN MAPPING. PROCEDURES WOUND #1 WOUND #1 (VENOUS ULCER) IS LOCATED ON THE LEFT, PROXIMAL, LATERAL LEG. A SKIN/SUBCUTANEOUS TISSUE LEVEL SURGICAL DEBRIDEMENT WITH A TOTAL AREA DEBRIDED OF 0.84 SQ CM. WAS PERFORMED BY HASMUKH WILSON MD. SUBCUTANEOUS WAS REMOVED ALONG WITH DEVITALIZED TISSUE: BIOFILM AND SLOUGH. THE FOLLOWING INSTRUMENT(S) WERE USED: CURETTE. PAIN CONTROL WAS ACHIEVED USING EMLA LIDOCAINE/PRILOCAINE 2.5%/2.5%. A TIME OUT WAS CONDUCTED PRIOR TO THE START OF THE PROCEDURE. A MINIMAL AMOUNT OF BLEEDING WAS CONTROLLED WITH PRESSURE. THE PROCEDURE WAS TOLERATED WELL WITH A PAIN LEVEL OF 0 THROUGHOUT AND A PAIN LEVEL OF 0 FOLLOWING THE PROCEDURE. POST DEBRIDEMENT MEASUREMENTS: 1.2CM LENGTH X 0.7CM WIDTH X 0.3CM DEPTH; WITH AN AREA OF 0.84 SQ CM AND A VOLUME OF 0.252 CUBIC CM. ADDITIONAL INFORMATION MUSCLE FASCIA OR BONE REMOVED AND SENT TO PATHOLOGY?: NO WOUND #1 (VENOUS ULCER) IS LOCATED ON THE LEFT, PROXIMAL, LATERAL LEG. A MULTILAYER COMPRESSION PROCEDURE WAS PERFORMED FOR THE LOWER LEFT EXTREMITY BY HORACIO HERNANDEZ MA. A 2 LAYER COBAN WRAP WAS APPLIED WITH MODERATE (20-30 MMHG) COMPRESSION. THE PROCEDURE WAS TOLERATED WELL WITH A PAIN LEVEL OF 0 THROUGHOUT AND A PAIN LEVEL OF 0 FOLLOWING THE PROCEDURE. GENERAL NOTES COBAN 2 LAYER LITE COMPRESSION WRAP SYSTEM APPLIED PER MANUFACTURERS GUIDELINES. WOUND #2 WOUND #2 (VENOUS ULCER) IS LOCATED ON THE LEFT, DISTAL, LATERAL LEG. A SKIN/SUBCUTANEOUS TISSUE LEVEL SURGICAL DEBRIDEMENT WITH A TOTAL AREA DEBRIDED OF 0.16 SQ CM. WAS PERFORMED BY HASMUKH WILSON MD. SUBCUTANEOUS WAS REMOVED ALONG WITH DEVITALIZED TISSUE: BIOFILM AND SLOUGH. THE FOLLOWING INSTRUMENT(S) WERE USED: CURETTE. PAIN CONTROL WAS ACHIEVED USING EMLA LIDOCAINE/PRILOCAINE 2.5%/2.5%. A TIME OUT WAS CONDUCTED PRIOR TO THE START OF THE PROCEDURE. A MINIMAL AMOUNT OF BLEEDING WAS CONTROLLED WITH PRESSURE. THE PROCEDURE WAS TOLERATED WELL WITH A PAIN LEVEL OF 0 THROUGHOUT AND A PAIN LEVEL OF 0 FOLLOWING THE PROCEDURE. POST DEBRIDEMENT MEASUREMENTS: 0.4CM LENGTH X 0.4CM WIDTH X 0.3CM DEPTH; WITH AN AREA OF 0.16 SQ CM AND A VOLUME OF 0.048 CUBIC CM. ADDITIONAL INFORMATION MUSCLE FASCIA OR BONE REMOVED AND SENT TO PATHOLOGY?: NO WOUND #3 WOUND #3 (VENOUS ULCER) IS LOCATED ON THE RIGHT LEG. A SKIN/SUBCUTANEOUS TISSUE LEVEL SURGICAL DEBRIDEMENT WITH A TOTAL AREA DEBRIDED OF 0.01 SQ CM. WAS PERFORMED BY HASMUKH WILSON MD. SUBCUTANEOUS WAS REMOVED ALONG WITH DEVITALIZED TISSUE: BIOFILM AND SLOUGH. THE FOLLOWING INSTRUMENT(S) WERE USED: CURETTE. PAIN CONTROL WAS ACHIEVED USING EMLA LIDOCAINE/PRILOCAINE 2.5%/2.5%. A TIME OUT WAS CONDUCTED PRIOR TO THE START OF THE PROCEDURE. A MINIMAL AMOUNT OF ROLANDA ROBLES [id number] 1965 BLEEDING WAS CONTROLLED WITH PRESSURE. THE PROCEDURE WAS TOLERATED WELL WITH A PAIN LEVEL OF 0 THROUGHOUT AND A PAIN LEVEL OF 0 FOLLOWING THE PROCEDURE. POST DEBRIDEMENT MEASUREMENTS: 0.1CM LENGTH X 0.1CM WIDTH X 0.2CM DEPTH; WITH AN AREA OF 0.01 SQ CM AND A VOLUME OF 0.002 CUBIC CM. ADDITIONAL INFORMATION MUSCLE FASCIA OR BONE REMOVED AND SENT TO PATHOLOGY?: NO WOUND #3 (VENOUS ULCER) IS LOCATED ON THE RIGHT LEG. A MULTILAYER COMPRESSION PROCEDURE WAS PERFORMED FOR THE LOWER RIGHT EXTREMITY BY HORACIO HERNANDEZ MA. A 2 LAYER COBAN WRAP WAS APPLIED WITH MODERATE (20-30 MMHG) COMPRESSION. THE PROCEDURE WAS TOLERATED WELL WITH A PAIN LEVEL OF 0 THROUGHOUT AND A PAIN LEVEL OF 0 FOLLOWING THE PROCEDURE. GENERAL NOTES COBAN 2 LAYER LITE COMPRESSION WRAP SYSTEM APPLIED PER MANUFACTURERS GUIDELINES. PLAN WOUND ORDERS: WOUND #1 LEFT, PROXIMAL, LATERAL LEG CLEANSER CLEANSE WOUND WITH NORMAL SALINE CLEANSE WOUND WITH HYPOCHLOROUS ACID (VASHE OR SIMILAR) THEN APPLY HYPOCHLOROUS ACID SOAKED 4X4 GAUZE TO WOUND BED FOR 5-10 MINUTES AFTER WOUND ASSESSMENT COMPLETED. MAY SHOWER, LEAVE WOUND DRESSING INTACT. COVER WOUND DRESSING WITH A WATERPROOF BARRIER. KEEP DRESSING DRY. NO BATHS PLEASE. DRESSING ORDERS APPLY DRESSING(S) AND SECURE WITH: - HYDROFERABLUE READY TRANSFER WOUND #2 LEFT, DISTAL, LATERAL LEG CLEANSER CLEANSE WOUND WITH NORMAL SALINE CLEANSE WOUND WITH HYPOCHLOROUS ACID (VASHE OR SIMILAR) THEN APPLY HYPOCHLOROUS ACID SOAKED 4X4 GAUZE TO WOUND BED FOR 5-10 MINUTES AFTER WOUND ASSESSMENT COMPLETED. MAY SHOWER, LEAVE WOUND DRESSING INTACT. COVER WOUND DRESSING WITH A WATERPROOF BARRIER. KEEP DRESSING DRY. NO BATHS PLEASE. DRESSING ORDERS APPLY DRESSING(S) AND SECURE WITH: - HYDROFERABLUE READY TRANSFER WOUND #3 RIGHT LEG CLEANSER CLEANSE WOUND WITH NORMAL SALINE CLEANSE WOUND WITH HYPOCHLOROUS ACID (VASHE OR SIMILAR) THEN APPLY HYPOCHLOROUS ACID SOAKED 4X4 GAUZE TO WOUND BED FOR 5-10 MINUTES AFTER WOUND ASSESSMENT COMPLETED. MAY SHOWER, LEAVE WOUND DRESSING INTACT. COVER WOUND DRESSING WITH A WATERPROOF BARRIER. KEEP DRESSING DRY. NO BATHS PLEASE. DRESSING ORDERS APPLY DRESSING(S) AND SECURE WITH: - HYDROFERABLUE READY TRANSFER ADDITIONAL ORDERS: PROCEDURE / ANESTHETIC 5% TOPICAL LIDOCAINE TO WOUND BED PRIOR TO PROCEDURE, IN CLINIC ONLY. DRESSING CHANGE FREQUENCY LEAVE DRESSING INTACT UNTIL YOUR NEXT WOUND CENTER APPOINTMENT. KEEP DRY. COMPRESSION/EDEMA CONTROL ELEVATE LEG(S) ABOVE THE LEVEL OF THE HEART MUCH POSSIBLE. AVOID STANDING IN ONE POSITION FOR MORE THAN 10 MINUTES. AVOID SITTING WITH LEGS DOWN. DO NOT CROSS LEGS WHEN SITTING. APPLY MULTI LAYER WRAP TO AFFECTED LEG(S) AT 20-30MMHG. - COBAN 2 LITES BILATERALLY DIETARY TAKE VITAMIN C 1000MG BY MOUTH DAILY. TAKE ZINC 25MG BY MOUTH DAILY. INCREASE THE PROTEIN IN YOUR DIET. ROLANDA ROBLES [id number] 1965 FOLLOW-UP APPOINTMENTS RETURN APPOINTMENT 1 WEEK - THURSDAY SCRIBING ATTESTATION I ATTEST, THE NURSE, THAT I SCRIBED THESE ORDERS FOR THE WOUND CARE PROVIDER. PROVIDER REVIEW AND ATTESTATION: REVIEWED AND EVALUATED LABS. REVIEWED HOSPITAL RECORDS. DISCUSSED THE PLAN OF CARE @ BEDSIDE WITH - THE PATIENT I AGREE AND ATTEST TO THE ABOVE INFORMATION PROVIDED FROM OTHER LICENSED PROFESSIONALS. ANCILLARY SERVICES: CARDIOVASCULAR: VENOUS ULTRASOUND - PLEASE CALL TO SCHEDULE VENOUS ULTRASOUND TO EVALUATE REFLUX: [phone]. PLAN OF CARE: 01. ENSURE/ESTABLISH OPTIMAL BLOOD FLOW : - COMPLETE LOWER EXTREMITY ASSESSMENT STATUS: CONTINUED DATE: 08/25/2024 02. ASSESS FOR/TREAT INFECTION : - EVALUATE FOR SIGNS AND SYMPTOMS OF INFECTION AND DOCUMENT FINDINGS. STATUS: CONTINUED DATE: 08/25/2024 03. DEBRIDE WEEKLY OR MORE OFTEN PRN : - EVALUATE PATIENT IN CENTER WEEKLY TO ASSESS WOUND BED AND MARGINS FOR NEED FOR DEBRIDEMENT. STATUS: CONTINUED DATE: 08/25/2024 04. OPTIMIZE GLUCOSE CONTROL AND NUTRITION : - ORDER/REVIEW PERTINENT LABS TO EVALUATE RENAL FUNCTION, GLUCOSE CONTROL, AND NUTRITIONAL STATUS. STATUS: CONTINUED DATE: 08/25/2024 - COMPLETE A NUTRITION RISK ASSESSMENT. STATUS: COMPLETED DATE: 08/18/2024 05. OFFLOADING PLAN : - REVIEWED, NOT APPLICABLE 06. OPTIMIZE HOST FACTORS: - ASSESS LIFESTYLE FACTORS SUCH SMOKING, ALCOHOL/DRUG ABUSE, EATING HABITS/MALNUTRITION AND ACTIVITY LEVEL. STATUS: CONTINUED DATE: 08/25/2024 07. DRESSING SELECTION : - EVALUATE FOR DRESSING-RELATED FACTORS, SUCH AVAILABILITY, WEAR TIME, ADAPTABILITY AND USE TO BETTER OPTIMIZE WOUND HEALING AND PATIENT COMPLIANCE. STATUS: CONTINUED DATE: 08/25/2024 08. ADVANCED MODALITIES : - SET TREATMENT GOALS ACCORDING TO PATIENT AND/OR CAREGIVER?S ABILITY/ COMPLIANCE. STATUS: CONTINUED DATE: 08/25/2024 09. FALL PREVENTION : - COMPLETE FALL ASSESSMENT. STATUS: COMPLETED DATE: 08/18/2024 10. PAIN MANAGEMENT : - COMPLETE PAIN ASSESSMENT STATUS: CONTINUED DATE: 08/25/2024 11. MEASURABLE GOALS FOR WOUND HEALING AND/OR HYPERBARIC OXYGEN THERAPY : - WOUND CLOSURE STATUS: CONTINUED DATE: 08/25/2024 12. DURATION/FREQUENCY OF WOUND CARE VISITS : ROLANDA ROBLES [id number] 1965 - 1X WEEKLY FOR 30 DAYS STATUS: CONTINUED DATE: 08/25/2024 ELECTRONIC SIGNATURE(S) SIGNED BY: DATE: HASMUKH WILSON MD 08/25/2024 15:47:55 (PT) ENTERED BY: HASMUKH WILSON MD ON 08/25/2024 15:38:20 (PT) ROLANDA ROBLES [id number] 1965
== END ==
PROVIDERS: PCP Student in an Organized Health Care Education/Training Program; Referring Provider Surgery; Visit Provider Surgery
DX: I87.2 Venous insufficiency (chronic) (peripheral) (principal); L97.822 Non-pressure chronic ulcer of other part of left lower leg with fat layer exposed; L97.812 Non-pressure chronic ulcer of other part of right lower leg with fat layer exposed; I10 Essential (primary) hypertension; L98.8 Other specified disorders of the skin and subcutaneous tissue; R23.4 Changes in skin texture; R60.0 Localized edema
CPT/HCPCS: 11042

== ENCOUNTER → 2024-09-01 09:26 | Outpatient (CLI) | payer OTHER, SELFPAY ==
[2024-08-10 11:56] VITALS: BMI 60.2
== END ==
PROVIDERS: PCP Student in an Organized Health Care Education/Training Program; Referring Provider Surgery; Visit Provider Surgery
DX: I87.2 Venous insufficiency (chronic) (peripheral) (principal); L97.822 Non-pressure chronic ulcer of other part of left lower leg with fat layer exposed; R60.0 Localized edema; R23.4 Changes in skin texture
CPT/HCPCS: 29581; 99213

== ENCOUNTER → 2024-09-07 09:34 | Outpatient (CLI) | payer OTHER, SELFPAY ==
[2024-08-10 11:56] VITALS: BMI 60.2
== END ==
PROVIDERS: PCP Student in an Organized Health Care Education/Training Program; Referring Provider Surgery; Visit Provider Surgery
DX: I87.2 Venous insufficiency (chronic) (peripheral) (principal); L97.822 Non-pressure chronic ulcer of other part of left lower leg with fat layer exposed; R23.4 Changes in skin texture; L98.8 Other specified disorders of the skin and subcutaneous tissue; R60.0 Localized edema
CPT/HCPCS: 11042

== ENCOUNTER → 2024-09-07 10:08 | Outpatient (CLI) | payer OTHER, SELFPAY ==
[2024-08-10 11:56] VITALS: BMI 60.2
[2024-09-07 11:16] LABS: Hematocrit 48.3 % (41-53); Hemoglobin 15.9 g/dL (13.5-17.5); Mean Corpuscular HGB Conc 32.9 % (30-36); Mean Corpuscular Hemoglobin 30.1 PG (26-34); Mean Corpuscular Volume 91.6 fL (80-100); Platelet Count 234 X10^3/uL (150-400); Red Blood Cell Count 5.28 X10^6/uL (4.5-5.9); Red Cell Distribution Width 15.6 % (11.6-14.8); White Blood Cell Count 8.3 X10^3/uL (4.5-11.0)
[2024-09-07 11:34] LABS: BUN Creatinine Ratio 27.3 (6-22); Blood Urea Nitrogen 33 mg/dL (9-20); Calcium 9.3 mg/dL (8.4-10.2); Carbon Dioxide 30 mmol/L (22-32); Chloride 103 mmol/L (98-107); Cholesterol 190 mg/dL (140-199); Estimated Glomerular Filt Rate > 60 mL/min (>60); Glucose 110 mg/dL (80-110); HDL Cholesterol 37 mg/dL (40-60); HEMOLYSIS < 15 (0-50); LDL Cholesterol Calculated 120 mg/dL (<100); Sodium 141 mmol/L (137-145); Triglycerides 166 mg/dL (35-150)
[2024-09-07 11:35] LABS: Potassium 5.4 mmol/L (3.4-5.1)
[2024-09-07 11:59] LABS: Free T4, Direct Thyroxine 0.99 ng/dL (0.78-2.19)
[2024-09-07 12:13] LABS: Thyroid Stimulating Hormone 6.46 uIU/mL (0.47-4.68)
== END ==
PROVIDERS: PCP Family Medicine; Referring Provider Nurse Practitioner Acute Care; Visit Provider Nurse Practitioner Acute Care
DX: I50.23 Acute on chronic systolic (congestive) heart failure (principal); I48.0 Paroxysmal atrial fibrillation; Z79.899 Other long term (current) drug therapy; I87.2 Venous insufficiency (chronic) (peripheral); L97.822 Non-pressure chronic ulcer of other part of left lower leg with fat layer exposed; R23.4 Changes in skin texture; L98.8 Other specified disorders of the skin and subcutaneous tissue; R60.0 Localized edema
CPT/HCPCS: 11042; 36415; 80048; 80061; 84439; 84443; 85027

== ENCOUNTER → 2024-09-15 10:54 | Outpatient (CLI) | payer OTHER, SELFPAY ==
[2024-08-10 11:56] VITALS: BMI 60.2
--- NOTE | 2024-09-15 | OV.WND_ITS ---
PROGRESS NOTE DETAILS PATIENT NAME: ROLANDA ROBLES PATIENT NUMBER: [id number] CLINICIAN: LUIS ALBERTO SANTOYO RN PATIENT DATE OF : 1965 PHYSICIAN / OTR FLATBED DRIVER: STEVEHASMUKH PATIENT SUBJECTIVE CHIEF COMPLAINT THIS INFORMATION WAS OBTAINED FROM THE PATIENT. NO CONCERNS WITH WOUNDS GENERAL NOTES LEFT LEG VENOUS ULCERS. COMPRESSION WRAPS IN PLACE, FALLING DOWN. ALLERGIES NO KNOWN DRUG ALLERGIES HPI THIS INFORMATION WAS OBTAINED FROM THE PATIENT. THE FOLLOWING HPI ELEMENTS WERE DOCUMENTED FOR THE PATIENT'S WOUND: LOCATION: LLE DURATION: 01/21/24 CONTEXT: VENOUS THE PATIENT IS A 58 YEAR OLD MALE WITH CHF, ATRIAL FIBRILLATION, AND FACTOR 5 DEFICIENCY WHO RETURNS TODAY FOR FOLLOW UP OF VENOUS ULCERS ON THE LEFT LOWER EXTREMITY. THE PATIENT IS RECEIVING DRESSING CHANGES WITH HYDROFERA BLUE WITH TWO-LAYER LIGHT COMPRESSION HOWEVER HE HAS BEEN HAVING TROUBLE KEEPING THE WRAPS IN PLACE. HE IS NO LONGER HAVING ANY PAIN. HE HAS NOT NOTED ANY REDNESS NOR HAS HE HAD ANY FEVER OR CHILLS. THE PATIENT REPORTS A GOOD APPETITE AND DENIES EVER HAVING HAD ANY SIMILAR PROBLEMS IN THE PAST. HE HAS NO PRIOR HISTORY OF DVT OR VEIN DISORDERS. THE PATIENT IS NOT ON CHRONIC ANTICOAGULATION. THE PATIENT DOES NOT SMOKE CIGARETTES. ON EXAM TODAY THE ULCER ON THE LEFT IS HEALED. THE PATIENT HAS NOT YET SCHEDULED VEIN MAPPING. LABS: 08/13/24: WBC 9.6, HEMOGLOBIN 14.3, HCT 42.7, SODIUM 135, CHLORIDE 94, CARBON OXIDE 34, BUN 33, CREATININE 1.24, GFR GREATER THAN 60, LFTS NORMAL 08/12/24: ARTERIAL DOPPLER: RIGHT * 20-49% STENOSIS OF THE RIGHT POSTERIOR TIBIAL ARTERY AND DORSALIS PEDIS ARTERY. * 1-19% STENOSIS OF THE RIGHT COMMON FEMORAL, PROXIMAL AND MID SUPERFICIAL FEMORAL ARTERIES. LEFT * 50-99% STENOSIS OF THE LEFT POSTERIOR TIBIAL ARTERY. * 1-19% STENOSIS OF THE LEFT COMMON FEMORAL ARTERY, MID SUPERFICIAL FEMORAL ARTERY AND POPLITEAL ARTERY. * LEFT POPLITEAL FOSSA 4.6 CM [employer] FAMILY HISTORY ROLANDA ROBLES [id number] 1965 THIS INFORMATION WAS OBTAINED FROM THE CHART, PATIENT. OTHER- MOTHER SOCIAL HISTORY THIS INFORMATION WAS OBTAINED FROM THE CHART, PATIENT. CURRENT SOME DAY SMOKER: [place] LIVES IN: HOME W/CHILDREN MEDICAL HISTORY THIS INFORMATION WAS OBTAINED FROM THE CHART, PATIENT. PATIENT HAS A MEDICAL HISTORY OF: FEBRILE ILLNESS, ACUTE UTI TIA SURGICAL HISTORY THIS INFORMATION WAS OBTAINED FROM THE CHART, PATIENT. PATIENT HAS A SURGICAL HISTORY OF: HISTORY OF CRANIOTOMY- BARIATRIC SURGERY STATUS- REVIEW OF SYSTEMS (ROS) THIS INFORMATION WAS OBTAINED FROM THE PATIENT. COMPLAINTS AND SYMPTOMS PATIENT COM PLAINS OF: CARDIOVASCULAR (CENTRAL): DYSPNEA ON EXERTION CO-MORBID CONDITIONS: CONGESTIVE HEART FAILURE, HYPERTENSION, VENOUS INSUFFIENCY HEMATOLOGIC/LYMPHATIC: SWELLING PRIOR WOUND HISTORY: DRAINAGE, ERYTHEMA, PAIN PATIENT DENIES COM PLAINTS OR SY M PTOM S RELATED TO: CARDIOVASCULAR (CENTRAL): CHEST PAIN CONSTITUTIONAL SYMPTOMS (GENERAL HEALTH): CHILLS, FEVER, LOSS OF APPETITE PRIOR WOUND HISTORY: BLEEDING, MALODOR RESPIRATORY: COUGH, SHORTNESS OF BREATH OBJECTIVE VITALS HEIGHT/LENGTH: 70 IN (177.8 CM), WEIGHT: 417.6 LBS (189.82 KGS), BMI: 59.9, TEMPERATURE: 98.4 ?F (36.89 ?C), PULSE: 59 BPM, RESPIRATORY RATE: 18 BREATHS/MIN, BLOOD PRESSURE: 153/78 MMHG, PULSE OXIMETRY: 97 %. PHYSICAL EXAM CONSTITUTIONAL: VITAL SIGNS REVIEWED AND NOTED. OBESE, WELL NOURISHED, AND IN NO ACUTE DISTRESS. ALERT AND ORIENTED X3. RESPIRATORY: ROLANDA ROBLES [id number] 1965 EVEN RESPIRATIONS WITHOUT USE OF ACCESSORY MUSCLES. NO INTERCOASTAL RETRACTIONS NOTED. EVEN AND NON LABORED RESPIRATION. INTEGUMENTARY (HAIR, SKIN): VARICOSE VEINS, HEMOSIDERIN. MILD LOWER EXTREMITY SWELLING. SEE WOUND ASSESSMENT. NEUROLOGICAL: SENSATION: SYMMETRIC FUNCTION BY INFORMAL OBSERVATION. PSYCHIATRIC: ORIENTATION TO TIME, PLACE AND PERSON: NORMAL AFFECT WITH NORMAL THOUGHT PATTERN. LOWER EXTREMITY ASSESSMENT EDEMA ASSESSMENT: LEFT EXTREMITY: EDEMA IS PRESENT COMPRESSION DEVICE IN USE: YES DEVICE USED CORRECTLY: YES DEVICE IN USE: COBAN II LITE CALF MEASUREMENT 36 CM FROM HEEL WITH LEFT MEASUREMENT OF 49.5 CM ANKLE MEASUREMENT 5 CM FROM ANKLE WITH LEFT MEASUREMENT OF 26.5 CM FOOT MEASUREMENT 15 CM FROM HEEL WITH LEFT MEASUREMENT OF 27.5 CM RIGHT EXTREMITY: EDEMA IS PRESENT COMPRESSION DEVICE IN USE: YES DEVICE USED CORRECTLY: YES DEVICE IN USE: COBAN II LITE CALF MEASUREMENT 36 CM FROM HEEL WITH RIGHT MEASUREMENT OF 52 CM ANKLE MEASUREMENT 5 CM FROM ANKLE WITH RIGHT MEASUREMENT OF 28 CM FOOT MEASUREMENT 15 CM FROM HEEL WITH RIGHT MEASUREMENT OF 27 CM VASCULAR ASSESSMENT LEFT EXTREMITY PULSES: DORSALIS PEDIS: PALPABLE RIGHT EXTREMITY PULSES: DORSALIS PEDIS: PALPABLE LEFT EXTREMITY COLORS, HAIR GROWTH, AND CONDITIONS: EXTREMITY COLOR: PIGMENTED HAIR GROWTH ON EXTREMITY: NO TEMPERATURE OF EXTREMITY: WARM CAPILARY REFILL: < 3 SECONDS ERYTHEMA: NO DEPENDENT RUBOR: NO HYPERPIGMENTATION: YES LIPODERMATOSCLEROSIS: NO RIGHT EXTREMITY COLORS, HAIR GROWTH, AND CONDITIONS: EXTREMITY COLOR: PIGMENTED HAIR GROWTH ON EXTREMITY: NO TEMPERATURE OF EXTREMITY: WARM CAPILARY REFILL: < 3 SECONDS ERYTHEMA: NO DEPENDENT RUBOR: NO HYPERPIGMENTATION: YES LIPODERMATOSCLEROSIS: NO WOUND ASSESSMENT(S) WOUND #1 LEFT, PROXIMAL, LATERAL LEG IS A CHRONIC FULL THICKNESS VENOUS ULCER ACQUIRED ON 01/21/2024 AND HAS RECEIVED AN OUTCOME OF HEALED - NO NEW WOUND(S). INITIAL WOUND ENCOUNTER MEASUREMENTS ARE 0CM LENGTH X 0CM WIDTH WITH NO MEASURABLE DEPTH, WITH AN AREA OF 0 SQ CM.INITIAL WOUND ENCOUNTER PREVIOUS MEASUREMENTS FROM 09/07/2024 ARE 0.2CM LENGTH X 0.2CM WIDTH X 0.1CM DEPTH, WITH AN AREA OF 0.04 SQ CM AND A VOLUME OF 0.004 CUBIC CM. NO TUNNELING HAS BEEN NOTED. NO SINUS TRACT HAS BEEN NOTED. NO UNDERMINING HAS BEEN NOTED. THERE IS A SCANT AMOUNT OF SEROSANGUINEOUS DRAINAGE NOTED WHICH HAS NO ODOR. THE PATIENT REPORTS A WOUND PAIN OF LEVEL 0/10. THE WOUND MARGIN IS ATTACHED WOUND BED HAS NO, GRANULATION, NO SLOUGH, NO ESCHAR, YES EPITHELIALIZATION. THE PERIWOUND SKIN EXHIBITED EDEMA AND HEMOSIDEROSIS. THE PERIWOUND SKIN DID NOT EXHIBIT TRAVIS ROLANDA G [id number] 1965 MACERATION. THE PERIWOUND SKIN WAS DRY/SCALY. THE PERIWOUND SKIN WAS NOT MOIST. THE TEMPERATURE OF THE PERIWOUND SKIN IS WNL. PERIWOUND SKIN DOES NOT EXHIBIT SIGNS OR SYMPTOMS OF INFECTION. LOCAL PULSE IS PALPABLE. ADDITIONAL INFORMATION LARRY/VASCULAR COMPLETED?: 08/12/24 ARTERIAL US RESULTS?: STENOSIS NOTED, SEE TEST RESULTS. WOUND #2 LEFT, DISTAL, LATERAL LEG IS A CHRONIC FULL THICKNESS VENOUS ULCER ACQUIRED ON 01/21/2024 AND HAS RECEIVED AN OUTCOME OF HEALED - NO NEW WOUND(S). INITIAL WOUND ENCOUNTER MEASUREMENTS ARE 0CM LENGTH X 0CM WIDTH WITH NO MEASURABLE DEPTH, WITH AN AREA OF 0 SQ CM.INITIAL WOUND ENCOUNTER PREVIOUS MEASUREMENTS FROM 09/07/2024 ARE 0.4CM LENGTH X 0.5CM WIDTH X 0.1CM DEPTH, WITH AN AREA OF 0.2 SQ CM AND A VOLUME OF 0.02 CUBIC CM. NO TUNNELING HAS BEEN NOTED. NO SINUS TRACT HAS BEEN NOTED. NO UNDERMINING HAS BEEN NOTED. THERE IS A SCANT AMOUNT OF SEROSANGUINEOUS DRAINAGE NOTED WHICH HAS NO ODOR. THE PATIENT REPORTS A WOUND PAIN OF LEVEL 0/10. THE WOUND MARGIN IS ATTACHED WOUND BED HAS NO, GRANULATION, NO SLOUGH, NO ESCHAR, YES EPITHELIALIZATION. THE PERIWOUND SKIN EXHIBITED EDEMA AND HEMOSIDEROSIS. THE PERIWOUND SKIN DID NOT EXHIBIT MACERATION. THE PERIWOUND SKIN WAS DRY/SCALY. THE PERIWOUND SKIN WAS NOT MOIST. THE TEMPERATURE OF THE PERIWOUND SKIN IS WNL. PERIWOUND SKIN DOES NOT EXHIBIT SIGNS OR SYMPTOMS OF INFECTION. LOCAL PULSE IS PALPABLE. ADDITIONAL INFORMATION LARRY/VASCULAR COMPLETED?: 08/12/24 ARTERIAL US RESULTS?: STENOSIS NOTED, SEE TEST RESULTS. ASSESSMENT ACTIVE PROBLEMS ICD-10 (ENCOUNTER DIAGNOSIS) I87.313 - CHRONIC VENOUS HYPERTENSION (IDIOPATHIC) WITH ULCER OF BILATERAL LOWER EXTREMITY (ENCOUNTER DIAGNOSIS) L97.222 - NON-PRESSURE CHRONIC ULCER OF LEFT CALF WITH FAT LAYER EXPOSED GENERAL NOTES VENOUS ULCERS LEFT LOWER EXTREMITY HEALED THE FOLLOWING FACTORS HAVE BEEN IDENTIFIED THAT MAY AFFECT WOUND HEALING: DEVITALIZED TISSUE BIOFILM VENOUS INSUFFICIENCY SWELLING GOALS: REMOVE DEVITALIZED TISSUE REMOVE AND PREVENT BIOFILM REDUCE SWELLING PREVENT INFECTION WOUND CLOSURE PREVENT RECURRENCE PLAN: DISCONTINUE DRESSING CHANGES, USE PERSONAL COMPRESSION, DAILY SKIN INSPECTIONS, FOLLOW UP AT WOUND CENTER NEEDED. NEED TO SCHEDULE VEIN MAPPING. PLAN ROLANDA ROBLES [id number] 1965 ADDITIONAL ORDERS: TOPICAL TREATMENTS APPLY MOISTURIZING LOTION TO SURROUNDING SKIN. - FRAGRANT FREE MOISTURIZER TO LEGS. OTHER ORDER: - CHECK LEGS DAILY FOR ANY SKIN BREAKDOWN/CONCERNS. COMPRESSION/EDEMA CONTROL ELEVATE LEG(S) ABOVE THE LEVEL OF THE HEART MUCH POSSIBLE. AVOID STANDING IN ONE POSITION FOR MORE THAN 10 MINUTES. AVOID SITTING WITH LEGS DOWN. DO NOT CROSS LEGS WHEN SITTING. APPLY KNEE-HIGH GRADIENT COMPRESSION STOCKINGS AT 20-30MMHG FOLLOW-UP APPOINTMENTS DISCHARGE FROM OUTPATIENT SERVICES. SCRIBING ATTESTATION I ATTEST, THE NURSE, THAT I SCRIBED THESE ORDERS FOR THE WOUND CARE PROVIDER. PROVIDER REVIEW AND ATTESTATION: REVIEWED AND EVALUATED LABS. REVIEWED HOSPITAL RECORDS. DISCUSSED THE PLAN OF CARE @ BEDSIDE WITH - THE PATIENT I AGREE AND ATTEST TO THE ABOVE INFORMATION PROVIDED FROM OTHER LICENSED PROFESSIONALS. PLAN OF CARE: 01. ENSURE/ESTABLISH OPTIMAL BLOOD FLOW : - COMPLETE LOWER EXTREMITY ASSESSMENT STATUS: CONTINUED DATE: 09/15/2024 02. ASSESS FOR/TREAT INFECTION : - REVIEWED, NOT APPLICABLE 03. DEBRIDE WEEKLY OR MORE OFTEN PRN : - REVIEWED, NOT APPLICABLE 04. OPTIMIZE GLUCOSE CONTROL AND NUTRITION : - COMPLETE A NUTRITION RISK ASSESSMENT. STATUS: COMPLETED DATE: 08/18/2024 05. OFFLOADING PLAN : - REVIEWED, NOT APPLICABLE 06. OPTIMIZE HOST FACTORS: - ASSESS LIFESTYLE FACTORS SUCH SMOKING, ALCOHOL/DRUG ABUSE, EATING HABITS/MALNUTRITION AND ACTIVITY LEVEL. STATUS: CONTINUED DATE: 09/15/2024 07. DRESSING SELECTION : - REVIEWED, NOT APPLICABLE 08. ADVANCED MODALITIES : - SET TREATMENT GOALS ACCORDING TO PATIENT AND/OR CAREGIVER?S ABILITY/ COMPLIANCE. STATUS: CONTINUED DATE: 09/15/2024 09. FALL PREVENTION : - COMPLETE FALL ASSESSMENT. STATUS: COMPLETED DATE: 08/18/2024 10. PAIN MANAGEMENT : - REVIEWED, NOT APPLICABLE 11. MEASURABLE GOALS FOR WOUND HEALING AND/OR HYPERBARIC OXYGEN THERAPY : - WOUND CLOSURE STATUS: COMPLETED DATE: 09/15/2024 12. DURATION/FREQUENCY OF WOUND CARE VISITS : - REVIEWED, NOT APPLICABLE ROLANDA ROBLES [id number] 1965 ELECTRONIC SIGNATURE(S) SIGNED BY: DATE: HASMUKH WILSON MD 09/15/2024 12:55:36 (PT) ENTERED BY: HASMUKH WILSON MD ON 09/15/2024 12:42:02 (PT) ROLANDA ROBLES [id number] 1965
== END ==
PROVIDERS: PCP Family Medicine; Referring Provider Family Medicine; Visit Provider Surgery
DX: I87.2 Venous insufficiency (chronic) (peripheral) (principal)
CPT/HCPCS: 99213

== ENCOUNTER → 2024-10-10 14:19 | Outpatient (CLI) | payer OTHER, SELFPAY ==
[2024-08-10 11:56] VITALS: BMI 60.2
[2024-10-10 15:09] LABS: Hematocrit 50.3 % (41-53); Mean Corpuscular HGB Conc 33.7 % (30-36); Mean Corpuscular Hemoglobin 31.2 PG (26-34); Mean Corpuscular Volume 92.4 fL (80-100); Platelet Count 256 X10^3/uL (150-400); Red Blood Cell Count 5.44 X10^6/uL (4.5-5.9); Red Cell Distribution Width 15.5 % (11.6-14.8); White Blood Cell Count 9.1 X10^3/uL (4.5-11.0)
[2024-10-10 15:24] LABS: BUN Creatinine Ratio 22.8 (6-22); Blood Urea Nitrogen 39 mg/dL (9-20); Calcium 9.2 mg/dL (8.4-10.2); Carbon Dioxide 28 mmol/L (22-32); Chloride 102 mmol/L (98-107); Cholesterol 216 mg/dL (140-199); Estimated Glomerular Filt Rate 45 mL/min (>60); Glucose 95 mg/dL (80-110); HDL Cholesterol 34 mg/dL (40-60); HEMOLYSIS 37 (0-50); LDL Cholesterol Calculated 133 mg/dL (<100); Potassium 4.6 mmol/L (3.4-5.1); Sodium 141 mmol/L (137-145); Triglycerides 244 mg/dL (35-150)
[2024-10-10 15:57] LABS: TSH w/ Reflex to FT4 6.37 uIU/mL (0.47-4.68)
[2024-10-10 16:33] LABS: Free T4, Direct Thyroxine 1.17 ng/dL (0.78-2.19)
== END ==
PROVIDERS: PCP Family Medicine; Referring Provider Nurse Practitioner Acute Care; Visit Provider Nurse Practitioner Acute Care
DX: E87.5 Hyperkalemia (principal); I50.23 Acute on chronic systolic (congestive) heart failure; Z79.899 Other long term (current) drug therapy; I48.0 Paroxysmal atrial fibrillation
CPT/HCPCS: 36415; 80048; 80061; 84439; 84443; 85027

== ENCOUNTER 2024-11-04 17:59 | Emergency (ER) | payer OTHER, SELFPAY ==
[2024-08-10 11:56] VITALS: BMI 60.2
[2024-11-04] VITALS (7 sets, daily range): BP systolic 128–195; BP diastolic 77–110; PULSE 53–82; RESP 16–23; TEMP 36.8; O2SAT 95–97; BMI 60.2
--- NOTE | 2024-11-04 18:06 | DI.RAD.S_ITS ---
PROCEDURE: XR CHEST 1V INDICATIONS: Chest Pain TECHNIQUE: One view of the chest was acquired. COMPARISON: Merged With [facility], CR, XR CHEST 1V, 08/09/2024, 19:44. Merged With [facility], CR, XR CHEST 1V, 06/13/2021, 12:25. FINDINGS: Surgical changes and devices: None. Lungs and pleura: Lungs are clear. No pleural effusions or pneumothorax. Mediastinum: Mediastinal contours appear normal. Heart size is normal. Bones and chest wall: No suspicious bony lesions. Overlying soft tissues appear unremarkable. IMPRESSION: No acute cardiopulmonary abnormality is seen. Dictated by: Vipin Savage M.D. on 11/04/2024 at 19:10 Approved by: Vipin Savage M.D. on 11/04/2024 at 19:11
--- NOTE | 2024-11-04 18:06 | EKG_ITS ---
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
[2024-11-04 18:47] LABS: Add Manual Diff / Slide Review NO; Basophils Absolute Auto 100 /uL (0-100); Basophils Percent Auto 1.1 % (0-2); Eosinophils Absolute Auto 300 /uL (0-450); Eosinophils Percent Auto 4.3 % (2-4); Hematocrit 45.9 % (41-53); Hemoglobin 15.6 g/dL (13.5-17.5); Lymphocytes Absolute Auto 1700 /uL (1100-4500); Lymphocytes Percent Auto 24.6 % (25-40); Mean Corpuscular HGB Conc 33.9 % (30-36); Mean Corpuscular Hemoglobin 31.9 PG (26-34); Mean Corpuscular Volume 94.1 fL (80-100); Monocytes Absolute Auto 800 /uL (0-900); Monocytes Percent Auto 11.1 % (3-14); Neutrophils Absolute Auto 4100 /uL (1500-7000); Neutrophils Percent Auto 58.9 % (50-75); Platelet Count 213 X10^3/uL (150-400); Red Blood Cell Count 4.88 X10^6/uL (4.5-5.9); Red Cell Distribution Width 15.4 % (11.6-14.8); White Blood Cell Count 6.9 X10^3/uL (4.5-11.0)
[2024-11-04 18:50] LABS: INR 1.1 (0.9-1.3); Prothrombin Time 12.1 SECONDS (9.4-12.5)
[2024-11-04 18:53] LABS: PTT Partial Thromboplastin Tim 36 SECONDS (25.1-36.5)
[2024-11-04 18:54] LABS: Lactate (Lactic Acid) 1.3 mmol/L (0.7-2.1)
[2024-11-04 18:55] LABS: Alanine Aminotransferase 25 IU/L (<50); Albumin 4.3 g/dL (3.5-5.0); Albumin Globulin Ratio 1.2 (1.0-2.8); Alkaline Phosphatase 199 U/L (38-126); Aspartate Aminotransferase 37 IU/L (17-59); BUN Creatinine Ratio 28.6 (6-22); Bilirubin Total 0.7 mg/dL (0.2-1.3); Blood Urea Nitrogen 32 mg/dL (9-20); Calcium 8.9 mg/dL (8.4-10.2); Carbon Dioxide 27 mmol/L (22-32); Chloride 105 mmol/L (98-107); Creatine Kinase 139 U/L (55-170); Estimated Glomerular Filt Rate > 60 mL/min (>60); Globulin 3.6 g/dL (1.7-4.1); Glucose 106 mg/dL (70-99); HEMOLYSIS 43 (0-50); Lipase 112 U/L (23-300); Magnesium 1.9 mg/dL (1.6-2.3); Potassium 4.4 mmol/L (3.4-5.1); Sodium 141 mmol/L (137-145); Total Protein 7.9 g/dL (6.3-8.2)
[2024-11-04 19:07] LABS: NT-proBNP (BNP-Adult 18+) 1300 pg/mL (<125); Troponin I 0.014 ng/mL (0.01-0.034)
--- NOTE | 2024-11-04 20:00 | ED_ITS ---
HPI - Sepsis General Chief Complaint: Shortness of Breath/Dyspnea Mode of arrival: Ambulatory Source: patient Limitations: no limitations Evaluation Sepsis Screen: No Definite Risk Sepsis Infection Criteria Present: None Narrative: 59-year-old gentleman history of chronic bilateral lower extremity edema, congestive heart failure, hypertension, factor 5 Leiden on eliquis presents with shortness of breath while at rest over the past 24 hours but denies cough chest pain fever chills body aches. His weight has remained stable he has not noticed he has gained any more weight than usual. He is on a water pill that he takes regularly and has not missed a dose. Other than what is stated 14 point review of system is negative Review of Systems Review of Systems ROS Unobtainable: All systems reviewed & are unremarkable except as noted in HPI and below Patient History Medical History Febrile illness, acute UTI (urinary tract infection) TIA (transient ischemic attack) Surgical History History of craniotomy Bariatric surgery status Family History Mother Pulmonary embolism Social History household members: children Smoking Status: Former smoker alcohol intake: current substance use type: marijuana Smoking Status: Former smoker alcohol intake frequency: a few times a week Exam Narrative Exam Narrative: GENERAL: [59] year old patient appears stated age. Well-developed patient, in mild distress. HEAD: Atraumatic. Normocephalic. EYES: Pupils equal round and reactive. Extraocular motions intact. No scleral icterus. No injection or drainage. ENT: Nose without bleeding, purulent drainage. Throat without erythema, tonsillar hypertrophy or exudate. Airway patent. NECK: Trachea midline. Non tender CARDIOVASCULAR: Regular rate and rhythm without murmurs, gallops, or rubs. RESPIRATORY: Diminished breath sounds bilaterally. GASTROINTESTINAL: Abdomen soft, non-tender, nondistended. EXTREMITIES: chronic edema bilateral extremity with no signs of cellulitis more consistent with venous stasis BACK: Nontender without deformity or crepitance. No flank tenderness. NEURO: AOx3. SKIN: No rash or erythema of visible areas Initial Vital Signs Initial Vital Signs: Vital Signs Temperature 98.3 F 11/04/24 18:01 Pulse Rate 69 11/04/24 18:01 Respiratory Rate 16 11/04/24 18:01 Blood Pressure 195/110 H 11/04/24 18:01 Pulse Oximetry 97 11/04/24 18:01 Oxygen Delivery Method Room Air 11/04/24 18:01 Course Orders Ordered: Discontinued Medications Aspirin (Aspirin 81 Mg Chew Tab) 324 mg PO NOW ONE Stop: 11/04/24 18:07 Last Admin: 11/04/24 20:49 Dose: Not Given Documented By: Furosemide (Furosemide 40 Mg/4 Ml Vial) 40 mg IV NOW ONE Stop: 11/04/24 22:03 Last Admin: 11/04/24 22:07 Dose: 40 mg Documented By: ROJAS Vital Signs Vital signs: Vital Signs - 8 hr 11/04/24 23:33 Pulse Rate 82 Respiratory Rate 20 Pulse Oximetry 95 Oxygen Delivery Method Room Air Sepsis Evaluation (ED) Triage Screening Sepsis Screen: No Definite Risk Level 1 - Infection Sepsis Infection Criteria Present: None Response It is my opinion that his patient have a likely infectious etiology for meeting sepsis criteria: Does Not Fluid calculation based on 30 mL/kg within 1hr of criteria: N/A Antibiotics initiated within 1 hr of Sepis dx: No Tissue Perfusion Reassessed within 6 hrs of infusion start time: No MDM - Sepsis Lab Data 11/04/24 18:34 11/04/24 18:34 Labs: Lab Results 11/04/24 11/04/24 Range/Units 18:34 21:26 WBC 6.9 (4.5-11.0) X10^3/uL RBC 4.88 (4.5-5.9) X10^6/uL Hgb 15.6 (13.5-17.5) g/dL Hct 45.9 (41-53) % MCV 94.1 (80-100) fL MCH 31.9 (26-34) PG MCHC 33.9 (30-36) % RDW 15.4 H (11.6-14.8) % Plt Count 213 (150-400) X10^3/uL Neut % (Auto) 58.9 (50-75) % Lymph % (Auto) 24.6 L (25-40) % Bandera % (Auto) 11.1 (3-14) % Eos % (Auto) 4.3 H (2-4) % Baso % (Auto) 1.1 (0-2) % Neut # (Auto) 4100 (7954-1645) /uL Lymph # (Auto) 1700 (5980-2205) /uL Band[place] # (Auto) 800 (0-900) /uL Eos # (Auto) 300 (0-450) /uL Baso # (Auto) 100 (0-100) /uL PT 12.1 (9.4-12.5) SECONDS INR 1.1 (0.9-1.3) APTT 36 (25.1-36.5) SECONDS Sodium 141 (137-145) mmol/L Potassium 4.4 (3.4-5.1) mmol/L Chloride 105 (98-107) mmol/L Carbon Dioxide 27 (22-32) mmol/L BUN 32 H (9-20) mg/dL Creatinine 1.12 (0.66-1.25) mg/dL Estimated GFR > 60 (>60) mL/min BUN/Creatinine Ratio 28.6 H (6-22) Glucose 106 H (70-99) mg/dL Lactate 1.3 (0.7-2.1) mmol/L Calcium 8.9 (8.4-10.2) mg/dL Magnesium 1.9 (1.6-2.3) mg/dL Total Bilirubin 0.7 (0.2-1.3) mg/dL AST 37 (17-59) IU/L ALT 25 (<50) IU/L Alkaline Phosphatase 199 H (38-126) U/L Total Creatine Kinase 139 (55-170) U/L Troponin I 0.014 0.016 (0.01-0.034) ng/mL NT-Pro-B Natriuret Pep 1300 H (<125) pg/mL Total Protein 7.9 (6.3-8.2) g/dL Albumin 4.3 (3.5-5.0) g/dL Globulin 3.6 (1.7-4.1) g/dL Albumin/Globulin Ratio 1.2 (1.0-2.8) Lipase 112 (23-300) U/L Imaging Data Chest x-ray: Radiologist's Impression: [address] [address] XRay Report Signed Patient: Sj Tran II MR#: [id number] : 1965 Acct:[id number] Age/Sex: 59 / M Date of Service: 11/04/24 Loc: ED Accession Number: [id number] Procedure: XR chest 1V Ordering Provider: Dilshad Sánchez D.O. PROCEDURE: XR CHEST 1V INDICATIONS: Chest Pain TECHNIQUE: One view of the chest was acquired. COMPARISON: [facility], CR, XR CHEST 1V, 08/09/2024, 19:44. [facility], CR, XR CHEST 1V, 06/13/2021, 12:25. FINDINGS: Surgical changes and devices: None. Lungs and pleura: Lungs are clear. No pleural effusions or pneumothorax. Mediastinum: Mediastinal contours appear normal. Heart size is normal. Bones and chest wall: No suspicious bony lesions. Overlying soft tissues appear unremarkable. IMPRESSION: No acute cardiopulmonary abnormality is seen. Dictated by: Vipin Savage M.D. on 11/04/2024 at 19:10 Approved by: Vipin Savage M.D. on 11/04/2024 at 19:11 CT scan - chest: Radiologist's Impression: [facility] [address] [place] [id number] Scan Report Signed Patient: Sj Tran II MR#: [id number] : 1965 Acct:[id number] Age/Sex: 59 / M Date of Service: 11/04/24 Loc: ED Accession Number: [id number] Procedure: CT angio chest PE protocol Ordering Provider: Dilshad Sánchez D.O. PROCEDURE: CT ANGIO CHEST PE PROTOCOL INDICATIONS: sob TECHNIQUE: After the administration of intravenous contrast, 2 mm thick sections acquired from the pulmonary apices to the posterior costophrenic angles. 3-dimensional maximum intensity projection (MIP) coronal and sagittal reformats were then acquired through the thorax. For radiation dose reduction, the following was used: automated exposure control, adjustment of mA and/or kV according to patient size. COMPARISON: None. FINDINGS: Image quality: Diagnostic. Pulmonary arteries: Pulmonary arteries are enlarged in size, and demonstrate no intraluminal filling defects to suggest central pulmonary embolism. Distal subsegmental branches of bilateral pulmonary arteries are suboptimally opacified. Lower Neck: No enlarged lymph nodes. Thyroid: No thyroid nodules which require sonographic follow up, per consensus guidelines. Axillae: No enlarged lymph nodes. Chest Wall: Unremarkable. Bones: Unremarkable. Lungs and Pleura: No pneumothorax or pleural effusions. Scattered bibasilar scarring/atelectasis is seen. No consolidation or suspicious nodules. Heart: Heart size is enlarged. No pericardial effusion. Thoracic Vessels: Ascending thoracic aortic aneurysm measures up to 4.8 cm in largest AP diameter. Mediastinum and Jennyfer: Mildly enlarged precarinal node measures 1.1 cm in size is seen. Esophagus: No wall thickening. Small hiatal hernia. Upper Abdomen: Cholelithiasis without gallbladder wall thickening. No abnormalities are seen in visualized portion of liver and spleen. IMPRESSION: 1. No central pulmonary embolus. Enlarged main pulmonary artery which can be seen associated with pulmonary vascular hypertension. Distal bilateral subsegmental pulmonary artery branches are suboptimally opacified. 2. Ascending thoracic aortic aneurysm measures up to 4.8 cm in largest AP diameter. No gross aortic dissection. 3. Cardiomegaly, no pericardial effusion. Mildly enlarged mediastinal lymph nodes which may be reactive in nature. Small hiatal hernia. 4. Bibasilar dependent atelectasis. No focal infiltrate, pleural effusion or pneumothorax. 5. Cholelithiasis without CT evidence of acute cholecystitis. Dictated by: Shan Schmidt M.D. on 11/04/2024 at 20:52 Approved by: Shan Schmidt M.D. on 11/04/2024 at 20:59 ECG Data Interpretation: Afib HR 65 OK undeterimined QRS [address]-t wave change Change from 08/09/24 [facility] Narrative Medical decision making narrative: All lab work, vital signs, nurse triage note, medication list, previous ER visits, chest x-ray and CT scan all reviewed. Patient given Lasix 40 mg IV x1 with multiple trips to the bathroom but urine output total was not measured. Patient feels much better and is no longer short of breath at this time. Differential diagnosis includes PE pneumonia CHF STEMI NSTEMI CKD HTN urgency. DC home to take Lasix twice a day instead of once a day and to follow up with PCP on Thursday for recheck. Discharge Plan Departure Patient Disposition: Home Clinical Impression: Elevated blood pressure reading Aortic aneurysm Qualifiers: Aortic location: thoracic aorta Thoracic aorta location: ascending aorta P resence of rupture: without rupture Qualified Code(s): I71.21 - Aneurysm of the ascending aorta, without rupture Gallstone Qualifiers: Cholecystitis presence: without cholecystitis Biliary obstruction: without biliary obstruction Qualified Code(s): K80.20 - Calculus of gallbladder without cholecystitis without obstruction Instructions: Aortic Aneurysm Activity Restrictions/Additional Instructions: Return with new or worsening symptoms. Take Lasix pill twice a day for 2 more days. Follow up with PCP on Thursday for blood pressure recheck Prescriptions: No Action hydrochlorothiazide 25 mg Tablet 25 mg PO DAILY terazosin 1 mg Capsule 1 mg PO QAM Eliquis 5 mg Tablet 5 mg PO BID Qty: 60 0RF furosemide 40 mg Tablet 40 mg PO DAILY Qty: 30 0RF amiodarone 200 mg Tablet 200 mg PO DAILY Qty: 30 0RF cephalexin 250 mg Capsule 500 mg PO QID Qty: 12 0RF metoprolol tartrate 25 mg Tablet 75 mg PO BID Qty: 180 0RF Referrals: Dereck Hurt MD [Primary Care Provider] - Stand Alone Forms: Patient Portal/API/Survey
--- NOTE | 2024-11-04 20:12 | DI.CT.S_ITS ---
PROCEDURE: CT ANGIO CHEST PE PROTOCOL INDICATIONS: sob TECHNIQUE: After the administration of intravenous contrast, 2 mm thick sections acquired from the pulmonary apices to the posterior costophrenic angles. 3-dimensional maximum intensity projection (MIP) coronal and sagittal reformats were then acquired through the thorax. For radiation dose reduction, the following was used: automated exposure control, adjustment of mA and/or kV according to patient size. COMPARISON: None. FINDINGS: Image quality: Diagnostic. Pulmonary arteries: Pulmonary arteries are enlarged in size, and demonstrate no intraluminal filling defects to suggest central pulmonary embolism. Distal subsegmental branches of bilateral pulmonary arteries are suboptimally opacified. Lower Neck: No enlarged lymph nodes. Thyroid: No thyroid nodules which require sonographic follow up, per consensus guidelines. Axillae: No enlarged lymph nodes. Chest Wall: Unremarkable. Bones: Unremarkable. Lungs and Pleura: No pneumothorax or pleural effusions. Scattered bibasilar scarring/atelectasis is seen. No consolidation or suspicious nodules. Heart: Heart size is enlarged. No pericardial effusion. Thoracic Vessels: Ascending thoracic aortic aneurysm measures up to 4.8 cm in largest AP diameter. Mediastinum and Jennyfer: Mildly enlarged precarinal node measures 1.1 cm in size is seen. Esophagus: No wall thickening. Small hiatal hernia. Upper Abdomen: Cholelithiasis without gallbladder wall thickening. No abnormalities are seen in visualized portion of liver and spleen. IMPRESSION: 1. No central pulmonary embolus. Enlarged main pulmonary artery which can be seen associated with pulmonary vascular hypertension. Distal bilateral subsegmental pulmonary artery branches are suboptimally opacified. 2. Ascending thoracic aortic aneurysm measures up to 4.8 cm in largest AP diameter. No gross aortic dissection. 3. Cardiomegaly, no pericardial effusion. Mildly enlarged mediastinal lymph nodes which may be reactive in nature. Small hiatal hernia. 4. Bibasilar dependent atelectasis. No focal infiltrate, pleural effusion or pneumothorax. 5. Cholelithiasis without CT evidence of acute cholecystitis. Dictated by: Shan Schmidt M.D. on 11/04/2024 at 20:52 Approved by: Shan Schmidt M.D. on 11/04/2024 at 20:59
[2024-11-04 21:57] LABS: Troponin I 0.016 ng/mL (0.01-0.034)
[2024-11-04] MEDS: FUROSEMIDE 40 MG/4 ML VIAL IV (22:07)
== END 2024-11-04 23:35 | disposition home or self-care (01) ==
PROVIDERS: Emergency Provider Family Medicine; PCP Family Medicine
DX: I71.21 Aneurysm of the ascending aorta, without rupture (principal); R07.9 Chest pain, unspecified; K80.20 Calculus of gallbladder without cholecystitis without obstruction; I10 Essential (primary) hypertension; I50.9 Heart failure, unspecified; Z79.01 Long term (current) use of anticoagulants
CPT/HCPCS: 36415; 71045; 71275; 80053; 82550; 83605; 83690; 83735; 83880; 84484; 85025; 85610; 85730; 93005; 96374; 99284; J1938; Q9967